=== PATIENT | female | born 1950 | race Caucasian/White ===

== ENCOUNTER → 2021-01-29 | Outpatient (CLI) | payer MEDICARE ==
--- NOTE | 2021-01-29 11:41 | Diagnostic Imaging Report ---
PROCEDURE: CT urinary tract, rule out kidney stone. TECHNIQUE: Multiple contiguous axial images were obtained through the abdomen and pelvis without the use of intravenous contrast. Auto Exposure Controls were utilized during the CT exam to meet ALARA standards for radiation dose reduction. INDICATION: Recurrent urinary tract infection. FINDINGS: Images through the lower thorax reveal coronary artery calcifications. Unenhanced images of the liver reveal no focal lesion. Gallbladder is surgically absent. Spleen is also absent. There is distention of the stomach with fluid. There is no evidence of pancreatic or adrenal gland abnormality. Kidneys demonstrate lobular cortical contour without discrete mass or hydronephrosis. There is no evidence of renal or ureteric stone. No hydronephrosis or hydroureter is seen. There is no evidence of free fluid within the abdomen or pelvis. Unopacified bladder is unremarkable. There is mild prominence of bladder wall thickness although this is difficult to assess without complete distention. Lower lumbar degenerative disc disease is noted. IMPRESSION: No evidence of urinary tract calculus or obstruction. Bladder wall is mildly thickened and cystitis is not excluded. Note is made of previous cholecystectomy, splenectomy and coronary artery disease. Dictated by: Dictated on workstation # [id number]
== END ==
LOC: RAD FS 11:00
PROVIDERS: ATTEND Internal Medicine Nephrology
DX: N39.0 Urinary tract infection, site not specified (principal); E11.21 Type 2 diabetes mellitus with diabetic nephropathy; E11.22 Type 2 diabetes mellitus with diabetic chronic kidney disease; N18.31 Chronic kidney disease, stage 3a; I25.10 Atherosclerotic heart disease of native coronary artery without angina pectoris; N32.89 Other specified disorders of bladder; Z90.49 Acquired absence of other specified parts of digestive tract
CPT/HCPCS: 74176

== ENCOUNTER → 2021-02-14 | Outpatient (CLI) | payer MEDICARE | LOC: CARD 12:52 | PROVIDERS: ATTEND Internal Medicine Cardiovascular Disease | DX: I34.0 Nonrheumatic mitral (valve) insufficiency (principal); I51.7 Cardiomegaly; I25.10 Atherosclerotic heart disease of native coronary artery without angina pectoris; I70.1 Atherosclerosis of renal artery; I65.29 Occlusion and stenosis of unspecified carotid artery | CPT/HCPCS: 93306 ==

== ENCOUNTER 2021-03-06 13:33 | Emergency (ER) | payer MEDICARE ==
[~2021-03-06] VITALS: Ht 172 cm; Wt 120.4 kg
--- NOTE | 2021-03-06 14:18 | ED GI ---
General Chief Complaint: Abdominal/GI Problems Stated Complaint: DIAHRRHEA X4 DAYS, PANCREATITIS FLARING UP Nursing Triage Note: TO ED PER W/C WITH [address] REPORTS UPPER ABD PAIN X4 DAYS WITH DIARRHEA AND NAUSEA. ATE GRENADIAN LAST NIGHT . HAS MUTIPLE HEALTH ISSUES Sepsis Screen: No Definite Risk (NIDHI TORRES MED STUDENT) History of Present Illness Date Seen by Provider: Mar 06, 2021 Time Seen by Provider: 14:05 Initial Comments Mrs. Wayne is a 70yo female that presents today with 4 days of Upper abdominal pain and diarrhea. She states that both symptoms started about 4 days ago and have been getting worse since. Describes pain as intermittent, Sharp, non radiating pain that is worse in the upper quadrants bilaterally and epigastric. Has been very nauseous but no episodes of vomiting. Appetite is decreased. Last meal was yesterday followed by episode of diarrhea. Denies bloody stools but states stools are oily which is unusual for her. She states that besides food, she has not noticed anything that makes it worse, she stopped taking her metoclopramide when the diarrhea started. 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 This was in 2017 and she states that since this occured she has not had another flare up. Timing/Duration: 3-4 Days Severity/Quality: Moderate, Cramping, Sharp Location: RUQ, LUQ, Epigastric Radiation: No Radiation Activities at Onset: None Modifying Factors: Improves With Eating Associated Symptoms: No Chest Pain; Headache; No Heartburn; Nausea/Vomiting (no vomiting), Shortness of Air (coughing green sputum) (NIDHI TORRES MED STUDENT) Allergies and Home Medications Allergies Coded Allergies: Cephalosporins (Verified Allergy, Unknown, 03/06/21) Sulfa (Sulfonamide Antibiotics) (Verified Allergy, Unknown, 03/06/21) fenofibrate (Verified Allergy, Unknown, 03/06/21) gabapentin (Verified Allergy, Unknown, 03/06/21) levofloxacin (Verified Allergy, Unknown, 03/06/21) naloxone (Verified Allergy, Unknown, 03/06/21) Uncoded Allergies: CONTRAST (Allergy, Unknown, 03/06/21) Home Medications Azithromycin 250 Mg Tablet, 250 MG PO UD TAKE 2 TABLETS ON DAY ONE THEN TAKE 1 TABLET DAILY FOR FOUR MORE DAYS Prescribed by: DEBBIE CHAMPION on 03/06/21 1649 Ondansetron 4 Mg Tab.rapdis, 4 MG PO Q4H PRN for NAUSEA/VOMITING Prescribed by: DEBBIE CHAMPION on 03/06/21 1650 Patient Home Medication List Home Medication List Reviewed: Yes (NIDHI TORRES) Review of Systems Review of Systems Constitutional: No chills, No dizziness, No fever Respiratory: Cough (Green sputum), Shortness of Air Cardiovascular: Denies Chest Pain, Denies Edema; Palpitations Gastrointestinal: Abdomen Distended, Abdominal Pain; Denies Blood Streaked Stools, Denies Constipated; Diarrhea; Denies Difficulty Swallowing; Nausea, Poor Appetite; Denies Rectal Bleeding, Denies Vomiting Genitourinary: Denies Burning, Denies Frequency, Denies Hematuria Musculoskeletal: No joint pain Skin: No rash (NIDHI TORRES) EENTM: No Symptoms Reported Psychiatric/Neurological: No Symptoms Reported Endocrine: No Symptoms Reported (DEBBIE DE LEON MD) Past Qnrbkug-Vwagek-Utmkyy Hx Past Med/Social Hx: Reviewed Nursing Past Med/Soc Hx (DEBBIE DE LEON MD) Patient Social History Alcohol Use: Denies Use Smoking Status: Never a Smoker Recent Infectious Disease Expo: No (NIDHI TORRES) Past Medical History Surgeries: Yes (SPLEEN) Appendectomy, Gallbladder, Orthopedic, Pancreatic, Tonsillectomy Cardiac: Yes (heart stent) Angina Gastrointestinal: Yes Pancreatitis Musculoskeletal: Yes Rheumatoid Arthritis Diabetes, Insulin dep (NIDHI TORRES) Respiratory: Yes (Uses oxygen supplementation continuously) Genitourinary: Yes Renal Failure (CKD) (DEBBIE DE LEON MD) Physical Exam Vital Signs Vital Signs - First Documented 03/06/21 03/06/21 13:38 17:08 Temp 35.3 Pulse 65 Resp 18 B/P (MAP) 116/50 (72) Pulse Ox 97 O2 Delivery Room Air O2 Flow Rate 3.00 (DEBBIE DE LEON MD) Vital Signs Capillary Refill : Less Than 3 Seconds (NIDHI TORRES) Height/Weight/BMI Height: '" Weight: lbs. oz. kg; 40.00 BMI Method: General Appearance: WD/WN, mild distress, obese HEENT: other (Oral mucosa moist) Respiratory: chest non-tender, crackles (RLL) Cardiovascular: regular rate, rhythm, no edema, no murmur Peripheral Pulses: 2+ Radial Pulses (R), 2+ Radial Pulses (L) Gastrointestinal: normal bowel sounds, soft, no organomegaly, no pulsatile mass; No guarding; tenderness (RUQ, LUQ, Epigastric); No hernia, No mass Rectal: deferred Extremities: non-tender, no pedal edema Neurologic/Psychiatric: alert, normal mood/affect, oriented x 3 Skin: normal color, warm/dry (MELISSA,NIDHI MED STUDENT) Progress/Results/Core Measures Results/Orders Lab Results Laboratory Tests Test 03/06/21 14:19 03/06/21 14:30 03/06/21 14:47 03/06/21 14:48 Range/Units Urine Color YELLOW Urine Clarity CLEAR Urine pH 5.5 5-9 Urine Specific Wilson 1.020 1.016-1.022 Urine Protein TRACE H NEGATIVE Urine Glucose (UA) NEGATIVE NEGATIVE Urine Ketones NEGATIVE NEGATIVE Urine Nitrite NEGATIVE NEGATIVE Urine Bilirubin NEGATIVE NEGATIVE Urine Urobilinogen 0.2 < = 1.0 MG/DL Urine Leukocyte Esterase TRACE H NEGATIVE Urine RBC (Auto) NEGATIVE NEGATIVE Urine RBC RARE /HPF Urine WBC 5-10 H /HPF Urine Squamous Epithelial Cells 5-10 /HPF Urine Crystals NONE /LPF Urine Bacteria TRACE /HPF Urine Casts PRESENT /LPF Urine Hyaline Casts 10-25 H /LPF Urine Mucus SMALL H /LPF Urine Culture Indicated YES White Blood Count 12.8 H 4.3-11.0 10^3/uL Red Blood Count 4.07 3.80-5.11 10^6/uL Hemoglobin 12.4 11.5-16.0 g/dL Hematocrit 39 35-52 % Mean Corpuscular Volume 95 80-99 fL Mean Corpuscular Hemoglobin 31 25-34 pg Mean Corpuscular Hemoglobin Concent 32 32-36 g/dL Red Cell Distribution Width 14.5 10.0-14.5 % Platelet Count 362 130-400 10^3/uL Mean Platelet Volume 10.0 9.0-12.2 fL Immature Granulocyte % (Auto) 1 % Neutrophils (%) (Auto) 67 42-75 % Lymphocytes (%) (Auto) 18 12-44 % Monocytes (%) (Auto) 10 0-12 % Eosinophils (%) (Auto) 5 0-10 % Basophils (%) (Auto) 1 0-10 % Neutrophils # (Auto) 8.5 H 1.8-7.8 10^3/uL Lymphocytes # (Auto) 2.3 1.0-4.0 10^3/uL Monocytes # (Auto) 1.2 H 0.0-1.0 10^3/uL Eosinophils # (Auto) 0.6 H 0.0-0.3 10^3/uL Basophils # (Auto) 0.1 0.0-0.1 10^3/uL Immature Granulocyte # (Auto) 0.1 0.0-0.1 10^3/uL Sodium Level 137 135-145 MMOL/L Potassium Level 4.3 3.6-5.0 MMOL/L Chloride Level 101 98-107 MMOL/L Carbon Dioxide Level 24 21-32 MMOL/L Anion Gap 12 5-14 MMOL/L Blood Urea Nitrogen 31 H 7-18 MG/DL Creatinine 1.61 H 0.60-1.30 MG/DL Estimat Glomerular Filtration Rate 32 BUN/Creatinine Ratio 19 Glucose Level 74 70-105 MG/DL Calcium Level 9.8 8.5-10.1 MG/DL Corrected Calcium 9.7 8.5-10.1 MG/DL Total Bilirubin 0.4 0.1-1.0 MG/DL Aspartate Amino Transf (AST/SGOT) 23 5-34 U/L Alanine Aminotransferase (ALT/SGPT) 14 0-55 U/L Alkaline Phosphatase 55 40-136 U/L C-Reactive Protein High Sensitivity 1.36 H 0.00-0.50 MG/DL Total Protein 7.7 6.4-8.2 GM/DL Albumin 4.1 3.2-4.5 GM/DL Lipase 29 8-78 U/L B-Type Natriuretic Peptide 18.2 <100.0 PG/ML SARS-CoV-2 RNA (RT-PCR) Not Detected Not Detecte (DEBBIE DE LEON MD) My Orders Orders - DEBBIE DE LEON MD Cbc With Automated Diff (03/06/21 13:37) Comprehensive Metabolic Panel (03/06/21 13:37) Hs C Reactive Protein (03/06/21 13:37) Lipase (03/06/21 13:37) Ua Culture If Indicated (03/06/21 13:37) Ed Iv/Invasive Line Start (03/06/21 13:37) Urine Culture (03/06/21 14:19) Ns Iv 1000 Ml (Sodium Chloride 0.9%) (03/06/21 15:15) Covid 19 Inhouse Test (03/06/21 15:04) Chest Pa/Lat (2 View) (03/06/21 15:06) BNP (03/06/21 15:06) Monitor-Rhythm Ecg Trace Only (03/06/21 15:06) Ondansetron Injection (Zofran Injectio (03/06/21 15:45) (DEBBIE DE LEON MD) Medications Given in ED (DEBBIE DE LEON MD) Vital Signs/I&O 03/06/21 03/06/21 13:38 17:08 Temp 35.3 Pulse 65 64 Resp 18 18 B/P (MAP) 116/50 (72) 146/64 Pulse Ox 97 95 O2 Delivery Room Air Nasal Cannula O2 Flow Rate 3.00 (DEBBIE DE LEON MD) Blood Pressure Mean: 72 Progress Progress Note : Progress Note Patient reports some diarrhea associated with respiratory symptoms. For this reason a COVID-19 swab was obtained. It was negative. Labs showed no evidence of pancreatitis. She did seem dry based on her work-up although baseline labs are not available. A liter of IV fluid was infused. Nausea was treated with Zofran. Urinary tract infection was suspected based on urinalysis. Chest x-ray showed some pleural thickening versus effusion. Given her symptoms and possible urinary tract infection, antibiotic therapy was felt appropriate. However, she has numerous antibiotic allergies that make antibiotic selection quite difficult. For now we will use a azithromycin. Nitrofurantoin cannot be used at this time due to her present GFR. She should follow-up with her primary care provider to review cultures. See discharge instructions. There was a lymphocytic predominance on her CBC differential and CRP was low which would suggest her GI symptoms may be viral in nature. (DEBBIE DE LEON MD) Diagnostic Imaging Diagonstic Imaging: Xray Plain Films/CT/US/NM/MRI: chest Comments NAME: BRAD WAYNE REC#: [id number] PT STATUS: REG ER : 1950 PHYSICIAN: DEBBIE DE LEON MD ADMIT DATE: 03/06/21/ER Signed Date of Exam:03/06/21 CHEST PA/LAT (2 VIEW) INDICATION: Cough, shortness of air. COMPARISON: None available. TECHNIQUE: Two radiographs of the chest dated 03/06/2021. FINDINGS: The cardiac silhouette is within normal limits in size. No significant pulmonary vascular congestion. Mild elevation of the right hemidiaphragm. Mild blunting of the right lateral costophrenic angle. The lungs are otherwise clear of focal pulmonary opacity. No left pleural effusion. No pneumothorax. Surgical clips overlying the right neck. Mild scattered osseous degenerative changes without acute osseous abnormality. IMPRESSION: Mild elevation of the right hemidiaphragm with trace right pleural thickening versus less likely trace pleural fluid laterally on the right. Dictated by: Dictated on workstation # [id number] Dict: 03/06/21 1600 Trans: 03/06/21 1610 [facility] [id number] Interpreted by: HORACIO VARGAS MD Electronically signed by: HORACIO VARGAS MD 03/06/21 1610 (DEBBIE DE LEON MD) Departure Impression Primary Impression: Cough Additional Impressions: Upper abdominal pain Diarrhea Qualified Codes: R19.7 - Diarrhea, unspecified Urinary tract infection Qualified Codes: N39.0 - Urinary tract infection, site not specified Acute kidney injury superimposed on chronic kidney disease Disposition: HOME, SELF-CARE Condition: Improved Departure-Patient Inst. Decision time for Depature: 16:47 (DEBBIE DE LEON MD) Referrals: SABA GORMAN APRN (PCP) Primary Care Physician RAMIRO JOHNS MD Patient Instructions: Diarrhea, Adult ED Add. Discharge Instructions: Drink plenty of water to stay well-hydrated. Follow-up with your primary care provider after 48 hours to review urine culture results to determine if other antibiotics are appropriate. Complete your antibiotics as prescribed. As an alternative to Reglan (metoclopramide) while you have diarrhea, you may use Zofran (ondansetron). This should help with nausea without worsening your diarrhea. Call with questions or concerns. Follow-up for a checkup and repeat examination with your primary care provider within the next week or so. Return to the emergency room if you have worsening symptoms. Dr. Johns's phone number is listed below for your convenience. You may call his office to see if the referral has gone through for your urology assessment. All discharge instructions reviewed with patient and/or family. Voiced understanding. Scripts Ondansetron (Ondansetron Odt) 4 Mg Tab.rapdis 4 MG PO Q4H PRN for NAUSEA/VOMITING, #10 TAB Prov: DEBBIE DE LEON MD 03/06/21 Azithromycin (Azithromycin) 250 Mg Tablet 250 MG PO UD, #6 TAB TAKE 2 TABLETS ON DAY ONE THEN TAKE 1 TABLET DAILY FOR FOUR MORE DAYS Prov: DEBBIE DE LEON MD 03/06/21 Medical Student Attestation and Attending Note: I have personally interviewed and examined this patient along with Nidhi Torres MS4. I have reviewed student documentation including history, physical, and assessments. I agree with the documentation except where otherwise noted. Exam: General: Alert, oriented, no acute distress, well developed HEENT: Normocephalic and atraumatic Heart: Regular rate and rhythm without murmur Lungs: Subtle crackles in right lower lung, no wheezing, normal effort Abdomen: Soft, nontender, mild tenderness across the upper abdomen, normal bowel sounds Neuropsych: Alert, oriented, no focal deficits Skin: Warm and dry without rashes (DEBBIE DE LEON MD) Copy Copies To 1: SOFYA ESPOSITO DEREK MED STUDENT Mar 06, 2021 14:18 DEBBIE DE LEON MD Mar 06, 2021 16:51
[2021-03-06 14:22] LABS: BILIRUBIN,URINE NEGATIVE (NEGATIVE); CLARITY,URINE CLEAR; COLOR,URINE YELLOW; GLUCOSE, URINE (UA) NEGATIVE (NEGATIVE); KETONES,URINE NEGATIVE (NEGATIVE); LEUKOCYTE ESTERASE ,URINE TRACE (NEGATIVE); NITRITE,URINE NEGATIVE (NEGATIVE); PH,URINE 5.5 (5-9); PROTEIN,URINE TRACE (NEGATIVE)
[2021-03-06 14:32] LABS: BACTERIA,URINE TRACE /HPF; RBC,URINE RARE /HPF
[2021-03-06 14:37] LABS: BASOPHILS # (AUTO) 0.1 10^3/uL (0.0-0.1); BASOPHILS % (AUTO) 1 % (0-10); EOSINOPHILS # (AUTO) 0.6 10^3/uL (0.0-0.3); EOSINOPHILS % (AUTO) 5 % (0-10); HEMATOCRIT 39 % (35-52); HEMOGLOBIN 12.4 g/dL (11.5-16.0); LYMPHOCYTES # (AUTO) 2.3 10^3/uL (1.0-4.0); LYMPHOCYTES % (AUTO) 18 % (12-44); MEAN CORPUSCULAR HEMOGLOBIN 31 pg (25-34); MEAN CORPUSCULAR HGB CONC 32 g/dL (32-36); MEAN CORPUSCULAR VOLUME 95 fL (80-99); MONOCYTES # (AUTO) 1.2 10^3/uL (0.0-1.0); MONOCYTES % (AUTO) 10 % (0-12); NEUTROPHILS # (AUTO) 8.5 10^3/uL (1.8-7.8); NEUTROPHILS % (AUTO) 67 % (42-75); PLATELET COUNT 362 10^3/uL (130-400); WHITE BLOOD COUNT 12.8 10^3/uL (4.3-11.0)
[2021-03-06 14:47] LABS: ALBUMIN 4.1 GM/DL (3.2-4.5)
[2021-03-06 14:48] LABS: POTASSIUM 4.3 MMOL/L (3.6-5.0)
[2021-03-06 14:49] LABS: CALCIUM 9.8 MG/DL (8.5-10.1)
[2021-03-06 14:50] LABS: TOTAL PROTEIN 7.7 GM/DL (6.4-8.2)
[2021-03-06 14:52] LABS: BILIRUBIN,TOTAL 0.4 MG/DL (0.1-1.0)
[2021-03-06 14:54] LABS: CREATININE SERUM 1.61 MG/DL (0.60-1.30)
[2021-03-06] MEDS ORDERED: NS IV 1000 ML 1,000 ML IV ONE (15:15)
[2021-03-06] MEDS ORDERED: ONDANSETRON 4 MG/2 ML (SDV) Z0FRAN IVP ONE (15:45)
--- NOTE | 2021-03-06 16:04 | Diagnostic Imaging Report ---
INDICATION: Cough, shortness of air. COMPARISON: None available. TECHNIQUE: Two radiographs of the chest dated 03/06/2021. FINDINGS: The cardiac silhouette is within normal limits in size. No significant pulmonary vascular congestion. Mild elevation of the right hemidiaphragm. Mild blunting of the right lateral costophrenic angle. The lungs are otherwise clear of focal pulmonary opacity. No left pleural effusion. No pneumothorax. Surgical clips overlying the right neck. Mild scattered osseous degenerative changes without acute osseous abnormality. IMPRESSION: Mild elevation of the right hemidiaphragm with trace right pleural thickening versus less likely trace pleural fluid laterally on the right. Dictated by: Dictated on workstation # [id number]
[2021-03-06] MEDS ORDERED: AZIT250T12 PO (16:49)
[2021-03-06] MEDS ORDERED: ONDA4TAB11 PO (16:50)
[2021-03-06 17:08] VITALS: BP 146/64
== END 2021-03-06 17:26 | disposition home or self-care (01) ==
LOC: EDUNIT# 13:33 → ER 13:35
DX: N39.0 Urinary tract infection, site not specified (principal); R19.7 Diarrhea, unspecified; R05 Cough; N17.9 Acute kidney failure, unspecified; I12.9 Hypertensive chronic kidney disease with stage 1 through stage 4 chronic kidney disease, or unspecified chronic kidney disease; N18.9 Chronic kidney disease, unspecified; R06.02 Shortness of breath; E66.9 Obesity, unspecified; Z68.41 Body mass index [BMI] 40.0-44.9, adult
CPT/HCPCS: 36415; 71046; 80053; 81000; 83690; 83880; 85025; 86141; 87077; 87088; 87636

== ENCOUNTER → 2021-04-04 | Outpatient (CLI) | payer MEDICARE ==
[~2021-04-04] MED LIST: AZIT250T12 PO; CATHETER FLUSH 10 ML SYR IV PRN; ONDA4TAB11 PO; REGADENOSON 0.4 MG/5 ML SYR (LEXISCAN) IV ONE
[2021-04-04 09:29] VITALS: BP 168/94
--- NOTE | 2021-04-06 12:51 | Cardiology Stress Test Report ---
Stress Test Report Date of Procedure/Referring: Date of Procedure: Apr 04, 2021 PCP Rony Mireles MD Admitting Physician Betty Denney Aprn Indications: CAD Baseline Heart Rate: 87 Baseline Blood Pressure: Blood Pressure Systolic: 168 Blood Pressure Diastolic: 94 Baseline Vitals Vital Signs Date Time Temp Pulse Resp B/P (MAP) Pulse Ox O2 Delivery O2 Flow Rate FiO2 04/04/21 09:29 89 14 168/94 (118) 96 Room Air Baseline EKG: Baseline EKG: NSR Summary After explaining the procedure to the patient, she signed a consent and then brought to the stress nuclear laboratory. Patient received 0.4 mg Lexiscan for stress test, ECG, heart rate and blood pressure were monitored continuously. Resting and stress dose of radio tracer were injected, imaging was acquired and reviewed in short axis, horizontal long axis and vertical long axis views. TID: 1.09 SSS: 13 SDS: 9 1. Patient tolerated Lexiscan well 2. Reversible ischemia involving the anterior wall, anterior lateral wall and anterior septum 3. Normal left ventricular size, EF 53% RONY MIRELES MD Apr 06, 2021 12:51
== END ==
LOC: CARD 08:30
PROVIDERS: ATTEND Internal Medicine Cardiovascular Disease
DX: I25.10 Atherosclerotic heart disease of native coronary artery without angina pectoris (principal); I65.29 Occlusion and stenosis of unspecified carotid artery; I70.1 Atherosclerosis of renal artery
CPT/HCPCS: 78452; 93017; A9502

== ENCOUNTER 2021-06-11 11:47 | Emergency (ER) | payer MEDICARE ==
[~2021-06-11] VITALS: Ht 172.7 cm; Wt 120.4 kg
[~2021-06-11 11:47] MED LIST changes: -CATHETER FLUSH 10 ML SYR IV PRN; -REGADENOSON 0.4 MG/5 ML SYR (LEXISCAN) IV ONE
--- OUTSIDE RECORDS SUMMARY | 2021-06-11 11:54 | XMS REPORT | Clinical Summary ---
Author Author [facility] Organization [facility] Address Unknown Phone Unavailable Care Team Providers Care Ore Bridge Operator Name Role Phone PCP Unavailable Allergies Not on File Medications Not on file Active Problems Not on file Social History Date Tobacco Use Types Packs/Day Years Used Never Assessed Sex Assigned at Date Recorded Not on file Last Filed Vital Signs Not on file Plan of Treatment Health Maintenance Due Date Last Done Comments Td/Tdap# 1950 Zoster Vaccine# (1 of 2) 1999 Fall Risk Assessment # 2014 Osteoporosis Screening 2014 Pneumococcal Vaccine: 65+ 2014 Years (1 of 1 - PPSV23) Influenza Vaccine (#1) 2021 Results Not on filefrom Last 3 Months Insurance Type Payer Benefit Subscriber ID Effective Phone Address Plan / Dates Group MEDICARE REPLACEMENT PLAN HU[employer] [id number] 2012-P MEDICARE resent [id number] Faiza Avila Personal/F Self [id number] amily (Home) [place], [place] [address] Advance Directives For more information, please contact: [phone] Patient Long Term Care Phlebotomist Explanation Type Date Recorded Advance Directives and Living Will Power of Learning And Development Assistant
--- OUTSIDE RECORDS SUMMARY | 2021-06-11 11:54 | XMS REPORT | Clinical Summary ---
Author Author [facility] Organization [facility] Address Unknown Phone Unavailable Care Team Providers Care Applications Specialist Name Role Phone PCP Unavailable Source Comments [facility] (Labor and Delivery) documents do not appear [facility] the [facility] Allergies Not on File Medications Please verify current medications with patient. Not on file Active Problems Not on file Social History Date Tobacco Use Types Packs/Day Years Used Never Assessed Sex Assigned at Date Recorded Not on file Last Filed Vital Signs Not on file Plan of Treatment Health Maintenance Due Date Last Done Comments CT Colonography 1950 Colon cancer: DNA-based 1950 stool test (Cologuard) Sigmoidoscopy 1950 gFOBT or FIT 1950 COVID-19 Vaccine (1) 1961 Colonoscopy 1999 Colorectal Cancer 1999 Screening Mammogram 1999 DXA Scan 2014 Pneumococcal Vaccine: 65+ 2014 Years (1 of 1 - PPSV23) Influenza Vaccine (#1) 2021 HPV Vaccine Aged Out No longer eligible based on patient's age to complete this topic Results Not on filefrom Last 3 Months
--- OUTSIDE RECORDS SUMMARY | 2021-06-11 11:55 | XMS REPORT | Encounter Summary ---
Author Author [facility] Organization [facility] Address Unknown Phone Unavailable Care Team Providers Care Dermatologist Managing Partner Name Role Phone Lucie Emery MD Unavailable Rosario Mcknight MD Unavailable Unavailable Jyoti Mejia [phone] Unavailable Marbin Montenegro [address] Marbin Montenegro PCP Reason for Visit * Reason Onset Date Comments Transition Of Care 04/17/2021 Encounter Details Care Team Description Date Type Department Marbin Montenegro [address] [place] [address] Transition Of Care 04/17/2021 Telephone Internal Medicine: [address] [place] [address] Social History Date Tobacco Use Types Packs/Day Years Used Quit: 11/03/1998 Former Smoker Cigarettes 0.5 25 Smokeless Tobacco: Never Used Comments Alcohol Use Standard Drinks/Week Not Currently 0 (1 standard drink = 0.6 o z pure alcohol) Sex Assigned at Date Recorded Female 12/21/2019 10:27 AM CDT Date Recorded COVID-19 Exposure Response 04/13/2021 3:58 PM CDT In the last month, have you been in contact with No / Unsure someone who was confirmed or suspected to have Coronavirus / COVID-19? documented as of this encounter Functional Status Date of Assessment Functional Status Response 04/13/2021 Does the patient have a hearing impairment: No 10/19/2020 Does the patient have a visual impairment: No 10/19/2020 Does the patient have impaired ambulation: No 10/19/2020 Does the patient have an activity of daily living No (ADL) impairment: 10/19/2020 Does the patient have an instrumental activity of No daily living (IADL) impairment: Date of Assessment Cognitive Status Response 10/19/2020 Does the patient have a cognitive impairment: No documented as of this encounter Miscellaneous Notes * Telephone Encounter - Saritha Wilson RN - 04/17/2021 9:53 AM CDT Hospital Discharge Follow Up Reached Patient:Yes Admission Information: Hospital Name: [facility] Admission Date: 04/12/21 Discharge Date: 04/14/21 Admission Diagnosis: Pain Discharge Diagnosis: angina pectoris, unstable Has there been a discharge within the last 30 days? No If yes, reason: N/A Hospital Services: Unplanned Today's call is 2(business) days post discharge Medication Reconciliation Changes to pre-hospital medications? Yes START taking: cholecalciferol (VITAMIN D3) metFORMIN-XR (GLUCOPHAGE XR) CHANGE how you take: insulin NPH (NOVOLIN N) STOP taking: ergocalciferol (vitamin D2) 1,250 mcg (50,000 unit) capsule (DRISDOL) acetaminophen (TYLENOL) 500 mg tablet Take 1,000 mg by mouth every 6 hours a s needed for Pain. Max of 4,000 mg of acetaminophen in 24 hours. ascorbic acid (VITAMIN C) 500 mg tablet Take 500 mg by mouth daily. aspirin EC 81 mg tablet Take 81 mg by mouth daily. Take with food. atorvastatin (LIPITOR) 40 mg tablet Take one tablet by mouth at bedtime dorothy y. baclofen (LIORESAL) 10 mg tablet TAKE 1 TABLET BY MOUTH THREE TIMES DAILY WI TH FOOD OR MILK FOR 10 DAYS carvediloL (COREG) 25 mg tablet Take 1.5 tablets by mouth twice daily. Take with food. (Patient taking differently: Take 25 mg by mouth daily. Take with ladi d.) cholecalciferol (VITAMIN D3) 50 mcg (2,000 unit) tablet Take one tablet by m outh daily. Cranberry 500 mg cap Take 2 capsules by mouth daily. cycloSPORINE (RESTASIS) 0.05 % ophthalmic emulsion Apply one drop to both ey es twice daily. Indications: keratoconjunctivitis sicca, or dry and inflamed cor lizeth and conjunctiva of the eye ferrous gluconate 324 mg (37.5 mg iron) tab Take one tablet by mouth daily w ith breakfast. insulin NPH (NOVOLIN N) 100 unit/mL injection Inject forty Units under the s kin twice daily. insulin regular (NOVOLIN R) 100 unit/mL injection Inject twelve Units under the skin three times daily before meals. (Patient taking differently: Inject 10- 25 Units under the skin three times daily before meals.) isosorbide mononitrate ER (IMDUR) 60 mg tablet Take one tablet by mouth dorothy y. losartan (COZAAR) 25 mg tablet Take one tablet by mouth daily. meclizine (ANTIVERT) 25 mg tablet Take one tablet by mouth three times daily as needed. metFORMIN-XR (GLUCOPHAGE XR) 500 mg extended release tablet Take two tablets by mouth daily with dinner. metoclopramide (REGLAN) 1 mg/mL oral solution Take 5 mL by mouth three times daily before meals. nitrofurantoin macrocrystaL (MACRODANTIN) 100 mg capsule Take 1 capsule by m outh daily with dinner. nitroglycerin (NITROSTAT) 0.[address] one tablet under tongue every 5 minutes as needed. Max 3 tablets, call 911. nortriptyline (PAMELOR) 50 mg capsule Take one capsule by mouth at bedtime d aily. nystatin (NYSTOP) 100,000 unit/g topical powder Apply topically to pannus ar ea every 12 hours as needed (redness). ondansetron (ZOFRAN) 4 mg tablet Take one tablet by mouth every 8 hours as n eeded for Nausea or Vomiting. pantoprazole DR (PROTONIX) 40 mg tablet Take one tablet by mouth daily. polyethylene glycol 3350 (MIRALAX) 17 g packet Take one packet by mouth twic e daily. (Patient taking differently: Take 17 g by mouth daily.) prednisolone acet-gatifloxacin 1-0.5 % drps Place 1 drop into or around eye( s) twice daily. RYBELSUS 3 mg tablet Take 3 tablets by mouth daily. torsemide (DEMADEX) 20 mg tablet Take three tablets by mouth daily. traZODone (DESYREL) 300 mg tablet Take one tablet by mouth at bedtime daily. Scheduling Follow-up Appointment Upcoming appointment date and time and with whom scheduled: Future Appointments Date Time Provider Department Center 05/02/2021 9:10 AM SUR[facility]ERY [facility] [address] Surgery 05/03/2021 8:45 AM Kevin Domingo MD [address] Surgery 05/03/2021 11:00 AM Katherin Bo PA-C [facility] CVM Exam PCP appointment scheduled?No, patient has established care in [facility] she currently lives PCP primary location: [facility] Gen Medicine Specialist appointment scheduled? Yes, with Gen Surgery 05/02/21 Both PCP and Specialist appointment scheduled: No Is assistance with transportation needed?No [employer] message sent? Active in [employer]. No message sent. Spoke with patient briefly but no AMBER was completed as patient informed me that she has established care with PCP in [place] where she is currently living. Anuj saeed she plans to follow up with them next week. She has no questions or concer ns at this time. Saritha Wilson RN documented in this encounter Plan of Treatment Not on filedocumented as of this encounter Goals Goal Patient Associated Recent Progress Patient-Stat Aut hor Goal Type Problems ed? GOAL General Worsening No Esteban, (04/13/2021 2:16 PM Roseanna RN CDT) Note: Be independent Assessment 04/13/2021 - patient is having issues being able to bathe herself. No help at home.Song is out of town until July(work related) [facility] On track (04/13/2021 Yes Dorota Paris, 2:18 PM CDT) RN Note: I would like to be able to bathe myself. I have a shower chair but I can't get my legs over the lip of the tub. documented as of this encounter Visit Diagnoses Not on filedocumented in this encounter Additional Health Concerns Assessment Noted Time PHQ-9 Depression Total Score: 15 11/10/2019 3:00 PM INFORMATION SYSTEMS ARCHITECT A fall risk assessment has been completed for the pat ient 04/14/2021 8:17 AM CDT PHQ-2 Depression Total Score: 0 10/19/2020 9:27 AM INFORMATION SYSTEMS ARCHITECT documented as of this encounter
--- OUTSIDE RECORDS SUMMARY | 2021-06-11 11:55 | XMS REPORT | Encounter Summary ---
Author Author [facility] Organization [facility] Address Unknown Phone Unavailable Care Team Providers Care Cargoman Name Role Phone Lucie Emery MD Unavailable Rosario Mcknight MD Unavailable Unavailable Jyoti Mejia [phone] Unavailable Marbin Montenegro MBBS 100 Kevin Domingo MD Unavailable Betty Denney APRN PCP Reason for Referral * Consult, Test & Treat (Routine) Referred By Contact Referred To Contact Status Reason Specialty Diagnoses / Procedures Katherin Bo PA-C [address] [place] [id number] New Request Procedures REQUEST FOR CARDIOLOGY APPOINTMENT Electronically signed by Katherin Bo PA-C at Reason for Visit * Reason Comments Post-hospital Follow Up 04/13-04/14/21 Angina Encounter Details Care Team Description Date Type Department Katherin Bo PA-C [address] [id number] Post-hospital Follow Up (04/13-04/14/21 Ang linda ) 05/03/2021 Office Visit Cardiology: [facility], [id number] [place] [address]. [address], [address] [place] [address] Social History Date Tobacco Use Types Packs/Day Years Used Quit: 11/03/1998 Former Smoker Cigarettes 0.5 25 Smokeless Tobacco: Never Used Comments Alcohol Use Standard Drinks/Week Not Currently 0 (1 standard drink = 0.6 o z pure alcohol) Sex Assigned at Date Recorded Female 12/21/2019 10:27 AM CDT Date Recorded COVID-19 Exposure Response 05/03/2021 8:18 AM CDT In the last month, have you been in contact with No / Unsure someone who was confirmed or suspected to have Coronavirus / COVID-19? documented as of this encounter Last Filed Vital Signs Reading Time Taken Comments Vital Sign 108/50 05/03/2021 11:06 AM CDT Blood Pressure 69 05/03/2021 11:06 AM CDT Pulse - - Temperature - - Respiratory Rate 94% 05/03/2021 11:06 AM CDT Oxygen Saturation - - Inhaled Oxygen Concentration 119.9 kg (264 lb 6.4 oz) 05/03/2021 11:06 AM CDT Weight 172.7 cm (5' 8") 05/03/2021 11:06 AM CDT Height 40.2 05/03/2021 11:06 AM CDT Body Mass Index documented in this encounter Functional Status Date of Assessment [...] impairment: No documented as of this encounter Patient Instructions * Patient Instructions* Jolie Tomlin, SUMANTH - 05/03/2021 11:00 AM CDT Call [phone] in ONE month, end of May, to make a follow up appointmen t to see Dr. Salazar in SIX months, November of 2021. Please see updated medication list below for changes. 1. DECREASE Coreg to 12.5 mg twice daily. (May cut your current 25 mg tablets i n half. New prescription will be for 12.5 mg tablets. 2.DECREASE Demadex to 40 mg daily 3. INCREASE Imdur to 90 mg daily Please contact the cardiology [facility], Dr. Salazar and Katherin Bo's team, if you have any questions or concerns. Call the nurses at [phone] or send an email through the [employer] system if you have non-urgent concerns. We will get ba ck to you as soon as possible. For urgent or after hours needs, please call [phone]. NOTE: [employer] messages and phone calls received on weekends, on holidays, and af ter 4 pm on week will NOT be seen until the following business day. If you h ave an urgent matter during these times, please call [phone] to reach the o n-call team. If you need prescription refills, please contact your pharmacy. documented in this encounter Ordered Prescriptions Start Date End Date Prescription Sig Dispensed Refills 05/03/2021 torsemide (DEMADEX) 20 mg Take two 180 tablet 1 tabletIndications: tablets by Essential hypertension, mouth daily. Pure hypercholesterolemia, Chronic heart failure with preserved ejection fraction (HFpEF) (HCC), Coronary artery disease due to lipid rich plaque, Stage 3 chronic kidney disease, unspecified whether stage 3a or 3b CKD (HCC) 05/03/2021 isosorbide mononitrate ER Take 1.5 135 tablet 1 (IMDUR) 60 mg tablet tablets by mouth daily. 05/03/2021 carvediloL (COREG) 12.5 Take one 180 tablet 1 mg tablet tablet by mouth twice daily. Take with food. documented in this encounter Progress Notes * Katherin Bo PA-C - 05/03/2021 11:00 AM CDT Images from the original note were not included. Date of Service: 05/03/2021 Faiza Avila is a 70 y.o. female. HPI I wanted to send you an update on your patient, Faiza Avila, who I saw for h ospital followup in the Cardiovascular Medicine clinic at [facility]. As you recall, Faiza is a 70 yr old with depression, CVA/TIA with b/l CEA's (20 19), HFpEF,CAD status post PCI x4,chronic angina,HTN, HLD, PVD, renal art dipesh stenosis status post stenting,chronic hypoxic respiratory failure with oxy gen dependency,KANDACE,esophageal stricture status post dilatation,GERD, CKD I II, [id number] by gastroparesis and peripheral neuropathy, cervical spinal stenosis, fibromyalgia, chronic back pain, benign pancreatic tumor status post resection, status post splenectomy, chronic anemia, and obesity. She is regula rly followed by Dr. Salazar. She was seen by Katelyn MORAN in September with mild hypervolemia but given her CKD stage III was continued on current diuretic therapy. She had reported chest discomfort, nonexertional but felt to be GERD related. Unfortunately she was hospitalized from April and April 13 to April 14, 2021 after p resenting to the ED with chest pain. Cardiac markers were negative, EKG was wit hout acute changes. She was initiated on heparin drip and taken to the Radiological Technologist on 04/13/2021 revealing patent stent in the proximal LAD, 30 to 40% mid stenosis, diagonal 2 had an ostial 30%, left left circumflex had a 50% stenosis at the bi furcation of the OM1, RCA was a medium size vessel with a patent stent followed by a 30% distal stenosis. The PDA and the PLV were small but without disease. She had normal LVEDP 8 mmHg and was treated with IV hydration and continued on a ggressive risk management. She was seen by Dr. Duncan the vascular clinic today to follow-up on her periphe ral vascular disease. She had ABIs yesterday with normal biphasic waveforms in both posterior tibials and dorsalis pedis arteries. ABIs on the right were nonc ompressible, JUANJOSE was 1.03. Due to her prior carotid endarterectomies he is orde red a repeat carotid duplex will be obtained at [place]. Since her cardiac catheterization she has had one episode of chest discomfort, n onexertional occurring last week relieved with 2 nitroglycerin. She endorses re ducing her carvedilol to 25 mg once a day 1 month ago due to soft blood pressure readings. Diary shows improvement with systolics ranging in the 100s to 120s. She was seen at her PCPs office 2 weeks ago with systolics in the 70s but reche cked with. Vitals: 05/03/21 1106 BP: 108/50 BP Source: Arm, Left Upper Patient Position: Sitting Pulse: 69 SpO2: 94% Weight: 119.9 kg (264 lb 6.4 oz) Height: 1.727 m (5' 8") PainSc: Zero Body mass index is 40.2 kg/m. Past Medical History Patient Active Problem List Diagnosis Date Noted Angina pectoris, unstable ([facility]) 04/13/2021 Chest pain 10/27/2020 Interstitial pulmonary disease, unspecified ([facility]) 10/11/2020 Major depressive disorder 10/11/2020 - was on sertraline 150 mg daily previously, but titrated herself off of this - at our last visit in September 2020, we resumed zoloft 2/2 phq-9 score that was consistent with severe depression, she has uptitrated to 150 mg daily - mood is much better, no thoughts of harm, feels hopeful Critical limb ischemia with history of revascularization of same extremity ( [facility]) 10/04/2020 Sepsis ([facility]) 08/28/2020 Sepsis due to urinary tract infection ([facility]) 07/10/2020 Elevated troponin 07/10/2020 Mood disorder ([facility]) 07/10/2020 H/O renal artery stenosis s/p stent 07/10/2020 PVD (peripheral vascular disease) ([facility]) 07/10/2020 Chronic heart failure with preserved ejection fraction (HFpEF) ([facility]) 020 Acute kidney injury superimposed on CKD ([facility]) 07/10/2020 Non-pressure chronic ulcer of left heel and midfoot with fat layer exposed ( [facility]) 06/21/2020 Diabetic peripheral vascular disorder ([facility]) 06/21/2020 Pseudophakia of both eyes 05/26/2020 Angina pectoris, unspecified ([facility]) 05/09/2020 - chest pain stable; unclear at this time if it is angina vs esophageal spasms . She was referred to GI, and will need EGD to evaluate component of non cardiac chest pain. Nitroglycerin improves pain. Cervical spondylosis Chronic daily headache 02/19/2020 Hypertensive emergency 02/18/2020 Spinal stenosis of lumbar region with neurogenic claudication Obstruction of right tear duct 12/09/2019 - surgery scheduled tomorrow Morbid obesity ([facility]) 11/20/2019 History of partial pancreatectomy distal H/O splenectomy Acute pancreatitis 11/14/2019 - recently hospitalized at the beginning of nov 2019, sxs resolved. Doing well in clinic today without any pain/N/V. Cough 10/26/2019 10/26/2019 Mucinex DM and or Tessalon Perles as needed Orthostasis 10/15/2019 10/15/2019 Orthostatic vitals positive today: Lying 191/88 HR 87, sitting 174/77 HR 83, standing 92/70 HR 85 pt reported dizziness with each position change Given heart failure and CKD along with many other comorbidities optimizing fl uid status will be difficult. Furosemide was already recently decreased from 80 mg to 40 mg. Deconditioning is probably a significant factor as she only gets up / ambulates to go to the bathroom and back. Encouraged to drink right around 2 L of water per dayno more and not much less given size Slow careful position changes Encouraged to look into the Free balance and exercise classes at [facility] with spine center next month, will likely discuss PT Continue close following with cardiology Retinal dot hemorrhage of both eyes 10/13/2019 Nldo, acquired (nasolacrimal duct obstruction), right 10/13/2019 Age-related cataract of both eyes 09/15/2019 - following with Dr. Metcalf in Opthalmology Keratoconjunctivitis sicca (HCC) 09/15/2019 - continue eye drops as needed Hyperglycemia 08/14/2019 Dysuria 08/03/2019 08/03/2019 - POC urine dipstick only shows 25 leuks. Will send to lab for micro/culture/sen sitivity. - encouraged to avoid bladder irritants - list provided - good oral hydration - offered urology referral given recurrence of UTIs - pt declines as she does no t want to undergo any procedures Polypharmacy 06/23/2019 -2018- referral to pharmacy to help with medication management given complexit y of pharmaceuticals, CKD, and CHF. -Reviewed medications today. At this time, she is on multiple medications, but her symptoms are well controlled. She is taking sertraline for depression, she has her coronary artery disease medications: Coreg, Imdur, losartan. She takes torsemide for edema. She takes nitroglycerin as needed. She also takes amitrip tyline for chronic pain and sleep, and she has been on 300 mg of trazodone long- term. She is well aware of the risks of being on multiple medications in simila r classes, but at this time she is not experiencing many negative side effects. Chronic respiratory failure with hypoxia ([facility]) 06/02/2019 Unstable angina ([facility]) 05/31/2019 - hospitalized with unstable angina and HTN urgency in 05/2019 - uses nitroglycerin tabs 1-2 every one -two weeks - given clear boundaries on when to RTC or call (if she has chest pain and requi res three or more nitro; if BP elevated >170/90) Personal history of diabetic foot ulcer 05/25/2019 Above two photos are from last two wound care clinic visits. Pt states that her wound looks exactly like the second photo. She has an appointment next week with Dr. Dickens in wound care clinic. I will defer continued care of left foot ulcer to him. I told her to call me if she has any changes in wound, if she has any feve rs or chills. Status post amputation of toe of left foot ([facility]) 05/25/2019 Diabetic peripheral neuropathy ([facility]) 05/25/2019 Chronic diastolic heart failure ([facility]) 05/25/2019 - States she was told her oxygen requirement is related to her heart failure - patient set up with Cardiology appointment here at with Dr. Salazar - Have requested that patient obtain records for us from [facility] [employer] - currently requiring 3L of O2. - echo from recent hospital stay 05/2019 shows HFpEF, EF ~55% - started on lasix 80 mg qday, coreg 6.125 mg BID, and lisinopril 20 mg qday (wa s initially on BID dosing but had some hypotensive events) Healthcare maintenance 05/25/2019 - physical exam 2019 - colorectal screening - patient reports has been done within last few years, st ates was not abnormal - will need this followed up on and records faxed - mammogram done 2017, pt does not want another - Foot exam done 10/11/2020 of R foot, left foot being examined q2 weeks in wound clinic - pna 23 vaccine done 06/23/2019 in clinic - discussed need for shingles vaccine- pt states she will get FABI (acute kidney injury) ([facility]) 03/12/2018 CKD (chronic kidney disease) stage 3, GFR 30-59 ml/min ([facility]) 03/12/2018 - likely etiology is HTN vs DM -UA with 3+ protein, continue lisinopril - had recent labs done, c/w CKD stage III-IV - sees Nephrology 10/14/2018 Leukocytosis 02/03/2018 Neck pain 02/03/2018 Hypoglycemia 02/01/2018 - decreased insulin to 30 lantus BID, Novolog 18 w/ AM and Lunch, and 25 w/ Di nner w/ instructions to decrease further if continued hypoglycemia occurs - pt states having episodes of BS in 30's QOD - continue metformin 1000 mg BID Risk for falls 03/01/2014 Patient was identified as a high fall risk with fall risk screen today in clin ic. Patient and family were given the CDC "What You Can Do To Prevent Falls" bro chure. Patient will be accompanied by a staff member while ambulating in clinic. Patient verbalizes an understanding. Diabetic polyneuropathy associated with type 2 diabetes mellitus (HCC) 09/08 Likely diabetic PN - numb on PP to knees, elbows; vibration 3 sec at knees, de cr proprioception 10/26/2019 Patient would like to switch from carbamazepine back to amitriptyline due to cost, believes amitriptyline was previously just as effective Wean off carbamazepinecurrently taking 200 mg nightly, decrease to 100 mg nightly x1 week then 100 mg every other day x1 week then stop Start amitriptyline 25 mg nightly could increase dose if needed Headache 08/05/2013 Improved on topamax 50mg BID Dizziness 08/05/2013 Head injury 08/05/2013 History of CVA (cerebrovascular accident) 09/10/2011 [id number] with speech difficulties Gastroparesis 01/19/2008 Carotid stenosis 11/20/2007 History of TIA: S/P Bilateral Carotid endarterectomies with uncontrolled hype rtension. 06/01/19: Carotid Doppler: Mild scattered atherosclerotic plaque bilaterally with out evidence of hemodynamically significant CCA or ICA stenosis Type 2 diabetes mellitus, with long-term current use of insulin (HCC) 2006 - Diabetic foot exam done 10/11/2020 - was on ozempic, but could not afford this medication - continue metformin 1000 mg BID. Patient was on metformin in the past but was t aken off for CKD. GFR currently >50. Will decrease dose if this causes drop in GFR. Will monitor kidney function. - diabetes education referral placed previously, endocrinology referral placed p reviously but pt has not been able to see - she is currently on nph 30 units BID and addresses her short acting based on h er sugars - 10/11/20: blood sugars have been well controlled recently, still having some low s, she is very good at titration of her insulin and keeping track of her numbers - continue following with pharmacy CAD (coronary artery disease) 09/05/2007 S/p PCI/stent to LAD ([facility]) 10/2009; S/P PCI/stent to RCA 04/2014 ([facility]) States she has had ~4 stents in the past hospitalized due to angina and CP rule out (05/08-05/08); ischemic CEBALLOS negative at that time Hospitalized for chest pain and hypertension in July 2020, and then again in August 2020 05/31/19: Echo: EF 65%.Normal LV size and wall thickness. Normal wall motion, EF , and diastolic function. No aortic stenosis. Unable to measure PAP.Normal RV si ze and ejection fraction. 02/2020 Echo: EF 65%. No regional wall motion abnormalities. Normal diastolic fun ction. Normal RV size and function. MAC with trace MR. Peak PAP could not be est imated. Normal aortic root. Overall unchanged from previous study. 06/01/19 Cardiac cath: Patent stents in the proximal LAD as well as right coronar y artery.Mild to moderate diffuse coronary artery disease.Mild increase in left ventricular end-diastolic pressure. 08/2020 CATH: Left main coronary artery: The left main coronary artery arises normally from t he left coronary sinus. It distally trifurcates into left descending artery, ra mus intermedius, and left circumflex artery. It is angiographically free of sig nificant disease. Left anterior descending artery: The left anterior descending artery appears to be a large caliber vessel which has a previously placed stent in the proximal p ortion, which is widely patent without significant in-stent restenosis. The mid LAD has a 20% mild disease. It gives rise to 1 diagonal branch which has an os tial 20% to 30% disease. The distal LAD appears to have mild luminal irregulari ties; otherwise, free of significant disease. Ramus intermedius: The ramus intermedius has a 50% disease in the proximal port ion, which is unchanged from the prior study. Left circumflex artery: The left circumflex artery appears to be a medium calib er vessel which gives rise to 1 large obtuse marginal branch followed by LPL bra nch. The circumflex prior to the takeoff of the obtuse marginal branch has a 30 % to 40% disease, followed by an area of 30% disease distally in the obtuse manpreet inal branch. LPL branch appear to be free of significant disease. Right coronary artery: The right coronary artery arises normally from the right coronary sinus. It distally continues as a PDA branch. The mid RCA has a 30% disease, unchanged from the prior study. 04/13/21 LHC: Patent pLAD and mRCA stents.(unchanged from previous cath). Low LVED P. Hypertension 09/05/2007 - continue current medications: losartan, imdur, coreg now at 25 mg BID - BP at goal for age and co-morbidities GERD (gastroesophageal reflux disease) 09/05/2007 Anxiety and depression 09/05/2007 08/03/2019 - PHQ9 Score: 21 - severe, GAD7 Score: 19 - severe - referral to Dr. Malone already in place - will schedule today - psychiatry referral placed today - [facility] brochure provided - encouraged to try one of their support group s - recommended phone apps for anxiety / stress - see pt instructions - increase sertraline to 150 mg - has f/u with pcp in 1 month 10/26/2019 Start amitriptyline as above for neuropathy. Discussed that once patient is weaned off carbamazepine and at a stable dose of amitriptyline that is controlli ng her neuropathy we could try weaning off sertraline then possibly trazodone Hyperlipemia 09/05/2007 - had period of time where she stopped atorvastatin, now is back on it. Contin ue 40 mg qday. Colonic polyps 09/05/2007 Back pain 09/05/2007 Back surgery 8 years ago - L4/5, another surgery at T11/T12 Fibromyalgia 09/05/2007 - currently on carbamazepine for chronic pain; would like to wean patient off of this in the future - on sertraline for depression and chronic pain - pharmacy referral for polypharmacy History of lumbar laminectomy 1997 L2-4 with post op MRSA revision Review of Systems Constitution: Negative. HENT: Negative. Eyes: Negative. Cardiovascular: Negative. Respiratory: Negative. Endocrine: Negative. Skin: Negative. Musculoskeletal: Negative. Gastrointestinal: Negative. Genitourinary: Negative. Neurological: Negative. Psychiatric/Behavioral: Negative. Allergic/Immunologic: Negative. Physical Exam General Appearance: no acute distress Skin: warm & intact HEENT: unremarkable Neck Veins: neck veins are flat & not distended Carotid Arteries: no bruits, bilateral carotid endarterectomy scars present Chest Inspection: chest is normal in appearance Auscultation/Percussion: lungs clear to auscultation, no rales, rhonchi, or whee zing Cardiac Rhythm: regular rhythm & normal rate Cardiac Auscultation: Normal S1 & S2, no S3 or S4, no rub Murmurs: no cardiac murmurs Extremities: no lower extremity edema; 2+ symmetric distal pulses Abdominal Exam: soft, non-tender, no masses, bowel sounds normal Liver & Spleen: no organomegaly Neurologic Exam: oriented to time, place and person; no focal neurologic deficit s Psychiatric: Normal mood and affect. Behavior is normal. Judgment and thought c ontent normal. Problems Addressed Today Encounter Diagnoses Name Primary? Type 2 diabetes mellitus with stage 3a chronic kidney disease, with long-ter m current use of insulin ([facility]) Yes PVD (peripheral vascular disease) ([facility]) Status post amputation of toe of left foot ([facility]) Essential hypertension Pure hypercholesterolemia H/O renal artery stenosis s/p stent Stage 3a chronic kidney disease ([facility]) Morbid obesity ([facility]) Coronary artery disease of [place] heart with stable angina pectoris, unspeci fied vessel or lesion type ([facility]) Chronic heart failure with preserved ejection fraction (HFpEF) ([facility]) Coronary artery disease due to lipid rich plaque Stage 3 chronic kidney disease, unspecified whether stage 3a or 3b CKD ([facility]) Assessment and Plan 1. CAD with stent to the RCA and LAD in 2009 ([facility]), with microvascular daryn na. She was recently hospitalized with chest pain undergoing repeat cardiac catheter ization on 04/13/2021 revealing patent stents in the proximal LAD 30 to 40% mid st enosis, diagonal 2 had an ostial 30%, RCA had a patent stent. She has known chr onic angina oral isosorbide 60 mg. She is continued on aggressive risk modifica tion with ASA, statin and beta irma therapy. 2. Essential hypertension -She remains on carvedilol 37.5 mg twice daily, losartan 25 mg (taking 1-1/2 tab lets twice a day), and Demadex 60 mg daily. 3. Heart failure with preserved ejection fraction, EF 59%. -She had an echocardiogram in October 2020 showing normal LV function, probable normal LV diastolic function, normal RV size and function, no significant valvul ar heart disease. Due to the low LVEDP of 8 mmHg on recent cath, her Demadex thmopson s been reduced to 40 mg daily. 4. Dyslipidemia -She remains on a atorvastatin 40 mg daily, her LDL in October was 40. 5. CKD stage III -Her baseline serum creatinine is 1.12 -1.4. -Recent BMP showed stable creatinine 1.22. 6. Diabetic mellitus type II -Her recent A1c was 6.1%. She is followed by her PCP for glycemic control. 7. Carotid artery disease status post endarterectomies bilaterally -She was seen by Dr. Domingo in the vascular surgery today. Repeat carotid duple x have been ordered to follow-up on progression. I suspect that Faiza has microvascular angina, she has had persistent chest tatum n despite Imdur 60 mg daily. I have increased her Imdur to 90 mg daily, re-init iated carvedilol at a lower dose of 12.5 mg twice a day and reduce her Demadex f rom 60 mg to 40 mg escalation trade for angina relief. She will follow-up with Dr. Salazar in 6 months. If she has persistent angina w ould recommend initiation of Ranexa. Thank you for allowing me to participate in Ms. Hunter's care. Please feel mitchell e to contact me if I can be of further assistance. Katherin Bo PA-c Current Medications (including today's revisions) acetaminophen (TYLENOL) 500 mg tablet Take 1,000 [...] OR MILK FOR 10 DAYS carvediloL (COREG) 12.5 mg tablet Take one tablet by mouth twice daily. Take with food. cholecalciferol (VITAMIN D3) 50 mcg (2,000 unit) [...] mononitrate ER (IMDUR) 60 mg tablet Take 1.5 tablets by mouth tomy ly. losartan (COZAAR) 25 mg tablet Take one [...] differently: Take 17 g by mouth daily.) RYBELSUS 3 mg tablet Take 3 tablets by mouth daily. sertraline (ZOLOFT) 100 mg tablet Take 1 tablet by mouth every 24 hours. torsemide (DEMADEX) 20 mg tablet Take two tablets by mouth daily. traZODone (DESYREL) 300 mg tablet Take one tablet by mouth at bedtime daily. documented in this encounter Plan of Treatment Not on filedocumented as of this encounter Goals Goal Patient Associated Recent Progress Patient-Stat Aut hor Goal Type Problems ed? GOAL General Worsening No Esteban, (04/13/2021 2:16 PM SUMANTH Condon CDT) Note: Be independent Assessment 04/13/2021 - patient is having issues being able to bathe herself. No help at home.Song is out of town until July(work related) [facility] On track (04/13/2021 Yes Dorota Paris, 2:18 PM CDT) RN Note: I would like to be able to bathe myself. I have a shower chair but I can't get my legs over the lip of the tub. 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 ([facility]) Essential hypertension Unspecified essential hypertension Pure hypercholesterolemia H/O renal artery stenosis s/p stent Personal history of other disorder of u rinary system Stage 3a chronic kidney disease ([facility]) Morbid obesity ([facility]) Morbid obesity Coronary artery disease of [place] heart with stable angina pectoris, unspecified vessel or lesion type ([facility]) Chronic heart failure with preserved ej ection fraction (HFpEF) ([facility]) Stage 3 chronic kidney disease, unspeci fied whether stage 3a or 3b CKD ([facility]) documented in this encounter Discontinued Medications Start Date End Date Medication Sig Discontinue Reason 05/03/[address] 1 drop Patient's acet-gatifloxacin 1-0.5 % into or Choice drps around eye(s) twice daily. 09/04/2020 05/03/2021 carvediloL (COREG) 25 mg Take 1.5 tablet tablets by mouth twice daily. Take with food. 09/18/2020 05/03/2021 torsemide (DEMADEX) 20 mg Take three tabletIndications: tablets by Chronic heart failure mouth daily. with preserved ejection fraction (HFpEF) ([facility]), Coronary artery disease due to lipid rich plaque, Pure hypercholesterolemia, Essential hypertension, Stage 3 chronic kidney disease, unspecified whether stage 3a or 3b CKD ([facility]) 10/11/2020 05/03/2021 isosorbide mononitrate ER Take one (IMDUR) 60 mg tablet tablet by mouth daily. documented as of this encounter Historical Medications * This list may reflect changes made after this encounter. Start Date End Date Medication Sig Dispensed Refills 11/07/2020 sertraline (ZOLOFT) 100 Take 1 tablet 0 mg tablet by mouth every 24 hours. added in this encounter Orders First Ordered Date Appointment Count Last Ordered Date REQUEST FOR CARDIOLOGY APPOINTMENT 1 documented in this encounter Additional Health Concerns Assessment Noted Time PHQ-9 Depression Total Score: 15 11/10/2019 3:00 PM [employer] PHQ-2 Depression Total Score: 0 05/03/2021 8:19 AM CDT documented as of this encounter
--- OUTSIDE RECORDS SUMMARY | 2021-06-11 11:55 | XMS REPORT | Encounter Summary ---
Author Author [facility] Organization [facility] Address Unknown Phone Unavailable Care Team Providers Care Lab Tester Name Role Phone Lucie Emery MD Unavailable Rosario Mcknight MD Unavailable Unavailable Jyoti Mejia [phone] Unavailable Marbin Montenegro MBBS 100 Marbin Montenegro MBBS PCP Reason for Visit * Reason Comments Chest Pain started at 1800 while getti ng up to do laundry, midsternal radiating to back, 05/15, nitro x 6 since onset * Auth/Cert Referred By Contact Referred To Contact Status Reason Specialty Diagnoses / Procedures Diagnoses Angina pectoris, unstable (HCC) Encounter Details Care Team Description Date Type Department Abdriashid Justin MD [id number] [place] [address] ANGIOGRAPHY CORONARY ARTERY WITH LEFT HE ART CATHETERIZATION 04/13/2021 Surgery Laboratory: [facility] [address] [facility] [address] [place] [address] Surgery Details Trauma Case? 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 Interventi Inpatient E lective - 5:35 PM onal Treating Cardiology conditions that are not life or limb threatenin g Panel 1 Procedure LRB Anes Op Region Wound Class Com ments ANGIOGRAPHY CORONARY N/A Sedation ARTERY WITH LEFT HEART CATHETERIZATION PERCUTANEOUS CORONARY N/A Sedation STENT PLACEMENT WITH ANGIOPLASTY Panel Surgeon Surgeon Role Service 1 Abdirashid Justin MD Primary Interventional Ca rdiology Social History Date Tobacco Use Types Packs/Day [...] Signs Reading Time Taken Comments Vital Sign 167/55 04/13/2021 3:53 PM CDT Blood Pressure 70 04/13/2021 3:53 PM CDT Pulse 36.6 C (97.9 F) 04/13/2021 3:52 PM CDT Temperature - - Respiratory Rate 100% 04/13/2021 3:53 PM CDT Oxygen Saturation - - Inhaled Oxygen Concentration 120.2 kg (265 lb) 04/13/2021 2:19 PM CDT Weight 172.7 cm (5' 8") 04/13/2021 2:19 PM CDT Height 40.3 04/13/2021 9:26 PM CDT Body Mass Index documented in this [...] impairment: No documented as of this encounter Discharge Summaries * Mauricio Kaur MD - 04/14/2021 2:45 PM CDT Discharge Summary Name: Brad Avila Date Of : 1950 Age: 70 years Admit date: 04/13/2021 Discharge date: 04/14/2021 Discharge Attending: Mauricio Kaur MD Discharge Summary Completed By: Mauricio Kaur MD Service: [facility] Q- [id number] Reason for hospitalization: Angina pectoris, unstable (HCC) [I20.0] Primary Discharge Diagnosis: Angina pectoris, unstable (HCC) Hypoglycemia Hospital Diagnoses: Hospital Problems Active Problems * (Principal) Angina pectoris, unstable (HCC) Type 2 diabetes mellitus, with long-term current use of insulin (HCC) CAD (coronary artery disease) Anxiety and depression Carotid stenosis CKD (chronic kidney disease) stage 3, GFR 30-59 ml/min (HCC) Unstable angina (HCC) H/O splenectomy Angina pectoris, unspecified (HCC) H/O renal artery stenosis s/p stent Interstitial pulmonary disease, unspecified (HCC) Chest pain Significant Past Medical History Acid reflux Comment: rare; doens't take protonix often Allergy Anxiety and depression Arthritis CAD (coronary artery disease) Comment: x2 stents Cervical spondylosis Chest pain Comment: releived by nitro Chronic back pain Chronic diastolic heart failure (HCC) Comment: - Do not have documented echocardiogram; but patient states she has been diagnosed with CHF - States she was told her oxygen requirement is related to her heart failure - c/o LOBATO, PND, orthopnea - continue lasix, lisinopril; may consider addition of beta irma in the future - patient set up with Cardiology appointment here at with Dr. Salazar - Have requested that patient obtain records for Chronic respiratory failure (HCC) CKD (chronic kidney disease) stage 3, GFR 30-59 ml/min (HCC) Colon polyps Congestive heart disease (HCC) Depression Diabetes mellitus (HCC) Comment: 11-17-19 A1C 6.7; FBS 120-170 Diabetic foot ulcers (HCC) Comment: both feet; healed Fibromyalgia Gastroparesis Generalized headaches H/O splenectomy Heart palpitations Comment: weekly History of CVA (cerebrovascular accident) Comment: presented with speech difficulties; R sided residual History of lumbar laminectomy Comment: L2-4 with post op MRSA revision History of MRSA infection Comment: was cleared of MRSA at [facility] History of partial pancreatectomy Comment: distal HLD (hyperlipidemia) Hypertension Myocardial infarction (HCC) Neuropathy Comment: Diabetic Peripheral Neuropathy; fingers, feet, ankles On home oxygen therapy Comment: 4L with activity and at night Pancreatitis Sleep apnea Comment: noncompliant with Cpap Spinal stenosis of lumbar region with neurogenic claudication Vision decreased Allergies Cephalosporins; Contrast dye iv, iodine containing [iodinated contrast media]; L evofloxacin; Narcan [naloxone]; Gabapentin; Sulfa (sulfonamide antibiotics); and Tricor [fenofibrate micronized] Brief Hospital Course The patient was admitted and the following issues were addressed during this hos pitalization: (with pertinent details including admission exam/imaging/labs). 70-year-old femalewithdepression, prior CVA/TIA, chronic HFpEF,CAD status post PCI x4,chronic angina,HTN, HLD, PVD, renal artery stenosis status post stenting,chronic hypoxic respiratory failure with oxygen dependency,KANDACE,es ophageal stricture status post dilatation,GERD, CKD III, [id number] by g astroparesis and peripheral neuropathy, cervical spinal stenosis, fibromyalgia, chronic back pain, benign pancreatic tumor status post resection, status post sp lenectomy, chronic anemia, and obesitywith BMI 40.29admitted from the ED 04/13 with chest pain. acut emmanuel chronic kenny chest painin the setting of chronic HFpEF,CAD status post PCI x4 HTN, HLD, PVD, and renal artery stenosis status post stenting. -Echocardiogram February 2020 showed EF 65% MAC with trace MR, trace TR, and no other significant findings -[facility] 08/25/20 showedpatent LAD stent with moderate disease involving the ramus and left circumflex -Lowerextremity catheterization 10/09/2020 showed 70% disease involving the prox imal left anterior tibial with congenital absence of left posterior tibial and w ith the left peroneal artery supplying the left posterior tibial artery territor y at the level of the footwith good blush noted at the level of the left heel; 100% occluded right peroneal artery with severe diffuse disease involving the right posterior tibial artery; patent right renal artery stent without significa nt in-stent restenosis. -ECHO 10/27/20showed EF of 60%, borderline left atrial dilatation, peak systoli c PA pressure 30 mmHg, no pericardial effusion -Home regimen: Torsemide 60 mg daily, carvedilol 37.5 mg twice daily, losartan 2 5 mg daily, Imdur ER 60 mg daily, aspirin 81 mg daily, Lipitor 40 mg daily -Reported2-day history ofconstant substernal chest pain with radiation left jaw and left shoulder which is typical for her angina prior cardiac events, Impr philly very slightly with nitro -EKG at [facility] no acute ischemic findings -1 and trend remain negative -Patient supposed to get PCI at [facility] due to the recent worsening /abnormal stress test results per patient (records requested )but the procedure was pushed back 2/2 insurance issues -Patient was started on heparin drip and cardiology consulted and 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 Moderate non obstructive CAD, unchanged from previous cath. Low left ventricular end-diastolic pressure. 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 Also patient chest pain had resolved by then. [id number] by gastroparesis and peripheral neuropathy With episodic hypoglycemia -S1tSsahxzco 2019 was 6.8 -Home regimen: NPH 40 units BID,regular insulin 25 units TID with meals, Metfo rmin 1000 mgBID, nortriptyline 50 mg nightly, -Had multiple episodes of hypoglycemia in the past, today 39 -Endocrinology consulted. Patient discharged home with NPH 40 units nightly,Res ume CARCASS SPLITTER aspart 12 units 3 times daily with meals. , restart PTARybelsus which has been on hold. Restart CARCASS SPLITTER Metformin due to imp roved kidney function. Starting 1000 mg daily for now. Plan to repeat BMP ever y 2 to 3 months to monitor kidney function and GFR. Also SGLT2 inhibitor should be considered down the road as an outpatient. 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 Items Needing Follow Up Pending items or areas that need to be addressed at follow up: cardiology follow up and insulin regimen Pending Labs and Follow Up Radiology Pending labs and/or radiology review at this time of discharge are listed below: if this area is blank, there are no items for review. Medications Medication List START taking these medications cholecalciferol 50 mcg (2,000 unit) tablet; Commonly known as: VITAMIN D3; Dose: 2,000 Units; Take one tablet by mouth daily.; Quantity: 90 tablet; Refills: 1 metFORMIN-XR 500 mg extended release tablet; Commonly known as: GLUCOPHAGE XR; Dose: 1,000 mg; Take two tablets by mouth daily with dinner.; Quantity: 180 tablet; Refills: 0 CHANGE how you take these medications carvediloL 25 mg tablet; Commonly known as: COREG; Dose: 37.5 mg; Take 1.5 tablets by mouth twice daily. Take with food.; Quantity: 180 tablet; Refills: 0; What changed: how much to take, when to take this insulin NPH 100 unit/mL injection; Commonly known as: NOVOLIN N; Dose: 40 Units; Inject forty Units under the skin twice daily.; Refills: 0; What changed: how much to take insulin regular 100 unit/mL injection; Commonly known as: NOVOLIN R; Dose: 12 Units; Inject twelve Units under the skin three times daily before meals.; Quantity: 10 mL; Refills: 0; What changed: how much to take polyethylene glycol 3350 17 g packet; Commonly known as: MIRALAX; Dose: 17 g; Take one packet by mouth twice daily.; Quantity: 12 each; Refills: 0; What changed: when to take this CONTINUE taking these medications acetaminophen 500 mg tablet; Commonly known as: TYLENOL EXTRA STRENGTH; Dose: 1,000 mg; Refills: 0 ascorbic acid 500 mg tablet; Commonly known as: VITAMIN C; Dose: 500 mg; Refills: 0 aspirin EC 81 mg tablet; Dose: 81 mg; Refills: 0 atorvastatin 40 mg tablet; Commonly known as: LIPITOR; Dose: 40 mg; Take one tablet by mouth at bedtime daily.; Quantity: 90 tablet; Refills: 3 baclofen 10 mg tablet; Commonly known as: LIORESAL; Refills: 0 Cranberry 500 mg Cap; Dose: 2 capsule; Refills: 0 cycloSPORINE 0.05 % ophthalmic emulsion; Commonly known as: RESTASIS; Dose: 1 drop; Apply one drop to both eyes twice daily. Indications: keratoconjunctivitis sicca, or dry and inflamed cornea and conjunctiva of the eye; For: keratoconjunctivitis sicca, or dry and inflamed cornea and conjunctiva of the eye; Quantity: 60 each; Refills: 4 ferrous gluconate 324 mg (37.5 mg iron) Tab; Dose: 324 mg; Take one tablet by mouth daily with breakfast.; Quantity: 30 tablet; Refills: 3 isosorbide mononitrate ER 60 mg tablet; Commonly known as: IMDUR; Dose: 60 mg; Take one tablet by mouth daily.; Quantity: 90 tablet; Refills: 0 losartan 25 mg tablet; Commonly known as: COZAAR; Dose: 25 mg; Take one tablet by mouth daily.; Quantity: 90 tablet; Refills: 3 meclizine 25 mg tablet; Commonly known as: ANTIVERT; Dose: 25 mg; Doctor's comments: Patient prescribed this for vertigo, needs prior authorization but unclear of if we received PA, will send again to re-start process; Take one tablet by mouth three times daily as needed.; For: sensation of spinning or whirling; Quantity: 90 tablet; Refills: 1 metoclopramide 1 mg/mL oral solution; Commonly known as: REGLAN; Dose: 5 mL; Refills: 0 nitrofurantoin macrocrystaL 100 mg capsule; Commonly known as: MACRODANTIN; Dose: 1 capsule; Refills: 0 nitroglycerin 0.4 mg tablet; Commonly known as: NITROQUICK; Dose: 0.4 mg; Place one tablet under tongue every 5 minutes as needed. Max 3 tablets, call 911.; Quantity: 30 tablet; Refills: 1 nortriptyline 50 mg capsule; Commonly known as: PAMELOR; Dose: 50 mg; Take one capsule by mouth at bedtime daily.; Quantity: 90 capsule; Refills: 1 nystatin 100,000 unit/g topical powder; Commonly known as: NYSTOP; Apply topically to pannus area every 12 hours as needed (redness).; Quantity: 60 g; Refills: 6 ondansetron 4 mg tablet; Commonly known as: ZOFRAN; Dose: 4 mg; Take one tablet by mouth every 8 hours as needed for Nausea or Vomiting.; Quantity: 15 tablet; Refills: [address] 40 mg tablet; Commonly known as: PROTONIX; Dose: 40 mg; Take one tablet by mouth daily.; Quantity: 90 tablet; Refills: 0 prednisolone acet-gatifloxacin 1-0.5 % Drps; Dose: 1 drop; Refills: 0 RYBELSUS 3 mg tablet; Generic drug: semaglutide; Dose: 3 tablet; Refills: 0 torsemide 20 mg tablet; Commonly known as: DEMADEX; Dose: 60 mg; Take three tablets by mouth daily.; Quantity: 270 tablet; Refills: 1 traZODone 300 mg tablet; Commonly known as: DESYREL; Dose: 300 mg; Take one tablet by mouth at bedtime daily.; Quantity: 90 tablet; Refills: 3 STOP taking these medications ergocalciferol (vitamin D2) 1,250 mcg (50,000 unit) capsule; Commonly known as: DRISDOL Return Appointments and Scheduled Appointments Scheduled appointments: May 02, 2021 9:10 AM Ankle Brachial Indices with SURGERY VASCULAR LAB 1 Surgery: [facility] (Surgery) [address] [facility] [address] May 03, 2021 8:45 AM New Patient with Kevin Domingo MD Surgery: [facility] (Surgery) [address] [facility] [address] May 03, 2021 11:00 AM Return Patient with Katherin Bo PA-C Cardiology: [facility] 3 (CV Exam) [address] [place] [address]. [address], [address] [facility] [id number] Consults, Procedures, Diagnostics, Micro, Pathology Consults: Cardiology and endo Surgical Procedures & Dates: [facility] 04/14 Significant Diagnostic Studies, Micro and Procedures: noted in brief hospital co urse Significant Pathology: none Nutrition: Dietitian Documentation Discharge Disposition, Condition Patient Disposition: Home Condition at Discharge: Stable Code Status Code Status History Date Active Date Inactive Code Status Order ID 04/13/2021 [id number] 04/14/2021 1718 Full Code [id number] Pravin Mckinney MD ED 10/27/2020 0322 10/29/2020 1610 Full Code [id number] James Fernandez MD ED Only showing the last 2 code statuses. Patient Instructions Cardiac Diet Limiting unhealthy fats and cholesterol is the most important step you can take in reducing your risk for cardiovascular disease. Unhealthy fats include satur ated and trans fats. Monitor your sodium and cholesterol intake. Restrict your sodium to 2g (grams) or 2000mg (milligrams) daily, and your cholesterol to 200mg daily. If you have questions regarding your diet at home, you may contact a dietitian neto nicole . Diabetic Diet You should eat between 1600 and 2000 calories per day. This is equal to 60g (g phani) of carbohydrates per meal, and 30g of carbohydrates for a bedtime snack. If you have questions about your diet after you go home, you can call a dietitia n at [phone]. Testing Not Required for Covid-19 Other Activity Restrictions *NO lifting greater than 15 pounds for 1 week. *NO strenuous or sexual activity for 1 week. Limit going up stairs and stooping down. *NO driving for 2 days. *Call if there is an increase in pain, swelling, or redness around your groin ac cess site. *DO NOT soak groin incision in water. *NO tub baths, hot tubs, or swimming for 1 week. *You may shower after discharge. Please contact your doctor if you have any of the following symptoms: Chest pain , shortness of breath, lightheadedness, dizziness, near fainting, palpitations, back pain, abdominal pain, or bleeding. Activity as Tolerated It is important to keep increasing your activity level after you leave the hosp ital. Moving around can help prevent blood clots, lung infection (pneumonia) an d other problems. Gradually increasing the number of times you are up moving ar ound will help you return to your normal activity level more quickly. Continue to increase the number of times you are up to the chair and walking daily to ret urn to your normal activity level. Begin to work toward your normal activity lev el at discharge Report These Signs and Symptoms Please contact your doctor if you have any of the following symptoms: temperatu re higher than 100.4 degrees F, uncontrolled pain, persistent nausea and/or vomi ting, difficulty breathing, chest pain, severe abdominal pain, headache, unable to urinate, unable to have bowel movement or drainage with a foul odor Questions About Your Stay If you have an emergency after discharge, please dial 9--1. You may contact your discharging physician up to 7 days after discharge for ques tions about your hospitalization, discharge instructions, or medications by call ing [phone] during regular business hours (8AM-4PM) and asking to speak to the doctor listed on the discharge information. If you are not calling during business hours, ask for the on-call doctor. If you have new or worsening symptoms, you may be directed to your primary care provider (PCP) for ongoing questions, an Emergency Department, or an Urgent Care Clinic for a more immediate evaluation. For all calls or questions more than 7 days after discharge, please contact your primary care provider (PCP). For medications after discharge: pain (opioid) medicine cannot be refilled or pr escribed by calling your discharging physician. These medications need to be fi lled by your primary care provider (PCP). Regular refill requests should be dir ected to your primary care provider (PCP). Discharging attending physician: MAURICIO KAUR [[id number]] Additional Orders: Case Management, Supplies, Home Health Home Health/DME None Signed: Mauricio Kaur MD 04/15/2021 cc: Primary Care Physician: Marbin Montenegro Referring physicians: No ref. provider found Additional provider(s): Did we miss something? If additional records are needed, please fax a request on office letterhead to [phone]. Please include the patient's name, date of b irth, fax number and type of information needed. Additional request can be made by email at [email or web address]. For general questions of information about electronic records sharing, call [phone]. documented in this encounter Discharge Instructions * Patient Instructions* Belkis Bhakta RN - 04/13/2021 7:40 PM CDT Images from the original note were not included. Manual Sheath Removal From A Large Vein Or Artery-TUKH When you go home: You may shower 24 hours after your procedure. Do not sit in water for one week. (No bath tub, swimming pool/hot tub, etc.) Keep the area clean and dry for one week (except for daily showers). Be sure your hands are clean when touching near the site. If a band-aid or dressing is still in place remove it before showering. Wash and dry thoroughly but gently. If needed, for your comfort, you may place a clean band-aid over the puncture site after you are clean and dry. It is best to leave it open to air as soon as it is comfortable to do so. Do not use ointments, creams, or powders on puncture site. Inspect site daily. Post Procedure Radiation Exposure Youjust completed a procedure which exposed you to radiation levels that may r esult in skin injury such as reddening of the skin which should fade with time, itching or temporary hair loss around chest or back.When you go home you a re advised to do the following: ? Perform self-examination of your chest or back area or have a partner assist y ou for 2-10 weeks after your procedure. Activity: (Unless otherwise instructed or unable to perform) Avoid any exertion for one week. Exertion is lifting over 15 lbs or pushing, pulling or straining. Avoid excessive bending, stooping, or stair climbing for 2 days. It is ok to go up stairs or bend over but take it slowly and keep it to a minimum. You may be up and about while relaxing at home as you recover. You may resume sexual activity in one week. You may begin driving 2 days after your procedure if you are otherwise able t o drive. ---It is common to have mild soreness and/or a small, soft bruise around the sit e that can take up to two weeks to go away. A small (dime to quarter sized) lump is also normal. A small amount of blood (not more than a teaspoon) from the sit e is also common. When to call the Doctor: Complications are rare, but can happen. If you have significant bleeding (more than a teaspoon) or a lump underneath the skin (bigger than a golf ball) at the site lie down, apply firm pressure at the site and call 911. Bleeding from a large vessel needs professional help. If you have signs of infection at the site such as: redness, warm to touch, d rainage, increasing soreness, a fever (100 degrees or more) and/or chills. Soreness that continues more than a week or unusual pain at the puncture site . Numbness, tingling, weakness in the affected leg. If your leg becomes cold and pale. If you have changes of vision, slurred speech or one-sided weakness. If you have prolonged skin redness (similar to a sunburn) and/or itching arou nd chest or back. If you have blistering around chest or back. Who do I contact if I need to speak with someone? During Business Hours: [facility] Cardiology Office at the [facility]: (Friday-Friday) [place]: [phone] (Friday-Friday) [place]: [phone] (Friday-Friday) [place]: [phone] (Friday and ) [place]: [phone] (Friday-Friday) [facility] [address]: [phone] (Friday, Friday and Friday) [place]: [phone] (Friday, Friday and Friday) Nights and Weekends [facility] Cardiology Office at the [facility]: This education is meant to serve as a resource to you and your family. It is not meant to be all inclusive. The members of the [facility] at [facility]iology, , will be glad to answer any questions you may have about this booklet or your procedure. documented in this encounter Medications at Time of Discharge Start Date End Date Medication Sig Dispensed Refills acetaminophen (TYLENOL) Take 1,000 mg 0 500 mg tablet by mouth every 6 hours as needed for Pain. Max of 4,000 mg of acetaminophen in 24 hours. ascorbic acid (VITAMIN C) Take 500 mg 0 500 mg tablet by mouth daily. aspirin EC 81 mg tablet Take 81 mg by 0 mouth daily. Take with food. 10/11/2020 atorvastatin (LIPITOR) 40 Take one 90 tablet 3 mg tabletIndications: tablet by Coronary artery disease mouth at involving [place] coronary bedtime artery of [place] heart daily. without angina pectoris, Hyperlipidemia, unspecified hyperlipidemia type 03/13/2021 baclofen (LIORESAL) 10 mg TAKE 1 TABLET 0 tablet BY MOUTH THREE TIMES DAILY WITH FOOD OR MILK FOR 10 DAYS 04/14/2021 cholecalciferol (VITAMIN Take one 90 tablet 1 D3) 50 mcg (2,000 unit) tablet by tablet mouth daily. Cranberry 500 mg cap Take 2 0 capsules by mouth daily. 07/19/2020 cycloSPORINE (RESTASIS) Apply one 60 each 4 0.05 % ophthalmic drop to both emulsionIndications: eyes twice keratoconjunctivitis daily. sicca Indications: keratoconjunc tivitis sicca, or dry and inflamed cornea and conjunctiva of the eye 10/30/2020 ferrous gluconate 324 mg Take one 30 tablet 3 (37.5 mg iron) tab tablet by mouth daily with breakfast. 04/14/2021 insulin NPH (NOVOLIN N) Inject forty 0 100 unit/mL injection Units under the skin twice daily. 07/12/2020 insulin regular (NOVOLIN Inject twelve 10 mL 0 R) 100 unit/mL injection Units under the skin three times daily before meals. 09/11/2020 losartan (COZAAR) 25 mg Take one 90 tablet 3 tabletIndications: tablet by Chronic heart failure mouth daily. with preserved ejection fraction (HFpEF) ([facility]), Coronary artery disease due to lipid rich plaque, Pure hypercholesterolemia, Essential hypertension, Stage 3 chronic kidney disease, unspecified whether stage 3a or 3b CKD ([facility]) 09/14/2019 meclizine (ANTIVERT) 25 Take one 90 tablet 1 mg tabletIndications: tablet by vertigo mouth three times daily as needed. 04/14/2021 metFORMIN-XR (GLUCOPHAGE Take two 180 tablet 0 XR) 500 mg extended tablets by release tablet mouth daily with dinner. 03/25/2021 metoclopramide (REGLAN) 1 Take 5 mL by 0 mg/mL oral solution mouth three times daily before meals. 03/20/2021 nitrofurantoin Take 1 0 macrocrystaL capsule by (MACRODANTIN) 100 mg mouth daily capsule with dinner. 10/11/2020 nitroglycerin (NITROSTAT) Place one 30 tablet 1 0.4 mg tablet tablet under tongue every 5 minutes as needed. Max 3 tablets, call 911. 10/11/2020 nortriptyline (PAMELOR) Take one 90 capsule 1 50 mg capsule capsule by mouth at bedtime daily. 10/11/2020 nystatin (NYSTOP) 100,000 Apply 60 g 6 unit/g topical powder topically to pannus area every 12 hours as needed (redness). 09/11/2020 ondansetron (ZOFRAN) 4 mg Take one 15 tablet 0 tablet tablet by mouth every 8 hours as needed for Nausea or Vomiting. 09/04/[address] Take one 90 tablet 0 (PROTONIX) 40 mg tablet tablet by mouth daily. 10/29/2020 polyethylene glycol 3350 Take one 12 each 0 (MIRALAX) 17 g packet packet by mouth twice daily. 03/21/2021 RYBELSUS 3 mg tablet Take 3 0 tablets by mouth daily. 11/07/2020 sertraline (ZOLOFT) 100 Take 1 tablet 0 mg tablet by mouth every 24 hours. 07/24/2020 traZODone (DESYREL) 300 Take one 90 tablet 3 mg tablet tablet by mouth at bedtime daily. 09/04/2020 05/03/2021 carvediloL (COREG) 25 mg Take 1.5 180 tablet 0 tablet tablets by mouth twice daily. Take with food. 10/11/2020 05/03/2021 isosorbide mononitrate ER Take one 90 tablet 0 (IMDUR) 60 mg tablet tablet by mouth daily. 05/03/[address] 1 drop 0 acet-gatifloxacin 1-0.5 % into or drps around eye(s) twice daily. 09/18/2020 05/03/2021 torsemide (DEMADEX) 20 mg Take three 270 tablet 1 tabletIndications: tablets by Chronic heart failure mouth daily. with preserved ejection fraction (HFpEF) ([facility]), Coronary artery disease due to lipid rich plaque, Pure hypercholesterolemia, Essential hypertension, Stage 3 chronic kidney disease, unspecified whether stage 3a or 3b CKD (HCC) documented as of this encounter Ordered Prescriptions Start Date End Date Prescription Sig Dispensed Refills 04/14/2021 metFORMIN-XR (GLUCOPHAGE Take two 180 tablet 0 XR) 500 mg extended tablets by release tablet mouth daily with dinner. 04/14/2021 cholecalciferol (VITAMIN Take one 90 tablet 1 D3) 50 mcg (2,000 unit) tablet by tablet mouth daily. 04/14/2021 insulin NPH (NOVOLIN N) Inject forty 0 100 unit/mL injection Units under the skin twice daily. 04/14/2021 04/14/2021 metFORMIN-ER (FORTAMET) Take one 90 tablet 0 1,000 mg extended release tablet by tablet mouth daily with dinner. documented in this encounter Discharge Disposition Code Departure Means Destination Disposition Car Home or Self Care documented in this encounter Progress Notes * Mauricio Kaur MD - 04/14/2021 1:43 PM CDT Day of Discharge Note Day of discharge progress note for Brad Avila Chart data reviewed including medications, consultation notes, lab, vitals, imag ing. Patient was seen and examined with pertinent information listed below. Subjective: Patient is doing well today. No acute overnight event. Chest pain has resolved since heart catheterization. No further feelings of hypoglycemia. Patient says that she would feel usually she has hypoglycemia. Four-point ROS negative except mentioned above. Exam: Unchanged from yesterday. Discharge plans and pertinent follow up items after discharge: Plan to discharge home to resume [employer]CASS SPLITTER cardiac medication follow-up outpatient [facility] cardiology. Endocrinology was consulted regarding her hyperglycemia the plan is to send home with resumption of Metformin now CKD is improved. Also restart Rybelsus and cu t back NPH insulin to 40 units at night. Patient feels comfortable with plans for discharge. All questions were answered . Discharge discussion, including follow up/discharge instructions, occurred wi th patient [id number]. Mauricio Kaur MD 04/14/2021 Discharge Planning: greater than 30 minutes spent in pt dc care today spent coun seling pt, coordinating dc care, placing dc orders and helping complete dc summa ry. * Lauryn Fuller APRN-JANINE - 04/14/2021 9:16 AM CDT Cardiology Progress Note Admission Date: 04/13/2021 Today's Date: 04/14/2021 LOS: 1 day Assessment & Plan Brad Avila is a 70 y.o. patient with the following problems: Principal Problem: Angina pectoris, unstable ([facility]) Active Problems: Type 2 diabetes mellitus, with long-term current use of insulin ([facility]) CAD (coronary artery disease) Anxiety and depression Carotid stenosis CKD (chronic kidney disease) stage 3, GFR 30-59 ml/min ([facility]) Unstable angina (HCC) H/O splenectomy Angina pectoris, unspecified ([facility]) H/O renal artery stenosis s/p stent Interstitial pulmonary disease, unspecified ([facility]) Chest pain Assessment #Unstable Angina #CAD s/p Prior Stenting to LAD and RCA - H/o stable angina requiring intermittent sublingual nitro - CARCASS SPLITTER isosorbide mononitrate 60mg daily - Onset of chest pain unresponsive to nitro on 04/12/21 - No EKG changes, troponin changes on admission - Per review of CareEverywhere, patient with cardiac stress test on 04/04 with re versible changes along LAD distribution. Patient reports this was conducted when establishing with weight clerk at [facility]. Was not having chest pain at [facility] t time. Supposed to have outpatient C but this has not been performed due to i nsurance issues - Cardiac cath 04/13-Patent proximal left anterior descending artery and mid right coronary artery stents. Moderate non obstructive CAD, unchanged from previous cath. #HFpEF - CARCASS SPLITTER torsemide 60mg daily - BNP 90 in ED - Appears euvolemic on exam, LVEDP low on cath #HTN - CARCASS SPLITTER coreg 37.5mg BID (taking 25mg BID due to lightheadedness with 37.5mg dose) , losartan 25mg daily, and torsemide 60mg daily #HLD - continue CARCASS SPLITTER atorvastatin #IDDMT2 c/b neuropathy - A1c 6.8% in August 2020 #PVD #TIA/CVA s/p bilateral CEA #GERD PLAN: No further CV recommendations at this time. Post cath activity restrictions marlon moses in the dc order set. She will continue to follow with Dr. Salazar and has follow up with LUISA Hoover on 05/03. Please call with further questions or concerns. Continue current medical therapy and supportive care. Pt d/w MD Lauryn Small, SALT C[employer]TER ([id number]) Subjective Chief complaint: Chest pain HPI: Denies further chest pain. Denies right groin access site pain or complica tions. Denies current SOB or palpitations. Medications Scheduled Meds:aspirin EC tablet 81 mg, 81 mg, Oral, QDAY atorvastatin (LIPITOR) tablet 40 mg, 40 mg, Oral, QHS carvediloL (COREG) tablet 37.5 mg, 37.5 mg, Oral, BID cycloSPORINE (RESTASIS) 0.05 % ophthalmic emulsion 1 drop, 1 drop, Both Eyes, BI D enoxaparin (LOVENOX) syringe 40 mg, 40 mg, Subcutaneous, BID [START ON 04/15/2021] ergocalciferol (vitamin D2) (DRISDOL) capsule 50,000 Units, 50,000 Units, Oral, Sundays ferrous gluconate tablet 324 mg, 324 mg, Oral, QDAY w/breakfast insulin aspart (U-100) (NOVOLOG FLEXPEN U-100 INSULIN) injection PEN 0-6 Units, 0-6 Units, Subcutaneous, ACHS (22) isosorbide mononitrate ER (IMDUR) tablet 60 mg, 60 mg, Oral, QDAY losartan (COZAAR) tablet 25 mg, 25 mg, Oral, QDAY nortriptyline (PAMELOR) capsule 50 mg, 50 mg, Oral, QHS pantoprazole DR (PROTONIX) tablet 40 mg, 40 mg, Oral, QDAY polyethylene glycol 3350 (MIRALAX) packet 34 g, 2 packet, Oral, QDAY senna/docusate (SENOKOT-S) tablet 1 tablet, 1 tablet, Oral, BID torsemide (DEMADEX) tablet 60 mg, 60 mg, Oral, QDAY traZODone (DESYREL) tablet 300 mg, 300 mg, Oral, QHS Continuous Infusions: dextrose 5 % infusion 50 mL/hr at 04/14/21 0716 PRN and Respiratory Meds:acetaminophen Q4H PRN, aluminum/magnesium hydroxide Q4H PRN, cyclobenzaprine TID PRN, diphenhydrAMINE Q4H PRN OR diphenhydrAMINE Q4H PRN, nitroglycerin Q5 MIN PRN, ondansetron (ZOFRAN) IV Q6H PRN Objective Vital Signs: Last Filed Vital Signs: 24 Juarez r Range BP: 134/56 (04/14 700) Temp: 36.7 C (98 F) (04/14 700) Pulse: 76 (04/14 700) Respirations: 16 PER MINUTE (04/14 700) SpO2: 95 % (04/14 700) SpO2 Pulse: 81 (04/14 416) Height: 172.7 cm (5' 7.99") (04/13 2126) BP: (91-167)/(36-82) Temp: [36.2 C (97.2 F)-37.7 C (99.9 F)] Pulse: [63-88] Respirations: [9 PER MINUTE-18 PER MINUTE] SpO2: [89 %-100 %] Intensity Pain Scale (Self Report): 0 (04/13/212125) Vitals: 04/12/21 2329 04/13/21 1419 04/13/212125 Weight: 120.2 kg (265 lb) 120.2 kg (265 lb) 120.2 kg (264 lb 15.9 oz) Intake/Output Summary: (Last 24 hours) Intake/Output Summary (Last 24 hours) at 04/14/2021 0950 Last data filed at 04/14/2021 0817 Gross per 24 hour Intake 390 ml Output 450 ml Net -60 ml Body mass index is 40.3 kg/m. Physical Exam GEN: no acute distress HEENT: nontraumatic, EOM-intact CHEST: clear to auscultation bilaterally ABD: soft, nontender, BS + CV: Reg rhythm, nml rate; nml S1 & S2, no S3 or S4; no rub; no murmurs EXT: no edema, 2+ distal pulses, right groin soft without hematoma with distal n eurovascular intact Lab Review Results for orders placed or performed during the hospital encounter of 04/13/21 (from the past 24 hour(s)) PTT (APTT) Collection Time: 04/13/21 10:29 AM Result Value Ref Range APTT 37.9 (H) 24.0 - 36.5 SEC TROPONIN-I Collection Time: 04/13/21 10:47 AM Result Value Ref Range Troponin-I 0.01 0.0 - 0.05 NG/ML POC GLUCOSE Collection Time: 04/13/21 11:09 AM Result Value Ref Range Glucose, POC 55 (L) 70 - 100 MG/DL POC GLUCOSE Collection Time: 04/13/21 11:31 AM Result Value Ref Range Glucose, POC 55 (L) 70 - 100 MG/DL POC GLUCOSE Collection Time: 04/13/21 11:57 AM Result Value Ref Range Glucose, POC 95 70 - 100 MG/DL TROPONIN-I Collection Time: 04/13/21 1:35 PM Result Value Ref Range Troponin-I 0.01 0.0 - 0.05 NG/ML POC GLUCOSE Collection Time: 04/13/21 1:50 PM Result Value Ref Range Glucose, POC 75 70 - 100 MG/DL POC GLUCOSE Collection Time: 04/13/21 5:55 PM Result Value Ref Range Glucose, POC 67 (L) 70 - 100 MG/DL POC GLUCOSE Collection Time: 04/13/21 6:49 PM Result Value Ref Range Glucose, POC 92 70 - 100 MG/DL POC GLUCOSE Collection Time: 04/13/21 9:53 PM Result Value Ref Range Glucose, POC 203 (H) 70 - 100 MG/DL CBC AND DIFF Collection Time: 04/14/21 4:31 AM Result Value Ref Range White Blood Cells 13.2 (H) 4.5 - 11.0 K/UL RBC 4.01 4.0 - 5.0 M/UL Hemoglobin 12.2 12.0 - 15.0 GM/DL Hematocrit 37.8 36 - 45 % MCV 94.2 80 - 100 FL MCH 30.5 26 - 34 PG MCHC 32.3 32.0 - 36.0 G/DL RDW 14.8 11 - 15 % Platelet Count 387 150 - 400 K/UL MPV 8.6 7 - 11 FL Neutrophils 91 (H) 41 - 77 % Lymphocytes 7 (L) 24 - 44 % Monocytes 2 (L) 4 - 12 % Eosinophils 0 0 - 5 % Basophils 0 0 - 2 % Absolute Neutrophil Count 11.95 (H) 1.8 - 7.0 K/UL Absolute Lymph Count 0.91 (L) 1.0 - 4.8 K/UL Absolute Monocyte Count 0.31 0 - 0.80 K/UL Absolute Eosinophil Count 0.00 0 - 0.45 K/UL Absolute Basophil Count 0.01 0 - 0.20 K/UL COMPREHENSIVE METABOLIC PANEL Collection Time: 04/14/21 4:31 AM Result Value Ref Range Sodium 138 137 - 147 MMOL/L Potassium 4.0 3.5 - 5.1 MMOL/L Chloride 98 98 - 110 MMOL/L Glucose 142 (H) 70 - 100 MG/DL Blood Urea Nitrogen 24 7 - 25 MG/DL Creatinine 1.22 (H) 0.4 - 1.00 MG/DL Calcium 9.3 8.5 - 10.6 MG/DL Total Protein 7.3 6.0 - 8.0 G/DL Total Bilirubin 0.3 0.3 - 1.2 MG/DL Albumin 3.6 3.5 - 5.0 G/DL Alk Phosphatase 44 25 - 110 U/L AST (SGOT) 19 7 - 40 U/L CO2 26 21 - 30 MMOL/L ALT (SGPT) 10 7 - 56 U/L Anion Gap 14 (H) 3 - 12 eGFR Non 43 (L) >60 mL/min eGFR 53 (L) >60 mL/min POC GLUCOSE Collection Time: 04/14/21 8:16 AM Result Value Ref Range Glucose, POC 107 (H) 70 - 100 MG/DL Tele: Sinus rhythm Lauryn Fuller APRN ([id number]) T * Belkis Bhakta RN - 04/13/2021 9:58 PM CDT Patient transferred to patient care unit [id number] via bed with RN x 1 and cardiotec h x 1. Report given to SUMANTH Ng. * Mauricio Kaur MD - 04/13/2021 7:03 PM CDT Discontinued long acting insulin for now given persistent hypoglycemia. Will res ume from tomorrow depending on BGL. * Olivia Velazco RN - 04/13/2021 3:51 PM CDT RN took over patient from ED. Patient arrived to floor aprox 12:30. Patients room was still dirty upon arrival to unit from ED. Pt started complaining of 8/10 chest pain while in our unit waiting room. RN paged Physician. Heparin drip running D5 drip also running for previous hypoglycemia in ED VSS. 02 at 4L and Blood sugar of 75. Obtained stat EKG-revealed SR with no new changes Obtained stat Trops-negative at 0.01 Nitro x3 doses Q 5 minutes apart with no chest pain relief An hour later, patient was able to move in her clean room. Cardiology then came to assess the patient once in her room. Agreed to take patient to cardiac cath. Patient left for cath aprox 1530 * Juany Armas RN - 04/13/2021 8:43 AM CDT Spoke with the charge nurse, she will have an US provider in the ED stick the luisa godinez. documented in this encounter H&P Notes * Pravin Mckinney MD - 04/13/2021 6:11 AM CDT Admission History and Physical Name: Brad Decker RN: [id number] Admission Date: 04/13/2021 Admission Diagnosis: Angina pectoris, unstable (HCC) [I20.0] Principal Problem: Angina pectoris, unstable (HCC) Active Problems: Type 2 diabetes mellitus, with long-term current use of insulin ([facility]) CAD (coronary artery disease) Anxiety and depression Carotid stenosis CKD (chronic kidney disease) stage 3, GFR 30-59 ml/min ([facility]) Unstable angina (HCC) H/O splenectomy Angina pectoris, unspecified (HCC) H/O renal artery stenosis s/p stent Interstitial pulmonary disease, unspecified ([facility]) Chest pain Assessment/Plan: 70-year-old female with depression, prior CVA/TIA, chronic HFpEF, CAD status pos t PCI x4, chronic angina, HTN, HLD, PVD, renal artery stenosis status post stent ing, chronic hypoxic respiratory failure with oxygen dependency, KANDACE, esophageal stricture status post dilatation, GERD, CKD III, DM2 complicated by gastropares is and peripheral neuropathy, cervical spinal stenosis, fibromyalgia, chronic ba ck pain, benign pancreatic tumor status post resection, status post splenectomy, chronic anemia, and obesity with BMI 40.29 admitted from the ED 04/13 with chest pain. Atypical chest painin the setting of chronic HFpEF, CAD status post PCI x4, ch ronic angina HTN, HLD, PVD, and renal artery stenosis status post stenting. -Echocardiogram February 2020 showed EF 65% MAC with trace MR, trace TR, and no other significant findings -C 08/25/20 showed patent LAD stent with moderate disease involving the ramus and left circumflex -Lower extremity catheterization 10/09/2020 showed 70% disease involving the proxi mal left anterior tibial with congenital absence of left posterior tibial and wi th the left peroneal artery supplying the left posterior tibial artery territory at the level of the foot with good blush noted at the level of the left heel; 1 00% occluded right peroneal artery with severe diffuse disease involving the rig ht posterior tibial artery; patent right renal artery stent without significant in-stent restenosis. -Home regimen: Torsemide 60 mg daily, carvedilol 37.5 mg twice daily, losartan 2 5 mg daily, Imdur ER 60 mg daily, aspirin 81 mg daily, Lipitor 40 mg daily -Reported2-day history of constant substernal chest pain with radiation left j aw and left shoulder. -Given fentanyl and morphine in ED with improvement of symptoms -EKG at [facility] no acute ischemic findings -Troponin negative x2 -ECHO 10/27 showed EF of 60%, borderline left atrial dilatation, peak systolic PA pressure 30 mmHg, no pericardial effusion -Patient supposed to get PCI at [facility] but the procedure was pushe d back 2/ insurance issues Plan Admit with close monitoring on telemetry Continue CARCASS SPLITTER home regimen Consult cardiology for evaluation Continue heparin drip for now DM2 complicated by gastroparesis and peripheral neuropathy Hypoglycemia -A1c August 2020 was 6.8 -Home regimen: NPH 40 units BID, regular insulin 25 units TID with meals, Metfor min 1000 mg BID, nortriptyline 50 mg nightly, -Had multiple episodes of hypoglycemia in the past, today 39 Plan - Check H A1c -Continue to hold all scheduled insulin -LDCF Shortness of breath in the setting of chronic hypoxic respiratory failure with o xygen dependency and KANDACE. -Home regimen: 4 liters continuous, noncompliant with CPAP -Chest x-ray admission Bibasilar atelectasis and/or scarring. -Covid PCR pending Esophageal stricture status post dilatation and GERD. GI consulted. -She is concerned that she may need another dilatation -Continue PPI -EGD 10/28 showed no esophageal stricture, 2 cm of Fay's esophagus, and large amount of food in the stomach. Random esophageal biopsy obtained. -She will need outpatient follow-up for possible manometry Depression. Continue Zoloft 150 mg daily and trazodone 300 mg nightly CKD III. -Baseline: 1.3-1.5 -Creatinine at presentation: 1.26 Vitamin D deficiency. - replacement Fibromyalgia, chronic chest and back pain -Home regimen: Nortriptyline 50 mg nightly and Flexeril 5 mg 3 times daily prn -Continue home regimen -Continue acetaminophen 650 mg q6hr PRN Chronic normocytic anemia -Iron studies August 2020 consistent with iron deficiency anemia -Continue CARCASS SPLITTER iron FEN n.p.o. VTE PPX Heparin drip Dispo - Admit to internal medicine observation status Code Status: Full code Pravin Mckinney MD Internal Medicine/Cost Specialist 8 PM - 8 AM Pager # [phone] Note: For any questions/concerns after 8 AM; please contact the assigned team. V oalte is the preferred way of communication. This note was created using [employer] Dictation software, hence some grammatical errors may still be present despite editing at the time of the dictation Subjective: Primary Care Physician: Marbin Montenegro Chief Complaint: Chief Complaint Patient presents with Chest Pain started at 1800 while getting up to do laundry, midsternal radiating to back, 05/15, nitro x 6 since onset HPI: Brad Avila is a 70 y.o. female with PMH of unstable angina, type 2 diabetes, CAD, anxiety and depression, carotid stenosis, CKD, IBD and JUAN s/p s tent who presented to the hospital with c/o CP. Pt reports chest pain began at 1 800 yesterday after eating dinner. Pt reports mid sternal pain with radiation th rough back. Pt states that she took a nitro at pain onset with some relief, but the pain returned. Pt has since taken 5 nitro doses without pain relief (6 doses total). Pt endorses nausea and chronic lightheadedness + SOA. Pt on 4LNC at [facility] d/t her 'heart not getting enough oxygenated blood.' Pt reports that she w as scheduled for a heart cath with stent placement on 04/13 (today) with [facility], however the procedure was pushed back d/t insurance issues. Medical History: Diagnosis Date Acid reflux rare; doens't take protonix often Allergy Anxiety and depression Arthritis CAD (coronary artery disease) x2 stents Cervical spondylosis Chest pain releived by nitro Chronic back pain Chronic diastolic heart failure (HCC) 05/25/2019 - Do not have documented echocardiogram; but patient states she has been diagno sed with CHF - States she was told her oxygen requirement is related to her hea rt failure - c/o LOBATO, PND, orthopnea - continue lasix, lisinopril; may consider addition of beta irma in the future - patient set up with Cardiology appointm ent here at with Dr. Salazar - Have requested that patient obtain records for Chronic respiratory failure (HCC) 06/02/2019 CKD (chronic kidney disease) stage 3, GFR 30-59 ml/min (HCC) Colon polyps Congestive heart disease (HCC) Depression Diabetes mellitus (HCC) 2-12-20 A1C 6.7; FBS 120-170 Diabetic foot ulcers (HCC) both feet; healed Fibromyalgia Gastroparesis Generalized headaches H/O splenectomy Heart palpitations weekly History of CVA (cerebrovascular accident) 2009, 2012, 2014 06-2009presented with speech difficulties; R sided residual History of lumbar laminectomy 1996 L2-4 with post op MRSA revision History of MRSA infection 2002 was cleared of MRSA at [facility] History of partial pancreatectomy distal HLD (hyperlipidemia) 09/05/2007 Hypertension Myocardial infarction (HCC) 2011 Neuropathy Diabetic Peripheral Neuropathy; fingers, feet, ankles On home oxygen therapy 4L with activity and at night Pancreatitis Sleep apnea noncompliant with Cpap Spinal stenosis of lumbar region with neurogenic claudication Vision decreased Surgical History: Procedure Laterality Date HX APPENDECTOMY 1966 HX TUBAL LIGATION 1976 HX KNEE ARTHROSCOPY Left 2003 COLONOSCOPY REPORT 07 due in 2017 BONE DENSITY SPINE/HIP 4-07 mild osteopenia- declined 4-13 AMPUTATION Left 2010 4th and 5th toes VASCULAR SURGERY Left 2009 LLE stent (ankle area) ARTERY SURGERY Right 2013 PCI renal artery x2 stent MASS EXCISION 2017 pancreatic mass resection and spleenectomy PANCREATECTOMY 2017 distal portion SPLENECTOMY, TOTAL 2017 HX HEART CATHETERIZATION 05/2019 ESOPHAGOSCOPY WITH ENDOSCOPIC ULTRASOUND EXAMINATION - FLEXIBLE N/A 0 Performed by Robin Rai MD at [facility] ENDO ESOPHAGOGASTRODUODENOSCOPY WITH BIOPSY - FLEXIBLE N/A 11/19/2019 Performed by Robin Rai MD at [facility] ENDO DACRYOCYSTORHINOSTOMY WITH TUBES Right 02/10/2020 Performed by Joaquín Rios MD at [facility] OR PROBING NASOLACRIMAL DUCT WITHIRRIGATION WITH INSERTION TUBE Right 02/10/2020 Performed by Joaquín Rios MD at [facility] OR MANUAL/ MECHANICAL EXTRACAPSULAR CATARACT REMOVAL WITH INSERTION INTRAOCULAR LENS PROSTHESIS - COMPLEX Bilateral 05/25/2020 Performed by Lurdes Metcalf MD at [facility] OR ANGIOGRAPHY CORONARY ARTERY WITH LEFT HEART CATHETERIZATION N/A 08/30/2020 Performed by Jose Enrique Victoria MD at [facility] PERCUTANEOUS CORONARY STENT PLACEMENT WITH ANGIOPLASTY N/A 08/30/2020 Performed by Jose Enrique Victoria MD at [facility]PER[facility] CATHETER PLACEMENT ARTERIAL - ABDOMINAL/ PELVIC/ LOWER EXTREMITIY ARTERY - T HIRD OR MORE BRANCH N/A 10/09/2020 Performed by Isa Bender MD at [facility]PER[facility] ESOPHAGOGASTRODUODENOSCOPY WITH BIOPSY - FLEXIBLE N/A 10/28/2020 Performed by Naina Sears MD at [facility] OR CAROTID ENDARDECTOMY Bilateral approx -2009, lt- Dr. Garcia- CORONARY STENT PLACEMENT 2009, 2013 x2 CYTOLOGY PAP SMEAR DIAGNOSTIC 07? declined 4-13 HX BACK SURGERY ~2003 "cleaned up staph infection" (MRSA) HX CARPAL TUNNEL RELEASE Bilateral ~2007, 2008 2 surg per left, 1 surg per right HX CHOLECYSTECTOMY ~2000 LAMINECTOMY 1996, 2002 MRSA after 2002 surgery MAMMO HISTORICAL REPORT 07? 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 Contrast Dye Iv, Iodine Containing [Iodinated Contrast Media] HIVES Levofloxacin HIVES Narcan [Naloxone] HIVES Gabapentin NAUSEA AND VOMITING Sulfa (Sulfonamide Antibiotics) SEE COMMENTS Pt does not recall what her reaction is. Tricor [Fenofibrate Micronized] STOMACH UPSET Review of Systems System Positives Negatives Constitutional: Fever, chills, unintentional weight loss Eyes: Diplopia, blurry vision ENT: Congestion, sinus pain, ear pain, ear discharge Respiratory: Cough, Shortness of breath Cardiovascular: Chest pain Palpitations, claudication, Gastrointestinal: Vomiting, abdominal pain, hematemesis, melena Genitourinary: Dysuria, blood in urine, incontinence Hematologic: Bleeding dyscrasias, easy bruising Musculoskeletal: Arthralgias, myalgias, joints swelling, joints erythema Neurological: Headache, numbness, tingling, loss of consciousness, seizures, t remors Behavioral/Psych: Suicidal ideation, hallucinations Skin: Rash, itching, skin abrasions, infected skin lesions Objective: Vital Signs: Last Filed In 24 Hours Vital Signs: 24 Hour Range BP: 132/49 (04/13 600) Temp: 36.9 C (98.5 F) (04/12 2329) Pulse: 62 (04/13 600) Respirations: 11 PER MINUTE (04/13 600) SpO2: 97 % (04/13 600) SpO2 Pulse: 62 (04/13 600) BP: (109-161)/(49-59) Temp: [36.9 C (98.5 F)] Pulse: [62-74] Respirations: [11 PER MINUTE-20 PER MINUTE] SpO2: [95 %-99 %] PHYSICAL EXAMINATION: General Appearance: Cooperative, NAD Head: NC/AT Neck: no JVD; no LAD Eyes: Conjunctivae/corneas clear. PERRL, EOMs intact. Lungs: CTAB Heart: RRR, no m/r/g Abdomen: Soft, NT, +BS Extremities: Atraumatic, no C/C/E Pulses: +2 in all extremities Neurologic: A, OX3, CNII - XII grossly intact; no gross focal deficits LABS: Recent Labs 04/13/21 0329 NA 140 K 3.5 CL 99 CO2 30 GAP 11 BUN 25 CR 1.26* GLU 39* CA 9.6 ALBUMIN 3.9 MG 1.9 Recent Labs 04/13/21 0329 04/13/21 0520 WBC 12.9* -- HGB 13.3 -- HCT 40.1 -- PLTCT 375 -- PTT -- 98.3* AST 20 -- ALT 12 -- ALKPHOS 46 -- CrCl cannot be calculated (Unknown ideal weight.). Vitals: 04/12/21 2329 Weight: 120.2 kg (265 lb) No results for input(s): PHART, PO2ART in the last 72 hours. Invalid input(s): PC02A MEDSheparin (porcine), 20-40 Units/kg, Intravenous, As Prescribed IV MEDS heparin (porcine) 20,000 units/D5W 500 mL infusion (std conc)(premade) 1,000 Units/hr (04/13/21 0409) Prn HOME MEDS No current facility-administered medications on file prior to encounter. Current Outpatient Medications on File Prior to Encounter Medication Sig Dispense Refill acetaminophen (TYLENOL) 500 mg tablet Take 500-1,000 mg by mouth every 6 juarez rs as needed for Pain. Max of 4,000 mg of acetaminophen in 24 hours. aspirin EC 81 mg tablet Take 81 mg by mouth daily. Take with food. atorvastatin (LIPITOR) 40 mg tablet Take one tablet by mouth at bedtime dorothy y. 90 tablet 3 carvediloL (COREG) 25 mg tablet Take 1.5 tablets by mouth twice daily. Take with food. 180 tablet 0 cyclobenzaprine (FLEXERIL) 5 mg tablet Take one tablet by mouth three times daily as needed for Muscle Cramps. Indications: muscle spasm 90 tablet 3 cycloSPORINE (RESTASIS) 0.05 % ophthalmic emulsion Apply one drop to both ey es twice daily. Indications: keratoconjunctivitis sicca, or dry and inflamed cor lizeth and conjunctiva of the eye 60 each 4 ergocalciferol (VITAMIN D-2) 1,250 mcg (50,000 unit) capsule Take one capsul e by mouth every 7 days. 12 capsule 0 ferrous gluconate 324 mg (37.5 mg iron) tab Take one tablet by mouth daily w ith breakfast. 30 tablet 3 insulin NPH (NOVOLIN N) 100 unit/mL injection Inject thirty Units under the skin twice daily. (Patient taking differently: Inject 40 Units under the skin tw ice daily.) insulin regular (NOVOLIN R) 100 unit/mL injection Inject twelve Units under the skin three times daily before meals. (Patient taking differently: Inject 25 Units under the skin three times daily before meals.) 10 mL 0 isosorbide mononitrate ER (IMDUR) 60 mg tablet Take one tablet by mouth dorothy y. 90 tablet 0 losartan (COZAAR) 25 mg tablet Take one tablet by mouth daily. 90 tablet 3 meclizine (ANTIVERT) 25 mg tablet Take one tablet by mouth three times daily as needed. 90 tablet 1 metFORMIN (GLUCOPHAGE) 1,000 mg tablet Take one tablet by mouth twice daily with meals. Ok to resume on October 12, 2020 with AM dose 180 tablet 3 nitroglycerin (NITROSTAT) 0.[address] one tablet under tongue every 5 minutes as needed. Max 3 tablets, call 911. 30 tablet 1 nortriptyline (PAMELOR) 50 mg capsule Take one capsule by mouth at bedtime d aily. 90 capsule 1 nystatin (NYSTOP) 100,000 unit/g topical powder Apply topically to pannus ar ea every 12 hours as needed (redness). 60 g 6 ondansetron (ZOFRAN) 4 mg tablet Take one tablet by mouth every 8 hours as n eeded for Nausea or Vomiting. [address] (PROTONIX) 40 mg tablet Take one tablet by mouth daily. 90 t ablet 0 polyethylene glycol 3350 (MIRALAX) 17 g packet Take one packet by mouth twic e daily. 12 each prednisolone acet-gatifloxacin 1-0.5 % drps Place 1 drop into or around eye( s) twice daily. sertraline (ZOLOFT) 100 mg tablet Take 1.5 tablets by mouth daily. Indicatio ns: major depressive disorder 90 tablet 3 torsemide (DEMADEX) 20 mg tablet Take three tablets by mouth daily. 270 tabl et 1 traZODone (DESYREL) 300 mg tablet Take one tablet by mouth at bedtime daily. 90 tablet 3 CHEST SINGLE VIEW Result Date: 04/13/2021 Bibasilar atelectasis and/or scarring. Finalized by Allison Smith M.D. on 04/13/2021 3:44 AM. Dictated by Allison Smith M.D. on 04/13/2021 3:43 AM. Associated attestation - Mauricio Kaur MD - 04/13/2021 11:19 AM CDT ATTESTATION I personally performed the hernández portions of the E/M visit, reviewed my colleague' s documentation of history, physical exam, assessment, and treatment plan and co ncur unless otherwise noted. Updates to the assessment/plan include: Possible unstable angina - Continue heparin drip . Patient reports recent stress test shows new abnormality for possible new CAD stenosis. Requesting records fr om [facility]. The plan per patient was to do elective PCI today at OSH but due to insurance issue, it was canceled and last night had worsening ch est pain and she is here. Cards consulted. Keep NPO. gave high dose stain once t his AM. Will hold on ASA or P2Y12 inhibitors until cards evaluation. Hypoglycemia - she currently takes 50 unit humulin QHS and 10-20 aspart TID with meals. Will start 30u humulin QHs and LDCF. Staff name: Mauricio Kaur MD Date: 04/13/2021 Med Private O- 1st Round 2930 MDM complexity high. documented in this encounter Procedure Notes * Radha Medina MBBS - 04/13/2021 7:22 PM CDT Associated Order(s): CARDIAC CATH REPORT [facility] CARDIAC CATHETERIZATION REPORT Page 2 BRAD Clement : 1950 #: [id number] MR #/Billing ID #: [id number] / [id number] DATE: 04/13/2021 ACCOUNT MAINTENANCE REPRESENTATIVE: Abdirashid Justin MD DICTATING PROVIDER: Radha Medina MD REFERRING PHYSICIAN: BANK CREDIT CARD COLLECTION CLERK: Abdirashid Justin MD INDICATIONS FOR PROCEDURE: Ms. Avila is a 70-year-old female with a history of PAD, CAD status post previous PCI, hypertension and diabetes, who was referre d for cardiac catheterization with possible coronary intervention due to an abno rmal stress test. PROCEDURES: 1. Left heart catheterization: 2. Selective coronary angiography. 3. Closure of right femoral groin access with Angio-Seal closure device. CONSENT: Informed consent was obtained from the patient after a thorough discus mathew of risks, benefits, and potential complications. The patient verbalized un derstanding and agreed to undergo the procedure. PROCEDURE DETAILS: The patient was brought to the cardiac catheterization area in a fasting and nonsedated state. A total of 2 mg of Versed and 100 mcg of fen tanyl were administered intravenously throughout the procedure. Moderate consci ous sedation was maintained for 90 minutes, which was monitored throughout the p rocedure by myself, my attending, and orthodontic lab technician staff. Blood pressure, oxygen le spencer, heart rate and level of consciousness were assessed throughout the procedur e and at its conclusion. LHC via femoral access: The right groin area was prepped and draped in the usua l sterile fashion. After infiltrating the area with 10 cc lidocaine, a micropun cture needle was used to access the common femoral artery under ultrasound shorty nce. Modified Seldinger technique was used. The micropuncture wire was exchang ed for a 4-Emirati sheath. The 4-Emirati sheath was exchanged over a J wire for a 5-Emirati sheath. Selective coronary cineangiograms were performed utilizing JL4 and JR4 diagnostic catheters. A pigtail catheter was used to assess LVEDP. M ultiple views of the right and left [place] coronary system were obtained in vari ous PUGA and MONGOLIAN projections. HEMODYNAMICS: 1. Aortic pressure 164/16 mmHg with a MAP of 108 mmHg. 2. LV end-diastolic pressure: 8 mmHg. 3. There was no gradient detected across the aortic valve on pullback. SELECTIVE CORONARY ANGIOGRAPHY: 1. Left main coronary artery: The left main coronary artery arises normally fro m the left coronary sinus. The left main artery tricfurcates into the left ante rior descending artery, ramus and left circumflex artery. There is no angiograp hically significant disease. 2. Ramus: The Ramus has 50% ostial stenosis. 3. Left anterior descending artery: The LAD is a type 2 LAD. It has a patent s tent in its proximal segment. There is 30-40% stenosis in its mid segment. It gives rise to 2 large diagonals which have diffuse luminal irregularities. The D2 additionally has ostial 30% stenosis. 4. Left circumflex artery: The left circumflex artery is a large vessel which g akiko rise to a large OM1. The left circumflex artery has 50% stenosis at its bi furcation with OM1. The OM1 has diffuse luminal irregularities. 5. Right coronary artery: The right coronary artery is a medium-sized dominant vessel which arises normally from the right coronary sinus. Mid RCA has a patent stent and a 30% stenosis distal to the stent. It bifurcates into RPDA and a ve ry small RPLV. The RCA has 30% disease in its mid segment. CONTRAST: 50 cc. FLUOROSCOPY TIME: 1. 5 minutes. AIR KERMA: 435 mGy. My attending, Dr. Justin, was present for the entirety of the case performing when necessary hernández portions of the procedure. FINAL IMPRESSION: 6. Patent proximal left anterior descending artery and mid right coronary artery stents. 7. Moderate non obstructive CAD, unchanged from previous cath. 8. Low left ventricular end-diastolic pressure. RECOMMENDATION: 1. Continue medical management. 2. Adequate hydration for low LVEDP. Abdirashid Justin MD MARLA/MedQ /[id number] cc: documented in this encounter Consult Notes * Juarez Ramirez MD - 04/14/2021 9:54 AM CDT Associated Order(s): CONSULT ENDOCRINOLOGY PHYSICIAN Endocrinology Consultation Today's Date: 04/14/2021 Admission Date: 04/13/2021 Reason for this consultation: Diabetes Assessment: 1. Type 2 diabetes, controlled, with unacceptable hypoglycemia 2. CAD 3. HFpEF 4. Hypertension 5. KANDACE 6. Class III obesity 7. CKD 3b 8. Vitamin D deficiency, mild Recommendations: She is overinsulinized, and the first priority should be to eliminate nocturnal hypoglycemia, and subsequently to minimize daytime hypoglycemia. Insulin is cur rently being appropriately held. When it is resumed, I would recommend a reduct ion in bedtime NPH to 40 units, for starters. Our target should be an NPH dose that allows her to gradually eliminate the evening snack without fear of nocturn al hypoglycemia. She should confine insulin injections to the abdomen, and I di scussed with her strategy for systematic injection site rotation. Rybelsus is a good choice, provided that it remains affordable. Ozempic and Lawson licity could be substituted if cost considerations dictated a change. I have re commended that she resume metformin, as renal function has been in a range that permits its continuation, with the condition that she 1) have quarterly measurem ent of eGFR and 2) hold metformin if she has an acute illness and is unable to e at, or has reduced intake. Ideally, metformin should be taken on a full stomach , right at the end of meals. As metformin is resumed and the Rybelsus dose is u p titrated, it is inevitable that she will need to make further reductions in in sulin doses. The ultimate objective is to deemphasize insulin as much as possib le, considering its potential adverse effects on heart failure outcomes as well as its hypertensive effects. Addition of an SGLT2 inhibitor would be an additio nal future consideration, provided that it was affordable. For Medicare patient s, the following websites can be helpful in obtaining assistance with prescripti on medications: [employer], [employer] and [employer]. Regarding vitamin D deficiency, she can discontinue ergocalciferol now and start taking vitamin D3 2000 units daily on an indefinite basis. This dose is always sufficient, and never excessive. History of Present Illness Brad Avila is a 70 y.o. woman from [place] admitted because of chest pain. She is known to have coronary disease and has a history of HFpEF. She is on 2 antihypertensives and believes that her blood pressure is well controlled. Her lipids are also well controlled on atorvastatin. She has had type 2 diabetes for 35 years, treated with insulin and, until 1 yossi h ago, metformin. Metformin was discontinued because of renal function. The re cord shows that she has CKD3b with fairly stable function for the past year. Camden grimm has not had gastrointestinal side effects of metformin. She started taking Ry belsus a couple of months ago and is now taking 4 mg daily. She finds it very e xpensive. She took Ozempic for a short time 2 or 3 years ago, but had to discon tinue it because of cost. Her insulin regimen consists of NPH and regular insulin, also because of cost. She takes a variable dose of regular with each of 3 meals, averaging around 12 u nits, and NPH 50 units at bedtime. Insulin is on hold here because of hypoglyce kuldip. She injects the abdomen, arms and legs. She has at least 2 or 3 episodes of symptomatic hypoglycemia per week; over half of these occur around 3 AM in sp ite of a defensive evening snack. Her meals are at 8 AM, 1 PM and 6 PM, and she typically goes to bed after midnight. The current hemoglobin A1c is 6.1%. She has fairly severe peripheral neuropathy with complete loss of temperature di scrimination and a history of ulceration and, on the left foot, toe amputation. She has had injections OS, presumably for proliferative diabetic retinopathy. She has failed CPAP for moderate to severe sleep apnea, and is currently on oxyg en 4 L at night. She has been on ergocalciferol 50,000 units weekly for at as t 2 months. A 25 hydroxy vitamin D level in February was modestly reduced. Estimated Creatinine Clearance: 57.7 mL/min (A) (based on SCr of 1.22 mg/dL (H)) . Past Medical History Medical History: Diagnosis Date Acid reflux rare; doens't take protonix often Allergy Anxiety and depression Arthritis CAD (coronary artery disease) x2 stents Cervical spondylosis Chest pain releived by nitro Chronic back pain Chronic diastolic heart failure (HCC) 05/25/2019 - Do not have documented echocardiogram; but patient states she has been diagno sed with CHF - States she was told her oxygen requirement is related to her hea rt failure - c/o LOBATO, PND, orthopnea - continue lasix, lisinopril; may consider addition of beta irma in the future - patient set up with Cardiology appointm ent here at with Dr. Salazar - Have requested that patient obtain records for Chronic respiratory failure (HCC) 06/02/2019 CKD (chronic kidney disease) stage 3, GFR 30-59 ml/min (HCC) Colon polyps Congestive heart disease (HCC) Depression Diabetes mellitus (HCC) 2-12-20 A1C 6.7; FBS 120-170 Diabetic foot ulcers (HCC) both feet; healed Fibromyalgia Gastroparesis Generalized headaches H/O splenectomy Heart palpitations weekly History of CVA (cerebrovascular accident) 2009, 2012, 2014 06-2009presented with speech difficulties; R sided residual History of lumbar laminectomy 1996 L2-4 with post op MRSA revision History of MRSA infection 2002 was cleared of MRSA at [facility] History of partial pancreatectomy distal HLD (hyperlipidemia) 09/05/2007 Hypertension Myocardial infarction (HCC) 2011 Neuropathy Diabetic Peripheral Neuropathy; fingers, feet, ankles On home oxygen therapy 4L with activity and at night Pancreatitis Sleep apnea noncompliant with Cpap Spinal stenosis of lumbar region with neurogenic claudication Vision decreased Past Surgical History Surgical History: Procedure Laterality Date HX APPENDECTOMY 1967 HX TUBAL LIGATION 1976 HX KNEE ARTHROSCOPY Left 2003 COLONOSCOPY REPORT 07 due in 2017 BONE DENSITY SPINE/HIP 4-07 mild osteopenia- declined 4-13 AMPUTATION Left 2009 4th and 5th toes VASCULAR SURGERY Left 2009 LLE stent (ankle area) ARTERY SURGERY Right 2013 PCI renal artery x2 stent MASS EXCISION 2016 pancreatic mass resection and spleenectomy PANCREATECTOMY 2017 distal portion SPLENECTOMY, TOTAL 2016 HX HEART CATHETERIZATION 05/2019 ESOPHAGOSCOPY WITH ENDOSCOPIC ULTRASOUND EXAMINATION - FLEXIBLE N/A 0 Performed by Robin Rai MD at [facility] END[facility] ESOPHAGOGASTRODUODENOSCOPY WITH BIOPSY - FLEXIBLE N/A 11/19/2019 Performed by Robin Rai MD at [facility] ENDO DACRYOCYSTORHINOSTOMY WITH TUBES Right 02/10/2020 Performed by Joaquín Rios MD at [facility] OR PROBING NASOLACRIMAL DUCT WITHIRRIGATION WITH INSERTION TUBE Right 02/10/2020 Performed by Joaquín Rios MD at [facility] OR MANUAL/ MECHANICAL EXTRACAPSULAR CATARACT REMOVAL WITH INSERTION INTRAOCULAR LENS PROSTHESIS - COMPLEX Bilateral 05/25/2020 Performed by Lurdes Metcalf MD at [facility] OR ANGIOGRAPHY CORONARY ARTERY WITH LEFT HEART CATHETERIZATION N/A 08/30/2020 Performed by Jose Enrique Victoria MD at [facility]PER[facility] PERCUTANEOUS CORONARY STENT PLACEMENT WITH ANGIOPLASTY N/A 08/30/2020 Performed by Jose Enrique Victoria MD at [facility] [employer]ACHINE OPERATOR CATHETER PLACEMENT ARTERIAL - ABDOMINAL/ PELVIC/ LOWER EXTREMITIY ARTERY - T HIRD OR MORE BRANCH N/A 10/09/2020 Performed by Isa Bender MD at [facility] [employer]ACH[employer] OPERATOR ESOPHAGOGASTRODUODENOSCOPY WITH BIOPSY - FLEXIBLE N/A 10/28/2020 Performed by Naina Sears MD at [facility] OR CAROTID ENDARDECTOMY Bilateral approx -2009, 12-2010 lt- Dr. Garcia- CORONARY STENT PLACEMENT 2013 x2 CYTOLOGY PAP SMEAR DIAGNOSTIC 07? declined 4-13 HX BACK SURGERY ~2003 "cleaned up staph infection" (MRSA) HX CARPAL TUNNEL RELEASE Bilateral ~2007, 2008 2 surg per left, 1 surg per right HX CHOLECYSTECTOMY ~2000 LAMINECTOMY 1996, 2002 MRSA after 2003 surgery MAMMO HISTORICAL REPORT 07? declined 4-13 Social History Social History Tobacco Use Smoking status: Former Smoker Packs/day: 0.50 Years: 25.00 Pack years: 12.50 Types: Cigarettes Quit date: 11/03/1998 Years since quittin.4 Smokeless tobacco: Never Used Substance Use Topics Alcohol use: Not Currently Family History Family History Problem Relation Age of Onset Heart Disease Father Glaucoma Father Diabetes Mother Heart Disease Mother Blindness Mother Cancer Brother Prostate Cancer Brother Lung and Colon Heart Disease Sister Macular Degen Neg Hx Allergies Allergies Allergen Reactions Cephalosporins HIVES Patient reports tolerating amoxicillin in the past. Contrast Dye Iv, Iodine Containing [Iodinated Contrast Media] HIVES Levofloxacin HIVES Narcan [Naloxone] HIVES Gabapentin NAUSEA AND VOMITING Sulfa (Sulfonamide Antibiotics) SEE COMMENTS Pt does not recall what her reaction is. Tricor [Fenofibrate Micronized] STOMACH UPSET Review of Systems A comprehensive 14-point review of systems was negative with exception of: sleep problems, numbness in feet. Medications Scheduled Meds:aspirin EC tablet 81 mg, 81 mg, Oral, QDAY atorvastatin (LIPITOR) tablet 40 mg, 40 mg, Oral, QHS carvediloL (COREG) tablet 37.5 mg, 37.5 mg, Oral, BID cycloSPORINE (RESTASIS) 0.05 % ophthalmic emulsion 1 drop, 1 drop, Both Eyes, BI D enoxaparin (LOVENOX) syringe 40 mg, 40 mg, Subcutaneous, BID [START ON 04/15/2021] ergocalciferol (vitamin D2) (DRISDOL) capsule 50,000 Units, 50,000 Units, Oral, Sundays ferrous gluconate tablet 324 mg, 324 mg, Oral, QDAY w/breakfast insulin aspart (U-100) (NOVOLOG FLEXPEN U-100 INSULIN) injection PEN 0-6 Units, 0-6 Units, Subcutaneous, ACHS (22) isosorbide mononitrate ER (IMDUR) tablet 60 mg, 60 mg, Oral, QDAY losartan (COZAAR) tablet 25 mg, 25 mg, Oral, QDAY nortriptyline (PAMELOR) capsule 50 mg, 50 mg, Oral, QHS pantoprazole DR (PROTONIX) tablet 40 mg, 40 mg, Oral, QDAY polyethylene glycol 3350 (MIRALAX) packet 34 g, 2 packet, Oral, QDAY senna/docusate (SENOKOT-S) tablet 1 tablet, 1 tablet, Oral, BID torsemide (DEMADEX) tablet 60 mg, 60 mg, Oral, QDAY traZODone (DESYREL) tablet 300 mg, 300 mg, Oral, QHS Continuous Infusions: dextrose 5 % infusion 50 mL/hr at 04/14/21715 PRN and Respiratory Meds:acetaminophen Q4H PRN, aluminum/magnesium hydroxide Q4H PRN, cyclobenzaprine TID PRN, diphenhydrAMINE Q4H PRN OR diphenhydrAMINE Q4H PRN, nitroglycerin Q5 MIN PRN, ondansetron (ZOFRAN) IV Q6H PRN Physical Examination Vital Signs: Last Vital Signs: 24 Hour Ran ge BP: 134/56 (04/14 700) Temp: 36.7 C (98 F) (04/14 700) Pulse: 76 (04/14 700) Respirations: 16 PER MINUTE (04/14 700) SpO2: 95 % (04/14 700) SpO2 Pulse: 81 (04/14 416) Height: 172.7 cm (67.99") (04/13 2126) BP: (91-167)/(36-82) Temp: [36.2 C (97.2 F)-37.7 C (99.9 F)] Pulse: [63-88] Respirations: [9 PER MINUTE-18 PER MINUTE] SpO2: [89 %-100 %] General appearance: alert, oriented HENT: mucus membranes moist Eyes: Conj nl Neck: supple Lungs: clear Heart: Regular rhythm, no murmur Abdomen: soft, normal bowel sounds Ext: No edema. Previous amputation of L lateral toes. Neuro: Decreased light touch, absent vibratory sensation in feet. Skin: no rashes/lesions Lab Review Point of Care Testing (Last 24 hours) Glucose: (!) 142 (04/14/21 0431) POC Glucose (Download): (!) 107 (04/14/21 0816) Recent Labs 04/13/21 0329 04/14/21 0431 NA 140 138 K 3.5 4.0 CL 99 98 CO2 30 26 GAP 11 14* BUN 25 24 CR 1.26* 1.22* GLU 39* 142* CA 9.6 9.3 ALBUMIN 3.9 3.6 MG 1.9 -- HGBA1C 6.1* -- Recent Labs 04/13/21 0329 04/13/21 0520 04/13/21 0851 04/13/21 1029 04/13/21 1047 04/13/21 1335 04/14/21 0431 WBC 12.9* -- -- -- -- -- 13.2* HGB 13.3 -- -- -- -- -- 12.2 HCT 40.1 -- -- -- -- -- 37.8 PLTCT 375 -- -- -- -- -- 387 PTT -- 98.3* -- 37.9* -- -- -- AST 20 -- -- -- -- -- 19 ALT 12 -- -- -- -- -- 10 ALKPHOS 46 -- -- -- -- -- 44 TNI -- -- 0.01 -- 0.01 0.01 -- Estimated Creatinine Clearance: 57.7 mL/min (A) (based on SCr of 1.22 mg/dL (H)) . Vitals: 04/12/21 2329 04/13/21 1419 04/13/21 2126 Weight: 120.2 kg (265 lb) 120.2 kg (265 lb) 120.2 kg (264 lb 15.9 oz) Thyroid Studies Lab Results Component Value Date/Time TSH 2.05 10/27/2020 07:38 AM No results found for: FREET3, [id number], THYBINDGLB * Wale Quiles DO - 04/14/2021 8:48 AM CDT Associated Order(s): CONSULT CARDIOLOGY PHYSICIAN Please see initial consult note from Dr. Banda and Dr. Garrett from 04/13/2021. This note to satisfy and close the consult encounter. * Fam Banda MD - 04/13/2021 11:57 AM CDT Associated Order(s): CONSULT CARDIOLOGY PHYSICIAN Cardiology Consult Note Admission Date: 04/13/2021 LOS: 0 days Reason for Consult: "Unstable angina" Consult type: Opinion with orders Assessment #Unstable Angina #CAD s/p Prior Stenting to LAD and RCA - H/o stable angina requiring intermittent sublingual nitro - CARCASS SPLITTER isosorbide mononitrate 60mg daily - Onset of chest pain unresponsive to nitro on 04/12/21 - No EKG changes, troponin changes on admission - Per review of CareEverywhere, patient with cardiac stress test on 04/04 with re versible changes along LAD distribution. Patient reports this was conducted when establishing with weight clerk at [facility]. Was not having chest pain at that time. Supposed to have outpatient LHC but this has not been performed due to i nsurance issues #HFpEF - CARCASS SPLITTER torsemide 60mg daily - BNP 90 in ED - Appears euvolemic on exam #HTN - CARCASS SPLITTER coreg 37.5mg BID (taking 25mg BID due to lightheadedness with 37.5mg dose) , losartan 25mg daily, and torsemide 60mg daily #HLD - continue CARCASS SPLITTER atorvastatin #IDDMT2 c/b neuropathy - A1c 6.8% in August 2020 #PVD #TIA/CVA s/p bilateral CEA #GERD Recommendations 1. Given unstable angina and recent abnormal stress test, will proceed with diag nostic left heart catheterization with possible PCI 2. Premeds with IV solumedrol and benadryl for history of iodine contrast allerg y 3. Received ASA 81mg given earlier in the day 4. Continue heparin gtt until PCI 5. Continue CARCASS SPLITTER atorvastatin, coreg, losartan, and torsemide Patient seen and discussed with Dr. Gerry Banda MD Internal Medicine, PGY-3 Available on Voalte History of Present Illness: Bradra Jeovanny Avila is a 70 y.o. female with PMH of CAD with previous LAD stenting in 2010 and RCA stenting in 2014, heart failure w ith preserved ejection fraction, hypertension, dyslipidemia, insulin-dependent d iabetes type 2 (c/b gastroparesis, peripheral neuropathy, Left 4th and 5th Toes amputation), peripheral vascular disease, chronic hypoxic respiratory failure, r enal artery stenosis s/p stenting, stage III chronic kidney disease, GERD, arthr itisand chronic lower extremity wounds, cervical spine stenosis,chronic back pain, and recurrent TIA/CVA s/p bilateral CEA admitted for unstable angina. Car diology is consulted for further recommendations. Patient reports her chest pain began around 1800 on 04/12 shortly after eating. On set of chest pain occurred while patient was doing laundry. She describes this c hest pain as a aching, pressure in the substernal region with radiation to the l eft shoulder. Chest pain was associated with nausea and shortness of breath. She also had lightheadedness but this is a chronic problem. Pain is consistent with prior anginal chest pains. Patient took a nitro tablet with about 1 hour of rel ief, however, her chest pain then returned and was minimally responsive to furth er nitro doses (took 6 tabs total over about 3-4 hours). On arrival to ED, EKG w ithout evidence of acute ischemic changes. Troponin negative x2. BNP 90. Patient was noted to be hypertensive and hypoglycemic on arrival to the ED. At time of my assessment, patient reports chest pain improved from 8/10 to 5/10 but is stil l present. Patient reports she had been feeling well prior to this event. She typically nee ds to use nitro about once per month, has not used in past month. Recently estab lished care with a new weight clerk at [facility] who performed a cardiac stres s test on 04/04/21 which demonstrated reversible ischemia involving the anterior wall, anterolateral wall and anterior septum with stress score 13. Based on thes e findings, patient was recommended to undergo LHC with possible stenting but th is has not been pushed back due to insurance issues. Medical History: Diagnosis Date Acid reflux rare; doens't take protonix often Allergy Anxiety and depression Arthritis CAD (coronary artery disease) x2 stents Cervical spondylosis Chest pain releived by nitro Chronic back pain Chronic diastolic heart failure (HCC) 05/25/2019 - Do not have documented echocardiogram; but patient states she has been diagno sed with CHF - States she was told her oxygen requirement is related to her hea rt failure - c/o LOBATO, PND, orthopnea - continue lasix, lisinopril; may consider addition of beta irma in the future - patient set up with Cardiology appointm ent here at with Dr. Salazar - Have requested that patient obtain records for Chronic respiratory failure (HCC) 06/02/2019 CKD (chronic kidney disease) stage 3, GFR 30-59 ml/min (HCC) Colon polyps Congestive heart disease (HCC) Depression Diabetes mellitus (HCC) 2-12-20 A1C 6.7; FBS 120-170 Diabetic foot ulcers (HCC) both feet; healed Fibromyalgia Gastroparesis Generalized headaches H/O splenectomy Heart palpitations weekly History of CVA (cerebrovascular accident) 2009, 2012, 2014 06-2009presented with speech difficulties; R sided residual History of lumbar laminectomy 1996 L2-4 with post op MRSA revision History of MRSA infection 2002 was cleared of MRSA at [facility] History of partial pancreatectomy distal HLD (hyperlipidemia) 09/05/2007 Hypertension Myocardial infarction (HCC) 2011 Neuropathy Diabetic Peripheral Neuropathy; fingers, feet, ankles On home oxygen therapy 4L with activity and at night Pancreatitis Sleep apnea noncompliant with Cpap Spinal stenosis of lumbar region with neurogenic claudication Vision decreased Surgical History: Procedure Laterality Date HX APPENDECTOMY 1966 HX TUBAL LIGATION 1976 HX KNEE ARTHROSCOPY Left 2003 COLONOSCOPY REPORT 07 due in 2017 BONE DENSITY SPINE/HIP 4-07 mild osteopenia- declined 4-13 AMPUTATION Left 2010 4th and 5th toes VASCULAR SURGERY Left 2009 LLE stent (ankle area) ARTERY SURGERY Right 2013 PCI renal artery x2 stent MASS EXCISION 2017 pancreatic mass resection and spleenectomy PANCREATECTOMY 2017 distal portion SPLENECTOMY, TOTAL 2017 HX HEART CATHETERIZATION 05/2019 ESOPHAGOSCOPY WITH ENDOSCOPIC ULTRASOUND EXAMINATION - FLEXIBLE N/A 0 Performed by Robin Rai MD at [facility] ENDO ESOPHAGOGASTRODUODENOSCOPY WITH BIOPSY - FLEXIBLE N/A 11/19/2019 Performed by Robin Rai MD at [facility] ENDO DACRYOCYSTORHINOSTOMY WITH TUBES Right 02/10/2020 Performed by Joaquín Rios MD at [facility] OR PROBING NASOLACRIMAL DUCT WITHIRRIGATION WITH INSERTION TUBE Right 02/10/2020 Performed by Joaquín Rios MD at [facility] OR MANUAL/ MECHANICAL EXTRACAPSULAR CATARACT REMOVAL WITH INSERTION INTRAOCULAR LENS PROSTHESIS - COMPLEX Bilateral 05/25/2020 Performed by Lurdes Metcalf MD at [facility] OR ANGIOGRAPHY CORONARY ARTERY WITH LEFT HEART CATHETERIZATION N/A 08/30/2020 Performed by Jose Enrique Victoria MD at [facility]PERATOR PERCUTANEOUS CORONARY STENT PLACEMENT WITH ANGIOPLASTY N/A 08/30/2020 Performed by Jose Enrique Victoria MD at [facility] MACHINE OPERATOR CATHETER PLACEMENT ARTERIAL - ABDOMINAL/ PELVIC/ LOWER EXTREMITIY ARTERY - T HIRD OR MORE BRANCH N/A 10/09/2020 Performed by Isa Bender MD at [facility] MACHINE OPERATOR ESOPHAGOGASTRODUODENOSCOPY WITH BIOPSY - FLEXIBLE N/A 10/28/2020 Performed by Naina Sears MD at [facility] OR CAROTID ENDARDECTOMY Bilateral approx , lt- Dr. Garcia- CORONARY STENT PLACEMENT 2013 x2 CYTOLOGY PAP SMEAR DIAGNOSTIC 07? declined - HX BACK SURGERY ~2003 "cleaned up staph infection" (MRSA) HX CARPAL TUNNEL RELEASE Bilateral ~2007, 2008 2 surg per left, 1 surg per right HX CHOLECYSTECTOMY ~2000 LAMINECTOMY 1996, 2002 MRSA after 2002 surgery MAMMO HISTORICAL REPORT 07? declined -13 Social History Socioeconomic History Marital status: Spouse name: Not on file Number of children: 2 Years of education: Not on file Highest education level: Not on file Occupational History Occupation: disabled Employer: [employer] Occupation: 2 daughters-Norma and [employer] Tobacco Use Smoking status: Former Smoker Packs/day: 0.50 Years: 25.00 Pack years: 12.50 Types: Cigarettes Quit date: 11/03/1998 Years since quittin.4 Smokeless tobacco: Never Used Substance and Sexual Activity Alcohol use: Not Currently Drug use: Never Sexual activity: Not Currently Partners: Female control/protection: None Other Topics Concern Not on file Social History Narrative Not on file Social Determinants of Health Financial Resource Strain: Difficulty of Paying Living Expenses: Food Insecurity: Worried About Running Out of Food in the Last Year: Ran Out of Food in the Last Year: Transportation Needs: Lack of Transportation (Medical): Lack of Transportation (Non-Medical): Physical Activity: Days of Exercise per Week: Minutes of Exercise per Session: Stress: Feeling of Stress : Social Connections: Frequency of Communication with Friends and Family: Frequency of Social Gatherings with Friends and Family: Attends [employer] Services: Active Member of Clubs or Organizations: Attends Club or Organization Meetings: Marital Status: Intimate Partner Violence: Fear of Current or Ex-Partner: Emotionally Abused: Physically Abused: Sexually Abused: Vaping/E-liquid Use Vaping Use Never User Family History Problem Relation Age of Onset Heart Disease Father Glaucoma Father Diabetes Mother Heart Disease Mother Blindness Mother Cancer Brother Prostate Cancer Brother Lung and Colon Heart Disease Sister Macular Degen Neg Hx Allergies: Cephalosporins; Contrast dye iv, iodine containing [iodinated contra st media]; Levofloxacin; Narcan [naloxone]; Gabapentin; Sulfa (sulfonamide antib iotics); and Tricor [fenofibrate micronized] Scheduled Meds:aspirin EC tablet 81 mg, 81 mg, Oral, QDAY [START ON 04/14/2021] atorvastatin (LIPITOR) tablet 40 mg, 40 mg, Oral, QHS carvediloL (COREG) tablet 37.5 mg, 37.5 mg, Oral, BID cycloSPORINE (RESTASIS) 0.05 % ophthalmic emulsion 1 drop, 1 drop, Both Eyes, BI D ergocalciferol (vitamin D2) (DRISDOL) capsule 50,000 Units, 50,000 Units, Oral, Q7 Days ferrous gluconate tablet 324 mg, 324 mg, Oral, QDAY w/breakfast heparin (porcine) BOLUS for continuous inf (vial) 2,400-4,810 Units, 20-40 Units /kg, Intravenous, As Prescribed insulin aspart (U-100) (NOVOLOG FLEXPEN U-100 INSULIN) injection PEN 0-6 Units, 0-6 Units, Subcutaneous, ACHS (22) insulin NPH (HUMULIN N KwikPen) injection PEN 30 Units, 30 Units, Subcutaneous, QHS isosorbide mononitrate ER (IMDUR) tablet 60 mg, 60 mg, Oral, QDAY losartan (COZAAR) tablet 25 mg, 25 mg, Oral, QDAY nortriptyline (PAMELOR) capsule 50 mg, 50 mg, Oral, QHS pantoprazole DR (PROTONIX) tablet 40 mg, 40 mg, Oral, QDAY sertraline (ZOLOFT) tablet 150 mg, 150 mg, Oral, QDAY torsemide (DEMADEX) tablet 60 mg, 60 mg, Oral, QDAY traZODone (DESYREL) tablet 300 mg, 300 mg, Oral, QHS Continuous Infusions: dextrose 5 % infusion 50 mL/hr at 04/13/21 1118 heparin (porcine) 20,000 units/D5W 500 mL infusion (std conc)(premade) 1,000 Units/hr (04/13/21 0729) PRN and Respiratory Meds:acetaminophen Q6H PRN, cyclobenzaprine TID PRN, nitrogl ycerin Q5 MIN PRN Review of Systems: Constitutional: negative for fatigue and malaise Eyes: negative for visual disturbance Respiratory: positive for dyspnea on exertion, negative for cough or sputum Cardiovascular: positive for chest pressure/discomfort, dyspnea, negative for pa lpitations, near-syncope, lower extremity edema Gastrointestinal: positive for nausea Genitourinary:negative Integument/breast: negative Hematologic/lymphatic: negative Musculoskeletal:negative for myalgias Neurological: positive for lightheadedness (chronic) and peripheral neuropathy Vital Signs: Last Filed in 24 hours Vital Signs: 24 hour Range BP: 167/67 (04/13 0900) Temp: 36.9 C (98.5 F) (04/12 2329) Pulse: 63 (04/13 1030) Respirations: 9 PER MINUTE (04/13 1030) SpO2: 98 % (04/13 1030) SpO2 Pulse: 63 (04/13 1030) BP: (109-177)/(49-68) Temp: [36.9 C (98.5 F)] Pulse: [61-74] Respirations: [9 PER MINUTE-20 PER MINUTE] SpO2: [91 %-99 %] Physical Exam: General appearance: alert, cooperative, no distress and morbidly obese Head: Normocephalic, without obvious abnormality, atraumatic Lungs: clear to auscultation bilaterally, normal effort on 4L O2 Heart: regular rate and rhythm, S1, S2 normal, no murmur, click, rub or gallop Abdomen: soft, non-tender. Bowel sounds normal. No masses, no organomegaly Extremities: extremities normal, atraumatic, no cyanosis or edema Neurologic: Grossly normal Skin: Skin color, texture, turgor normal. No rashes or lesions Lab/Radiology/Other Diagnostic Tests: 24-hour labs: Results for orders placed or performed during the hospital encounter of 04/13/21 (from the past 24 hour(s)) POC GLUCOSE Collection Time: 04/13/21 12:29 AM Result Value Ref Range Glucose, POC 70 70 - 100 MG/DL POC TROPONIN Collection Time: 04/13/21 2:16 AM Result Value Ref Range Iyiuhvcd-P-RZH 0.00 0.00 - 0.05 NG/ML POC GLUCOSE Collection Time: 04/13/21 2:45 AM Result Value Ref Range Glucose, POC 47 (LL) 70 - 100 MG/DL CBC AND DIFF Collection Time: 04/13/21 3:29 AM Result Value Ref Range White Blood Cells 12.9 (H) 4.5 - 11.0 K/UL RBC 4.30 4.0 - 5.0 M/UL Hemoglobin 13.3 12.0 - 15.0 GM/DL Hematocrit 40.1 36 - 45 % MCV 93.4 80 - 100 FL MCH 30.9 26 - 34 PG MCHC 33.1 32.0 - 36.0 G/DL RDW 14.9 11 - 15 % Platelet Count 375 150 - 400 K/UL MPV 8.6 7 - 11 FL Neutrophils 66 41 - 77 % Lymphocytes 20 (L) 24 - 44 % Monocytes 7 4 - 12 % Eosinophils 6 (H) 0 - 5 % Basophils 1 0 - 2 % Absolute Neutrophil Count 8.55 (H) 1.8 - 7.0 K/UL Absolute Lymph Count 2.53 1.0 - 4.8 K/UL Absolute Monocyte Count 0.91 (H) 0 - 0.80 K/UL Absolute Eosinophil Count 0.77 (H) 0 - 0.45 K/UL Absolute Basophil Count 0.11 0 - 0.20 K/UL MDW (Monocyte Distribution Width) 23.9 (H) <20.7 COMPREHENSIVE METABOLIC PANEL Collection Time: 04/13/21 3:29 AM Result Value Ref Range Sodium 140 137 - 147 MMOL/L Potassium 3.5 3.5 - 5.1 MMOL/L Chloride 99 98 - 110 MMOL/L Glucose 39 (LL) 70 - 100 MG/DL Blood Urea Nitrogen 25 7 - 25 MG/DL Creatinine 1.26 (H) 0.4 - 1.00 MG/DL Calcium 9.6 8.5 - 10.6 MG/DL Total Protein 7.8 6.0 - 8.0 G/DL Total Bilirubin 0.4 0.3 - 1.2 MG/DL Albumin 3.9 3.5 - 5.0 G/DL Alk Phosphatase 46 25 - 110 U/L AST (SGOT) 20 7 - 40 U/L CO2 30 21 - 30 MMOL/L ALT (SGPT) 12 7 - 56 U/L Anion Gap 11 3 - 12 eGFR Non 42 (L) >60 mL/min eGFR 51 (L) >60 mL/min MAGNESIUM Collection Time: 04/13/21 3:29 AM Result Value Ref Range Magnesium 1.9 1.6 - 2.6 mg/dL LIPASE Collection Time: 04/13/21 3:29 AM Result Value Ref Range Lipase 15 11 - 82 U/L BNP POC ER Collection Time: 04/13/21 3:29 AM Result Value Ref Range BNP POC 90.0 0 - 100 PG/ML POC LACTATE Collection Time: 04/13/21 3:30 AM Result Value Ref Range LACTIC ACID POC 2.2 (H) 0.5 - 2.0 MMOL/L POC GLUCOSE Collection Time: 04/13/21 3:47 AM Result Value Ref Range Glucose, POC 103 (H) 70 - 100 MG/DL POC GLUCOSE Collection Time: 04/13/21 4:35 AM Result Value Ref Range Glucose, POC 49 (LL) 70 - 100 MG/DL COVID-19 (SARS-COV-2) PCR Collection Time: 04/13/21 4:37 AM Specimen: Nasopharyngeal; Flocked Swab Result Value Ref Range COVID-19 (SARS-CoV-2) PCR Source FLOCKED SWAB NASOPHARYNGEAL COVID-19 (SARS-CoV-2) PCR NOT DETECTED DN-NOT DETECTED PTT (APTT) Collection Time: 04/13/21 5:20 AM Result Value Ref Range APTT 98.3 (H) 24.0 - 36.5 SEC POC GLUCOSE Collection Time: 04/13/21 5:48 AM Result Value Ref Range Glucose, POC 117 (H) 70 - 100 MG/DL POC GLUCOSE Collection Time: 04/13/21 7:04 AM Result Value Ref Range Glucose, POC 69 (L) 70 - 100 MG/DL POC GLUCOSE Collection Time: 04/13/21 7:43 AM Result Value Ref Range Glucose, POC 65 (L) 70 - 100 MG/DL POC GLUCOSE Collection Time: 04/13/21 8:40 AM Result Value Ref Range Glucose, POC 122 (H) 70 - 100 MG/DL TROPONIN-I Collection Time: 04/13/21 8:51 AM Result Value Ref Range Troponin-I 0.01 0.0 - 0.05 NG/ML PTT (APTT) Collection Time: 04/13/21 10:29 AM Result Value Ref Range APTT 37.9 (H) 24.0 - 36.5 SEC TROPONIN-I Collection Time: 04/13/21 10:47 AM Result Value Ref Range Troponin-I 0.01 0.0 - 0.05 NG/ML POC GLUCOSE Collection Time: 04/13/21 11:09 AM Result Value Ref Range Glucose, POC 55 (L) 70 - 100 MG/DL POC GLUCOSE Collection Time: 04/13/21 11:31 AM Result Value Ref Range Glucose, POC 55 (L) 70 - 100 MG/DL POC GLUCOSE Collection Time: 04/13/21 11:57 AM Result Value Ref Range Glucose, POC 95 70 - 100 MG/DL Pertinent radiology reviewed., EKG Reviewed Fam Banda MD Associated attestation - Jessee Garrett MD - 04/13/2021 2:31 PM CDT Staff Physician Attestation: I personally took the history, examined the patient, reviewed the labs, telemetr y, ECGs, & radiologic studies, and formulated the treatment plan as outlined by the resident. Mike Garrett M.D Briefly, very pleasant 70-year-old individual with multiple medical issues outli tori nicely in Dr. Banda note. Extensive history of CAD and PAD. Previous fo urth and fifth digit amputations left foot. Bilateral CEA. Previous lower extr emity stent interventions. She has had an LAD and an RCA stent in the past. [place] gr[place] recently tried to establish with a weight clerk closer to home, [place], Dr. Mireles. The stress test was done, reportedly abnormal with ischemia in t he LAD territory. Plans in place for heart catheterization today in [place]. Unfortunately last evening after eating dinner and while doing laundry she dev eloped severe substernal 10/10 chest pain, responded to the sublingual nitroglyc carlos x2 but 1 hour later came back, 2 more sublingual nitroglycerin and 1 hour l ater 2 more sublingual nitroglycerin. At this point she opted to come into [facility] mergency room, her daughter drove her. She still complaining of chest pain. This is in spite of normal ECGs and normal cardiac markers. Rating her chest pain 4/10. On my exam Pleasant, no acute distress, full A/O Obese Bilateral CEA scars, no bruits No JVD Regular rate and rhythm without murmur, distant heart sounds Trace peripheral edema, extremities warm/well-perfused ECG today, [id number] rhythm, 75, normal tracing ECG 23: 23 last night sinus rhythm, no ischemic changes Chest x-rayno pulmonary edema Assessment 1. Unstable angina 2. CAD with previous stent interventions RCA and LAD, recent stress test showin g LAD ischemia, done in [facility], [facility] 3. Insulin controlled diabetes, well controlled based on A1c, actually having l ows at home 4. PAD, stable, scheduled for outpatient rest exercise ABIs 7/29 5. Contrast allergy 6. Stable heart failure with preserved ejection fraction Recommendations 1. I am concerned about current symptoms, this coupled with recent abnormal str ess test above, recommending [facility], will go today. Premedicated with Solu-Medrol (too late for prednisone) and Benadryl. History of hives with contrast 2. Continue to monitor blood pressure, well controlled currently on CARCASS SPLITTER regimen but notably elevated overnight Consult team will follow up tomorrow, Dr. Bernal covering. documented in this encounter ED Notes * Uche Marcum RN - 04/13/2021 11:25 AM CDT PT blood sugar 55. Hypoglycemia protocol followed, Md notified. * Uche Marcum RN - 04/13/2021 11:11 AM CDT Pt BS 55. Per Dr. Kaur, pt to be started on Dextrose 5% @ 50 ml/hr. * Uche Marcum RN - 04/13/2021 9:45 AM CDT Record request sent to [place] via [facility] * Uche Marcum RN - 04/13/2021 7:50 AM CDT Pt repeat blood sugar 65. Pt alert and oriented x 4 and asymptomatic. Admit team repaged. Hypoglycemia protocol to be followed * Kristi Pretty DO - 04/13/2021 3:26 AM CDT Images from the original note were not included. Brad Avila is a 70 y.o. female. Chief Complaint: Chief Complaint Patient presents with Chest Pain started at 1800 while getting up to do laundry, midsternal radiating to back, 8/10, nitro x 6 since onset History of Present Illness: Patient is a 70-year-old female with past medical history of diastolic heart mary lure, coronary artery disease, CKD, chronic respiratory failure on 4 L nasal can nula, CHF, diabetes who presents today with chief complaint chest pain. She rep orts that she was scheduled to have a stent placed in [facility] today, however they did cancel the procedure as insurance did not approve it. She was at home today doing laundry when she developed midsternal chest pain that radiated thro ugh to her back. The pain is severe and 8 out of 10 in nature. Does not radiat e into her jaw or down into her stomach. It was associated with slight nausea a nd diaphoresis but no vomiting. She has had no feelings of syncope or presyncop e. She took nitro with improvement of symptoms, however symptoms quickly return ed to their previous severity. She then took 5 individual but subsequent doses of nitro without consistent improvement in symptoms. At that point she presente d to the emergency department. She has not had a headache, change in vision, sh ortness of breath, abdominal pain, vomiting, painful urination, leg swelling or leg weakness. She has been compliant with her outpatient medications. She chos e to present to instead of [facility] "this is a better hospital ". Review of Systems: Review of Systems Constitutional: Positive for diaphoresis. Negative for fever. HENT: Negative for sore throat. Eyes: Negative for visual disturbance. Respiratory: Negative for cough and shortness of breath. Cardiovascular: Positive for chest pain. Negative for palpitations and leg swell ing. Gastrointestinal: Positive for nausea. Negative for abdominal pain and vomiting. Genitourinary: Negative for dysuria. Musculoskeletal: Negative for back pain. Skin: Negative for rash. Neurological: Negative for weakness and headaches. Allergies: Cephalosporins; Contrast dye iv, iodine containing [iodinated contrast media]; L evofloxacin; Narcan [naloxone]; Gabapentin; Sulfa (sulfonamide antibiotics); and Tricor [fenofibrate micronized] Past Medical History: Medical History: Diagnosis Date Acid reflux rare; doens't take protonix often Allergy Anxiety and depression Arthritis CAD (coronary artery disease) x2 stents Cervical spondylosis Chest pain releived by nitro Chronic back pain Chronic diastolic heart failure (HCC) 05/25/2019 - Do not have documented echocardiogram; but patient states she has been diagno sed with CHF - States she was told her oxygen requirement is related to her hea rt failure - c/o LOBATO, PND, orthopnea - continue lasix, lisinopril; may consider addition of beta irma in the future - patient set up with Cardiology appointm ent here at with Dr. Salazar - Have requested that patient obtain records for Chronic respiratory failure (HCC) 06/02/2019 CKD (chronic kidney disease) stage 3, GFR 30-59 ml/min (HCC) Colon polyps Congestive heart disease (HCC) Depression Diabetes mellitus (HCC) 2-12-20 A1C 6.7; FBS 120-170 Diabetic foot ulcers (HCC) both feet; healed Fibromyalgia Gastroparesis Generalized headaches H/O splenectomy Heart palpitations weekly History of CVA (cerebrovascular accident) 2009, 2012, 2014 06-2009presented with speech difficulties; R sided residual History of lumbar laminectomy 1996 L2-4 with post op MRSA revision History of MRSA infection 2002 was cleared of MRSA at [facility] History of partial pancreatectomy distal HLD (hyperlipidemia) 09/05/2007 Hypertension Myocardial infarction (HCC) 2011 Neuropathy Diabetic Peripheral Neuropathy; fingers, feet, ankles On home oxygen therapy 4L with activity and at night Pancreatitis Sleep apnea noncompliant with Cpap Spinal stenosis of lumbar region with neurogenic claudication Vision decreased Past Surgical History: Surgical History: Procedure Laterality Date HX APPENDECTOMY 1967 HX TUBAL LIGATION 1976 HX KNEE ARTHROSCOPY Left 2003 COLONOSCOPY REPORT 07 due in 2017 BONE DENSITY SPINE/HIP 4-07 mild osteopenia- declined 4-13 AMPUTATION Left 2009 4th and 5th toes VASCULAR SURGERY Left 2009 LLE stent (ankle area) ARTERY SURGERY Right 2013 PCI renal artery x2 stent MASS EXCISION 2017 pancreatic mass resection and spleenectomy PANCREATECTOMY 2017 distal portion SPLENECTOMY, TOTAL 2017 HX HEART CATHETERIZATION 05/2019 ESOPHAGOSCOPY WITH ENDOSCOPIC ULTRASOUND EXAMINATION - FLEXIBLE N/A 0 Performed by Robin Rai MD at [facility] ENDO ESOPHAGOGASTRODUODENOSCOPY WITH BIOPSY - FLEXIBLE N/A 11/19/2019 Performed by Robin Rai MD at [facility] ENDO DACRYOCYSTORHINOSTOMY WITH TUBES Right 02/10/2020 Performed by Joaquín Rios MD at [facility] OR PROBING NASOLACRIMAL DUCT WITHIRRIGATION WITH INSERTION TUBE Right 02/10/2020 Performed by Joaquín Rios MD at [facility] OR MANUAL/ MECHANICAL EXTRACAPSULAR CATARACT REMOVAL WITH INSERTION INTRAOCULAR LENS PROSTHESIS - COMPLEX Bilateral 05/25/2020 Performed by Lurdes Metcalf MD at [facility] OR ANGIOGRAPHY CORONARY ARTERY WITH LEFT HEART CATHETERIZATION N/A 08/30/2020 Performed by Jose Enrique Victoria MD at [facility]PERATOR PERCUTANEOUS CORONARY STENT PLACEMENT WITH ANGIOPLASTY N/A 08/30/2020 Performed by Jose Enrique Victoria MD at [facility] OPERATOR CATHETER PLACEMENT ARTERIAL - ABDOMINAL/ PELVIC/ LOWER EXTREMITIY ARTERY - T HIRD OR MORE BRANCH N/A 10/09/2020 Performed by Isa Bender MD at [facility] OPERATOR ESOPHAGOGASTRODUODENOSCOPY WITH BIOPSY - FLEXIBLE N/A 10/28/2020 Performed by Naina Sears MD at [facility] OR CAROTID ENDARDECTOMY Bilateral approx 9-2009, 12-2010 lt- Dr. Garcia- CORONARY STENT PLACEMENT 2009, 2013 x2 CYTOLOGY PAP SMEAR DIAGNOSTIC 07? declined 4-13 HX BACK SURGERY ~2003 "cleaned up staph infection" (MRSA) HX CARPAL TUNNEL RELEASE Bilateral ~2007, 2008 2 surg per left, 1 surg per right HX CHOLECYSTECTOMY ~2000 LAMINECTOMY 1996, 2002 MRSA after 2003 surgery MAMMO HISTORICAL REPORT 07? declined 4-13 Pertinent medical/surgical history reviewed Social History: Social History Tobacco Use Smoking status: Former Smoker Packs/day: 0.50 Years: 25.00 Pack years: 12.50 Types: Cigarettes Quit date: 11/03/1998 Years since quittin.4 Smokeless tobacco: Never Used Substance Use Topics Alcohol use: Not Currently Drug use: Never Social History Substance and Sexual Activity Drug Use Never Family History: Family History Problem Relation Age of Onset Heart Disease Father Glaucoma Father Diabetes Mother Heart Disease Mother Blindness Mother Cancer Brother Prostate Cancer Brother Lung and Colon Heart Disease Sister Macular Degen Neg Hx Vitals: ED Vitals Date and Time T BP P RR SPO2P SPO2 User 04/13/21 1030 -- -- 63 9 PER MINUTE 63 98 % 04/13/21 0900 -- 167/67 61 12 PER MINUTE 61 99 % 04/13/21 0800 -- 177/68 62 10 PER MINUTE 62 94 % 04/13/21 0700 -- 164/56 66 16 PER MINUTE 66 91 % 04/13/21 0630 -- 152/58 63 15 PER MINUTE 62 97 % CC 04/13/21 0600 -- 132/49 62 11 PER MINUTE 62 97 % 04/13/21 0530 -- 131/52 63 11 PER MINUTE 63 98 % CC 04/13/21 0500 -- 133/51 64 15 PER MINUTE 64 97 % 04/13/21 0400 -- 132/55 64 -- 64 95 % 04/13/21 0349 -- 109/49 65 13 PER MINUTE 65 97 % 04/13/21 0300 -- -- 74 15 PER MINUTE 74 97 % CC 04/13/21 0230 -- 135/52 68 12 PER MINUTE 68 98 % 04/13/21 0150 -- -- 73 14 PER MINUTE 72 99 % CC 04/13/21 0148 -- 161/59 -- -- -- -- CC 04/12/21 2329 36.9 C (98.5 F) 153/53 -- 20 PER MINUTE 70 96 % [place] Physical Exam: Physical Exam Vitals and nursing note reviewed. Constitutional: General: She is not in acute distress. Appearance: She is well-developed. She is ill-appearing and diaphoretic. HENT: Head: Normocephalic and atraumatic. Nose: Nose normal. Eyes: Pupils: Pupils are equal, round, and reactive to light. Neck: Trachea: No tracheal deviation. Cardiovascular: Rate and Rhythm: Normal rate and regular rhythm. Heart sounds: Normal heart sounds. Comments: Patient with warm right upper and lower extremities. 2+ palpable r adial pulse bilaterally. Pulmonary: Effort: Pulmonary effort is normal. Breath sounds: Normal breath sounds. Chest: Chest wall: No tenderness. Abdominal: Palpations: Abdomen is soft. Tenderness: There is no abdominal tenderness. Musculoskeletal: General: No deformity. Normal range of motion. Cervical back: Normal range of motion and neck supple. Skin: General: Skin is warm. Capillary Refill: Capillary refill takes less than 2 seconds. Comments: Patient is warm but diaphoretic. She reports he feels this way whe n blood sugar is low. Neurological: Mental Status: She is alert and oriented to person, place, and time. Cranial Nerves: No cranial nerve deficit. Coordination: Coordination normal. Deep Tendon Reflexes: Reflexes normal. Psychiatric: Behavior: Behavior normal. Thought Content: Thought content normal. Judgment: Judgment normal. Laboratory Results: Labs Reviewed POC GLUCOSE - Abnormal Result Value Ref Range Status Glucose, POC 47 (*) 70 - 100 MG/DL Final CBC AND DIFF - Abnormal White Blood Cells 12.9 (*) 4.5 - 11.0 K/UL Final RBC 4.30 4.0 - 5.0 M/UL Final Hemoglobin 13.3 12.0 - 15.0 GM/DL Final Hematocrit 40.1 36 - 45 % Final MCV 93.4 80 - 100 FL Final MCH 30.9 26 - 34 PG Final MCHC 33.1 32.0 - 36.0 G/DL Final RDW 14.9 11 - 15 % Final Platelet Count 375 150 - 400 K/UL Final MPV 8.6 7 - 11 FL Final Neutrophils 66 41 - 77 % Final Lymphocytes 20 (*) 24 - 44 % Final Monocytes 7 4 - 12 % Final Eosinophils 6 (*) 0 - 5 % Final Basophils 1 0 - 2 % Final Absolute Neutrophil Count 8.55 (*) 1.8 - 7.0 K/UL Final Absolute Lymph Count 2.53 1.0 - 4.8 K/UL Final Absolute Monocyte Count 0.91 (*) 0 - 0.80 K/UL Final Absolute Eosinophil Count 0.77 (*) 0 - 0.45 K/UL Final Absolute Basophil Count 0.11 0 - 0.20 K/UL Final MDW (Monocyte Distribution Width) 23.9 (*) <20.7 Final COMPREHENSIVE METABOLIC PANEL - Abnormal Sodium 140 137 - 147 MMOL/L Final Potassium 3.5 3.5 - 5.1 MMOL/L Final Chloride 99 98 - 110 MMOL/L Final Glucose 39 (*) 70 - 100 MG/DL Final Blood Urea Nitrogen 25 7 - 25 MG/DL Final Creatinine 1.26 (*) 0.4 - 1.00 MG/DL Final Calcium 9.6 8.5 - 10.6 MG/DL Final Total Protein 7.8 6.0 - 8.0 G/DL Final Total Bilirubin 0.4 0.3 - 1.2 MG/DL Final Albumin 3.9 3.5 - 5.0 G/DL Final Alk Phosphatase 46 25 - 110 U/L Final AST (SGOT) 20 7 - 40 U/L Final CO2 30 21 - 30 MMOL/L Final ALT (SGPT) 12 7 - 56 U/L Final Anion Gap 11 3 - 12 Final eGFR Non 42 (*) >60 mL/min Final eGFR 51 (*) >60 mL/min Final POC LACTATE - Abnormal LACTIC ACID POC 2.2 (*) 0.5 - 2.0 MMOL/L Final POC GLUCOSE - Abnormal Glucose, POC 103 (*) 70 - 100 MG/DL Final POC GLUCOSE - Abnormal Glucose, POC 49 (*) 70 - 100 MG/DL Final PTT (APTT) - Abnormal APTT 98.3 (*) 24.0 - 36.5 SEC Final POC GLUCOSE - Abnormal Glucose, POC 117 (*) 70 - 100 MG/DL Final POC GLUCOSE - Abnormal Glucose, POC 69 (*) 70 - 100 MG/DL Final POC GLUCOSE - Abnormal Glucose, POC 65 (*) 70 - 100 MG/DL Final POC GLUCOSE - Abnormal Glucose, POC 122 (*) 70 - 100 MG/DL Final PTT (APTT) - Abnormal APTT 37.9 (*) 24.0 - 36.5 SEC Final POC GLUCOSE - Abnormal Glucose, POC 55 (*) 70 - 100 MG/DL Final POC GLUCOSE - Abnormal Glucose, POC 55 (*) 70 - 100 MG/DL Final HEMOGLOBIN A1C - Abnormal Hemoglobin A1C 6.1 (*) 4.0 - 6.0 % Final COVID-19 (SARS-COV-2) PCR COVID-19 (SARS-CoV-2) PCR Source Corrected Value: FLOCKED SWAB NASOPHARYNGEAL COVID-19 (SARS-CoV-2) PCR NOT DETECTED DN-NOT DETECTED Final POC GLUCOSE Glucose, POC 70 70 - 100 MG/DL Final POC TROPONIN Eslxjxtl-S-YMH 0.00 0.00 - 0.05 NG/ML Final MAGNESIUM Magnesium 1.9 1.6 - 2.6 mg/dL Final LIPASE Lipase 15 11 - 82 U/L Final BNP POC ER BNP POC 90.0 0 - 100 PG/ML Final TROPONIN-I Troponin-I 0.01 0.0 - 0.05 NG/ML Final TROPONIN-I Troponin-I 0.01 0.0 - 0.05 NG/ML Final POC GLUCOSE Glucose, POC 95 70 - 100 MG/DL Final POC TROPONIN POC GLUCOSE POC BNP POC LACTATE POC GLUCOSE POC GLUCOSE POC GLUCOSE POC GLUCOSE POC Glucose (Download): 92 Radiology Interpretation: CHEST SINGLE VIEW Final Result Bibasilar atelectasis and/or scarring. Finalized by Allison Smith M.D. on 04/13/2021 3:44 AM. Dictated by Allison Smith M.D. on 04/13/2021 3:43 AM. EKG: Heart rate 70 beats minute. Sinus rhythm. NC interval 154. QTc 428. Left ax is deviation. Significant baseline artifact. No T wave inversion or ST elevati on appreciated. No STEMI. ED Course: Brad Avila is a 70 y.o. female who presents with cc chest pain. Patien t roomed and vitals reviewed. Patient is hemodynamically stable. Peripheral IV placed. Patient valuated by resident and attending. Available medical records reviewed. During initial evaluation patient became diaphoretic. Blood sugar was checked a nd she was hypoglycemic. Patient was able to drink juice while IV access obtain ed and she then received a D50 push. Repeat blood glucose was appropriate. Differential diagnoses include but are not limited to: ACS, arrhythmia, pneumoni a, CHF exacerbation. EKG obtained without signs of ischemia or acute arrhythmia. Labs also obtained. Patient's initial and repeat troponins were within normal l imits. Unfortunately during the ER process the patient had a second episode of hypoglycemia received a second D50 push. She was then encouraged to continue dr inking juice during her ER course. Chest x-ray obtained and no signs of pneumonia or acute abnormalities appreciate d. BNP within normal limits. We do feel as though patient's chest pain is conc erning due to the history of responding to nitro several times but always return ing. Unfortunately patient does have blood pressure pressures in the 110s to 12 0 systolic and we do not feel comfortable starting a nitroglycerin drip. We did start patient on heparin due to the high concern that she is having unsta ble angina. Patient was admitted in stable condition to internal medicine. ED Scoring: MDM Reviewed: previous chart, nursing note and vitals Reviewed previous: labs and ECG Interpretation: labs, ECG and x-ray Consults: Admitting Provider Facility Administered Meds: Medications atorvastatin (LIPITOR) tablet 40 mg (has no administration in time range) carvediloL (COREG) tablet 37.5 mg (37.5 mg Oral Med Not Given 04/13/21 0924) cyclobenzaprine (FLEXERIL) tablet 5 mg (5 mg Oral Given 04/13/21 1105) cycloSPORINE (RESTASIS) 0.05 % ophthalmic emulsion 1 drop (1 drop Both Eyes Give n 04/13/21 1119) ergocalciferol (vitamin D2) (DRISDOL) capsule 50,000 Units (has no administratio n in time range) ferrous gluconate tablet 324 mg (0 mg Oral Planned Hold 04/13/21 1008) isosorbide mononitrate ER (IMDUR) tablet 60 mg (60 mg Oral Given 04/13/21 1106) losartan (COZAAR) tablet 25 mg (25 mg Oral Given 04/13/21 0934) nitroglycerin (NITROSTAT) tablet 0.4 mg (0.4 mg Sublingual Given 04/13/21 0700) nortriptyline (PAMELOR) capsule 50 mg (has no administration in time range) pantoprazole DR (PROTONIX) tablet 40 mg (40 mg Oral Given 04/13/21 1107) torsemide (DEMADEX) tablet 60 mg (has no administration in time range) traZODone (DESYREL) tablet 300 mg (has no administration in time range) aspirin EC tablet 81 mg (81 mg Oral Given 04/13/21 1107) insulin aspart (U-100) (NOVOLOG FLEXPEN U-100 INSULIN) injection PEN 0-6 Units ( 0 Units Subcutaneous Med Not Given 04/13/21 1201) dextrose 5 % infusion ( Intravenous Given - New Bag 04/13/21 1118) dextrose 50% (D50) syringe 50 mL (0 mL Intravenous Cabinet Pull 04/13/21 0334) heparin (porcine) injection 4,000 Units (4,000 Units Intravenous Given 04/13/21 04 09) fentaNYL citrate PF (SUBLIMAZE) injection 75 mcg (75 mcg Intravenous Given 1 0354) dextrose 50% (D50) syringe 50 mL (50 mL Intravenous Given 04/13/21 0445) DEXTROSE 50 % IN WATER (D50W) IV SOLP (Cabinet Override) (25 mL Intravenous Give n 04/13/21 0819) atorvastatin (LIPITOR) tablet 80 mg (80 mg Oral Given 04/13/21 0953) dextrose 50% (D50) syringe 50 mL (25 mL Intravenous Given 04/13/21 1134) Clinical Impression: Clinical Impression Chronic systolic heart failure (HCC) Coronary artery disease with unstable angina pectoris, unspecified vessel or les ion type, unspecified whether [place] or transplanted heart (HCC) Other specified diabetes mellitus with other specified complication, unspecified whether halfway insulin use (HCC) Hypoglycemia Disposition/Follow up ED Disposition ED Disposition Admit No follow-up provider specified. Medications: Current Discharge Medication List Procedure Notes: Procedures Attestation / Supervision: Kristi Pretty DO Associated attestation - Jessee Mccord MD - 04/16/2021 9:09 PM CDT Attestation / Supervision: I personally performed the hernández portions of the E/M visit, discussed case with re sident and concur with resident documentation of history, physical exam, assessm ent, and treatment plan unless otherwise noted. Faculty Name: Jessee Mccord MD Date/Time: 04/16/2021 at 9:09 PM DISCLAIMER: Every effort has been made to create an accurate and error-free [facility] record. However, this note was completed utilizing Dragon Dictation and may contain grammatical, or other, errors inherent to its use. If there are concer ns or if clarification is needed, please contact the Emergency Medicine administ rative offices at [phone] during normal business hours or the ER at after hours. * Óscar Barney RN - 04/13/2021 2:00 AM CDT 70 yo F presents to ED36 with c/o CP. Pt reports chest pain began at 1800 yester day after eating dinner. Pt reports mid sternal pain with radiation through back . Pt states that she took a nitro at pain onset with some relief, but the pain r eturned. Pt has since taken 5 nitro doses without pain relief (6 doses total). P t endorses nausea and chronic lightheadedness + SOA. Pt on 4LNC at baseline d/t her 'heart not getting enough oxygenated blood.' Pt reports that she was schedul ed for a heart cath with stent placement on 04/13 (today) with tootie Mendoza the procedure was pushed back d/t insurance issues. Pt AOx4, breathing even and unlabored, attached to BP/O2/tele monitors. Side rails up x2, call light amarilis mccrary. Daughter at bedside. Awaiting MD darling. Belongings: person wheelchair, shirt, shorts, shoes x2, bag. At bedside with ale tophershakira. documented in this encounter Miscellaneous Notes * Care Coordination-Inpatient - jC Pena DO - 04/13/2021 6:21 AM CDT Patient assigned to MPO1, please page Night 4 at [phone] for questions until 0800. documented in this encounter Plan of Treatment Not on filedocumented as of this encounter Goals Goal Patient Associated Recent Progress Patient-Stat Aut hor Goal Type Problems ed? GOAL General Worsening No Esteban, (04/13/2021 2:16 PM SUMANTH Condon CDT) Note: Be independent Assessment 04/13/2021 - patient is having issues being able to bathe herself. No help at home.[place]carina is out of town until July(work related) [facility] On track (04/13/2021 Yes Dorota Paris, 2:18 PM CDT) RN Note: I would like to be able to bathe myself. I have a shower chair but I can't get my legs over the lip of the tub. documented as of this encounter Procedures Comments Procedure Name Priority Date/Time Associated Diag nosis POC GLUCOSE 04/14/2021 1:05 PM CDT POC GLUCOSE 04/14/2021 8:16 AM CDT HC CBC W/ AUTOMATED DIFF Routine 04/14/2021 4:31 AM CDT HC COMPREHENSIVE Routine 04/14/2021 METABOLIC PANEL 4:31 AM CDT POC GLUCOSE 04/13/2021 9:53 PM CDT CARDIAC CATH REPORT 04/13/2021 7:22 PM CDT POC GLUCOSE 04/13/2021 6:49 PM CDT POC GLUCOSE 04/13/2021 5:55 PM CDT CARDIAC CATH REPORT Routine 04/13/2021 Angina pec toris, unstable 3:40 PM CDT (HCC) CARDIAC CATH REPORT Routine 04/13/2021 Angina pec toris, unstable 2:16 PM CDT (HCC) POC GLUCOSE 04/13/2021 1:50 PM CDT HC TROPONIN-I STAT 04/13/2021 1:35 PM CDT ECG 12-LEAD STAT 04/13/2021 1:20 PM CDT POC GLUCOSE 04/13/2021 11:57 AM CDT POC GLUCOSE 04/13/2021 11:31 AM CDT POC GLUCOSE 04/13/2021 11:09 AM CDT TROPONIN-I STAT 04/13/2021 10:47 AM CDT HC PTT(APTT) STAT 04/13/2021 10:29 AM CDT HC TROPONIN-I STAT 04/13/2021 8:51 AM CDT POC GLUCOSE 04/13/2021 8:40 AM CDT POC GLUCOSE 04/13/2021 7:43 AM CDT POC GLUCOSE 04/13/2021 7:04 AM CDT POC GLUCOSE 04/13/2021 5:48 AM CDT HC PTT(APTT) STAT 04/13/2021 5:20 AM CDT COVID-19 (SARS-COV-2) PCR Routine 04/13/2021 4:37 AM CDT POC GLUCOSE 04/13/2021 4:35 AM CDT POC GLUCOSE 04/13/2021 3:47 AM CDT HC POC LACTIC ACID 04/13/2021 3:30 AM CDT HC BNP POC 04/13/2021 3:29 AM CDT HC CBC W/ AUTOMATED DIFF STAT 04/13/2021 3:29 AM CDT HC MAGNESIUM STAT 04/13/2021 3:29 AM CDT HC LIPASE STAT 04/13/2021 3:29 AM CDT HC HEMOGLOBIN A1C Add on 04/13/2021 3:29 AM CDT HC COMPREHENSIVE STAT 04/13/2021 METABOLIC PANEL 3:29 AM CDT CHEST SINGLE VIEW STAT 04/13/2021 3:19 AM CDT ECG 12-LEAD STAT 04/13/2021 3:10 AM CDT POC GLUCOSE 04/13/2021 2:45 AM CDT POC TROPONIN 04/13/2021 2:16 AM CDT POC GLUCOSE 04/13/2021 12:29 AM CDT TELEMETRY STRIPS-SCAN 04/13/2021 12:00 AM CDT TELEMETRY STRIPS-SCAN 04/13/2021 12:00 AM CDT TELEMETRY STRIPS-SCAN 04/13/2021 12:00 AM CDT TELEMETRY STRIPS-SCAN 04/13/2021 12:00 AM CDT ECG-SCAN 04/13/2021 12:00 AM CDT ECG-SCAN 04/13/2021 12:00 AM CDT ECG-SCAN 04/13/2021 12:00 AM CDT PROCEDURE RECORD-SCAN 04/13/2021 12:00 AM CDT ECG 12-LEAD STAT 04/12/2021 11:18 PM CDT documented in this encounter Results * POC GLUCOSE (04/14/2021 1:05 PM CDT) Glucose, POC 212 (H) 70 - 100 MG/DL MAIN LAB Specimen Performing Organization Address City/[facility]/ZIP Code [place] Number MAIN LAB [address] [place] [address] * POC GLUCOSE (04/14/2021 8:16 AM CDT) Glucose, POC 107 (H) 70 - 100 MG/DL MAIN LAB Specimen Performing Organization Address City/State/ZIP Code [place] Number MAIN LAB [address] [place] [address] * COMPREHENSIVE METABOLIC PANEL (04/14/2021 4:31 AM CDT) Sodium 138 137 - 147 MMOL/L [facility] Potassium 4.0 3.5 - 5.1 MMOL/L [facility] Chloride 98 98 - 110 MMOL/L [facility] Glucose 142 (H) 70 - 100 MG/DL [facility] Blood Urea 24 7 - 25 MG/DL [facility] Nitrogen Creatinine 1.22 (H) 0.4 - 1.00 MG/DL [facility] Calcium 9.3 8.5 - 10.6 MG/DL [facility] Total Protein 7.3 6.0 - 8.0 G/DL [facility] Total Bilirubin 0.3 0.3 - 1.2 MG/DL [facility] Albumin 3.6 3.5 - 5.0 G/DL [facility] Alk Phosphatase 44 25 - 110 U/L [facility] AST (SGOT) 19 7 - 40 U/L [facility] CO2 26 21 - 30 MMOL/L [facility] ALT (SGPT) 10 7 - 56 U/L [facility] Anion Gap 14 (H) 3 - 12 [facility] eGFR Non 43 (L) >60 mL/min [facility] Comment: [place] The eGFR is not validated f or use in drug dosing adjustments. Continue to use estimated creatinine clearance per dosing reference text. Please contact the Clinical Pharmacist for questions. eGFR 53 (L) >60 mL/min [facility] [place] Comment: The eGFR is not validated for use in drug dosing adjustments. Continue to use estimated creatinine clearance per dosing reference text. Please contact the Clinical Pharmacist for questions. Specimen Performing Organization Address City/State/ZIP Code [place] Number [facility] [address] [place] [address] * CBC AND DIFF (04/14/2021 4:31 AM CDT) White Blood 13.2 (H) 4.5 - 11.0 K/UL [facility] Cells RBC 4.01 4.0 - 5.0 M/UL [facility] Hemoglobin 12.2 12.0 - 15.0 GM/DL [facility] Hematocrit 37.8 36 - 45 % [facility] MCV 94.2 80 - 100 FL [facility] MCH 30.5 26 - 34 PG [facility] MCHC 32.3 32.0 - 36.0 G/DL [facility] RDW 14.8 11 - 15 % [facility] Platelet Count 387 150 - 400 K/UL [facility] MPV 8.6 7 - 11 FL [facility] Neutrophils 91 (H) 41 - 77 % [facility] Lymphocytes 7 (L) 24 - 44 % [facility] Monocytes 2 (L) 4 - 12 % [facility] Eosinophils 0 0 - 5 % [facility] Basophils 0 0 - 2 % [facility] Absolute 11.95 (H) 1.8 - 7.0 K/UL [facility] Neutrophil Count Absolute Lymph 0.91 (L) 1.0 - 4.8 K/UL [facility] Count Absolute 0.31 0 - 0.80 K/UL [facility] Monocyte Count Absolute 0.00 0 - 0.45 K/UL [facility] Eosinophil Count Absolute 0.01 0 - 0.20 K/UL [facility] Basophil Count Specimen Performing Organization Address City/State/ZIP Code [place] Number [facility] [address] [place] [address] * POC GLUCOSE (04/13/2021 9:53 PM CDT) [facility] Glucose, POC 203 (H) 70 - 100 MG/DL [facility] MAIN [facility] Specimen Performing Organization Address City/[facility]/ZIP Code [place] Number [facility]IN [facility] [address] [place] [address] * CARDIAC CATH REPORT (04/13/2021 7:22 PM CDT) Procedure Note Radha Medina MBBS - 04/13/2021 7:22 PM CDT [facility] CARDIAC CATHETERIZATION REPORT Page 2 BRAD Clement : 1950 K[facility]#: [id number] MR #/Billing ID #: [id number] / [id number] DATE: 04/13/2021 ACCOUNT MAINTENANCE REPRESENTATIVE: Abdirashid Justin MD DICTATING PROVIDER: Radha Medina MD REFERRING PHYSICIAN: BANK CREDIT CARD COLLECTION CLERK: Abdirashid Justin MD INDICATIONS FOR PROCEDURE: Ms. Avila is a 70-year-old female with a history of PAD, CAD status post previous PCI, hypertension and diabetes, who was referred for cardiac catheterization with possible coronary intervention due to an abnormal stress test. PROCEDURES: 1. Left heart catheterization: 2. Selective coronary angiography. 3. Closure of right femoral groin access with Angio-Seal closure device. CONSENT: Informed consent was obtained from the patient after a thorough discussion of risks, benefits, and potential complications. The patient verbalized understanding and agreed to undergo the procedure. PROCEDURE DETAILS: The patient was brought to the cardiac catheterization area in a fasting and nonsedated state. A total of 2 mg of Versed and 100 mcg of fentanyl were administered intravenously throughout the procedure. Moderate conscious sedation was maintained for 90 minutes, which was monitored throughout the procedure by myself, my attending, and orthodontic lab technician staff. Blood pressure, oxygen level, heart rate and level of consciousness were assessed throughout the procedure and at its conclusion. LHC via femoral access: The right groin area was prepped and draped in the usual sterile fashion. After infiltrating the area with 10 cc lidocaine, a micropuncture needle was used to access the common femoral artery under ultrasound guidance. Modified Seldinger technique was used. The micropuncture wire was exchanged for a 4-Emirati sheath. The 4-Emirati sheath was exchanged over a J wire for a 5-Emirati sheath. Selective coronary cineangiograms were performed utilizing JL4 and JR4 diagnostic catheters. A pigtail catheter was used to assess LVEDP. Multiple views of the right and left [place] coronary system were obtained in various PUGA and MONGOLIAN projections. HEMODYNAMICS: 1. Aortic pressure 164/16 mmHg with a MA P of 108 mmHg. 2. LV end-diastolic pressure: 8 mmHg. 3. There was no gradient detected across the aortic valve on pullback. SELECTIVE CORONARY ANGIOGRAPHY: 1. Left main coronary artery: The left main coronary artery arises normally from the left coronary sinus. The left main artery tricfurcates into the left anterior descending artery, ramus and left circumflex artery. There is no angiographically significant disease. 2. Ramus: The Ramus has 50% ostial steno sis. 3. Left anterior descending artery: The LAD is a type 2 LAD. It has a patent stent in its proximal segment. There is 30-40% stenosis in its mid segment. It gives rise to 2 large diagonals which have diffuse luminal irregularities. The D2 additionally has ostial 30% stenosis. 4. Left circumflex artery: The left cir cumflex artery is a large vessel which gives rise to a large OM1. The left circumflex artery has 50% stenosis at its bifurcation with OM1. The OM1 has diffuse luminal irregularities. 5. Right coronary artery: The right cor onary artery is a medium-sized dominant vessel which arises normally from the right coronary sinus. Mid RCA has a patent stent and a 30% stenosis distal to the stent. It bifurcates into RPDA and a very small RPLV. The RCA has 30% disease in its mid segment. CONTRAST: 50 cc. FLUOROSCOPY TIME: 1. 5 minutes. AIR KERMA: 435 mGy. My attending, Dr. Justin, was present for the entirety of the case performing when necessary hernández portions of the procedure. FINAL IMPRESSION: 6. Patent proximal left anterior descend ing artery and mid right coronary artery stents. 7. Moderate non obstructive CAD, unchang ed from previous cath. 8. Low left ventricular end-diastolic pr essure. RECOMMENDATION: 1. Continue medical management. 2. Adequate hydration for low LVEDP. Abdirashid Justin MD MARLA/MedQ /[id number] cc: Performing Organization Address City/[facility]/ZIP Code [place] Number OTHER OUTSIDE LAB * POC GLUCOSE (04/13/2021 6:49 PM CDT) Glucose, POC 92 70 - 100 MG/DL MAIN LAB Specimen Performing Organization Address [facility] [place] Number MAIN LAB [address] [place] [address] * POC GLUCOSE (04/13/2021 5:55 PM CDT) Glucose, POC 67 (L) 70 - 100 MG/DL MAIN LAB Specimen Performing Organization Address [facility] P [place] Number MAIN LAB [address] [place] [address] * POC GLUCOSE (04/13/2021 1:50 PM CDT) Glucose, POC 75 70 - 100 MG/DL MAIN LAB Specimen Performing Organization Address [facility] P [place] Number MAIN LAB [address] [place] [address] * TROPONIN-I (04/13/2021 1:35 PM CDT) Troponin-I 0.01 0.0 - 0.05 NG/ML MAIN LAB Specimen Blood Performing Organization Address City/[facility] Code [place] Number MAIN LAB [address] [place] [address] * POC GLUCOSE (04/13/2021 11:57 AM CDT) Glucose, POC 95 70 - 100 MG/DL [facility] MAIN LAB Specimen Performing Organization Address [facility] [place] Number MAIN LAB [address] [place] [address] * POC GLUCOSE (04/13/2021 11:31 AM CDT) Glucose, POC 55 (L) 70 - 100 MG/DL MAIN LAB Specimen Performing Organization Address [facility] P [place] Number MAIN LAB [address] [place] [address] * POC GLUCOSE (04/13/2021 11:09 AM CDT) Glucose, POC 55 (L) 70 - 100 MG/DL MAIN LAB Specimen Performing Organization Address [facility] [place] Number MAIN LAB [address] [place] [address] * TROPONIN-I (04/13/2021 10:47 AM CDT) Troponin-I 0.01 0.0 - 0.05 NG/ML MAIN LAB Specimen Blood Performing Organization Address [facility] [place] Number MAIN LAB [address] [place] [address] * PTT (APTT) (04/13/2021 10:29 AM CDT) APTT 37.9 (H) 24.0 - 36.5 SEC MAIN LAB Specimen Blood Performing Organization Address [facility] [place] Number MAIN LAB [address] [place] [address] * TROPONIN-I (04/13/2021 8:51 AM CDT) Troponin-I 0.01 0.0 - 0.05 NG/ML MAIN LAB Specimen Blood Performing Organization Address [facility] Code [place] Number MAIN LAB [address] [place] [phone] * POC GLUCOSE (04/13/2021 8:40 AM CDT) Glucose, POC 122 (H) 70 - 100 MG/DL [facility] MAIN LAB Specimen Performing Organization Address [facility] Code [place] Number [facility] MAIN LAB [address] [place] [address] * POC GLUCOSE (04/13/2021 7:43 AM CDT) Glucose, POC 65 (L) 70 - 100 MG/DL [facility] MAIN LAB Specimen Performing Organization Address [facility] [place] Number MAIN LAB [address] [place] [address] * POC GLUCOSE (04/13/2021 7:04 AM CDT) Glucose, POC 69 (L) 70 - 100 MG/DL MAIN LAB Specimen Performing Organization Address [facility] [place] Number MAIN LAB [address] [place] [address] * POC GLUCOSE (04/13/2021 5:48 AM CDT) Glucose, POC 117 (H) 70 - 100 MG/DL MAIN LAB Specimen Performing Organization Address [facility] [place] Number MAIN LAB [address] [place] [address] * PTT (APTT) (04/13/2021 5:20 AM CDT) APTT 98.3 (H) 24.0 - 36.5 SEC [facility] LAB Specimen Blood Performing Organization Address [facility] [place] Number [facility] LAB [address] [place] [address] * COVID-19 (SARS-COV-2) PCR (04/13/2021 4:37 AM CDT) COVID-19 FLOCKED SWAB [facility] LAB (SARS-CoV-2) NASOPHARYNGEAL PCR Source COVID-19 NOT DETECTED DN-NOT DETECTED [facility] LAB (SARS-CoV-2) Comment: PCR This assay is designed to detect the S and/or ORF1ab genes of SARS-CoV-2 using nucleic acid amplification. A "Not Detected" result does not preclude the possibility of SARS-CoV-2 infection since the adequacy of sample collection and/or low viral burden may result in the presence of viral nucleic acids below the analytical sensitivity of this test method. Test results should be used along with other clinical and laboratory data in making the diagnosis. Test parameters have not been validated for screening in asymptomatic patients.This test has not been FDA cleared or approved. This test is authorized for use under the FDA Emergency Use Authorization and performance characteristics have been verified by the [facility]. Fact sheet for providers: https://www.fda.gov/media/7332 85/download Fact sheet for patients: https://www.fda.gov/media/7990 87/download Specimen Flocked Swab - Nasopharyngeal Performing Organization Address City/[facility] Code [place] Number MAIN LAB [address] [place] [address] * POC GLUCOSE (04/13/2021 4:35 AM CDT) Glucose, POC 49 (LL) 70 - 100 MG/DL MAIN LAB Specimen Performing Organization Address [facility] [place] Number MAIN LAB [address] [place], [place] [id number] * POC GLUCOSE (04/13/2021 3:47 AM CDT) Glucose, POC 103 (H) 70 - 100 MG/DL MAIN LAB Specimen Performing Organization [facility] P [place] Number MAIN LAB [address] [place] [address] * POC LACTATE (04/13/2021 3:30 AM CDT) LACTIC ACID POC 2.2 (H) 0.5 - 2.0 MMOL/L MAIN LAB Specimen Performing Organization Address [facility] P [place] Number MAIN LAB [address] [place], [place] [id number] * HEMOGLOBIN A1C (04/13/2021 3:29 AM CDT) Hemoglobin A1C 6.1 (H) 4.0 - 6.0 % [facility] LAB Comment: The ADA recommends that most patients with type 1 and type 2 diabetes maintain an A1c level <7%. Specimen Performing Organization Address [facility] [place] Number [facility] LAB [address] [place], [place] [phone] * BNP POC ER (04/13/2021 3:29 AM CDT) BNP POC 90.0 0 - 100 PG/ML [facility] MAIN LAB Specimen Performing Organization Address City/State/ZIP Code [place] Number [facility] MAIN LAB [address] [place] [address] * LIPASE (04/13/2021 3:29 AM CDT) Lipase 15 11 - 82 U/L [facility] MAIN LAB Specimen Blood Performing Organization Address City/[facility]/ZIP Code [place] Number [facility] MAIN LAB [address] [place] [address] * MAGNESIUM (04/13/2021 3:29 AM CDT) Pathologist [facility] Magnesium 1.9 1.6 - 2.6 mg/dL [facility] MAIN LAB Specimen Blood Performing Organization Address City/[facility] Code [place] Number [facility] MAIN LAB [address] [place] [address] * COMPREHENSIVE METABOLIC PANEL (04/13/2021 3:29 AM CDT) Pathologist [facility] Sodium 140 137 - 147 MMOL/L [facility] MAIN LAB Potassium 3.5 3.5 - 5.1 MMOL/L [facility] MAIN LAB Chloride 99 98 - 110 MMOL/L [facility] MAIN LAB Glucose 39 (LL) 70 - 100 MG/DL [facility] MAIN LAB Comment: CRITICAL VALUE CALLED TO AND READ BACK BY/TIME/TECH SUMANTH BARNEY at 04/13/2021 04:14:22 by 667 Blood Urea 25 7 - 25 MG/DL [facility] MAIN LAB Nitrogen Creatinine 1.26 (H) 0.4 - 1.00 MG/DL [facility] MAIN LAB Calcium 9.6 8.5 - 10.6 MG/DL [facility] MAIN LAB Total Protein 7.8 6.0 - 8.0 G/DL [facility] MAIN LAB Total Bilirubin 0.4 0.3 - 1.2 MG/DL [facility] MAIN LAB Albumin 3.9 3.5 - 5.0 G/DL [facility] MAIN LAB Alk Phosphatase 46 25 - 110 U/L [facility] MAIN LAB AST (SGOT) 20 7 - 40 U/L [facility] MAIN LAB CO2 30 21 - 30 MMOL/L [facility] MAIN LAB ALT (SGPT) 12 7 - 56 U/L [facility] MAIN LAB Anion Gap 11 3 - 12 [facility] MAIN LAB eGFR Non 42 (L) >60 mL/min [facility] MAIN LAB Comment: Armenian The eGFR is not validated f or use in drug dosing adjustments. Continue to use estimated creatinine clearance per dosing reference text. Please contact the Clinical Pharmacist for questions. eGFR 51 (L) >60 mL/min [facility] MAIN LAB Armenian Comment: The eGFR is not validated for use in drug dosing adjustments. Continue to use estimated creatinine clearance per dosing reference text. Please contact the Clinical Pharmacist for questions. Specimen Blood Performing Organization Address City/State/ZIP Code [place] Number [facility] MAIN LAB [address] [place] [address] * CBC AND DIFF (04/13/2021 3:29 AM CDT) White Blood 12.9 (H) 4.5 - 11.0 K/UL [facility] MAIN LAB Cells RBC 4.30 4.0 - 5.0 M/UL [facility] MAIN LAB Hemoglobin 13.3 12.0 - 15.0 GM/DL [facility] MAIN LAB Hematocrit 40.1 36 - 45 % [facility] MAIN LAB MCV 93.4 80 - 100 FL [facility] MAIN LAB MCH 30.9 26 - 34 PG [facility] MAIN LAB MCHC 33.1 32.0 - 36.0 G/DL [facility] MAIN LAB RDW 14.9 11 - 15 % [facility] MAIN LAB Platelet Count 375 150 - 400 K/UL [facility] MAIN LAB MPV 8.6 7 - 11 FL [facility] MAIN LAB Neutrophils 66 41 - 77 % [facility] MAIN LAB Lymphocytes 20 (L) 24 - 44 % [facility] MAIN LAB Monocytes 7 4 - 12 % [facility] MAIN LAB Eosinophils 6 (H) 0 - 5 % [facility] MAIN LAB Basophils 1 0 - 2 % [facility] MAIN LAB Absolute 8.55 (H) 1.8 - 7.0 K/UL [facility] MAIN LAB Neutrophil Count Absolute Lymph 2.53 1.0 - 4.8 K/UL [facility] MAIN LAB Count Absolute 0.91 (H) 0 - 0.80 K/UL [facility] MAIN LAB Monocyte Count Absolute 0.77 (H) 0 - 0.45 K/UL [facility] MAIN LAB Eosinophil Count Absolute 0.11 0 - 0.20 K/UL [facility] MAIN LAB Basophil Count MDW (Monocyte 23.9 (H) <20.7 [facility] MAIN LAB Distribution Comment: Width) MDW greater than 20.0, together with other laboratory and clinical information, aids in the diagnosis of sepsis or increased risk of sepsis within the first 12 hours of presenting to the emergency department. MDW should not be used as a sole test to determine the absence of sepsis. Clinical performance of the MDW has not been determined in patients receiving immune stimulants, patients with alcoholism, or patients with hematologic abnormalities such as blast cells. Specimen Blood Performing Organization Address City/State/ZIP Code [place] Number [facility] MAIN LAB [address] [place] [phone] * CHEST SINGLE VIEW (04/13/2021 3:19 AM CDT) Specimen Impressions Performed At Bibasilar atelectasis and/or scarring. [facility] RAD RESULT S Finalized by Allison Smith M.D. on 04/13/2021 3:44 AM. Dictated by Allison Smith M.D. on 04/13/2021 3:43 AM. Narrative Performed At CHEST SINGLE VIEW [facility] RAD RESULTS Clinical Indication: Female, 70 years o ld. Chest pain Comparison: Chest radiograph dated 10/26 Findings: Heart size and pulmonary vasculature is within normal limits. Persistent linear opacities in the lung bases. No pleural effusion or pneumothorax. No new airspace consolidation. The osseous str uctures are grossly intact. Procedure Note Interface, Radiant Results - 04/13/2021 3:47 AM CDT CHEST SINGLE VIEW Clinical Indication: Female, 70 years old. Chest pain Comparison: Chest radiograph dated 10/26/2020 Findings: Heart size and pulmonary vasculature is within normal limits. Persistent linear opacities in the lung bases. No pleural effusion or pneumothorax. No new airspace consolidation. The osseous structures are grossly intact. IMPRESSION Bibasilar atelectasis and/or scarring. Finalized by Allison Smith M.D. on 04/13/2021 3:44 AM. Dictated by Allison Smith M.D. on 04/13/2021 3:43 AM. Performing Organization Address City/State/ZIP Code [place] Number [facility] RAD RESULTS * POC GLUCOSE (04/13/2021 2:45 AM CDT) Glucose, POC 47 (LL) 70 - 100 MG/DL [facility] MAIN LAB Specimen Performing Organization Address City/[facility]/ZIP Code [place] Number [facility] MAIN LAB [address] [place] [address] * POC TROPONIN (04/13/2021 2:16 AM CDT) Pfpoguui-T-KPB 0.00 0.00 - 0.05 NG/ML [facility] MAIN LAB Specimen Performing Organization Address City/State/ZIP Code [place] Number [facility] MAIN LAB [address] [place] [address] * POC GLUCOSE (04/13/2021 12:29 AM CDT) Glucose, POC 70 70 - 100 MG/DL [facility] MAIN LAB Specimen Performing Organization Address City/[facility]/ZIP Code [place] Number MAIN LAB [address] [place] [address] * ECG-SCAN (04/13/2021 12:00 AM CDT) Narrative Performed At This result has an attachment that is n ot available. Ordered by an unspecified provider. * PROCEDURE RECORD-SCAN (04/13/2021 12:00 AM CDT) Narrative Performed At This result has an attachment that is n ot available. Ordered by an unspecified provider. * ECG-SCAN (04/13/2021 12:00 AM CDT) Narrative Performed At This result has an attachment that is n ot available. Ordered by an unspecified provider. * TELEMETRY STRIPS-SCAN (04/13/2021 12:00 AM CDT) Narrative Performed At This result has an attachment that is n ot available. Ordered by an unspecified provider. * TELEMETRY STRIPS-SCAN (04/13/2021 12:00 AM CDT) Narrative Performed At This result has an attachment that is n ot available. Ordered by an unspecified provider. * TELEMETRY STRIPS-SCAN (04/13/2021 12:00 AM CDT) Narrative Performed At This result has an attachment that is n ot available. Ordered by an unspecified provider. * TELEMETRY STRIPS-SCAN (04/13/2021 12:00 AM CDT) Narrative Performed At This result has an attachment that is n ot available. Ordered by an unspecified provider. * ECG-SCAN (04/13/2021 12:00 AM CDT) Narrative Performed At This result has an attachment that is n ot available. Ordered by an unspecified provider. documented in this encounter Visit Diagnoses Diagnosis Angina pectoris, unstable (HCC) Intermediate coronary syndrome documented in this encounter Admitting Diagnoses Diagnosis Angina pectoris, unstable (HCC) Intermediate coronary syndrome documented in this encounter Administered Medications Action Date Dose Rate Site Medication Order MAR Action acetaminophen (TYLENOL) tablet 650 mg 650 mg, Oral, EVERY 4 HOURS PRN, Starting on Fri04/13/21 at 1849, Until 04/14/21 at 1713, Pain non-opioid: may be used alone or in combination wit h opioid analgesia, TOTAL ACETAMINOPHEN DOSE NOT TO EXCEED 4GM DAILY aluminum/magnesium hydroxide (MAALOX) oral suspension 30 mL 30 mL, Oral, EVERY 4 HOURS PRN, Starting on Fri04/13/21 at 1846, Until 04/14/21 at 1713, Indigestion/Heartburn 04/14/2021 8:17 AM CDT 81 mg aspirin EC tablet 81 mg Given 81 mg, Oral, DAILY, First dose on Fri04/13/21 at 1015, Until Discontinued 81 mg Given 04/13/2021 11:07 AM CDT 04/14/2021 8:17 AM CDT 37.5 mg carvediloL (COREG) tablet 37.5 mg Given 37.5 mg, Oral, TWICE DAILY, First dose on Fri04/13/21 at 0900, Until Discontinued, Hold for heart rate < 70 bpm or systolic BP < 110 37.5 mg Given 04/13/2021 9:04 PM CDT 04/13/2021 11:05 AM CDT 5 mg cyclobenzaprine (FLEXERIL) tablet 5 mg Given 5 mg, Oral, THREE TIMES DAILY PRN, Starting on Fri04/13/21 at 1008, Until 04/14/21 at 1713, Muscle Cramps 04/13/2021 11:19 AM CDT 1 drop cycloSPORINE (RESTASIS) 0.05 % Given ophthalmic emulsion 1 drop 1 drop, Both Eyes, TWICE DAILY, First dose on Fri04/13/21 at 1015, Until Discontinued 04/14/2021 7:16 AM CDT 50 mL/hr dextrose 5 % infusion Given - New 1,000 mL, Intravenous, at 50 mL/hr, Bag CONTINUOUS, Starting on Fri04/13/21 at 1115, Until 04/14/21 at 1713 50 mL/hr Given - New Bag 04/13/2021 11:18 AM CDT diphenhydrAMINE (BENADRYL) capsule 25 m g 25 mg, Oral, EVERY 4 HOURS PRN, Starting on Fri04/13/21 at 1846, Until 04/14/21 at 1713, Rash diphenhydrAMINE (BENADRYL) injection 25 mg 25 mg, Intravenous, EVERY 4 HOURS PRN, Starting on Fri04/13/21 at 1846, Until Fri04/14/21 at 1713, Rash 04/14/2021 8:18 AM CDT 40 mg Abdomina l Tissue enoxaparin (LOVENOX) syringe 40 mg Given 40 mg, Subcutaneous, TWICE DAILY, First dose on Fri04/14/21 at 0900, Until Discontinued, For patients undergoing surgery: Consult physician in advance - - enoxaparin is an anticoagulant and may need to be held for 12hr prior to surgery or invasive procedures. NOTE: This is a HIGH ALERT Medication. 04/14/2021 8:17 AM CDT 324 mg ferrous gluconate tablet 324 mg Given 324 mg, Oral, DAILY WITH BREAKFAST, First dose on Fri04/13/21 at 1015, Until Discontinued, Each 324mg ferrous gluconate delivers 37.5mg elemental iron. 04/14/2021 1:05 PM CDT 1 Units Arm, Lef t insulin aspart (U-100) (NOVOLOG FLEXPEN Given U-100 INSULIN) injection PEN 0-6 Units 0-6 Units, Subcutaneous, BEFORE MEALS AND 2200, First dose on Fri04/13/21 at 1100, Until Discontinued, -POC glucose 181-220mg/dL at , , administer 1 unit insulin, at 22, 03* administer 0 units. -POC glucose 221-260mg/dL at , administer 2 units insulin, at 22, 03* administer 1 unit. -POC glucose 261-300mg/dL at , , administer 3 units insulin, at 22, 03* administer 2 units. -POC glucose 301-350mg/dL at , , administer 4 units insulin, at 22, 03* administer 3 units. -POC glucos e 351-400mg/dL at , , administer 5 units insulin, at 22, 03* administer 4 units. -POC glucose >400mg/dL at , , administer 6 units insulin, at 22, 03* administer 5 units. *only if ordered 5x's daily For POCT glucose >350mg/dL give correction bolus and recheck POCT glucose in 2 hours. If POC T glucose at 2 hours >300mg/dL call physician for further orders. For patients who are not eating meals, continue to administer the appropriate correction factor. NOTE: This is a HIGH ALERT Medication., Dispense pens manually with initial order and then upon request. DO NOT uncheck "Do not dispense" 04/14/2021 8:17 AM CDT 60 mg isosorbide mononitrate ER (IMDUR) tablet Given 60 mg 60 mg, Oral, DAILY, First dose on Fri04/13/21 at 1015, Until Discontinued, DO NOT Crush tablets 60 mg Given 04/13/2021 11:06 AM CDT 04/14/2021 8:17 AM CDT 25 mg losartan (COZAAR) tablet 25 mg Given 25 mg, Oral, DAILY, First dose on Fri04/13/21 at 0900, Until Discontinued 25 mg Given 04/13/2021 9:34 AM CDT 04/13/2021 1:30 PM CDT 0.4 mg nitroglycerin (NITROSTAT) tablet 0.4 mg Given 0.4 mg, Sublingual, EVERY 5 MIN PRN, Starting on Fri04/13/21 at 0640, Until 04/14/21 at 1713, Chest Pain, Not to exceed 3 doses per incidence of chest pain. Notify physician if chest pain persists after 3 doses. 0.4 mg Given 04/13/2021 1:25 PM CDT 0.4 mg Given 04/13/2021 1:20 PM CDT 0.4 mg Given 04/13/2021 7:00 AM CDT 04/13/2021 10:19 PM CDT 50 mg nortriptyline (PAMELOR) capsule 50 mg Given 50 mg, Oral, AT BEDTIME DAILY, First dose on Fri04/13/21 at 2100, Until Discontinued ondansetron (ZOFRAN) injection 4 mg 4 mg, Intravenous, EVERY 6 HOURS PRN, Starting on Fri04/13/21 at 1846, Until 04/14/21 at 1713, Nausea/Vomiting Injectable 04/14/2021 8:17 AM CDT [address] (PROTONIX) tablet 40 mg Given 40 mg, Oral, DAILY, First dose on Fri04/13/21 at 1015, Until Discontinued, Do not crush or chew tablet. 40 mg Given 04/13/2021 11:07 AM CDT 04/14/2021 9:08 AM CDT 34 g polyethylene glycol 3350 (MIRALAX) Given packet 34 g 34 g (2 packet), Oral, DAILY, First dos e (after last modification) on Sat 1 at 0945, Until Discontinued, 8.5 GRAMS = 0.5 PACKET 17 GRAMS = 1 PACKET 34 GRAMS = 2 PACKETS 04/14/2021 9:08 AM CDT 1 tablet senna/docusate (SENOKOT-S) tablet 1 Given tablet 1 tablet, Oral, TWICE DAILY, First dose on Fri04/14/21 at 0945, Until Discontinued, Hold for loose stools 04/14/2021 8:17 AM CDT 60 mg torsemide (DEMADEX) tablet 60 mg Given 60 mg, Oral, DAILY, First dose on Fri04/13/21 at 1015, Until Discontinued 04/13/2021 10:19 PM CDT 300 mg traZODone (DESYREL) tablet 300 mg Given 300 mg, Oral, AT BEDTIME DAILY, First dose on Fri04/13/21 at 2100, Until Discontinued documented in this encounter Discontinued Medications Start Date End Date Medication Sig Discontinue Reason 10/09/2020 04/13/2021 metFORMIN (GLUCOPHAGE) Take one Removed from 1,000 mg tablet by [employer] Med List tabletIndications: Type 2 mouth twice diabetes mellitus with daily with hypoglycemia without meals. Ok to coma, with long-term resume on current use of insulin October 12, ([facility]), Diabetic 2020 with AM peripheral neuropathy dose ([facility]) 10/11/2020 04/13/2021 sertraline (ZOLOFT) 100 Take 1.5 Removed from mg tabletIndications: tablets by [employer] Med List major depressive disorder mouth daily. Indications: major depressive disorder 09/11/2020 04/13/2021 cyclobenzaprine Take one Removed from (FLEXERIL) 5 mg tablet by [employer] Med List tabletIndications: muscle mouth three spasm times daily as needed for Muscle Cramps. Indications: muscle spasm 11/05/2020 04/14/2021 ergocalciferol (VITAMIN Take one D-2) 1,250 mcg (50,000 capsule by unit) capsule mouth every 7 days. 07/12/2020 04/14/2021 insulin NPH (NOVOLIN N) Inject Reorder 100 unit/mL injection thirty Units under the skin twice daily. 04/14/2021 04/14/2021 metFORMIN-ER (FORTAMET) Take one 1,000 mg extended release tablet by tablet mouth daily with dinner. documented as of this encounter Historical Medications * This list may reflect changes made after this encounter. Start Date End Date Medication Sig Dispensed Refills 03/21/2021 RYBELSUS 3 mg tablet Take 3 0 tablets by mouth daily. 03/20/2021 nitrofurantoin Take 1 0 macrocrystaL capsule by (MACRODANTIN) 100 mg mouth daily capsule with dinner. 03/25/2021 metoclopramide (REGLAN) 1 Take 5 mL by 0 mg/mL oral solution mouth three times daily before meals. 03/13/2021 baclofen (LIORESAL) 10 mg TAKE 1 TABLET 0 tablet BY MOUTH THREE TIMES DAILY WITH FOOD OR MILK FOR 10 DAYS ascorbic acid (VITAMIN C) Take 500 mg 0 500 mg tablet by mouth daily. Cranberry 500 mg cap Take 2 0 capsules by mouth daily. added in this encounter Active and Recently Administered Medications Times are shown in CDT. 04/13/2021 04/14/2021 Medication Order 04/12/2021 1540 (DEC Hold - Provider: Isaac, Orders Di scontinue - Reason: Patient not available/off unit)1610 (Given - Provider: Susana Juarez, SUMANTH)1612 (MAR Unhold - Provider: Susana Juarez, SUMANTH)2316 (Canceled Entry - Provider: Berenice Strong RN) aspirin chewable tablet 243 mg (COMPLETED) 243 mg, Oral, ONCE, 1 dose, Fri04/13/21 at 1615 1107 (Given - Provider: John Paul Yousif)1540 (DEC Hold - Provider: Isaac, Orders Discontinue - Reason: Patient not available/off unit)2113 (MAR Unhold - Provider: Isaac, Orders Discontinue) 0817 (Given - Provider: Barry Lagos RN) aspirin EC tablet 81 mg 81 mg, Oral, DAILY, First dose on Fri04/13/21 at 1015, Until Discontinued 1540 (MAR Hold - Provider: Isaac, Orders Di scontinue - Reason: Patient not available/off unit)2113 (DEC Unhold - Provider: Isaac, Orders Discontinue) atorvastatin (LIPITOR) tablet 40 mg 40 mg, Oral, AT BEDTIME DAILY, First dose on Fri04/14/21 at 2100, Until Discontinued 0953 (Given - Provider: John Paul Yousif) atorvastatin (LIPITOR) tablet 80 mg (COMPLETED) 80 mg, Oral, ONCE, 1 dose, Fri04/13/21 a t 1030 0924 (Med Not Given - Provider: Uche gonzalez RN - Reason: Order parameters not met)2103 (Given - Provider: Belkis Bhakta, SUMANHT) 0817 (Given - Provider: Barry Lagos, SUMANTH) carvediloL (COREG) tablet 37.5 mg 37.5 mg, Oral, TWICE DAILY, First dose on Fri04/13/21 at 0900, Until Discontinued, Hold for heart rate < 70 bpm or systolic BP < 110 1119 (Given - Provider: John Paul Yousif)1540 (MAR Hold - Provider: Isaac, Orders Discontinue - Reason: Patient not available/off unit)2100 (Med Not Given - Provider: Berenice Strong RN - Reason: Patient Refused)2113 (MAR Unhold - Provider: Isaac, Orders Discontinue) 0821 (Med Not Given - Provider: Barry mosher RN - Reason: Patient Refused) cycloSPORINE (RESTASIS) 0.05 % ophthalmic emulsion 1 drop 1 drop, Both Eyes, TWICE DAILY, First dose on Fri04/13/21 at 1015, Until Discontinued 0819 (Given - Provider: John Paul Yousif) DEXTROSE 50 % IN WATER (D50W) IV SOLP (Cabinet Override) (COMPLETED) NOW, 1 dose, Fri04/13/21 at 0830, Create d by cabinet override NOTE: This is a HIG H ALERT Medication., Created by cabinet override 0310 (Given - Provider: Óscar Barney, RN )0334 (Cabinet Pull - Provider: Óscar Barney, RN) dextrose 50% (D50) syringe 50 mL (COMPLETED) 50 mL, Intravenous, ONCE, 1 dose, Fri04/13/21 at 0400, NOTE: This is a HIGH ALERT Medication. 0445 (Given - Provider: Óscar Barney, RN ) dextrose 50% (D50) syringe 50 mL (COMPLETED) 50 mL, Intravenous, ONCE, 1 dose, Fri04/13/21 at 0530, NOTE: This is a HIGH ALERT Medication. 1134 (Given - Provider: John Paul Yousif) dextrose 50% (D50) syringe 50 mL (COMPLETED) 50 mL, Intravenous, ONCE, 1 dose, Fri04/13/21 at 1230, NOTE: This is a HIGH ALERT Medication. 1610 (Given - Provider: Susana Juarez RN) diphenhydrAMINE (BENADRYL) capsule 50 m g (COMPLETED) 50 mg, Oral, ONCE, 1 dose, Fri04/13/21 a t 1545, Give AM of CV procedure, Pre-Op 0818 (Given - Provider: Barry Lagos RN) enoxaparin (LOVENOX) syringe 40 mg 40 mg, Subcutaneous, TWICE DAILY, First dose on Fri04/14/21 at 0900, Until Discontinued, For patients undergoing surgery: Consult physician in advance - - enoxaparin is an anticoagulant and may need to be held for 12hr prior to surgery or invasive procedures. NOTE: This is a HIGH ALERT Medication. 1540 (DEC Hold - Provider: Isaac, Orders Di scontinue - Reason: Patient not available/off unit)2113 (DEC Unhold - Provider: Isaac, Orders Discontinue) ergocalciferol (vitamin D2) (DRISDOL) capsule 50,000 Units 50,000 Units, Oral, EVERY FRIDAY, First dose on Fri04/15/21 at 0900, Until Discontinued 0354 (Given - Provider: Óscar Barney RN ) fentaNYL citrate PF (SUBLIMAZE) injection 75 mcg (COMPLETED) 75 mcg, Intravenous, ONCE, 1 dose, Fri04/13/21 at 0345 1008 (Planned Hold - Provider: Uche guadalupe RN - Comment: pt NPO)154 (DEC Hold - Provider: Isaac, Orders Discontinue - Reason: Patient not available/off unit)2113 (DEC Unhold - Provider: Isaac, Orders Discontinue) 0817 (Given - Provider: Barry Lagos RN) ferrous gluconate tablet 324 mg 324 mg, Oral, DAILY WITH BREAKFAST, First dose on Fri04/13/21 at 1015, Until Discontinued, Each 324mg ferrous gluconate delivers 37.5mg elemental iron. 0409 (Given - Provider: Óscar Barney, SUMANTH ) heparin (porcine) injection 4,000 Units (COMPLETED) 4,000 Units, Intravenous, ONCE, 1 dose, Fri04/13/21 at 0345, INITIAL BOLUS (from vial) for heparin drip -- Weight-Based Heparin Algorithm - STEMI/NSTEMI/UA (fluid restricted patients) - If patien t received IV heparin within the previous 2 hours, DO NOT give bolus, proceed wit h infusion - Initial IV bolus: 60 units/kg - Not to exceed 4000 units - Administer initial bolus from vial. NOTE: This is a HIGH ALERT Medication. 1201 (Med Not Given - Provider: Uche gonzalez RN - Reason: Order parameters not met)1540 (MAR Hold - Provider: Isaac, Orders Discontinue - Reason: Patient not available/off unit)1700 (Automatically Held - Provider: Isaac, Orders Discontinue) 2114 (MAR Unhold - Provider: Isaac, Orders Discontinue)2216 (Med Not Given - Provider: Berenice Strong RN - Reason: Order parameters not met) 0817 (Med Not Given - Provider: Barry mosher RN - Reason: Order parameters not met)1305 (Given - Provider: Barry Lagos, SUMANTH) insulin aspart (U-100) (NOVOLOG FLEXPEN U-100 INSULIN) injection PEN 0-6 Units 0-6 Units, Subcutaneous, BEFORE MEALS AND 2200, First dose on Fri04/13/21 at 1100, Until Discontinued, -POC glucose 181-220mg/dL at , , administer 1 unit insulin, at 22, 03* administer 0 units. -POC glucose 221-260mg/dL at , , administer 2 units insulin, at 22, 03* administer 1 unit. -POC glucose 261-300mg/dL at , , administer 3 units insulin, at 22, 03* administer 2 units. -POC glucose 301-350mg/dL at , , administer 4 units insulin, at 22, 03* administer 3 units. -POC glucos e 351-400mg/dL at , , administer 5 units insulin, at 22, 03* administer 4 units. -POC glucose >400mg/dL at , , administer 6 units insulin, at 22, 03* administer 5 units. *only if ordered 5x's daily For POCT glucose >350mg/dL give correction bolus and recheck POCT glucose in 2 hours. If POC T glucose at 2 hours >300mg/dL call physician for further orders. For patients who are not eating meals, continue to administer the appropriate correction factor. NOTE: This is a HIGH ALERT Medication., Dispense pens manually with initial order and then upon request. DO NOT uncheck "Do not dispense" 1106 (Given - Provider: John Paul Yousif)1540 (DEC Hold - Provider: Isaac, Orders Discontinue - Reason: Patient not available/off unit)2113 (DEC Unhold - Provider: Isaac, Orders Discontinue) 0817 (Given - Provider: Barry Lagos, SUMANTH) isosorbide mononitrate ER (IMDUR) table t 60 mg 60 mg, Oral, DAILY, First dose on Fri04/13/21 at 1015, Until Discontinued, DO NOT Crush tablets 0934 (Given - Provider: John Paul Yousif)1540 (DEC Hold - Provider: Isaac, Orders Discontinue - Reason: Patient not available/off unit)2113 (DEC Unhold - Provider: Isaac, Orders Discontinue) 0817 (Given - Provider: Barry Lagos, SUMANTH) losartan (COZAAR) tablet 25 mg 25 mg, Oral, DAILY, First dose on Fri04/13/21 at 0900, Until Discontinued 1610 (Given - Provider: Susana Juarez, SUMANTH) methylPREDNISolone (SOLU-MEDROL PF) injection 125 mg (COMPLETED) 125 mg, Intravenous, 2 mL, Administer over 3-5 Minutes, ONCE, 1 dose, Fri04/13/21 at 1545, Give AM of CV procedure., Pre-Op 1540 (DEC Hold - Provider: Isaac, Orders Di scontinue - Reason: Patient not available/off unit)2113 (DEC Unhold - Provider: Isaac, Orders Discontinue)221 (Given - Provider: Berenice Strong RN) nortriptyline (PAMELOR) capsule 50 mg 50 mg, Oral, AT BEDTIME DAILY, First dose on Fri04/13/21 at 2100, Until Discontinued 1107 (Given - Provider: John Paul Yousif)1540 (DEC Hold - Provider: Isaac, Orders Discontinue - Reason: Patient not available/off unit)2113 (DEC Unhold - Provider: Isaac, Orders Discontinue) 0817 (Given - Provider: Barry Lagos, SUMANTH) pantoprazole DR (PROTONIX) tablet 40 mg 40 mg, Oral, DAILY, First dose on Fri04/13/21 at 1015, Until Discontinued, Do not crush or chew tablet. 0908 (Given - Provider: Barry Lagos, RN) polyethylene glycol 3350 (MIRALAX) packet 34 g 34 g (2 packet), Oral, DAILY, First dos e (after last modification) on Sat 1 at 0945, Until Discontinued, 8.5 GRAMS = 0.5 PACKET 17 GRAMS = 1 PACKET 34 GRAMS = 2 PACKETS 0908 (Given - Provider: Barry Lagos, SUMANTH) senna/docusate (SENOKOT-S) tablet 1 tablet 1 tablet, Oral, TWICE DAILY, First dose on 04/14/21 at 0945, Until Discontinued, Hold for loose stools 1107 (Given - Provider: John Paul Yousif) sertraline (ZOLOFT) tablet 150 mg (CANCELED) 150 mg, Oral, DAILY, First dose on Fri04/13/21 at 1015, Until Discontinued 1015 (Due)1540 (DEC Hold - Provider: Isaac, Orders Discontinue - Reason: Patient not available/off unit)2113 (DEC Unhold - Provider: Isaac, Orders Discontinue) 08 (Given - Provider: Barry Lagos, SUMANTH) torsemide (DEMADEX) tablet 60 mg 60 mg, Oral, DAILY, First dose on Fri04/13/21 at 1015, Until Discontinued 1540 (DEC Hold - Provider: Isaac, Orders Di scontinue - Reason: Patient not available/off unit)2113 (DEC Unhold - Provider: Isaac, Orders Discontinue)2218 (Given - Provider: Berenice Strong RN) traZODone (DESYREL) tablet 300 mg 300 mg, Oral, AT BEDTIME DAILY, First dose on Fri04/13/21 at 2100, Until Discontinued 04/13/2021 04/14/2021 Medication Order 04/12/2021 1118 (Given - New Bag - Provider: Uche Marcum RN) 0716 (Given - New Bag - Provider: Berenice Strong, SUMANTH) dextrose 5 % infusion 1,000 mL, Intravenous, at 50 mL/hr, CONTINUOUS, Starting Fri04/13/21 at 1115 , Until 04/14/21 at 1713 0409 (Given - New Bag - Provider: Óscar Barney, RN)0729 (Dose/Rate Verify - Provider: Uche Marcum, RN)1200 (Dose/Rate Verify - Provider: Uche Marcum RN - Comment: per order, dose to not exceed 1,000 unit/hr during first 12 hr)1547 (Dose/Rate Verify - Provider: Susana Juarez RN) heparin (porcine) 20,000 units/D5W 500 mL infusion (std conc)(premade) (CANCELED) 0-2,000 Units/hr (0-50 mL/hr) 500 mL, at 0-50 mL/hr, Intravenous, TITRATE DIRECTED , Starting Fri04/13/21 at 0345, Until Fri04/13/21 at 2100, Weight-Based Heparin Algorithm - STEMI/NSTEMI/UA (fluid restricted patients) - See separate order for Initial IV bolus (if ordered). - If patient received IV heparin within the previous 2 hours, DO NOT give bolus, proceed with infusion. - Initial IV infusion 12 units/kg/hr. Infusion not t o exceed 1,000 units/hr for the first 12 hours. - Follow heparin infusion scale - WITH ADJUSTMENT BOLUS for subsequent bolus and rate changes (see separate bolus order). NOTE: This is a HIGH ALER T Medication. 04/13/2021 04/14/2021 Medication Order 04/12/2021 acetaminophen (TYLENOL) tablet 650 mg 650 mg, Oral, EVERY 4 HOURS PRN, Starting Fri04/13/21 at 1849, Until 04/14/21 at 1713, Pain non-opioid: may b e used alone or in combination with opioi d analgesia, TOTAL ACETAMINOPHEN DOSE NOT TO EXCEED 4GM DAILY aluminum/magnesium hydroxide (MAALOX) oral suspension 30 mL 30 mL, Oral, EVERY 4 HOURS PRN, Starting Fri04/13/21 at 1846, Until 04/14/21 at 1713, Indigestion/Heartburn 1105 (Given - Provider: John Paul Yousif N)1540 (MAR Hold - Provider: Isaac, Orders Discontinue - Reason: Patient not available/off unit)2113 (DEC Unhold - Provider: Isaac, Orders Discontinue) cyclobenzaprine (FLEXERIL) tablet 5 mg 5 mg, Oral, THREE TIMES DAILY PRN, Starting Fri04/13/21 at 1008, Until 04/14/21 at 1713, Muscle Cramps diphenhydrAMINE (BENADRYL) capsule 25 mg(Linked Group 1) 25 mg, Oral, EVERY 4 HOURS PRN, Starting Fri04/13/21 at 1846, Until 04/14/21 at 1713, Rash diphenhydrAMINE (BENADRYL) injection 25 mg(Linked Group 1) 25 mg, Intravenous, EVERY 4 HOURS PRN, Starting Fri04/13/21 at 1846, Until 04/14/21 at 1713, Rash 0700 (Given - Provider: Óscar Barney RN )1320 (Given - Provider: Anabella Mckeon, SUMANTH)1325 (Given - Provider: Anabella Mckeon RN)1330 (Given - Provider: Anabella Mckeon RN)1540 (DEC Hold - Provider: Isaac, Orders Discontinue - Reason: Patient not available/off unit)2113 (DEC Unhold - Provider: Isaac, Orders Discontinue) nitroglycerin (NITROSTAT) tablet 0.4 mg 0.4 mg, Sublingual, EVERY 5 MIN PRN, Starting Fri04/13/21 at 0640, Until 04/14/21 at 1713, Chest Pain, Not to exceed 3 doses per incidence of chest pain. Notify physician if chest pain persists after 3 doses. ondansetron (ZOFRAN) injection 4 mg 4 mg, Intravenous, EVERY 6 HOURS PRN, Starting Fri04/13/21 at 1846, Until 04/14/21 at 1713, Nausea/Vomiting Injectable Order Group 1: diphenhydrAMINE (BENADRYL) capsule 25 m gJump to med 25 mg, Oral, EVERY 4 HOURS PRN, Starti ng Fri04/13/21 at 1846, Until 04/14/21 at 1713, Rash Or diphenhydrAMINE (BENADRYL) injection 25 mgJump to med 25 mg, Intravenous, EVERY 4 HOURS PRN, Starting Fri04/13/21 at 1846, Until 04/14/21 at 1713, Rash documented in this encounter Orders First Ordered Date Medications Ordered That Might Not Have Count Last Ordered Date Been Administered polyethylene glycol 3350 (MIRALAX) 1 07/2021 packet 17 g polyethylene glycol 3350 (MIRALAX) 1 07/2021 packet 34 g senna/docusate (SENOKOT-S) tablet 1 1 tablet acetaminophen (TYLENOL) tablet 650 mg 3 04/13/2021 aluminum/magnesium hydroxide (MAALOX) 2 04/13/2021 oral suspension 30 mL aspirin chewable tablet 243 mg 1 aspirin EC tablet 81 mg 1 04/13/2021 atorvastatin (LIPITOR) tablet 40 mg 1 atorvastatin (LIPITOR) tablet 80 mg 1 carvediloL (COREG) tablet 37.5 mg 1 06/2021 cyclobenzaprine (FLEXERIL) tablet 5 mg 1 04/13/2021 cycloSPORINE (RESTASIS) 0.05 % 1 021 ophthalmic emulsion 1 drop dextrose 5 % infusion 1 04/13/2021 DEXTROSE 50 % IN WATER (D50W) IV SOLP 1 04/13/2021 (Cabinet Override) dextrose 50% (D50) syringe 50 mL 3 04/13 diphenhydrAMINE (BENADRYL) capsule 25 mg 2 04/13/2021 diphenhydrAMINE (BENADRYL) capsule 50 mg 1 04/13/2021 diphenhydrAMINE (BENADRYL) injection 25 2 04/13/2021 mg enoxaparin (LOVENOX) syringe 40 mg 1 06/2021 ergocalciferol (vitamin D2) (DRISDOL) 1 04/13/2021 capsule 50,000 Units fentaNYL citrate PF (SUBLIMAZE) 1 2020 injection 75 mcg ferrous gluconate tablet 324 mg 1 2020 heparin (porcine) 20,000 units/D5W 500 1 04/13/2021 mL infusion (std conc)(premade) heparin (porcine) BOLUS for continuous 1 04/13/2021 inf (vial) 2,400-4,810 Units heparin (porcine) injection 4,000 Units 1 04/13/2021 heparin (porcine) PF syringe 5,000 Units 1 04/13/2021 hydrALAZINE (APRESOLINE) injection 5 mg 1 04/13/2021 insulin aspart (U-100) (NOVOLOG FLEXPEN 1 04/13/2021 U-100 INSULIN) injection PEN 0-6 Units insulin NPH (HUMULIN N KwikPen) 1 2020 injection PEN 30 Units isosorbide mononitrate ER (IMDUR) tablet 1 04/13/2021 60 mg losartan (COZAAR) tablet 25 mg 1 021 methylPREDNISolone (SOLU-MEDROL PF) 1 injection 125 mg nitroglycerin (NITROSTAT) tablet 0.4 mg 1 04/13/2021 nortriptyline (PAMELOR) capsule 50 mg 1 04/13/2021 ondansetron (ZOFRAN) injection [address] (PROTONIX) tablet 40 mg 1 04/13/2021 sertraline (ZOLOFT) tablet 150 mg 1 06/2021 sodium chloride 0.9 % infusion 1 04/13 torsemide (DEMADEX) tablet 60 mg 1 04/13 traZODone (DESYREL) tablet 300 mg 1 06/2021 First Ordered Date EKG Orders Without Results Count Last Ordere d Date 04/12/2021 ECG 12-LEAD 3 04/13/2021 First Ordered Date Diet Count Last Ordered Date DISCHARGE DIET CARDIAC 1 04/14/2021 DISCHARGE DIET DIABETIC 1 04/14/2021 First Ordered Date Nursing Count Last Ordered Date DISCHARGE ACTIVITY NORMAL 1 04/14/2021 DISCHARGE ACTIVITY OTHER 1 04/14/2021 DISCHARGE CONTACT 1 04/14/2021 DISCHARGE SIGNS/SYMPTOMS 1 04/14/2021 COVID-19 TESTING NOT REQUIRED 1 04/13/20 21 First Ordered Date Consult Count Last Ordered Date CONSULT ENDOCRINOLOGY PHYSICIAN 1 2020 CONSULT CARDIOLOGY PHYSICIAN 2 First Ordered Date PT Count Last Ordered Date PT CONSULT PHYSICAL THERAPY 1 04/13/2021 First Ordered Date Admission Count Last Ordered Date PLACE PATIENT OBSERVATION CLASS 1 06/2021 First Ordered Date Discharge Count Last Ordered Date DISCHARGE PATIENT NOW 1 04/14/2021 First Ordered Date Vital Signs Count Last Ordered Date VITAL SIGNS 1 04/13/2021 First Ordered Date Activity Count Last Ordered Date MOBILITY 1 04/13/2021 First Ordered Date Cardiac Cath Count Last Ordered Date CARDIAC CATH REPORT 2 04/13/2021 First Ordered Date SPECIALITY EQUIPMENT Count Last Ordered Date FAN 1 04/14/2021 First Ordered Date Order Set Communication Count Last Ordered D ate PLATELET MONITORING PER UFH PROTOCOL 1 0 04/13/2021 First Ordered Date Intake & Output Count Last Ordered Date INTAKE AND OUTPUT 1 04/13/[address] & Maintain Count Last Ordered Date PLACE AND MAINTAIN SCD 1 04/13/2021 First Ordered Date Case Request Count Last Ordered Date CASE REQUEST KNITTING MACHINE OPERATOR 1 04/13/2021 First Ordered Date ADT Patient Update Count Last Ordered Date CHANGE PATIENT CLASS 1 04/13/2021 CHANGE SERVICE / LEVEL OF CARE (NO BED 2 04/13/2021 REQUEST) documented in this encounter Additional Health Concerns Assessment Noted Time PHQ-9 Depression Total Score: 15 11/10/2019 3:00 PM REPAIR COIL WINDER A fall risk assessment has been completed for the pat ient 04/14/2021 8:17 AM CDT PHQ-2 Depression Total Score: 0 10/19/2020 9:27 AM REPAIR COIL WINDER documented as of this encounter
--- OUTSIDE RECORDS SUMMARY | 2021-06-11 11:55 | XMS REPORT | Encounter Summary ---
Author Author [facility] Organization [facility] Address Unknown Phone Unavailable Care Team Providers Care Unit Director Name Role Phone Lucie Emery MD Unavailable Rosario Mcknight MD Unavailable Unavailable Jyoti Mejia [phone] Unavailable Kevin Domingo MD Unavailable Betty Denney APRN PCP Reason for Visit * Reason Onset Date Comments Results 05/14/2021 Encounter Details Care Team Description Date Type Department Berkley Smith RN Results 05/14/2021 Telephone Vascular Surgery: [facility] [address] [place] [phone] Social History Date Tobacco Use Types Packs/Day [...] encounter Miscellaneous Notes * Telephone Encounter - Berkley Smith RN - 05/14/2021 3:22 PM CDT Pt left message inquiring about test results from Carotid Ultrasound. Returned h er call and let her know as soon as test is reviewed by the doctor we will call with the results and recommendations. Pt verbalized an understanding. documented in this encounter Plan of Treatment [...] is out of town until July(work related) [facility] On track (04/13/2021 Yes Dorota Paris, [...] Depression Total Score: 15 11/10/2019 3:00 PM GARMENT FITTER PHQ-2 Depression Total Score: 0 05/03/2021 8:19 AM CDT documented as of this encounter
--- OUTSIDE RECORDS SUMMARY | 2021-06-11 11:55 | XMS REPORT | Encounter Summary ---
Author Author [facility] Organization [facility] Address Unknown Phone Unavailable Care Team Providers Care Animal Trainer Supervisor Name Role Phone Lucie Emery MD Unavailable Rosario Mcknight MD Unavailable Unavailable Jyoti Mejia [phone] Unavailable Marbin Montenegro MBBS 100 Kevin Domingo MD Unavailable Betty Denney APRN PCP Encounter Details Care Team Description Date Type Department 05/03/2021 Travel Social History Date Tobacco Use Types Packs/Day [...] impairment: No documented as of this encounter Plan of Treatment Not on filedocumented as of this encounter Goals Goal Patient Associated Recent Progress Patient-Stat Aut hor Goal Type Problems ed? GOAL General Worsening No Esteban, (04/13/2021 2:16 PM Roseanna, RN CDT) Note: Be independent Assessment 04/13/2021 - patient is having issues being able to bathe herself. No help at home.Song is out of town until July(work related) [facility] On track (04/13/2021 Yes Dorota Paris, [...] Depression Total Score: 15 11/10/2019 3:00 PM STAINED GLASS JOINER PHQ-2 Depression Total Score: 0 05/03/2021 8:19 AM CDT documented as of this encounter
--- OUTSIDE RECORDS SUMMARY | 2021-06-11 11:55 | XMS REPORT | Encounter Summary ---
Author Author [facility] Organization [facility] Address Unknown Phone Unavailable Care Team Providers Care Historical Guide Name Role Phone Lucie Emery MD Unavailable Rosario Mcknight MD Unavailable Unavailable Jyoti Mejia [phone] Unavailable Marbin Montenegro 100 Marbin Montenegro PCP Encounter Details Care Team Description Date Type Department 04/12/2021 Travel Social History Date Tobacco Use Types Packs/Day Years Used Quit: 11/03/1998 Former Smoker Cigarettes 0.5 25 Smokeless Tobacco: Never Used Comments Alcohol Use Standard Drinks/Week Not Currently 0 (1 standard drink = 0.6 o z pure alcohol) Sex Assigned at Date Recorded Female 12/21/2019 10:27 AM CDT Date Recorded COVID-19 Exposure Response 04/12/2021 11:28 PM CDT In the last month, have you been in contact with No / Unsure someone who was confirmed or suspected to have Coronavirus / COVID-19? documented as of this encounter Functional Status Date of Assessment Functional Status Response 10/27/2020 Does the patient have a hearing impairment: [...] is out of town until July(work related) [facility] On track (04/13/2021 Yes Dorota Paris, 2:18 [...] Depression Total Score: 15 11/10/2019 3:00 PM TANK HOUSE OPERATOR A fall risk assessment has been completed for the pat ient 10/28/2020 8:07 PM TANK HOUSE OPERATOR PHQ-2 Depression Total Score: 0 10/19/2020 9:27 AM TANK HOUSE OPERATOR documented as of this encounter
--- OUTSIDE RECORDS SUMMARY | 2021-06-11 11:55 | XMS REPORT | Encounter Summary ---
Author Author [facility] Organization [facility] Address Unknown Phone Unavailable Care Team Providers Care Network Systems Administrator Name Role Phone Lucie Emery MD Unavailable Rosario Mcknight MD Unavailable Unavailable Jyoti Mejia [phone] Unavailable Kevin Domingo MD Unavailable Btety Denney APRN PCP Reason for Visit * Reason Onset Date Comments General Question 05/14/2021 Encounter Details Care Team Description Date Type Department Kevin Domingo MD [address] [place] [address] General Question 05/14/2021 Telephone Vascular Surgery: [facility] [address] [place] [phone] Social History Date Tobacco Use Types [...] encounter Miscellaneous Notes * Telephone Encounter - Lisa Kelly MA - 05/14/2021 3:09 PM CDT Pt called vm line asking about results of Carotid US done last Friday 8.3.21 Please call documented in this encounter Plan of Treatment [...] is out of town until July(work related) [facility] On track (04/13/2021 Yes Dorota [...] Depression Total Score: 15 11/10/2019 3:00 PM CROSS CUT SAW OPERATOR PHQ-2 Depression Total Score: 0 05/03/2021 8:19 AM CDT documented as of this encounter
--- OUTSIDE RECORDS SUMMARY | 2021-06-11 11:55 | XMS REPORT | Encounter Summary ---
Author Author [facility] Organization [facility] Address Unknown Phone Unavailable Care Team Providers Care Machine Buffer Name Role Phone Lucie Emery MD Unavailable Rosario Mcknight MD Unavailable Unavailable Jyoti Mejia [phone] Unavailable Marbin Montenegro MBBS 100 Marbin Montenegro MBBS PCP Reason for Referral * Radiology Services (Routine) Referred By Contact Referred To Contact Status Reason Specialty Diagnoses / Procedures Kevin Domingo MD [address] [place] [address] New Request Radiology Diagnoses PVD (peripheral vascular disease) (HCC) P rocedures US NONINVASIVE LOWER EXT PVR Electronically signed by Kevin Domingo MD at Encounter Details Care Team Description Date Type Department Kevin Domingo MD [address] [place] [address] [phone] PAD (peripheral artery disease) (HCC) (P rimary Dx); PVD (peripheral vascular disease) (HCC) 04/23/2021 Orders Only Vascular Surgery: [facility] [address] [place] [phone] Social History Date Tobacco Use Types [...] is out of town until July(work related) [facility] On track (04/13/2021 Yes Dorota Paris, 2:18 PM CDT) RN Note: I would like to be able to bathe myself. I have a shower chair but I can't get my legs over the lip of the tub. documented as of this encounter Results * US NONINVASIVE LOWER EXT PVR (05/02/2021) Specimen Narrative Performed At [facility] RESULTS NOT GIVEN, ROUTED TO [facility] Address City/State/ZIP Code [place] Number [facility] documented in this encounter Visit Diagnoses Diagnosis PAD (peripheral artery disease) (HCC) - Primary Peripheral vascular disease, unspecifie d PVD (peripheral vascular disease) (HCC) Peripheral vascular disease, unspecifie d documented in this encounter Additional Health Concerns Assessment Noted Time PHQ-9 Depression Total Score: 15 11/10/2019 3:00 PM ENGRAVER BLOCK A fall risk assessment has been completed for the pat ient 04/14/2021 8:17 AM CDT PHQ-2 Depression Total Score: 0 10/19/2020 9:27 AM ENGRAVER BLOCK documented as of this encounter
--- OUTSIDE RECORDS SUMMARY | 2021-06-11 11:55 | XMS REPORT | Encounter Summary ---
Author Author [facility] Organization [facility] Address Unknown Phone Unavailable Care Team Providers Care Working Second Hand Name Role Phone Lucie Emery MD Unavailable Rosario Mcknight MD Unavailable Unavailable Jyoti Mejia [phone] Unavailable Kevin Domingo MD Unavailable Betty Denney APRN PCP Reason for Referral * Radiology Services (Routine) Referred By Contact Referred To Contact Status Reason Specialty Diagnoses / Procedures Kevin Domingo MD [address] [place] [address] New Request Radiology Diagnoses Bilateral carotid artery stenosis P rocedures VAS US DUPLEX SCAN CAROTID BILATERAL Electronically signed by Kevin Domingo MD at Reason for Visit * Reason Onset Date Comments Results 05/28/2021 Encounter Details Care Team Description Date Type Department Esha Moreno RN Results 05/28/2021 Telephone Vascular Surgery: [facility] [address] [place] [id number] Social History Date Tobacco Use Types [...] encounter Miscellaneous Notes * Telephone Encounter - Esha Moreno RN - 05/28/2021 1:22 PM CDT Results provided via [employer]. * Telephone Encounter - Esha Moreno RN - 05/28/2021 1:22 PM CDT ----- Message from Kevin Domingo MD sent at 05/22/2021 3:21 PM CDT ----- I reviewed the recent carotid ultrasound done in [place], [place]. This demonst rated some diffuse atherosclerotic plaquing but no hemodynamically significant a reas of narrowing. She has had previous carotid interventions. Would continue efforts at good blood pressure and cholesterol control. Would re peat a carotid artery ultrasound in 2 years unless new TIA or stroke symptoms ar ise in the interim. Kevin Domingo MD (Please share results with her and recommended follow-up.) documented in this encounter Plan of Treatment Order Schedule Name Type Priority Associated Diag noses Expected: 05/28/2023 (Approximate), Expi res: 05/28/2025 VAS US DUPLEX SCAN Imaging Routine Bilateral c arotid artery CAROTID BILATERAL stenosis documented as of this encounter Goals Goal Patient Associated Recent Progress Patient-Stat Aut hor Goal Type Problems ed? GOAL General Worsening No Esteban, (04/13/2021 2:16 PM Roseanna, RN CDT) Note: Be independent Assessment 04/13/2021 - patient is having issues being able to bathe herself. No help at home.Grandcarina is out of town until July(work related) [facility] On track (04/13/2021 Yes WellingtonDorota, 2:18 PM CDT) RN Note: I would like to be able to bathe myself. I have a shower chair but I can't get my legs over the lip of the tub. documented as of this encounter Visit Diagnoses Diagnosis Bilateral carotid artery stenosis - Kathy shey Occlusion and stenosis of multiple and bilateral precerebral arteries without mention of cerebral infarction documented in this encounter Additional Health Concerns Assessment Noted Time PHQ-9 Depression Total Score: 15 11/10/2019 3:00 PM RECRUITMENT OFFICER PHQ-2 Depression Total Score: 0 05/03/2021 8:19 AM CDT documented as of this encounter
--- OUTSIDE RECORDS SUMMARY | 2021-06-11 11:55 | XMS REPORT | Encounter Summary ---
Author Author [facility] Organization [facility] Address Unknown Phone Unavailable Care Team Providers Care Elevated Guard Name Role Phone Lucie Emery MD Unavailable Rosario Mcknight MD Unavailable Unavailable Jyoti Mejia [phone] Unavailable Kevin Domingo MD Unavailable Betty Denney APRN PCP Encounter Details Care Team Description Date Type Department Jeff Garza MA Carotid artery stenosis, symptomatic, bi lateral 05/21/2021 Orders Only Surgery: Efra[facility] p[facility], [facility] [address] [place] [phone] Social History Date Tobacco Use [...] impairment: No documented as of this encounter Progress Notes * Kevin Domingo MD - 05/21/2021 3:27 PM CDT I reviewed the recent carotid ultrasound done in [place], [place]. This demonst rated some diffuse atherosclerotic [...] able to bathe herself. No help at home.Grandson is out of town until July(work related) [facility] On track (04/13/2021 Yes Dorota Paris, 2:18 PM CDT) RN Note: I would like to be able to bathe myself. I have a shower chair but I can't get my legs over the lip of the tub. documented as of this encounter Procedures Comments Procedure Name Priority Date/Time Associated Diag nosis US DUPLEX SCAN CAROTID Routine 05/09/2021 Carotid artery stenosis, BILATERAL symptomatic, bilateral documented in this encounter Results * US DUPLEX SCAN CAROTID BILATERAL (05/09/2021) Specimen Narrative Performed At This result has an attachment that is n ot available. Performing Organization Address City/State/ZIP Code [place] [address] [place], [place] [phone] [facility] documented in this encounter Visit Diagnoses Diagnosis Carotid artery stenosis, symptomatic, b ilateral documented in this encounter Additional Health Concerns Assessment Noted Time PHQ-9 Depression Total Score: 15 11/10/2019 3:00 PM FUNERAL DIRECTOR/EMBALMER PHQ-2 Depression Total Score: 0 05/03/2021 8:19 AM CDT documented as of this encounter
--- OUTSIDE RECORDS SUMMARY | 2021-06-11 11:55 | XMS REPORT | Encounter Summary ---
Author Author [facility] Organization [facility] Address Unknown Phone Unavailable Care Team Providers Care Machine Adjuster Helper Name Role Phone Lucie Emery MD Unavailable Rosario Mcknight MD Unavailable Unavailable Jyoti Mejia [phone] Unavailable Marbin Montenegro MBBS 100 Marbin Montenegro [...] Details Care Team Description Date Type Department Jessee Mccord MD [address] [facility] Emergency Dept [place], [place] [id number] Pravin Mckinney MD [address] [place] [address] [phone] Mauricio Kaur MD [address] [place] [address] [phone] Angina pectoris, unstable (HCC) 04/13/2021 Hospital Patient Care Unit H C5: - [facility]counter [facility] 04/14/2021 Care 4000 [facility] 5 [place] [address] Social History Date Tobacco Use Types Packs/Day [...] Signs Reading Time Taken Comments Vital Sign 150/70 04/14/2021 11:00 AM CDT Blood Pressure 77 04/14/2021 11:00 AM CDT Pulse 36.6 C (97.8 F) 04/14/2021 11:00 AM CDT Temperature - - Respiratory Rate 94% 04/14/2021 11:00 AM CDT Oxygen Saturation - - Inhaled Oxygen Concentration 120.2 kg (264 lb 15.9 oz) 04/13/2021 9:26 PM CDT Weight 172.7 cm (5' 7.99") 04/13/2021 9:26 PM CDT Height 40.3 04/13/2021 9:26 PM [...] Summary Completed By: Mauricio Kaur MD Service: COPsync Q- [id number] Reason for hospitalization: Angina pectoris, unstable (HCC) [...] A1C 6.7; FBS 120-170 Diabetic foot ulcers ([facility]) Comment: both feet; healed Fibromyalgia Gastroparesis Generalized headaches H/O splenectomy Heart palpitations Comment: weekly History of CVA (cerebrovascular accident) Comment: presented with speech difficulties; R sided residual History of lumbar laminectomy Comment: L2-4 with post op MRSA revision History of MRSA infection Comment: was cleared of MRSA at [facility] History of partial pancreatectomy Comment: distal HLD [...] ophageal stricture status post dilatation,GERD, CKD III, [id number] by g astroparesis and peripheral neuropathy, cervical [...] trace TR, and no other significant findings -[facility] 08/25/20 showedpatent LAD stent with moderate disease [...] philly very slightly with nitro -EKG at [facility] no acute ischemic findings -1 and trend remain negative -Patient supposed to get PCI at [facility] due to the recent worsening /abnormal stress test results per patient (records requested )but the procedure was pushed back 2/2 insurance issues -Patient was started on heparin drip and cardiology consulted and took patient t o [facility] [employer] [facility] later in the day Patent proximal left anterior descending artery and mid right coronary artery stents. Moderate non obstructive CAD, unchanged from previous cath. Low left ventricular end-diastolic pressure. -Resume ELECTROSTATIC PAINTER medications on discharge the next day. Also patient chest pain had resolved by then. [id number] by gastroparesis and peripheral neuropathy With episodic hypoglycemia -[id number] 2019 was 6.8 -Home regimen: NPH 40 units BID,regular insulin 25 units TID with meals, Metfo rmin 1000 mgBID, nortriptyline 50 mg nightly, -Had multiple episodes of hypoglycemia in the past, today 39 -Endocrinology consulted. Patient discharged home with NPH 40 units nightly,Res ume ELECTROSTATIC PAINTER aspart 12 units 3 times daily with meals. , restart PTARybelsus which has been on hold. Restart ELECTROSTATIC PAINTER Metformin due to imp roved kidney function. Starting 1000 mg daily for now. Plan to repeat BMP ever y 2 to 3 months to monitor kidney function and GFR. Also SGLT2 inhibitor should be considered down the road as an outpatient. The rest of chronic medical conditions were stable and station captain meds were resumed. Items Needing Follow [...] Indices with SURGERY VASCULAR LAB 1 Surgery: [facility] (Surgery) [address] [facility] [address] May 03, 2021 8:45 AM New Patient with Kevin Domingo MD Surgery: [facility] (Surgery) [address] [facility] [address] May 03, 2021 11:00 AM Return Patient with Katherin Bo PA-C Cardiology: [facility], Building 3 (CVM Exam) [address] [facility] [id number] Consults, Procedures, Diagnostics, Micro, Pathology Consults: Cardiology and endo Surgical Procedures & Dates: [facility] 04/14 Significant Diagnostic Studies, Micro and Procedures: noted in brief hospital co urse Significant Pathology: none Nutrition: Dietitian Documentation Discharge Disposition, Condition Patient Disposition: Home Condition at Discharge: Stable Code Status Code Status History Date Active Date Inactive Code Status Order ID 04/13/2021 [id number] 04/14/2021 1718 Full Code [id number] Pravin Mckinney MD ED 10/27/2020 0322 10/29/2020 1610 Full Code [id number] James Fernandez MD ED Only showing the [...] you can call a dietitia n at [phone]. Testing Not Required for Covid-19 Other Activity [...] discharge instructions, or medications by call ing [phone] during regular business hours (8AM-4PM) and asking [...] provider (PCP). Discharging attending physician: MAURICIO KAUR [[id number]] Additional Orders: Case Management, Supplies, Home Health Home Health/DME None Signed: Mauricio Kaur MD 04/15/2021 cc: Primary Care Physician: Marbin Montenegro Verified Referring physicians: No ref. provider found Additional provider(s): Did we miss something? If additional records are needed, please fax a request on office letterhead to [phone]. Please include the patient's name, date of b irth, fax number and type of information needed. Additional request can be made by email at [email or web address]. For general questions of information about electronic records sharing, call [phone]. documented in this encounter Discharge Instructions * [...] [facility]: [phone] (Friday-Friday) [place] Armendar[place]: [phone] (Friday-Friday) [place]: [phone] (Friday-Friday) [place]: [phone] (Friday and ) [place]: [phone] (Friday-Friday) [facility] [address]: [phone] (Friday, Friday and Friday) [place]: [phone] (Friday, Friday and Friday) Nights and Weekends [facility]: [phone] This education is meant to serve as a resource to you and your family. It is not meant to be all inclusive. The members of the [facility] Center at [facility] Cardiology, [...] by Coronary artery disease mouth at involving southern ute coronary bedtime artery of southern ute heart daily. without angina pectoris, Hyperlipidemia, unspecified [...] mouth daily. with preserved ejection fraction (HFpEF) ([facility]), Coronary artery disease due to lipid rich plaque, Pure hypercholesterolemia, Essential hypertension, Stage 3 chronic kidney disease, unspecified whether stage 3a or 3b CKD ([facility]) 09/14/2019 meclizine (ANTIVERT) 25 Take one 90 [...] mouth daily. with preserved ejection fraction (HFpEF) ([facility]), Coronary artery disease due to lipid rich [...] discharge: Plan to discharge home to resume ELECTROSTATIC PAINTER cardiac medication follow-up outpatient [facility] cardiology. Endocrinology was consulted regarding her hyperglycemia the plan is to send home with resumption of Metformin now CKD is improved. Also restart Rybelsus and cu t back NPH insulin to 40 units at night. Patient feels comfortable with plans for discharge. All questions were answered . Discharge discussion, including follow up/discharge instructions, occurred wi th patient [id number]. Mauricio Kaur MD 04/14/2021 Discharge Planning: greater than 30 minutes spent in pt dc care today spent coun seling pt, coordinating dc care, placing dc orders and helping complete dc summa ry. * Lauryn Fuller, RAJWINDER-GRASSROOTS ORGANIZER - 04/14/2021 9:16 AM CDT Cardiology Progress Note Admission Date: 04/13/2021 Today's Date: 04/14/2021 LOS: 1 day Assessment & Plan Brad Avila is a 70 y.o. patient with the following problems: Principal Problem: Angina pectoris, unstable ([facility]) Active Problems: Type 2 diabetes mellitus, with long-term current use of insulin ([facility]) CAD (coronary artery disease) Anxiety and depression Carotid stenosis CKD (chronic kidney disease) stage 3, GFR 30-59 ml/min ([facility]) Unstable angina (HCC) H/O splenectomy Angina pectoris, unspecified ([facility]) H/O renal artery stenosis s/p stent Interstitial pulmonary disease, unspecified ([facility]) Chest pain Assessment #Unstable Angina #CAD s/p Prior Stenting to LAD and RCA - H/o stable angina requiring intermittent sublingual nitro - ELECTROSTATIC PAINTER isosorbide mononitrate 60mg daily - Onset of chest pain unresponsive to nitro on 04/12/21 - No EKG changes, troponin changes on admission - Per review of CareEverywhere, patient with cardiac stress test on 04/04 with re versible changes along LAD distribution. Patient reports this was conducted when establishing with tandem mill roller at [facility]. [facility]. Supposed to have outpatient C but this has not been performed due to i nsurance issues - Cardiac cath 04/13-Patent proximal left anterior descending artery and mid right coronary artery stents. Moderate non obstructive CAD, unchanged from previous cath. #HFpEF - ELECTROSTATIC PAINTER torsemide 60mg daily - BNP 90 in ED - Appears euvolemic on exam, LVEDP low on cath #HTN - ELECTROSTATIC PAINTER coreg 37.5mg BID (taking 25mg BID due to lightheadedness with 37.5mg dose) , losartan 25mg daily, and torsemide 60mg daily #HLD - continue ELECTROSTATIC PAINTER atorvastatin #IDDMT2 c/b neuropathy - A1c 6.8% [...] supportive care. Pt d/w MD Lauryn Small, AUDIO VIDEO REPAIRER ([id number]) Subjective Chief complaint: Chest pain HPI: Denies [...] CDT Admission History and Physical Name: Brad Jeovanny Decker RN: [id number] Admission Date: 04/13/2021 Admission Diagnosis: Angina pectoris, unstable (HCC) [I20.0] Principal Problem: Angina pectoris, unstable (HCC) Active Problems: Type 2 diabetes mellitus, with long-term current use of insulin (HCC) CAD (coronary artery disease) Anxiety and depression Carotid stenosis CKD (chronic kidney disease) stage 3, GFR 30-59 ml/min ([facility]) Unstable angina (HCC) H/O splenectomy Angina pectoris, unspecified ([facility]) H/O renal artery stenosis s/p stent Interstitial pulmonary disease, unspecified ([facility]) Chest pain Assessment/Plan: 70-year-old female with depression, [...] trace TR, and no other significant findings -[facility] 08/25/20 showed patent LAD stent with moderate [...] ED with improvement of symptoms -EKG at [facility] no acute ischemic findings -Troponin negative x2 -ECHO 10/27 showed EF of 60%, borderline left atrial dilatation, peak systolic PA pressure 30 mmHg, no pericardial effusion -Patient supposed to get PCI at [facility] but the procedure was pushe d back 11/07 insurance issues Plan Admit with close monitoring on telemetry Continue ELECTROSTATIC PAINTER home regimen Consult cardiology for evaluation Continue [...] respiratory failure with o xygen dependency and KNADACE. -Home regimen: 4 liters continuous, noncompliant with [...] 2020 consistent with iron deficiency anemia -Continue ELECTROSTATIC PAINTER iron FEN n.p.o. VTE PPX Heparin drip Dispo - Admit to internal medicine observation status Code Status: Full code Pravin Mckinney MD Internal Medicine/Environment Artist 8 PM - 8 AM Pager # [phone] Note: For any questions/concerns after 8 AM; please contact the assigned team. V oalte is the preferred way of communication. This note was created using Gist Dictation software, hence some grammatical errors may [...] lightheadedness + SOA. [facility]t her 'heart not getting enough oxygenated [...] infection 2002 was cleared of MRSA at [facility] History of partial pancreatectomy distal HLD (hyperlipidemia) [...] Performed by Robin Rai MD at [facility] ENDO ESOPHAGOGASTRODUODENOSCOPY WITH BIOPSY - FLEXIBLE N/A 11/19/2019 Performed by Robin Rai MD at [facility] ENDO DACRYOCYSTORHINOSTOMY WITH TUBES Right 02/10/2020 Performed by Joaquín Rios MD at [facility] OR PROBING NASOLACRIMAL DUCT WITHIRRIGATION WITH INSERTION TUBE Right 02/10/2020 Performed by Joaquín Rios MD at [facility] OR MANUAL/ MECHANICAL EXTRACAPSULAR CATARACT REMOVAL WITH INSERTION INTRAOCULAR LENS PROSTHESIS - COMPLEX Bilateral 05/25/2020 Performed by Lurdes Metcalf MD at [facility] OR ANGIOGRAPHY CORONARY ARTERY WITH LEFT HEART CATHETERIZATION N/A 08/30/2020 Performed by Jose Enrique Victoria MD at [facility] PUBLIC ADDRESS SYSTEM OPERATOR PERCUTANEOUS CORONARY STENT PLACEMENT WITH ANGIOPLASTY N/A 08/30/2020 Performed by Jose Enrique Victoria MD at [facility] PUBLIC ADDRESS SYSTEM OPERATOR CATHETER PLACEMENT ARTERIAL - ABDOMINAL/ PELVIC/ LOWER EXTREMITIY ARTERY - T HIRD OR MORE BRANCH N/A 10/09/2020 Performed by Isa Bender MD at [facility] PUBLIC ADDRESS SYSTEM OPERATOR ESOPHAGOGASTRODUODENOSCOPY WITH BIOPSY - FLEXIBLE N/A 10/28/2020 Performed by Naina Sears MD at [facility] OR CAROTID ENDARDECTOMY Bilateral approx , lt- Dr. Garcia- CORONARY STENT PLACEMENT 2009, 2013 x2 CYTOLOGY PAP SMEAR DIAGNOSTIC 07? declined 01-16 HX BACK SURGERY ~2003 "cleaned up staph infection" (MRSA) HX CARPAL TUNNEL RELEASE Bilateral ~2007, 2008 2 surg per left, 1 surg per right HX CHOLECYSTECTOMY ~2000 LAMINECTOMY 1996, 2002 MRSA after 2002 surgery MAMMO HISTORICAL REPORT 07? declined 01-16 Family History Problem Relation Age of Onset [...] CAD stenosis. Requesting records fr om [facility]. The plan per patient was to [...] CARDIAC CATH REPORT [facility] CARDIAC CATHETERIZATION REPORT Page 2 BRAD Clement : 1950 #: [id number] ISAAC MR #/Billing ID #: [id number] / [id number] DATE: 04/13/2021 BODY COMPONENT ENGINEER: Abdirashid Justin MD DICTATING PROVIDER: Radha Medina MD REFERRING PHYSICIAN: COLD MEAT CHEF: Abdirashid Justin MD INDICATIONS FOR PROCEDURE: Ms. [...] p rocedure by myself, my attending, and medical lab assistant staff. Blood pressure, oxygen le spencer, heart [...] micropuncture wire was exchang ed for a 4-Bahamian sheath. The 4-Bahamian sheath was exchanged over a J wire for a 5-Bahamian sheath. Selective coronary cineangiograms were performed utilizing JL4 and JR4 diagnostic catheters. A pigtail catheter was used to assess LVEDP. M ultiple views of the right and left southern ute coronary system were obtained in vari ous PUGA and MOLDOVAN projections. HEMODYNAMICS: 1. Aortic pressure 164/16 mmHg [...] for low LVEDP. Abdirashid Justin MD MARLA/MedQ /[id number] cc: documented in this encounter Consult Notes [...] in obtaining assistance with prescripti on medications: [employer], [employer] and prescriptionHand Talk. Regarding vitamin D deficiency, she can discontinue ergocalciferol now and start taking vitamin D3 2000 units daily on an indefinite basis. This dose is always sufficient, and never excessive. History of Present Illness Brad Avila is a 70 y.o. woman from [place] admitted because of chest pain. She is [...] heart disease (HCC) Depression Diabetes mellitus (HCC) 2-09-24 A1C 6.7; FBS 120-170 Diabetic foot ulcers (HCC) both feet; healed Fibromyalgia Gastroparesis Generalized headaches H/O splenectomy Heart palpitations weekly History of CVA (cerebrovascular accident) 2009, 2012, 2014 06-2009presented with speech difficulties; R sided residual History of lumbar laminectomy 1996 L2-4 with post op MRSA revision History of MRSA infection 2002 was cleared of MRSA at [facility] History of partial pancreatectomy distal HLD (hyperlipidemia) [...] Performed by Robin Rai MD at [facility] ENDO ESOPHAGOGASTRODUODENOSCOPY WITH BIOPSY - FLEXIBLE N/A 11/19/2019 Performed by Robin Rai MD at [facility] ENDO DACRYOCYSTORHINOSTOMY WITH TUBES Right 02/10/2020 Performed by Joaquín Rios MD at [facility] OR PROBING NASOLACRIMAL DUCT WITHIRRIGATION WITH INSERTION TUBE Right 02/10/2020 Performed by Joaquín Rios MD at [facility] OR MANUAL/ MECHANICAL EXTRACAPSULAR CATARACT REMOVAL WITH INSERTION INTRAOCULAR LENS PROSTHESIS - COMPLEX Bilateral 05/25/2020 Performed by Lurdes Metcalf MD at [facility] OR ANGIOGRAPHY CORONARY ARTERY WITH LEFT HEART CATHETERIZATION N/A 08/30/2020 Performed by Jose Enrique Victoria MD at [facility] PUBLIC ADDRESS SYSTEM OPERATOR PERCUTANEOUS CORONARY STENT PLACEMENT WITH ANGIOPLASTY N/A 08/30/2020 Performed by Jose Enrique Victoria MD at [facility] PUBLIC ADDRESS SYSTEM OPERATOR CATHETER PLACEMENT ARTERIAL - ABDOMINAL/ PELVIC/ LOWER EXTREMITIY ARTERY - T HIRD OR MORE BRANCH N/A 10/09/2020 Performed by Isa Bender MD at [facility] PUBLIC ADDRESS SYSTEM OPERATOR ESOPHAGOGASTRODUODENOSCOPY WITH BIOPSY - FLEXIBLE N/A 10/28/2020 Performed by Naina Sears MD at [facility] OR CAROTID ENDARDECTOMY Bilateral approx [...] 5 % infusion 50 mL/hr at 04/14/21 07 PRN and Respiratory Meds:acetaminophen Q4H PRN, aluminum/magnesium [...] 07:38 AM No results found for: FREET3, [id number], [id number] * Wale Quiles DO - 04/14/2021 [...] stable angina requiring intermittent sublingual nitro - ELECTROSTATIC PAINTER isosorbide mononitrate 60mg daily - Onset of chest pain unresponsive to nitro on 04/12/21 - No EKG changes, troponin changes on admission - Per review of CareEverywhere, patient with cardiac stress test on 04/04 with re versible changes along LAD distribution. Patient reports this was conducted when establishing with tandem mill roller at [facility]. Was not having chest pain at that time. Supposed to have outpatient [facility] but this has not been performed due to i nsurance issues #HFpEF - ELECTROSTATIC PAINTER torsemide 60mg daily - BNP 90 in ED - Appears euvolemic on exam #HTN - ELECTROSTATIC PAINTER coreg 37.5mg BID (taking 25mg BID due to lightheadedness with 37.5mg dose) , losartan 25mg daily, and torsemide 60mg daily #HLD - continue ELECTROSTATIC PAINTER atorvastatin #IDDMT2 c/b neuropathy - A1c 6.8% [...] Continue heparin gtt until PCI 5. Continue ELECTROSTATIC PAINTER atorvastatin, coreg, losartan, and torsemide Patient seen and discussed with Dr. Gerry Banda MD Internal Medicine, PGY-3 Available on Voalte History of Present Illness: Brad Avila is a 70 y.o. female with PMH of CAD with previous LAD stenting in 2009 and RCA stenting in 2013, heart failure w ith preserved ejection fraction, [...] Recently estab lished care with a new tandem mill roller at [facility] who performed a cardiac stres s test [...] infection 2002 was cleared of MRSA at [facility] History of partial pancreatectomy distal HLD (hyperlipidemia) [...] Performed by Robin Rai MD at [facility] ENDO ESOPHAGOGASTRODUODENOSCOPY WITH BIOPSY - FLEXIBLE N/A 11/19/2019 Performed by Robin Rai MD at [facility] ENDO DACRYOCYSTORHINOSTOMY WITH TUBES Right 02/10/2020 Performed by Joaquín Rios MD at [facility] OR PROBING NASOLACRIMAL DUCT WITHIRRIGATION WITH INSERTION TUBE Right 02/10/2020 Performed by Joaquín Rios MD at [facility] OR MANUAL/ MECHANICAL EXTRACAPSULAR CATARACT REMOVAL WITH INSERTION INTRAOCULAR LENS PROSTHESIS - COMPLEX Bilateral 05/25/2020 Performed by Lurdes Metcalf MD at [facility] OR ANGIOGRAPHY CORONARY ARTERY WITH LEFT HEART CATHETERIZATION N/A 08/30/2020 Performed by Jose Enrique Victoria MD at [facility] PUBLIC ADDRESS SYSTEM OPERATOR PERCUTANEOUS CORONARY STENT PLACEMENT WITH ANGIOPLASTY N/A 08/30/2020 Performed by Jose Enrique Victoria MD at [facility] PUBLIC ADDRESS SYSTEM OPERATOR CATHETER PLACEMENT ARTERIAL - ABDOMINAL/ PELVIC/ LOWER EXTREMITIY ARTERY - T HIRD OR MORE BRANCH N/A 10/09/2020 Performed by Isa Bender MD at [facility] PUBLIC ADDRESS SYSTEM OPERATOR ESOPHAGOGASTRODUODENOSCOPY WITH BIOPSY - FLEXIBLE N/A 10/28/2020 Performed by Naina Sears MD at [facility] OR CAROTID ENDARDECTOMY Bilateral approx [...] Social Gatherings with Friends and Family: Attends Mosque Services: Active Member of Clubs or Organizations: [...] 04/13/21 2:16 AM Result Value Ref Range Cdjtxern-G-JML 0.00 0.00 - 0.05 NG/ML POC GLUCOSE [...] and an RCA stent in the past. Sh e recently tried to establish with a tandem mill roller closer to home, [place] as, Dr. Mireles. The stress test was done, reportedly abnormal with ischemia in t he LAD territory. Plans in place for heart catheterization today in [place]. Unfortunately last evening after eating dinner and while doing laundry she dev eloped severe substernal 10/10 chest pain, responded to the sublingual nitroglyc carlos x2 but 1 hour later came back, 2 more sublingual nitroglycerin and 1 hour l ater 2 more sublingual nitroglycerin. At this point she opted to come into e mergency room, her daughter drove her. She [...] test showin g LAD ischemia, done in [facility], [facility] 3. Insulin controlled diabetes, well controlled based on A1c, actually having l ows at home 4. PAD, stable, scheduled for outpatient rest exercise ABIs 7/29 5. Contrast allergy 6. Stable heart failure with preserved ejection fraction Recommendations 1. I am concerned about current symptoms, this coupled with recent abnormal str ess test above, recommending [facility], will go today. Premedicated with Solu-Medrol (too late for prednisone) and Benadryl. History of hives with contrast 2. Continue to monitor blood pressure, well controlled currently on ELECTROSTATIC PAINTER regimen but notably elevated overnight Consult team will follow up tomorrow, Dr. Gbae shelton. documented in this encounter ED Notes * Uche Marcum RN - 04/13/2021 11:25 AM CDT PT blood sugar 55. Hypoglycemia protocol followed, notified. * Uche Marcum RN - 04/13/2021 11:11 AM CDT Pt BS 55. Per Dr. Kaur, pt to be started on Dextrose 5% @ 50 ml/hr. * Uche Marcum RN - 04/13/2021 9:45 AM CDT Record request sent to [place] via [facility] * Uche Marcum RN - 04/13/2021 7:50 [...] to have a stent placed in [facility] today, however they did cancel the procedure [...] infection 2002 was cleared of MRSA at [facility] History of partial pancreatectomy distal HLD (hyperlipidemia) [...] 07 due in 2017 BONE DENSITY SPINE/HIP 4- mild osteopenia- declined - AMPUTATION Left 2009 4th and 5th toes VASCULAR SURGERY Left 2009 LLE stent (ankle area) ARTERY SURGERY Right 2013 PCI renal artery x2 stent MASS EXCISION 2017 pancreatic mass resection and spleenectomy PANCREATECTOMY 2017 distal portion SPLENECTOMY, TOTAL 2016 HX HEART CATHETERIZATION 05/2019 ESOPHAGOSCOPY WITH ENDOSCOPIC ULTRASOUND EXAMINATION - FLEXIBLE N/A 0 Performed by Robin Rai MD at [facility] ENDO ESOPHAGOGASTRODUODENOSCOPY WITH BIOPSY - FLEXIBLE N/A 11/19/2019 Performed by Robin Rai MD at [facility] ENDO DACRYOCYSTORHINOSTOMY WITH TUBES Right 02/10/2020 Performed by Joaquín Rios MD at [facility] OR PROBING NASOLACRIMAL DUCT WITHIRRIGATION WITH INSERTION TUBE Right 02/10/2020 Performed by Joaquín Rios MD at [facility] OR MANUAL/ MECHANICAL EXTRACAPSULAR CATARACT REMOVAL WITH INSERTION INTRAOCULAR LENS PROSTHESIS - COMPLEX Bilateral 05/25/2020 Performed by Lurdes Metcalf MD at [facility] OR ANGIOGRAPHY CORONARY ARTERY WITH LEFT HEART CATHETERIZATION N/A 08/30/2020 Performed by Jose Enrique Victoria MD at [facility] [employer] OPERATOR PERCUTANEOUS CORONARY STENT PLACEMENT WITH ANGIOPLASTY N/A 08/30/2020 Performed by Jose Enrique Victoria MD at [facility] [employer]ESS SYSTEM OPERATOR CATHETER PLACEMENT ARTERIAL - ABDOMINAL/ PELVIC/ LOWER EXTREMITIY ARTERY - T HIRD OR MORE BRANCH N/A 10/09/2020 Performed by Isa Bender MD at [facility] [employer]DRESS SYSTEM OPERATOR ESOPHAGOGASTRODUODENOSCOPY WITH BIOPSY - FLEXIBLE N/A 10/28/2020 Performed by Naina Sears MD at [facility] OR CAROTID ENDARDECTOMY Bilateral approx [...] 62 11 PER MINUTE 62 97 % CC 04/13/21 0530 -- 131/52 63 11 PER MINUTE 63 98 % CC 04/13/21 0500 -- 133/51 64 15 PER MINUTE 64 97 % CC 04/13/21 0400 -- 132/55 64 -- 64 95 % CC 04/13/21 0349 -- 109/49 65 13 PER MINUTE 65 97 % CC 04/13/21 0300 -- -- 74 15 PER MINUTE 74 97 % CC 04/13/21 0230 -- 135/52 68 12 PER MINUTE 68 98 % CC 04/13/21 0150 -- -- 73 14 PER [...] 70 - 100 MG/DL Final POC TROPONIN Ifhhiwuc-O-HVV 0.00 0.00 - 0.05 NG/ML Final MAGNESIUM [...] Heart rate 70 beats minute. Sinus rhythm. ME interval 154. QTc 428. Left ax is [...] 40 mg (40 mg Oral Given 04/13/21 110) torsemide (DEMADEX) tablet 60 mg (has no administration in time range) traZODone (DESYREL) tablet 300 mg (has no administration in time range) aspirin EC tablet 81 mg (81 mg Oral Given 04/13/21 110) insulin aspart (U-100) (NOVOLOG FLEXPEN U-100 INSULIN) [...] vessel or les ion type, unspecified whether southern ute or transplanted heart (HCC) Other specified diabetes mellitus with other specified complication, unspecified whether mcc insulin use (HCC) Hypoglycemia Disposition/Follow up ED [...] made to create an accurate and error-free [facility] record. However, this note was completed utilizing Dragon Dictation and may contain grammatical, or other, errors inherent to its use. If there are concer ns or if clarification is needed, please contact the Emergency Medicine administ [facility] offices at [phone] during normal business hours or the ER at [phone] after hours. * Óscar Barney RN - [...] monitors. Side rails up x2, call light wit hin reach. Daughter at bedside. Awaiting MD darling. Belongings: person wheelchair, shirt, shorts, shoes x2, bag. At bedside with ale rangel. documented in this encounter Miscellaneous Notes * Care Coordination-Inpatient - Cj Pena DO - 04/13/2021 6:21 AM CDT Patient assigned to MPO1, please page Night 4 at 0839 for questions until 0800. documented in this [...] out of town until July(work related) [facility] On track (04/13/2021 Yes Wellington Dorota, 2:18 PM CDT) RN Note: I would [...] Angina pec toris, unstable 3:40 PM CDT ([facility]) CARDIAC CATH REPORT Routine 04/13/2021 Angina pec toris, unstable 2:16 PM CDT ([facility]) POC GLUCOSE 04/13/2021 1:50 PM CDT HC [...] MG/DL MAIN LAB Specimen Performing Organization Address City/[facility]/ZIP Code [place] Number MAIN LAB [address] [place] [address] * POC GLUCOSE (04/14/2021 8:16 AM CDT) Glucose, POC 107 (H) 70 - 100 MG/DL MAIN LAB Specimen Performing Organization Address City/[facility] P [place] Number MAIN LAB [address] [place] [address] * COMPREHENSIVE METABOLIC PANEL (04/14/2021 4:31 AM [...] (L) >60 mL/min [facility] MA[facility] Comment: [place] The eGFR is not validated f or use in drug dosing adjustments. Continue to use estimated creatinine clearance per dosing reference text. Please contact the Clinical Pharmacist for questions. eGFR 53 (L) >60 mL/min [facility] [place] Comment: The eGFR is not validated for use in drug dosing adjustments. Continue to use estimated creatinine clearance per dosing reference text. Please contact the Clinical Pharmacist for questions. Specimen Performing Organization Address City/State/ZIP Code [place] Number [facility] MAIN LAB [address] [place] [address] * CBC AND DIFF (04/14/2021 4:31 AM [...] [place] Number [facility] MAIN [facility] [address] [place] [address] * POC GLUCOSE (04/13/2021 9:53 PM CDT) [facility] Signature Glucose, POC 203 (H) 70 - 100 MG/DL [facility] MAIN LAB Specimen Performing Organization Address City/State/[facility] Code [place] Number [facility] MAIN LAB [address] [place] [address] * CARDIAC CATH REPORT (04/13/2021 7:22 PM CDT) Procedure Note Radha Median MBBS - 04/13/2021 7:22 PM CDT [facility] CARDIAC CATHETERIZATION REPORT Page 2 BRAD Clement : 1950 #: [id number] MR #/Billing ID #: [id number] / [id number] DATE: 04/13/2021 BODY COMPONENT ENGINEER: Abdirashid Justin MD DICTATING PROVIDER: Radha Medina MD REFERRING PHYSICIAN: COLD MEAT CHEF: Abdirashid Justin MD INDICATIONS FOR PROCEDURE: Ms. [...] the procedure by myself, my attending, and medical lab assistant staff. Blood pressure, oxygen level, heart rate [...] The micropuncture wire was exchanged for a 4-Bahamian sheath. The 4-Bahamian sheath was exchanged over a J wire for a 5-Bahamian sheath. Selective coronary cineangiograms were performed utilizing JL4 and JR4 diagnostic catheters. A pigtail catheter was used to assess LVEDP. Multiple views of the right and left southern ute coronary system were obtained in various PUGA and MOLDOVAN projections. HEMODYNAMICS: 1. Aortic pressure 164/16 mmHg [...] for low LVEDP. Abdirashid Justin MD MARLA/MedQ /[id number] cc: Performing Organization Address City/[facility] Code [place] Number OTHER OUTSIDE LAB * POC GLUCOSE (04/13/2021 6:49 PM CDT) Glucose, POC 92 70 - 100 MG/DL [facility] MAIN LAB Specimen Performing Organization Address [facility] P [place] Number [facility] MAIN LAB [address] [place] [address] * POC GLUCOSE (04/13/2021 5:55 PM CDT) Glucose, POC 67 (L) 70 - 100 MG/DL [facility] MAIN LAB Specimen Performing Organization Address [facility] P [place] Number [facility] MAIN LAB [address] [place] [address] * POC GLUCOSE (04/13/2021 1:50 PM CDT) Glucose, POC 75 70 - 100 MG/DL [facility] MAIN LAB Specimen Performing Organization Address [facility] P [place] Number MAIN LAB [address] [place] [address] * TROPONIN-I (04/13/2021 1:35 PM CDT) Troponin-I 0.01 0.0 - 0.05 NG/ML [facility] MAIN LAB Specimen Blood Performing Organization Address [facility] Code [place] Number MAIN LAB [address] [place] [address] * POC GLUCOSE (04/13/2021 11:57 AM CDT) Glucose, POC 95 70 - 100 MG/DL MAIN LAB Specimen Performing Organization Address [facility] P [place] Number MAIN LAB [address] [place] [address] * POC GLUCOSE (04/13/2021 11:31 AM CDT) Glucose, POC 55 (L) 70 - 100 MG/DL MAIN LAB Specimen Performing Organization Address [facility] P [place] Number MAIN LAB [address] [place] [address] * POC GLUCOSE (04/13/2021 11:09 AM CDT) Glucose, POC 55 (L) 70 - 100 MG/DL MAIN LAB Specimen Performing Organization Address [facility] P [place] Number MAIN LAB [address] [place] [address] * TROPONIN-I (04/13/2021 10:47 AM CDT) Troponin-I 0.01 0.0 - 0.05 NG/ML MAIN LAB Specimen Blood Performing Organization Address [facility] Code [place] Number MAIN LAB [address] [place] [address] * PTT (APTT) (04/13/2021 10:29 AM CDT) APTT 37.9 (H) 24.0 - 36.5 SEC MAIN LAB Specimen Blood Performing Organization Address [facility] Code [place] Number MAIN LAB [address] [place] [address] * TROPONIN-I (04/13/2021 8:51 AM CDT) Troponin-I 0.01 0.0 - 0.05 NG/ML MAIN LAB Specimen Blood Performing Organization Address [facility] Code [place] Number MAIN LAB [address] [place] [address] * POC GLUCOSE (04/13/2021 8:40 AM CDT) Glucose, POC 122 (H) 70 - 100 MG/DL MAIN LAB Specimen Performing Organization Address [facility] P [place] Number MAIN LAB [address] [place] [address] * POC GLUCOSE (04/13/2021 7:43 AM CDT) Glucose, POC 65 (L) 70 - 100 MG/DL MAIN LAB Specimen Performing Organization Address [facility] P [place] Number MAIN LAB [address] [place] [address] * POC GLUCOSE (04/13/2021 7:04 AM CDT) Glucose, POC 69 (L) 70 - 100 MG/DL MAIN LAB Specimen Performing Organization [facility] P [place] Number MAIN LAB [address] [place] [address] * POC GLUCOSE (04/13/2021 5:48 AM CDT) Glucose, POC 117 (H) 70 - 100 MG/DL MAIN LAB Specimen Performing Organization Address [facility] P [place] Number MAIN LAB [address] [place] [address] * PTT (APTT) (04/13/2021 5:20 AM CDT) APTT 98.3 (H) 24.0 - 36.5 SEC [facility] Specimen Blood Performing Organization [facility] P [place] Number [facility] [address] [place] [address] * COVID-19 (SARS-COV-2) PCR (04/13/2021 4:37 AM CDT) COVID-19 FLOCKED SWAB [facility] (SARS-CoV-2) NASOPHARYNGEAL PCR Source COVID-19 NOT DETECTED DN-NOT DETECTED [facility] (SARS-CoV-2) Comment: PCR This [...] performance characteristics have been verified by the [facility]. Fact sheet for providers: https://www.fda.gov/media/3184 85/download Fact sheet for patients: https://www.fda.gov/media/9557 87/download Specimen Flocked Swab - Nasopharyngeal Performing Organization Address [facility] Code [place] Number MAIN LAB [address] [place] [address] * POC GLUCOSE (04/13/2021 4:35 AM CDT) Glucose, POC 49 (LL) 70 - 100 MG/DL MAIN LAB Specimen Performing Organization Address [facility] P [place] Number MAIN LAB [address] [place], [place] [id number] * POC GLUCOSE (04/13/2021 3:47 AM CDT) Glucose, POC 103 (H) 70 - 100 MG/DL MAIN LAB Specimen Performing Organization [facility] P [place] Number MAIN LAB [address] [place] [id number] * POC LACTATE (04/13/2021 3:30 AM CDT) LACTIC ACID POC 2.2 (H) 0.5 - 2.0 MMOL/L MAIN LAB Specimen Performing Organization Address [facility] P [place] Number MAIN LAB [address] [place] [id number] * HEMOGLOBIN A1C (04/13/2021 3:29 AM CDT) Hemoglobin A1C 6.1 (H) 4.0 - 6.0 % [facility] Comment: The ADA recommends that most patients with type 1 and type 2 diabetes maintain an A1c level <7%. Specimen Performing Organization Address [facility] P [place] Number MAIN LAB [address] [place], [place] [id number] * BNP POC ER (04/13/2021 3:29 AM CDT) BNP POC 90.0 0 - 100 PG/ML [facility] MAIN [facility] Specimen Performing Organization Address City/[facility]/ZIP Code [place] Number [facility] MA[facility] [address] [place] [address] * LIPASE (04/13/2021 3:29 AM CDT) Lipase 15 11 - 82 U/L [facility] MAIN LAB Specimen Blood Performing Organization Address City/[facility]/ZIP Code [place] Number [facility] MA[facility] [address] [place] [address] * MAGNESIUM (04/13/2021 3:29 AM CDT) Magnesium 1.9 1.6 - 2.6 mg/dL [facility] MAIN LAB Specimen Blood Performing Organization Address City/[facility] Code [place] Number [facility] MAIN [facility] [address] [place] [address] * COMPREHENSIVE METABOLIC PANEL (04/13/2021 3:29 AM CDT) Sodium 140 137 - 147 MMOL/L [facility] [...] (L) >60 mL/min [facility] Comment: [place] The eGFR is not validated f or use in drug dosing adjustments. Continue to use estimated creatinine clearance per dosing reference text. Please contact the Clinical Pharmacist for questions. eGFR 51 (L) >60 mL/min [facility] [place] Comment: The eGFR is not validated for use in drug dosing adjustments. Continue to use estimated creatinine clearance per dosing reference text. Please contact the Clinical Pharmacist for questions. Specimen Blood Performing Organization Address City/State/ZIP Code [place] Number [facility]IN [facility] [address] [place] [address] * CBC AND DIFF (04/13/2021 3:29 AM [...] Code [place] Number MAIN LAB [address] [place] [address] * CHEST SINGLE VIEW (04/13/2021 3:19 AM [...] Code [place] Number MAIN LAB [address] [place] [address] * POC TROPONIN (04/13/2021 2:16 AM CDT) Zwmydjen-G-GDK 0.00 0.00 - 0.05 NG/ML MAIN LAB Specimen Performing Organization Address City/State/ZIP Code [place] Number MAIN LAB [address] [place] [address] * POC GLUCOSE (04/13/2021 12:29 AM CDT) Glucose, POC 70 70 - 100 MG/DL MAIN LAB Specimen Performing Organization Address City/[facility]/ZIP Code [place] Number MAIN LAB [address] [place] [address] * ECG-SCAN (04/13/2021 12:00 AM CDT) Narrative [...] Visit Diagnoses Diagnosis Angina pectoris, unstable (HCC) - Prima ry Intermediate coronary syndrome Chronic systolic heart failure (HCC) Chronic systolic heart failure Coronary artery disease with unstable a ngina pectoris, unspecified vessel or lesion type, unspecified whether southern ute or transplan manuel heart (HCC) Other specified diabetes mellitus with other specified complication, unspecified whether terminal operator insulin use ([facility]) Hypoglycemia Hypoglycemia, unspecified Chest pain, unspecified type Morbid obesity ([facility]) Morbid obesity PVD (peripheral vascular disease) ([facility]) Peripheral vascular disease, unspecifie d Chronic heart failure with preserved ej ection fraction (HFpEF) ([facility]) Type 2 diabetes mellitus with stage 3b chronic kidney disease, with long-term current use of insulin ([facility]) Angina pectoris, unspecified ([facility]) Anxiety and depression Dysthymic disorder CAD (coronary artery disease) Coronary atherosclerosis of unspecified type of vessel, southern ute or graft Carotid stenosis Occlusion and stenosis of carotid arter y without mention of cerebral infarction CKD (chronic kidney disease) stage 3, G FR 30-59 ml/min ([facility]) Chronic kidney disease, Stage III (mode rate) H/O renal artery stenosis s/p stent Personal history of other disorder of u rinary system H/O splenectomy Other acquired absence of organ Interstitial pulmonary disease, unspeci fied ([facility]) Unstable angina ([facility]) Intermediate coronary syndrome documented in this encounter Admitting Diagnoses Diagnosis Angina pectoris, unstable ([facility]) Intermediate coronary syndrome documented in this encounter [...] at 1846, Until 04/14/21 at 1713, Indigestion/Heartburn 04/13/2021 4:10 PM CDT 243 mg aspirin chewable tablet 243 mg Given 243 mg, Oral, ONCE, 1 dose, On Fri04/13/21 at 1615 04/14/2021 8:17 AM CDT 81 mg aspirin EC tablet 81 mg Given 81 mg, Oral, DAILY, First dose on Fri04/13/21 at 1015, Until Discontinued 81 mg Given 04/13/2021 11:07 AM CDT 04/13/2021 9:53 AM CDT 80 mg atorvastatin (LIPITOR) tablet 80 mg Given 80 mg, Oral, ONCE, 1 dose, On Fri 1 at 1030 04/14/2021 8:17 AM CDT 37.5 mg carvediloL [...] - New Bag 04/13/2021 11:18 AM CDT DEXTROSE 50 % IN WATER (D50W) IV SOLP (Cabinet Override) NOW, 1 dose, On Fri04/13/21 at 0315, Created by cabinet override NOTE: This is a HIGH ALERT Medication., Created by cabinet override 04/13/2021 8:19 AM CDT 25 mL DEXTROSE 50 % IN WATER (D50W) IV SOLP Given (Cabinet Override) NOW, 1 dose, On Fri04/13/21 at 0830, Created by cabinet override NOTE: This is a HIGH ALERT Medication., Created by cabinet override 04/13/2021 3:10 AM CDT 50 mL dextrose 50% (D50) syringe 50 mL Given 50 mL, Intravenous, ONCE, 1 dose, On Fr i 04/13/21 at 0400, NOTE: This is a HIGH ALERT Medication. 04/13/2021 4:45 AM CDT 50 mL dextrose 50% (D50) syringe 50 mL Given 50 mL, Intravenous, ONCE, 1 dose, On Fr i 04/13/21 at 0530, NOTE: This is a HIGH ALERT Medication. 04/13/2021 11:34 AM CDT 25 mL dextrose 50% (D50) syringe 50 mL Given 50 mL, Intravenous, ONCE, 1 dose, On Fr i 04/13/21 at 1230, NOTE: This is a HIGH ALERT Medication. diphenhydrAMINE (BENADRYL) capsule 25 m g 25 mg, Oral, EVERY 4 HOURS PRN, Starting on Fri04/13/21 at 1846, Until 04/14/21 at 1713, Rash 04/13/2021 4:10 PM CDT 50 mg diphenhydrAMINE (BENADRYL) capsule 50 mg Given 50 mg, Oral, ONCE, 1 dose, On Fri 1 at 1545, Give AM of CV procedure, Pre-O p diphenhydrAMINE (BENADRYL) injection 25 mg 25 mg, Intravenous, EVERY 4 HOURS PRN, Starting on Fri04/13/21 at 1846, Until 04/14/21 at 1713, Rash 04/14/2021 8:18 AM CDT 40 mg Abdomina l Tissue enoxaparin (LOVENOX) syringe 40 mg Given 40 mg, Subcutaneous, TWICE DAILY, First dose on 04/14/21 at 0900, Until Discontinued, For patients undergoing surgery: Consult physician in advance - - enoxaparin is an anticoagulant and may need to be held for 12hr prior to surgery or invasive procedures. NOTE: This is a HIGH ALERT Medication. 04/13/2021 3:54 AM CDT 75 mcg fentaNYL citrate PF (SUBLIMAZE) Given injection 75 mcg 75 mcg, Intravenous, ONCE, 1 dose, On Fri04/13/21 at 0345 04/14/2021 8:17 AM CDT 324 mg ferrous gluconate tablet 324 mg Given 324 mg, Oral, DAILY WITH BREAKFAST, First dose on Fri04/13/21 at 1015, Until Discontinued, Each 324mg ferrous gluconate delivers 37.5mg elemental iron. 04/13/2021 3:47 PM CDT 1,000 Units/hr 25 mL/hr heparin (porcine) 20,000 units/D5W 500 Dose/Rate mL infusion (std conc)(premade) Verify 0-2,000 Units/hr (0-50 mL/hr) 500 mL, at 0-50 mL/hr, Intravenous, TITRATE DIRECTED , Starting on Fri04/13/21 at 0345, Until Fri04/13/21 at 2100, [...] This is a HIGH ALER T Medication. 1,000 Units/hr 25 mL/hr Dose/Rate Verify 04/13/2021 12:00 PM CDT 1,000 Units/hr 25 mL/hr Dose/Rate Verify 04/13/2021 7:29 AM CDT 1,000 Units/hr 25 mL/hr Given - New Bag 04/13/2021 4:09 AM CDT 04/13/2021 4:09 AM CDT 4,000 Units heparin (porcine) injection 4,000 Units Given 4,000 Units, Intravenous, ONCE, 1 dose, On Fri04/13/21 at 0345, INITIAL BOLUS (from vial) for heparin drip -- Weight-Based Heparin Algorithm - STEMI/NSTEMI/UA (fluid restricted patients) - If patient received IV heparin within the previous 2 hours, DO NOT give bolus, proceed with infusion - Initial IV bolus: 60 units/kg - Not to exceed 4000 units - Administer initial bolus from vial. NOTE: This is a HIGH ALERT Medication. 04/14/2021 1:05 PM CDT 1 Units Arm, Lef t insulin aspart (U-100) (NOVOLOG FLEXPEN Given U-100 INSULIN) injection PEN 0-6 Units 0-6 Units, Subcutaneous, BEFORE MEALS AND 2200, First dose on Fri04/13/21 at 1100, Until Discontinued, -POC glucose 181-220mg/dL at 07, , 17 administer 1 unit insulin, at 22, 03* administer 0 units. -POC glucose 221-260mg/dL at 07, 11, 17 administer 2 units insulin, at , 03* administer 1 unit. -POC glucose 261-300mg/dL at administer 3 units insulin, at , * administer 2 units. -POC glucose 301-350mg/dL at , administer 4 units insulin, at , * administer 3 units. -POC glucos e 351-400mg/dL at administer 5 units insulin, at , * administer 4 units. -POC glucose >400mg/dL at administer 6 units insulin, at , * administer 5 units. *only if ordered 5x's [...] mg Given 04/13/2021 9:34 AM CDT 04/13/2021 4:10 PM CDT 125 mg methylPREDNISolone (SOLU-MEDROL PF) Given injection 125 mg 125 mg, Intravenous, 2 mL, Administer over 3-5 Minutes, ONCE, 1 dose, On Fri04/13/21 at 1545, Give AM of CV procedure., Pre-Op 04/13/2021 1:30 PM CDT 0.4 mg nitroglycerin [...] Fri04/13/21 at 1846, Until Fri04/14/21 at 1713, Nausea/Vomiting Injectable 04/14/2021 8:17 AM [...] First dos e (after last modification) on Fri 1 at 0945, Until Discontinued, 8.5 GRAMS = 0.5 PACKET 17 GRAMS = 1 PACKET 34 GRAMS = 2 PACKETS 04/14/2021 9:08 AM CDT 1 tablet senna/docusate (SENOKOT-S) tablet 1 Given tablet 1 tablet, Oral, TWICE DAILY, First dose on 04/14/21 at 0945, Until Discontinued, Hold for loose stools 04/13/2021 11:07 AM CDT 150 mg sertraline (ZOLOFT) tablet 150 mg Given 150 mg, Oral, DAILY, First dose on Fri04/13/21 at 1015, Until Discontinued 04/14/2021 8:17 AM CDT 60 mg torsemide [...] one Removed from 1,000 mg tablet by ELECTROSTATIC PAINTER Med List tabletIndications: Type 2 mouth twice diabetes mellitus with daily with hypoglycemia without meals. Ok to coma, with long-term resume on current use of insulin October 12, ([facility]), Diabetic 2020 with AM peripheral neuropathy dose ([facility]) 10/11/2020 04/13/2021 sertraline (ZOLOFT) 100 Take 1.5 Removed from mg tabletIndications: tablets by ELECTROSTATIC PAINTER Med List major depressive disorder mouth daily. Indications: major depressive disorder 09/11/2020 04/13/2021 cyclobenzaprine Take one Removed from (FLEXERIL) 5 mg tablet by ELECTROSTATIC PAINTER Med List tabletIndications: muscle mouth three spasm [...] CDT. 04/13/2021 04/14/2021 Medication Order 04/12/2021 1540 (MAR Hold - Provider: Isaac, Orders Di scontinue - Reason: Patient not available/off unit)1610 (Given - Provider: Susana Juarez RN)1612 (MAR Unhold - Provider: Susana Juarez RN)2316 (Canceled Entry - Provider: Berenice Strong RN) aspirin chewable tablet 243 mg (COMPLETED) 243 mg, Oral, ONCE, 1 dose, Fri04/13/21 at 1615 1107 (Given - Provider: John Paul Yousif)1540 (DEC Hold - Provider: Isaac, Orders Discontinue - Reason: Patient not available/off unit)2113 (MAR Unhold - Provider: Isaac, Orders Discontinue) 0817 (Given - Provider: Barry Lagos, SUMANTH) aspirin EC tablet 81 mg 81 mg, Oral, DAILY, First dose on Fri04/13/21 at 1015, Until Discontinued 1540 (DEC Hold - Provider: Isaac, Orders Di scontinue - Reason: Patient not available/off unit)2113 (MAR Unhold - Provider: Isaac, Orders Discontinue) atorvastatin (LIPITOR) tablet 40 mg 40 mg, Oral, AT BEDTIME DAILY, First dose on Fri04/14/21 at 2100, Until Discontinued 0953 (Given - Provider: John Paul Yousif) atorvastatin (LIPITOR) tablet 80 mg (COMPLETED) 80 mg, Oral, ONCE, 1 dose, Fri04/13/21 a t 1030 0924 (Med Not Given - Provider: Uche gonzalez RN - Reason: Order parameters not met)210 (Given - Provider: Belkis Bhakta RN) 0817 (Given - Provider: Barry Lagos, SUMANTH) carvediloL (COREG) tablet 37.5 mg 37.5 mg, Oral, TWICE DAILY, First dose on Fri04/13/21 at 0900, Until Discontinued, Hold for heart rate < 70 bpm or systolic BP < 110 1119 (Given - Provider: John Paul Yousif)1540 (MAR Hold - Provider: Isaac, Orders Discontinue - Reason: Patient not available/off unit)2100 (Med Not Given - Provider: Berenice Strong, SUMANTH - Reason: Patient Refused)4 (MAR Unhold - Provider: Isaac, Orders Discontinue) 0821 (Med Not Given - Provider: Barry mosher, SUMANTH - Reason: Patient Refused) cycloSPORINE (RESTASIS) 0.05 [...] cabinet override 0310 (Given - Provider: Óscar Barney RN )0334 (Cabinet Pull - Provider: Óscar Barney, RN) dextrose 50% (D50) syringe 50 mL (COMPLETED) 50 mL, Intravenous, ONCE, 1 dose, Fri04/13/21 at 0400, NOTE: This is a HIGH ALERT Medication. 0445 (Given - Provider: Óscar Barney RN ) dextrose 50% (D50) syringe 50 mL (COMPLETED) 50 mL, Intravenous, ONCE, 1 dose, Fri04/13/21 at 0530, NOTE: This is a HIGH ALERT Medication. 1134 (Given - Provider: John Paul Yousif) dextrose 50% (D50) syringe 50 mL (COMPLETED) 50 mL, Intravenous, ONCE, 1 dose, Fri04/13/21 at 1230, NOTE: This is a HIGH ALERT Medication. 1610 (Given - Provider: Susana Juarez, SUMANTH) diphenhydrAMINE (BENADRYL) capsule 50 m g (COMPLETED) 50 mg, Oral, ONCE, 1 dose, Fri04/13/21 a t 1545, Give AM of CV procedure, Pre-Op 0818 (Given - Provider: Barry Lagos, SUMANTH) enoxaparin (LOVENOX) syringe 40 mg 40 mg, [...] Provider: Uche guadalupe RN - Comment: pt NPO)1539 (DEC Hold - Provider: Isaac, Orders Discontinue - Reason: Patient not available/off unit)2113 (DEC Unhold - Provider: Isaac, Orders Discontinue) 0817 (Given - Provider: Barry Lagos RN) ferrous gluconate tablet 324 mg 324 mg, Oral, DAILY WITH BREAKFAST, First dose on Fri04/13/21 at 1015, Until Discontinued, Each 324mg ferrous gluconate delivers 37.5mg elemental iron. 0409 (Given - Provider: Óscar Barney RN ) heparin (porcine) injection 4,000 Units (COMPLETED) [...] RN - Reason: Order parameters not met)1540 (DEC Hold - Provider: Isaac, Orders Discontinue - Reason: Patient not available/off unit)1700 (Automatically Held - Provider: Isaac, Orders Discontinue) 2113 (DEC Unhold - Provider: Isaac, Orders Discontinue)2215 (Med Not Given - Provider: Berenice Strong [...] , , administer 2 units insulin, at , 03* administer 1 unit. -POC glucose 261-300mg/dL at , , administer 3 units insulin, at , 03* administer 2 units. -POC glucose 301-350mg/dL at , , administer 4 units insulin, at , 03* administer 3 units. -POC glucos e 351-400mg/dL at , , administer 5 units insulin, at , 03* administer 4 units. -POC glucose >400mg/dL at , , administer 6 units insulin, at , 03* administer 5 units. *only if ordered [...] 1106 (Given - Provider: John Paul Yousif)1540 (MAR Hold - Provider: Isaac, Orders Discontinue - Reason: Patient not available/off unit)2114 (MAR Unhold - Provider: Isaac, Orders Discontinue) [...] 08 (Given - Provider: Barry Lagos, SUMANTH) losartan [...] Discontinue)2218 (Given - Provider: Berenice Strong RN) nortriptyline (PAMELOR) capsule 50 mg 50 mg, Oral, AT BEDTIME DAILY, First dose on Fri04/13/21 at 2100, Until Discontinued 1107 (Given - Provider: John Paul Yousif)1540 (DEC Hold - Provider: Isaac, Orders Discontinue - Reason: Patient not available/off unit)2113 (DEC Unhold - Provider: Isaac, Orders Discontinue) 08 (Given - Provider: Barry Lagos, SUMANTH) pantoprazole DR (PROTONIX) tablet 40 mg 40 mg, Oral, DAILY, First dose on Fri04/13/21 at 1015, Until Discontinued, Do not crush or chew tablet. 0908 (Given - Provider: Barry Lagos, SUMANTH) polyethylene glycol 3350 (MIRALAX) packet 34 g [...] stools 1107 (Given - Provider: John Paul Yousif N) sertraline (ZOLOFT) tablet 150 mg (CANCELED) 150 mg, Oral, DAILY, First dose on Fri04/13/21 at 1015, Until Discontinued 1015 (Due)1540 (DEC Hold - Provider: Isaac, Orders Discontinue - Reason: Patient not available/off unit)2113 (DEC Unhold - Provider: Isaac, Orders Discontinue) 0817 (Given - Provider: aBrry Lagos, SUMANTH) torsemide (DEMADEX) tablet 60 mg 60 mg, Oral, DAILY, First dose on Fri04/13/21 at 1015, Until Discontinued 1540 (DEC Hold - Provider: Isaac, Orders Di scontinue - Reason: Patient not available/off unit)2113 (DEC Unhold - Provider: Isaac, Orders Discontinue)221 (Given - Provider: Berenice Strong, SUMANTH) traZODone (DESYREL) tablet 300 mg 300 mg, [...] - New Bag - Provider: Óscar Barney, SUMANTH)0729 (Dose/Rate Verify - Provider: Uche Marcum RN)1200 (Dose/Rate Verify - Provider: Uche Marcum RN - Comment: per order, dose to not exceed 1,000 unit/hr during first 12 hr)1547 (Dose/Rate Verify - Provider: Susana Juarez, SUMANTH) heparin (porcine) 20,000 units/D5W 500 mL infusion [...] Indigestion/Heartburn 1105 (Given - Provider: John Paul Yousif)1540 (DEC Hold - Provider: Isaac, Orders Discontinue - Reason: Patient not available/off unit)2113 (MAR Unhold - Provider: Isaac, Orders Discontinue) cyclobenzaprine [...] Barney RN )1320 (Given - Provider: Anabella Mckeon RN)1325 (Given - Provider: Anabella Mckeon RN)1330 (Given - Provider: Anabella Mckeon RN)1540 (MAR Hold - Provider: Isaac, Orders Discontinue - Reason: Patient not available/off unit)2114 (DEC Unhold - Provider: Isaac, Orders Discontinue) [...] 3350 (MIRALAX) 1 07/2021 packet 17 g acetaminophen (TYLENOL) tablet 650 mg 3 04/13/2021 aluminum/magnesium hydroxide (MAALOX) 2 04/13/2021 oral suspension 30 mL atorvastatin (LIPITOR) tablet 40 mg 1 diphenhydrAMINE (BENADRYL) capsule 25 mg 2 04/13/2021 diphenhydrAMINE (BENADRYL) injection 25 2 04/13/2021 mg ergocalciferol (vitamin D2) (DRISDOL) 1 04/13/2021 capsule 50,000 Units heparin (porcine) BOLUS for continuous 1 04/13/2021 inf (vial) 2,400-4,810 Units heparin (porcine) PF syringe 5,000 Units 1 04/13/2021 hydrALAZINE (APRESOLINE) injection 5 mg 1 04/13/2021 insulin NPH (HUMULIN N KwikPen) 1 2020 injection PEN 30 Units ondansetron (ZOFRAN) injection 4 mg 2 sodium chloride 0.9 % infusion 1 04/13 First Ordered Date EKG Orders Without Results [...] Request Count Last Ordered Date CASE 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
--- OUTSIDE RECORDS SUMMARY | 2021-06-11 11:55 | XMS REPORT | Encounter Summary ---
Author Author [facility] Organization [facility] Address Unknown Phone Unavailable Care Team Providers Care Intrusion Analyst Name Role Phone Lucie Emery MD Unavailable Rosario Mcknight MD Unavailable Unavailable Jyoti Mejia [phone] Unavailable Marbin Montenegro BS 100 No Pcp, Na PCP Unavailable Reason for Visit * Reason Comments Peripheral Artery Disease * Radiology Services (Routine) Referred By Contact Referred To Contact Status Reason Specialty Diagnoses / Procedures Kevin Domingo MD [address] [place] [address] New Request Radiology Diagnoses PVD (peripheral vascular disease) (HCC) P rocedures US NONINVASIVE LOWER EXT PVR Encounter Details Care Team Description Date Type Department Kevin Domingo MD [address] [place] [address] PVD (peripheral vascular disease) (HCC) 05/02/2021 Clinical Surgery: [facility] [address] [facility] [place] [address] Social History Date Tobacco Use Types Packs/Day Years Used Quit: 11/03/1998 Former Smoker Cigarettes 0.5 25 Smokeless Tobacco: Never Used Comments Alcohol Use Standard Drinks/Week Not Currently 0 (1 standard drink = 0.6 o z pure alcohol) Sex Assigned at Date Recorded Female 12/21/2019 10:27 AM CDT Date Recorded COVID-19 Exposure Response 05/02/2021 8:20 AM CDT In the last month, have [...] is out of town until July(work related) [facility] On track (04/13/2021 Yes Dorota Paris, 2:18 PM CDT) RN Note: I would like to be able to bathe myself. I have a shower chair but I can't get my legs over the lip of the tub. documented as of this encounter Procedures Comments Procedure Name Priority Date/Time Associated Diag nosis US NONINVASIVE LOWER EXT Routine 05/02/2021 PVD ( peripheral vascular PVR disease) (HCC) documented in this encounter Results * US NONINVASIVE LOWER EXT PVR (05/02/2021) Specimen Narrative Performed At [facility] RESULTS NOT GIVEN, ROUTED TO [facility] Address City/State/ZIP Code [place] [facility] documented in this encounter Visit Diagnoses Diagnosis PVD (peripheral vascular disease) (HCC) Peripheral vascular disease, unspecifie d documented in this encounter Additional Health Concerns Assessment Noted Time PHQ-9 Depression Total Score: 15 11/10/2019 3:00 PM FAUCET POLISHER A fall risk assessment has been completed for the pat ient 04/14/2021 8:17 AM CDT PHQ-2 Depression Total Score: 0 10/19/2020 9:27 AM FAUCET POLISHER documented as of this encounter
--- OUTSIDE RECORDS SUMMARY | 2021-06-11 11:55 | XMS REPORT | Encounter Summary ---
Author Author [facility] Organization [facility] Address Unknown Phone Unavailable Care Team Providers Care Chief Guard Name Role Phone Lucie Emery MD Unavailable Rosario Mcknight MD Unavailable Unavailable Jyoti Mejia [phone] Unavailable Marbin Montenegro MBBS 100 No Pcp, Na PCP Unavailable Encounter Details Care Team Description Date Type Department 05/02/2021 Travel Social History Date Tobacco Use Types [...] is out of town until July(work related) [facility] On track (04/13/2021 Yes Dorota [...] Depression Total Score: 15 11/10/2019 3:00 PM OPTIMIZATION SPECIALIST A fall risk assessment has been completed for the pat ient 04/14/2021 8:17 AM CDT PHQ-2 Depression Total Score: 0 10/19/2020 9:27 AM OPTIMIZATION SPECIALIST documented as of this encounter
--- OUTSIDE RECORDS SUMMARY | 2021-06-11 11:55 | XMS REPORT | Clinical Summary ---
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 If you d o not see the information that you expected, contact Release of Information in [facility] Information Management department at [phone] for further assistan ce in locating additional records.[facility] Allergies Comments Active Allergy Reactions Severity Noted Date Patient reports tolerating amoxicillin in the past. Cephalosporins HIVES Medium 09/05/2007 Iodinated Contrast Media HIVES Medium 09/05 Gabapentin NAUSEA AND Low 02/02/2018 VOMITING Levofloxacin HIVES Medium 02/02/2018 Naloxone HIVES 09/05/2007 Pt does not recall what her reaction is. Sulfa (Sulfonamide SEE COMMENTS Low 02/08/2014 Antibiotics) Fenofibrate Micronized STOMACH UPSET Low 020 Medications End Date Status Medication Sig Dispensed Refills Start Date Active aspirin EC 81 mg tablet Take 81 mg by 0 mouth daily. Take with food. Active acetaminophen (TYLENOL) Take 1,000 mg 0 500 mg tablet by mouth every 6 hours as needed for Pain. Max of 4,000 mg of acetaminophen in 24 hours. Active meclizine (ANTIVERT) 25 Take one 90 tablet 1 201 mg tabletIndications: tablet by 9 vertigo mouth three times daily as needed. Active insulin regular (NOVOLIN Inject twelve 10 mL 0 R) 100 unit/mL injection Units under 0 the skin three times daily before meals. Additional Information Patient taking differently: 10-25 Units Subcutaneous THREE TIMES DAILY BEFORE MEALS, Informant: Med List, Reported on 04/13/2021 Active cycloSPORINE (RESTASIS) Apply one 60 each 4 0.05 % ophthalmic drop to both 0 emulsionIndications: eyes twice keratoconjunctivitis daily. sicca Indications: keratoconjunc tivitis sicca, or dry and inflamed cornea and conjunctiva of the eye Active traZODone (DESYREL) 300 Take one 90 tablet 3 mg tablet tablet by 0 mouth at bedtime daily. Active pantoprazole DR Take one 90 tablet 0 (PROTONIX) 40 mg tablet tablet by 0 mouth daily. Active ondansetron (ZOFRAN) 4 mg Take one 15 tablet 0 tablet tablet by 0 mouth every 8 hours as needed for Nausea or Vomiting. Active losartan (COZAAR) 25 mg Take one 90 tablet 3 tabletIndications: tablet by 0 Chronic heart failure mouth daily. with preserved ejection fraction (HFpEF) ([facility]), Coronary artery disease due to lipid rich plaque, Pure hypercholesterolemia, Essential hypertension, Stage 3 chronic kidney disease, unspecified whether stage 3a or 3b CKD ([facility]) Active nystatin (NYSTOP) 100,000 Apply 60 g 6 unit/g topical powder topically to 1 pannus area every 12 hours as needed (redness). Active atorvastatin (LIPITOR) 40 Take one 90 tablet 3 mg tabletIndications: tablet by 1 Coronary artery disease mouth at involving [place] coronary bedtime artery of [place] heart daily. without angina pectoris, Hyperlipidemia, unspecified hyperlipidemia type Active nortriptyline (PAMELOR) Take one 90 capsule 1 50 mg capsule capsule by 1 mouth at bedtime daily. Active nitroglycerin (NITROSTAT) Place one 30 tablet 1 0.4 mg tablet tablet under 1 tongue every 5 minutes as needed. Max 3 tablets, call 911. Active polyethylene glycol 3350 Take one 12 each 0 0 (MIRALAX) 17 g packet packet by 1 mouth twice daily. Additional Information Patient taking differently: 17 g Oral DAILY, Informant: Med List, Reported on 04/13/2021 Active ferrous gluconate 324 mg Take one 30 tablet 3 0 (37.5 mg iron) tab tablet by 1 mouth daily with breakfast. Active Cranberry 500 mg cap Take 2 0 capsules by mouth daily. Active ascorbic acid (VITAMIN C) Take 500 mg 0 500 mg tablet by mouth daily. Active baclofen (LIORESAL) 10 mg TAKE 1 TABLET 0 06/0 tablet BY MOUTH 1 THREE TIMES DAILY WITH FOOD OR MILK FOR 10 DAYS Active metoclopramide (REGLAN) 1 Take 5 mL by 0 /2 mg/mL oral solution mouth three 1 times daily before meals. Active nitrofurantoin Take 1 0 macrocrystaL capsule by 1 (MACRODANTIN) 100 mg mouth daily capsule with dinner. Active RYBELSUS 3 mg tablet Take 3 0 tablets by 1 mouth daily. Active insulin NPH (NOVOLIN N) Inject forty 0 100 unit/mL injection Units under 1 the skin twice daily. Active cholecalciferol (VITAMIN Take one 90 tablet 1 0 D3) 50 mcg (2,000 unit) tablet by 1 tablet mouth daily. Active metFORMIN-XR (GLUCOPHAGE Take two 180 tablet 0 0 XR) 500 mg extended tablets by 1 release tablet mouth daily with dinner. Active sertraline (ZOLOFT) 100 Take 1 tablet 0 mg tablet by mouth 1 every 24 hours. Active carvediloL (COREG) 12.5 Take one 180 tablet 1 mg tablet tablet by 1 mouth twice daily. Take with food. Active isosorbide mononitrate ER Take 1.5 135 tablet 1 (IMDUR) 60 mg tablet tablets by 1 mouth daily. Active torsemide (DEMADEX) 20 mg Take two 180 tablet 1 tabletIndications: tablets by 1 Essential hypertension, mouth daily. Pure hypercholesterolemia, Chronic heart failure with preserved ejection fraction (HFpEF) (HCC), Coronary artery disease due to lipid rich plaque, Stage 3 chronic kidney disease, unspecified whether stage 3a or 3b CKD (HCC) Active Problems Patient Care Coordination Note Please complete a medical screening exam to rule out emergent issues. If no emergent needs are identified, please contact the MVP Team. MVP Team Contact: RAINER Waller (Available M-F [phone] via cell phone [phone] or Voalte) Utilization: ED Visits: 1 Admissions: 4 within the past 12 months Sample Distributor of Utilization: Behavioral; Mental Health. Common Complaint: CP, nausea, SOA, sepsis. Pattern of Concern: Declined mental health resources despite identified depression, anxiety and mood disorder; Identified concerns for independent follow-through on treatment recommendations; Inconsistent with contacting clinics prior to ED presentation; Discontinued [facility] services d/t recent move to increase social support. Recommendation: Continue assessing pt's interest in establishing with a mental health provider; Monitor need for IP Cnc Field Service Engineer consult each admission to povide ongoing education; Monitor follow-through of treatment recommendations, provide education as appropriate; Encourage pt to leverage OP clinics for triage availability upon onset of symptoms; Connect with supplemental care options for additional in-home support, as appropriate. Community Support: N/A. Providers: Gen Med Cl - Bibiana Choi (p. [phone]); [facility] Burn Wound Cl - Darrel Dickens (p. [phone]); Spine Rehab Med Cl - Queta Dykes (p. [phone]); [facility] Neurology Cl - Luis Simpson (p. [phone]); [facility] CMP[facility] Cl - Jyoti Salazar (p. [phone]); [facility] Eye Cl - Joaquín Rios & Lurdes Metcalf (p. [phone]); IM Diabetes Cl - Maritza Landis (p. [phone]); IM Nephrology - Yosef Zavala (p. [phone]). Disposition on last DC: Discharged home 04/14/21 with no additional services. Date of last MVP Communication: 07/12/2020. Problem Noted Date Angina pectoris, unstable 04/13/2021 Chest pain 10/27/2020 Interstitial pulmonary disease, unspecified 01/06/20 21 Major depressive disorder 10/11/2020 Overview: Formatting of this note might be differ ent from the original. - was on sertraline 150 mg daily previo usly, but titrated herself off of this - at our last visit in September 2020, corine grimm resumed zoloft 2/2 phq-9 score that was consistent with severe depress ion, she has uptitrated to 150 mg daily - mood is much better, no thoughts of h arm, feels hopeful Critical limb ischemia with history of revascularizat ion of same extremity 10/04/2020 Sepsis 08/28/2020 Sepsis due to urinary tract infection 07/10/2020 Elevated troponin 07/10/2020 Mood disorder 07/10/2020 H/O renal artery stenosis s/p stent 07/10/2020 PVD (peripheral vascular disease) 07/10/2020 Chronic heart failure with preserved ejection fractio n (HFpEF) 07/10/2020 Acute kidney injury superimposed on CKD 07/10/2020 Non-pressure chronic ulcer of left heel and midfoot w ith fat layer exposed 06/21/2020 Diabetic peripheral vascular disorder 06/21/2020 Pseudophakia of both eyes 05/26/2020 Last Assessment & Plan: Formatting of this note might be differ ent from the original. trc PCO but vision is good new reading glasses today Angina pectoris, unspecified 05/09/2020 Overview: Formatting of this note might be differ ent from the original. - chest pain stable; unclear at this ti me if it is angina vs esophageal spasms. She was referred to GI, and joel menchaca need EGD to evaluate component of non cardiac chest pain. Nitroglycerin i mproves pain. Chronic daily headache 02/19/2020 Hypertensive emergency 02/18/2020 Obstruction of right tear duct 12/09/2019 Overview: Formatting of this note might be differ ent from the original. - surgery scheduled tomorrow Morbid obesity 11/20/2019 Acute pancreatitis 11/14/2019 Overview: Formatting of this note might be differ ent from the original. - recently hospitalized at the [facility] nov 2019, sxs resolved. Doing well in clinic today without any pain/N /V. Cough 10/26/2019 Overview: Formatting of this note might be differ ent from the original. 10/26/2019 Mucinex DM and or Tessalon Perles as ne eded Orthostasis 10/15/2019 Overview: Formatting of this note might be differ ent from the original. 10/15/2019 Orthostatic vitals positive today: Pollo goldman 191/88 HR 87, sitting 174/77 HR 83, standing 92/70 HR 85 pt reported dizziness with each positio n change Given heart failure and CKD along with many other comorbidities optimizing fluid status will be difficult. Furose mide was already recently decreased from 80 mg to 40 mg. Deconditioning is probably a significant factor as she only gets up / ambulates to go to the b athroom and back. Encouraged to drink right around 2 L of water per day no more and not much less given size Slow careful position changes Encouraged to look into the Free baldoxo e and exercise classes at [facility] with spine center next month, will likely discuss PT Continue close following with cardiolog y Retinal dot hemorrhage of both eyes 10/13/2019 Last Assessment & Plan: Formatting of this note might be differ ent from the original. Still present but not visually signific ant Monitor for now Nldo, acquired (nasolacrimal duct obstruction), right 10/13/2019 Last Assessment & Plan: Formatting of this note might be differ ent from the original. she will see Dr. Rios soon to pull out tube Age-related cataract of both eyes 09/15/2019 Overview: Formatting of this note might be differ ent from the original. - following with Dr. Metcalf in [facility] [place] [facility] Assessment & Plan: Formatting of this note might be differ ent from the original. Patient has visually significant catara cts OU. I am recommending that we proceed with cataract extraction with i ntraocular lens implantation. I reviewed the risks benefits and alterna tives of this procedure which include but are not limited to bleeding , pain, infection, loss of vision, and the potential need for further surg dipesh. The use of eyeglasses after cataract surgery and resident involveme nt was also reviewed. The patient understands these risks and agrees to s urgery. Trauma: N LASIK: N Flomax: N Anticoagulation: N Can lay flat:N-heart failure and back s urgeries Diabetes mellitus:YES Dilates: 8mm Other Considerations: trypan, on O2, ne ed to do at hospital [employer]: plano Plan to operate on the OS then OD. Anes thesia: topical/MAC Keratoconjunctivitis sicca 09/15/2019 Overview: Formatting of this note might be differ ent from the original. - continue eye drops as needed L ast Assessment & Plan: Formatting of this note might be differ ent from the original. Dry eye has gotten much worse since see ing me last Since ATs are not working I think she s hould start restasis BID to see if that helps Start FML BID at same time Continue ATs during day and ointment QH S If Restasis too expensive will try to s ee if Xiddra or Cequa is covered. Hyperglycemia 08/14/2019 Dysuria 08/03/2019 Overview: Formatting of this note might be differ ent from the original. 08/03/2019 - POC urine dipstick only shows 25 leuk s. Will send to lab for micro/culture/sensitivity. - encouraged to avoid bladder irritants - list provided - good oral hydration - offered urology referral given recurr ence of UTIs - pt declines as she does not want to undergo any procedures Polypharmacy 06/23/2019 Overview: Formatting of this note might be differ ent from the original. -2019- referral to pharmacy to help wit h medication management given complexity of pharmaceuticals, CKD, and CHF. -Reviewed medications today. At this t janie, she is on multiple medications, but her symptoms are well controlled. She is taking sertraline for depression, she has her coronary artery disease medications: Coreg, Imdur, losartan. She takes torsemide for jed a. She takes nitroglycerin as needed. She also takes amitriptyline f or chronic pain and sleep, and she has been on 300 mg of trazodone long-te . She is well aware of the risks of being on multiple medications in sim ilar classes, but at this time she is not experiencing many negative side effects. Chronic respiratory failure with hypoxia 06/02/2019 Unstable angina 05/31/2019 Overview: Formatting of this note might be differ ent from the original. - hospitalized with unstable angina and HTN urgency in 05/2019 - uses nitroglycerin tabs 1-2 every one -two weeks - given clear boundaries on when to RTC or call (if she has chest pain and requires three or more nitro; if BP leonora vated >170/90) Personal history of diabetic foot ulcer 05/25/2019 Overview: Formatting of this note might be differ ent from the original. Images from the original note were not included. Above two photos are from last two woun d care clinic visits. Pt states that her wound looks exactly like the second photo. She has an appointment next week with Dr. Dickens in wound care clinic. I will defer continued care of left foot ulcer to him. I told her to call m e if she has any changes in wound, if she has any fevers or chills. Status post amputation of toe of left foot 9 Diabetic peripheral neuropathy 05/25/2019 Chronic diastolic heart failure 05/25/2019 Overview: Formatting of this note might be differ ent from the original. - States she was told her oxygen requir ement is related to her heart failure - patient set up with Cardiology appoin tment here at with Dr. Salazar - Have requested that patient obtain re cords for us from [facility] Music Video Director - currently requiring 3L of O2. - echo from recent hospital stay 05/2019 shows HFpEF, EF ~55% - started on lasix 80 mg qday, coreg 6. 125 mg BID, and lisinopril 20 mg qday (was initially on BID dosing but h ad some hypotensive events) Healthcare maintenance 05/25/2019 Overview: Formatting of this note might be differ ent from the original. - physical exam 2019 - colorectal screening - patient report s has been done within last few years, states was not abnormal - will n eed this followed up on and records faxed - mammogram done 2017, pt does not want another - Foot exam done 10/11/2020 of R foot, le ft foot being examined q2 weeks in wound clinic - pna 23 vaccine done 06/23/2019 in clin ic - discussed need for shingles vaccine- pt states she will get FABI (acute kidney injury) 03/12/2018 CKD (chronic kidney disease) stage 3, GFR 30-59 ml/mi n 03/12/2018 Overview: Formatting of this note might be differ ent from the original. - likely etiology is HTN vs DM -UA with 3+ protein, continue lisinopri l - had recent labs done, c/w CKD stage I II-IV - sees Nephrology 10/14/2018 Leukocytosis 02/03/2018 Neck pain 02/03/2018 Hypoglycemia 02/01/2018 Overview: Formatting of this note might be differ ent from the original. - decreased insulin to 30 lantus BID, N ovolog 18 w/ AM and Lunch, and 25 w/ Dinner w/ instructions to decrease furt her if continued hypoglycemia occurs - pt states having episodes of BS in 30 's QOD - continue metformin 1000 mg BID Risk for falls 03/01/2014 Overview: Formatting of this note might be differ ent from the original. Patient was identified as a high fall r isk with fall risk screen today in clinic. Patient and family were given t he CDC "What You Can Do To Prevent Falls" brochure. Patient will be accomp anied by a staff member while ambulating in clinic. Patient verbalize s an understanding. Diabetic polyneuropathy associated with type 2 diabet es mellitus 09/08/2013 Overview: Formatting of this note might be differ ent from the original. Likely diabetic PN - numb on PP to knee s, elbows; vibration 3 sec at knees, decr proprioception 10/26/2019 Patient would like to switch from carba mazepine back to amitriptyline due to cost, believes amitriptyline was pre viously just as effective Wean off carbamazepine currently taking 200 mg nightly, decrea se to 100 mg nightly x1 week then 100 mg every other day x1 week then sto p Start amitriptyline 25 mg nightly could increase dose if needed Headache 08/05/2013 Overview: Formatting of this note might be differ ent from the original. Improved on topamax 50mg BID Dizziness 08/05/2013 Head injury 08/05/2013 History of CVA (cerebrovascular accident) 09/10/2011 Overview: Formatting of this note might be differ ent from the original. 3-06-[id number] with speech difficulties Gastroparesis 01/19/2008 Carotid stenosis 11/20/2007 Overview: Formatting of this note might be differ ent from the original. History of TIA: S/P Bilateral Carotid endarterectomies with uncontrolled hypertension. 06/01/19: Carotid Doppler: Mild scattere d atherosclerotic plaque bilaterally without evidence of hemodynamically sig nificant CCA or ICA stenosis Type 2 diabetes mellitus, with long-term current use of insulin 09/05/2007 Overview: Formatting of this note might be differ ent from the original. - Diabetic foot exam done 10/11/2020 - was on ozempic, but could not afford this medication - continue metformin 1000 mg BID. Pee nt was on metformin in the past but was taken off for CKD. GFR currently >5 0. Will decrease dose if this causes drop in GFR. Will monitor kidney functi on. - diabetes education referral placed pr eviously, endocrinology referral placed previously but pt has not been a ble to see - she is currently on nph 30 units BID and addresses her short acting based on her sugars - 10/11/20: blood sugars have been well c ontrolled recently, still having some lows, she is very good at titratio n of her insulin and keeping track of her numbers - continue following with pharmacy L ast Assessment & Plan: Formatting of this note might be differ ent from the original. Does the patient have Diabetes? Yes, a nd the patient HAS evidence of retinopathy and/or macular edema today. Mild retinopathy Discussed importance of good blood gluc ose control and follow-up with PCP Continue annual dilated fundus exams CAD (coronary artery disease) 09/05/2007 Overview: Formatting of this note might be differ ent from the original. [facility]; S/P PCI/stent to RCA 04/2014 ([facility]) States she has had ~4 stents in the past hospitalized due to angina and CP ru le out (05/08-05/08); ischemic CEBALLOS negative at that time Hospitalized for chest pain and hype rtension in July 2020, and then again in August 2020 05/31/19: Echo: EF 65%.Normal LV size an d wall thickness. Normal wall motion, EF, and diastolic function. No aortic stenosis. Unable to measure PAP.Normal RV size and ejection fractio n. 02/2020 Echo: EF 65%. No regional wall m otion abnormalities. Normal diastolic function. Normal RV size and function. MAC with trace MR. Peak PAP could not be estimated. Normal aort ic root. Overall unchanged from previous study. 06/01/19 Cardiac cath: Patent stents in the proximal LAD as well as right coronary artery.Mild to moderate diffus e coronary artery disease.Mild increase in left ventricular end-diasto lic pressure. 08/2020 CATH: Left main coronary artery: The left ma in coronary artery arises normally from the left coronary sinus. It dista lly trifurcates into left descending artery, ramus intermedius, and left cir cumflex artery. It is angiographically free of significant di sease. Left anterior descending artery: The l eft anterior descending artery appears to be a large caliber vessel wh ich has a previously placed stent in the proximal portion, which is widely p atent without significant in-stent restenosis. The mid LAD has a 20% mild disease. It gives rise to 1 diagonal branch which has an ostial 20% to 30% disease. The distal LAD appears to have mild luminal irregulari ties; otherwise, free of significant disease. Ramus intermedius: The ramus intermedi us has a 50% disease in the proximal portion, which is unchanged from the pr ior study. Left circumflex artery: The left circu mflex artery appears to be a medium caliber vessel which gives rise to 1 la rge obtuse marginal branch followed by LPL branch. The circumflex prior to the takeoff of the obtuse marginal branch has a 30% to 40% disease, follow ed by an area of 30% disease distally in the obtuse marginal branch. LPL branch appear to be free of significant disease. Right coronary artery: The right coron melissa artery arises normally from the right coronary sinus. It distally cont inues as a PDA branch. The mid RCA has a 30% disease, unchanged from the p rior study. 04/13/21 LHC: Patent pLAD and mRCA stents .(unchanged from previous cath). Low LVEDP. Hypertension 09/05/2007 Overview: Formatting of this note might be differ ent from the original. - continue current medications: losarta n, imdur, coreg now at 25 mg BID - BP at goal for age and co-morbidities GERD (gastroesophageal reflux disease) 09/05/2007 Anxiety and depression 09/05/2007 Overview: Formatting of this note might be differ ent from the original. 08/03/2019 - PHQ9 Score: 21 - severe, GAD7 Score: 19 - severe - referral to Dr. Malone already in p inocente - will schedule today - psychiatry referral placed today - [facility] brochure provided - enc ouraged to try one of their support groups - recommended phone apps for anxiety / stress - see pt instructions - increase sertraline to 150 mg - has f/u with pcp in 1 month 10/26/2019 Start amitriptyline as above for neurop athy. Discussed that once patient is weaned off carbamazepine and at a st able dose of amitriptyline that is controlling her neuropathy we could try weaning off sertraline then possibly trazodone Hyperlipemia 09/05/2007 Overview: Formatting of this note might be differ ent from the original. - had period of time where she stopped atorvastatin, now is back on it. Continue 40 mg qday. Colonic polyps 09/05/2007 Back pain 09/05/2007 Overview: Formatting of this note might be differ ent from the original. Back surgery 8 years ago - L4/5, anothe r surgery at T11/T12 Fibromyalgia 09/05/2007 Overview: Formatting of this note might be differ ent from the original. 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 L2-4 with post op MRSA revision History of partial pancreatectomy Overview: Formatting of this note might be differ ent from the original. distal H/O splenectomy Spinal stenosis of lumbar region with n eurogenic claudication Cervical spondylosis Resolved Problems Problem Noted Date Resolved Date Complex care coordination 10/27/2019 03/30/2021 Hyperglycemic hyperosmolar nonketotic coma 08/14/2019 08/14/2019 HHS (hypothenar hammer syndrome) 08/13/201908/14 Acute on chronic diastolic heart failure 06/02/2019 10/14/2019 Acute on chronic respiratory failure with hypoxia 06/02/20 19 10/14/2019 Hypertensive emergency 05/31/2019 06/02/2019 Angina at rest 05/08/2019 05/09/2019 Encounters Care Team Description Date Type Specialty Esha Moreno RN Results 05/28/2021 Telephone Vascular Surgery Jeff Garza MA Carotid artery stenosis, symptomatic, bi lateral 05/21/2021 Orders Only General Surgery Berkley Smith RN Results 05/14/2021 Telephone Vascular Surgery Kevin Domingo MD General Question 05/14/2021 Telephone Vascular Surgery Katherin Bo PA-C Post-hospital Follow Up (04/13-04/14/21 Ang linda ) 05/03/2021 Office Visit Cardiology Kevin Domingo MD Carotid artery stenosis, symptomatic, bi lateral (Primary Dx); Diabetic peripheral vascular disorder ([facility]); Bilateral carotid artery stenosis; Diabetic polyneuropathy associated with type 2 diabetes mellitus (HCC); Stage 3a chronic kidney disease (HCC); Coronary artery disease of [place] heart with stable angina pectoris, unspecified vessel or lesion type ([facility]) 05/03/2021 Office Visit General Surgery 05/03/2021 Travel Kevin Domingo MD PVD (peripheral vascular disease) ([facility]) 05/02/2021 Clinical General Surgery Support 05/02/2021 Travel Kevin Domingo MD PAD (peripheral artery disease) ([facility]) (P rimary Dx); PVD (peripheral vascular disease) ([facility]) 04/23/2021 Orders Only Vascular Surgery Marbin Montenegro MBBS Transition Of Care 04/17/2021 Telephone General Internal Dc Abdirashid Garber MD ANGIOGRAPHY CORONARY ARTERY WITH LEFT HE ART CATHETERIZATION 04/13/2021 Surgery Cardiology Jessee Mccord MD Dosokey, Eslam M, MD Sattarin, Arash, MD Angina pectoris, unstable ([facility]) 04/13/2021 Hospital - Encounter 04/14/2021 04/13/2021 Travel 04/12/2021 Travel Saritha Cornejo, SUMANTH General Question 03/30/2021 Telephone Vascular Surgery Celia Villar RN 03/30/2021 Patient General Internal Dc cassie Outreach from Last 3 Months Immunizations Name Administration Dates Next Due FLU VACCINE >3YO 08/20/2012 Flu Vaccine =>65 YO 11/21/2019 High-Dose (PF) Flu Vaccine =>65 YO 07/11/2020 () High-Dose Quadrivalent (PF) Flu Vaccine Trivalent =>3 08/16/2013 Yo (Preservative Free) Meningococcal Vaccine, 09/05/2017 unknown serogroup (Historical) Pneumococcal Vaccine 06/23/2019, 08/06/2006 (23-Tita Adult) Pneumococcal 11/21/2019 () Vaccine(13-Tita Peds/immunocompromised adult) Surgical History Surgery Date Site/Laterality Comments HX APPENDECTOMY 10/06/1966 - 10/05/1967 HX TUBAL LIGATION 10/06/1976 - 10/05/1977 HX BACK SURGERY ~2003 "cleaned up staph i nfection" ([facility]SA) HX CARPAL TUNNEL RELEASE ~2007, Bilateral 2 james g per left, 1 surg per right 2008 HX KNEE ARTHROSCOPY 10/06/2003 - Left 10/05/2004 HX CHOLECYSTECTOMY ~2000 CYTOLOGY PAP SMEAR 07? declined 4-13 DIAGNOSTIC COLONOSCOPY REPORT 10/06/2006 - due in 2017 10/05/2007 MAMMO HISTORICAL REPORT 07? declined 4-13 BONE DENSITY SPINE/HIP 01/04/2007 - mild osteopenia - declined 4-13 02/02/2007 CAROTID ENDARDECTOMY approx Bilateral lt- Dr. Anuj jerome- -2009, AMPUTATION 10/06/2009 - Left 4th and 5th toe s 10/05/2010 HX HEART CATHETERIZATION 05/06/2019 - 06/05/2019 ESOPHAGOSCOPY 11/19/2019 N/A ESOPHAGOSCOPY W ITH ENDOSCOPIC ULTRASOUND EXAMINATION - FLEXIBLE performed by Robin Ji MD at ENDO/GI UPPER GASTROINTESTINAL 11/19/2019 N/A ESOPHAG OGASTRODUODENOSCOPY WITH BIOPSY - FLEXIBLE ENDOSCOPY performed by Robin Rai MD at ENDO/GI CORONARY STENT PLACEMENT 2013 x2 ARTERY SURGERY 10/06/2013 - Right PCI renal arter y x2 stent 10/05/2014 VASCULAR SURGERY 10/06/2009 - Left LLE stent (an kle area) 10/05/2010 MASS EXCISION 10/06/2016 - pancreatic mass res ection and spleenectomy 10/05/2017 LAMINECTOMY 1996, 2002 MRSA after 2002 james erick EYE SURGERY 02/10/2020 Right DACRYOCYSTORHIN OSTOMY WITH TUBES performed by Joaquín Rios MD at [facility] [place] Medical devices from this surgery are i n the Implants section. PROBE NASOLACRIMAL DUCT 02/10/2020 Right PROBIN G NASOLACRIMAL DUCT WITHIRRIGATION WITH INSERTION TUBE performed by Andrés Rios MD at [facility] [place] Medical devices from this surgery are i n the Implants section. PANCREATECTOMY 10/06/2016 - distal portion 10/05/2017 SPLENECTOMY, TOTAL 10/06/2016 - 10/05/2017 CATARACT REMOVAL WITH 05/25/2020 Eye/Bilateral MANUAL/ MECHANICAL EXTRACAPSULAR CATARACT REMOVAL IMPLANT WITH INSERTION INTRAOCULAR LENS PROSTHESIS - COMPLEX performed by Lurdes Metcalf MD at [facility] [place] Medical devices from this surgery are i n the Implants section. UPPER GASTROINTESTINAL 10/28/2020 N/A ESOPHAG OGASTRODUODENOSCOPY WITH BIOPSY - FLEXIBLE ENDOSCOPY performed by Michel Sears ba, MD at [facility] [place] Medical History Medical History Date Comments Hypertension Neuropathy Diabetic Peripheral Neuropa thy; fingers, feet, ankles Depression Chronic back pain Congestive heart disease (HCC) HLD (hyperlipidemia) 09/05/2007 Chronic diastolic heart failure (HCC) 05/25/2019 - Do not have documented echocardiogram; but patient states she has been diagnosed w ith CHF - States she was told her oxygen requirem ent is related to her heart failure - c/o LOBATO, PND, orthopnea - continue lasix, lisinopril; may consider addition of beta irma in th e future - patient set up with Cardiology appointm ent here at with Dr. Salazar - Have requested at patient obtain records for Chronic respiratory failure (HCC) 06/02/2019 History of partial pancreatectomy distal H/O splenectomy Spinal stenosis of lumbar region with neurogenic claudication History of lumbar laminectomy 1996 L2-4 wit h post op MRSA revision Myocardial infarction (HCC) 2011 Chest pain releived by nitro CAD (coronary artery disease) x2 stents History of CVA (cerebrovascular 2009, 2012, presented with speech difficulties; R sided accident) 2013 residual Arthritis Diabetes mellitus (HCC) 2-12-20 A1C 6.7; FBS 120-17 0 Gastroparesis Acid reflux rare; doens't take protonix often On home oxygen therapy 4L with activity and at [facility] Sleep apnea noncompliant with Cpap History of MRSA infection 2002 was cleared of MRSA at [facility] Cervical spondylosis Pancreatitis Heart palpitations weekly Generalized headaches Vision decreased Anxiety and depression Colon polyps CKD (chronic kidney disease) stage 3, GFR 30-59 ml/min ([facility]) Diabetic foot ulcers (HCC) both feet; healed Fibromyalgia Allergy Type 2 diabetes mellitus (HCC) PVD (peripheral vascular disease) ([facility]) Chronic kidney disease High cholesterol Family History Medical History Relation Name Comments Cancer Brother Prostate Cancer Brother Lung and Colon Glaucoma Father Heart Disease Father Blindness Mother Diabetes Mother Heart Disease Mother Heart Disease Sister Macular Degen Neg Hx Relation Name Status Comments Brother Alive prostate cancer- kn ee replacement Brother Alive well Father CAD- asthma- he is 94 Mother DM- heart disease (Age 70) Sister 1/2 sis- heart dise ase Social History Date Tobacco Use Types Packs/Day Years Used Quit: 11/03/1998 Former Smoker Cigarettes 0.5 25 Smokeless Tobacco: Never Used Tobacco Cessation: Counseling Given: Yes Comments Alcohol Use Standard Drinks/Week Not Currently 0 (1 standard drink = 0.6 o z pure alcohol) Sex Assigned at Date Recorded Female 12/21/2019 10:27 AM CDT Last Filed Vital Signs Reading Time Taken Comments Vital Sign 108/50 05/03/2021 11:06 AM CDT Blood Pressure 69 05/03/2021 11:06 AM CDT Pulse 36.6 C (97.9 F) 05/03/2021 8:20 AM CDT Temperature 18 11/02/2020 11:03 AM MAIL ROOM Respiratory Rate 94% 05/03/2021 11:06 AM CDT Oxygen Saturation - - Inhaled Oxygen Concentration 119.9 kg (264 lb 6.4 oz) 05/03/2021 11:06 AM CDT Weight 172.7 cm (5' 8") 05/03/2021 11:06 AM CDT Height 40.2 05/03/2021 11:06 AM CDT Body Mass Index Plan of Treatment Health Maintenance Due Date Last Done Comments DTAP/TDAP VACCINES (1 - 1967 Tdap) SHINGLES RECOMBINANT 1999 VACCINE (1 of 2) BREAST CANCER SCREENING 11/09/2019 11/09/2017 (Previously completed), 02/11/2013 (Declined) PHYSICAL (COMPREHENSIVE) 05/25/2020 05/25/2019, EXAM 09/10/2011, 09/10/2011 MEDICARE ANNUAL WELLNESS 04/13/2021 04/13/2020, VISIT 04/13/2020 DILATED EYE EXAM 07/06/2021 07/06/2020, 10/13/2019, 09/14/2019 (Previously completed) INFLUENZA VACCINE 07/06/2021 11/21/2019, 08/16/2013, 08/20/2012 FOOT EXAM 10/11/2021 10/11/2020, 09/14/2019, 06/23/2019, Additional history exists HBA1C 10/14/2021 04/13/2021, 08/29/2020, 03/15/2020, Additional history exists COLORECTAL CANCER 06/10/2028 06/10/2018 SCREENING (Previously completed), 07/06/2007 OSTEOPOROSIS Addressed 05/19/2018 Overridden with the intention of not completing SCREENING/MONITORING (Previously the topic completed) PNEUMONIA (PPSV23) Completed 06/23/2019, VACCINE 08/06/2006 HEPATITIS C SCREENING Completed 04/14/2020 Goals Goal Patient Associated Recent Progress Patient-Stat Aut hor Goal Type Problems ed? GOAL General Worsening No Esteban, (04/13/2021 2:16 PM Roseanna RN CDT) Note: Be independent Assessment 04/13/2021 - patient is having issues being able to bathe herself. No help at home.Song is out of town until July(work related) [facility] On track (04/13/2021 Yes WellingtonDorota, 2:18 PM CDT) RN Note: I would like to be able to bathe myself. I have a shower chair but I can't get my legs over the lip of the tub. Implants Device Identifier Shelf Expiration Date Model / Serial / L ot Implanted Type Area Manufactur er 03/05/2024 28.0185 / [id number] / [id number] Set Intubation Alicea Lachrymal Right: Eye [employer] Probe Randolph Tip Tube - [id number] INSTRUMENT Implanted: Qty: 1 on 02/10/2020 by Joaquín Weston MD at [facility] SA60WF.200 / [id number] / [id number] Lens Iol 0 D +20 Diopter Mod L Left: Eye APOORVA Biconvex 13mm 6mm Uv Absorb - [employer] [id number] [employer] Implanted: Qty: 1 on 05/25/2020 by Lurdes Metcalf MD at [facility] 04/04/2024 SA60WF.200 / [id number] / [id number] Lens Iol 0 D +20 Diopter Mod L Right: Eye APOORVA Biconvex 13mm 6mm Uv Absorb - [employer] [id number] [employer] Implanted: Qty: 1 on 05/25/2020 by Lurdes Metcalf MD at [facility] Procedures Comments Procedure Name Priority Date/Time Associated Diag nosis US DUPLEX SCAN CAROTID Routine 05/09/2021 Carotid artery stenosis, BILATERAL symptomatic, bilateral US NONINVASIVE LOWER EXT Routine 05/02/2021 PVD ( peripheral vascular PVR disease) ([facility]) POC GLUCOSE 04/14/2021 1:05 PM CDT POC GLUCOSE 04/14/2021 8:16 AM CDT HC COMPREHENSIVE Routine 04/14/2021 METABOLIC PANEL 4:31 AM CDT HC CBC W/ AUTOMATED DIFF Routine 04/14/2021 4:31 AM CDT POC GLUCOSE 04/13/2021 9:53 PM CDT CARDIAC CATH REPORT 04/13/2021 7:22 PM CDT POC GLUCOSE 04/13/2021 6:49 PM CDT POC GLUCOSE 04/13/2021 5:55 PM CDT CARDIAC CATH REPORT Routine 04/13/2021 Angina pec toris, unstable 3:40 PM CDT (HCC) CARDIAC CATH REPORT Routine 04/13/2021 Angina pec toris, unstable 2:16 PM CDT ([facility]) POC GLUCOSE 04/13/2021 1:50 PM CDT HC [...] LACTIC ACID 04/13/2021 3:30 AM CDT HC HEMOGLOBIN A1C Add on 04/13/2021 3:29 AM CDT HC BNP POC 04/13/2021 3:29 AM CDT HC LIPASE STAT 04/13/2021 3:29 AM CDT HC MAGNESIUM STAT 04/13/2021 3:29 AM CDT HC COMPREHENSIVE STAT 04/13/2021 METABOLIC PANEL 3:29 AM CDT HC CBC W/ AUTOMATED DIFF STAT 04/13/2021 3:29 AM CDT CHEST SINGLE VIEW STAT 04/13/2021 3:19 AM CDT ECG 12-LEAD STAT 04/13/2021 3:10 AM CDT POC GLUCOSE 04/13/2021 2:45 AM CDT POC TROPONIN 04/13/2021 2:16 AM CDT POC GLUCOSE 04/13/2021 12:29 AM CDT ECG-SCAN 04/13/2021 12:00 AM CDT PROCEDURE RECORD-SCAN 04/13/2021 12:00 AM CDT ECG-SCAN 04/13/2021 12:00 AM CDT TELEMETRY STRIPS-SCAN 04/13/2021 12:00 AM CDT TELEMETRY STRIPS-SCAN 04/13/2021 12:00 AM CDT TELEMETRY STRIPS-SCAN 04/13/2021 12:00 AM CDT TELEMETRY STRIPS-SCAN 04/13/2021 12:00 AM CDT ECG-SCAN 04/13/2021 12:00 AM CDT ECG 12-LEAD STAT 04/12/2021 11:18 PM CDT from Last 3 Months Results * US DUPLEX SCAN CAROTID BILATERAL (05/09/2021) Specimen Narrative Performed At This result has an attachment that is n ot available. Performing Organization Address City/State/ZIP Code [place] [address] [phone] CENTER * US NONINVASIVE LOWER EXT PVR (05/02/2021) Specimen Narrative Performed At [facility] RESULTS NOT GIVEN, ROUTED TO [facility] Performing Organization Address City/State/ZIP Code [place] [facility] * POC GLUCOSE (04/14/2021 1:05 PM CDT) Only the most recent of 17 results within the time period is included. Glucose, POC 212 (H) 70 - 100 MG/DL [facility] Specimen Performing Organization Address City/State/ZIP Code [place] [facility] [address] [place] [address] * CBC AND DIFF (04/14/2021 4:31 AM CDT) Only the most recent of 2 results within the time period is included. White Blood 13.2 (H) 4.5 - 11.0 [...] [place] [facility] [address] [place] [address] * COMPREHENSIVE METABOLIC PANEL (04/14/2021 4:31 AM CDT) Only the most recent of 2 results within the time period is included. Sodium 138 137 - 147 MMOL/L [facility] [...] (L) >60 mL/min [facility] Comment: [place] The eGFR is not validated f or use in drug dosing adjustments. Continue to use estimated creatinine clearance per dosing reference text. Please contact the Clinical Pharmacist for questions. eGFR 53 (L) >60 mL/min [facility] [place] Comment: The eGFR is not validated for use in drug dosing adjustments. Continue to use estimated creatinine clearance per dosing reference text. Please contact the Clinical Pharmacist for questions. Specimen Performing Organization Address City/State/ZIP Code [place] [facility] [address] [place] [address] * CARDIAC CATH REPORT (04/13/2021 7:22 PM CDT) Procedure Note Radha Medina MBBS - 04/13/2021 7:22 PM CDT [facility] CARDIAC CATHETERIZATION REPORT Page 2 BRAD Clement : 1950 #: [id number] MR #/Billing ID #: [id number] / [id number] DATE: 04/13/2021 NURSING ASSOCIATE: Abdirashid Justin MD DICTATING PROVIDER: Radha Medina MD REFERRING PHYSICIAN: PLASTER AND STUCCO WORKER: Abdirashid Justin MD INDICATIONS FOR PROCEDURE: Ms. [...] the procedure by myself, my attending, and farm labor contractor staff. Blood pressure, oxygen level, heart rate [...] The micropuncture wire was exchanged for a 4-Argentine sheath. The 4-Argentine sheath was exchanged over a J wire for a 5-Argentine sheath. Selective coronary cineangiograms were performed utilizing JL4 and JR4 diagnostic catheters. A pigtail catheter was used to assess LVEDP. Multiple views of the right and left [place] coronary system were obtained in various [place] and [place] projections. HEMODYNAMICS: 1. Aortic pressure 164/16 mmHg [...] for low LVEDP. Abdirashid Justin MD MARLA/MedQ /[id number] cc: Performing Organization Address City/State/ZIP Code [place] OTHER OUTSIDE LAB * TROPONIN-I (04/13/2021 1:35 PM CDT) Only the most recent of 3 results within the time period is included. Troponin-I 0.01 0.0 - 0.05 NG/ML MAIN LAB Specimen Blood Performing Organization Address City/[facility] [place] Number MAIN LAB [address] [place] [address] * PTT (APTT) (04/13/2021 10:29 AM CDT) Only the most recent of 2 results within the time period is included. APTT 37.9 (H) 24.0 - 36.5 SEC MAIN LAB Specimen Blood Performing Organization Address [facility] [place] Number MAIN LAB [address] [place] [address] * COVID-19 (SARS-COV-2) PCR (04/13/2021 4:37 AM CDT) COVID-19 FLOCKED SWAB MAIN LAB (SARS-CoV-2) NASOPHARYNGEAL PCR Source COVID-19 NOT DETECTED DN-NOT DETECTED MAIN LAB (SARS-CoV-2) Comment: PCR This assay is [...] performance characteristics have been verified by the [facility]. Fact sheet for providers: https://www.fda.gov/media/0025 85/download Fact sheet for patients: https://www.fda.gov/media/1794 87/download Specimen Flocked Swab - Nasopharyngeal Performing Organization Address [facility] Code [place] Number MAIN LAB [address] [place], [place] [id number] * POC LACTATE (04/13/2021 3:30 AM CDT) LACTIC ACID POC 2.2 (H) 0.5 - 2.0 MMOL/L [facility] Specimen Performing Organization Address [facility] [place] Number [facility] [address] [place], [place] [phone] * BNP POC ER (04/13/2021 3:29 AM CDT) BNP POC 90.0 0 - 100 PG/ML [facility] Specimen Performing Organization Address [facility] [place] Number MAIN LAB [address] [place] [address] * MAGNESIUM (04/13/2021 3:29 AM CDT) Magnesium 1.9 1.6 - 2.6 mg/dL [facility] Specimen Blood Performing Organization Address [facility] [place] Number [facility] [address] [place] [address] * LIPASE (04/13/2021 3:29 AM CDT) Lipase 15 11 - 82 U/L [facility] Specimen Blood Performing Organization Address [facility] [place] Number MAIN LAB [address] [place] [id number] * HEMOGLOBIN A1C (04/13/2021 3:29 AM CDT) Hemoglobin A1C 6.1 (H) 4.0 - 6.0 % [facility] Comment: The ADA recommends that most patients with type 1 and type 2 diabetes maintain an A1c level <7%. Specimen Performing Organization Address City/State/ZIP Code [place] Number [facility] [address] [place] [address] * CHEST SINGLE VIEW (04/13/2021 3:19 AM [...] [place] Number [facility] RESULTS * POC TROPONIN (04/13/2021 2:16 AM CDT) [id number]-[id number] 0.00 0.00 - 0.05 NG/ML [facility] Specimen Performing Organization Address City/State/ZIP Code [place] Number [facility] [address] [place] [address] * TELEMETRY STRIPS-SCAN (04/13/2021 12:00 AM CDT) [...] ot available. Ordered by an unspecified provider. 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 Explanation Type Date Recorded Advance 11/15/2019 12:00 AM Directive/DPOA Advance 02/02/2018 12:00 AM Directive/DPOA Advance Directives 04/21/2013 3:15 PM and Living Will Advance Directives 04/12/2013 3:56 PM and Living Will Advance Directives 03/03/2013 2:19 PM and Living Will Advance Directives 02/11/2013 12:34 PM and Living Will Advance Directives 02/11/2013 3:18 PM and Living Will Advance Directives 02/08/2013 11:30 AM and Living Will Advance Directives 02/02/2013 11:56 AM and Living Will Advance Directives 01/27/2012 10:35 AM and Living Will Advance Directives 10/21/2011 12:00 AM and Living Will Advance Directives 10/09/2011 12:00 AM and Living Will Advance Directives 07/19/2011 12:00 AM and Living Will Date Inactivated Comments Code Status Date Activated 04/14/2021 5:18 PM Full Code 04/13/2021 7:40 AM Provider has discussed Code Status No, more discussi on w/Patient or Family? needed 10/29/2020 4:10 PM Full Code 10/27/2020 3:22 AM Provider has discussed Code Status Yes w/Patient or Family? 10/09/2020 8:04 PM Full Code 10/09/2020 9:05 AM Provider has discussed Code Status No, discussion no t w/Patient or Family? necessary based on Dx 09/04/2020 5:37 PM Full Code 08/28/2020 11:37 PM Provider has discussed Code Status No, more discussi on w/Patient or Family? needed 07/12/2020 5:29 PM Full Code 07/08/2020 10:28 AM Provider has discussed Code Status Yes w/Patient or Family?
--- OUTSIDE RECORDS SUMMARY | 2021-06-11 11:55 | XMS REPORT | Encounter Summary ---
Author Author [facility] Organization [facility] Address Unknown Phone Unavailable Care Team Providers Care Supervisor [employer] Name Role Phone Lucie Emery MD Unavailable Rosario Mcknight MD Unavailable Unavailable Jyoti Mejia [phone] Unavailable Marbin [place] [facility] [place] Kevin Domingo MD Unavailable Betty Denney IRIDOLOGIST PCP Reason for Referral * Radiology Services (Routine) Referred By Contact Referred To Contact Status Reason Specialty Diagnoses / Procedures Kevin Domingo MD [address] [place] [address] New Request Radiology Diagnoses Carotid artery stenosis, symptomatic, bilateral P rocedures US DUPLEX SCAN CAROTID BILATERAL Electronically signed by Kevin Domingo MD at Reason for Visit * Reason Comments PVD * Consult, Test & Treat (Routine) Referred By Contact Referred To Contact Status Reason Specialty Diagnoses / Procedures Betty Denney, IRIDOLOGIST [address] [place] [address] [facility] [address] [place] [phone] Pending Review Vascular Surgery Diagnoses Open wound of foot 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 Encounter Details Care Team Description Date Type Department Kevin Domingo MD [address] [place] [address] [phone] Carotid artery stenosis, symptomatic, bi lateral (Primary Dx); Diabetic peripheral vascular disorder (HCC); Bilateral carotid artery stenosis; Diabetic polyneuropathy associated with type 2 diabetes mellitus (HCC); Stage 3a chronic kidney disease (HCC); Coronary artery disease of [place] heart with stable angina pectoris, unspecified vessel or lesion type (HCC) 05/03/2021 Office Visit Surgery: [facility] [address] [place] [phone] Social History Date Tobacco Use Types Packs/Day [...] Signs Reading Time Taken Comments Vital Sign 130/80 05/03/2021 8:30 AM CDT Blood Pressure 66 05/03/2021 8:30 AM CDT Pulse 36.6 C (97.9 F) 05/03/2021 8:20 AM CDT Temperature - - Respiratory Rate - - Oxygen Saturation - - Inhaled Oxygen Concentration 117.9 kg (260 lb) 05/03/2021 8:20 AM CDT Weight 172.7 cm (5' 8") 05/03/2021 8:20 AM CDT Height 39.53 05/03/2021 8:20 AM CDT Body Mass Index documented in [...] this encounter Patient Instructions * Patient Instructions* Deborah Duran, RN - 05/03/2021 8:45 AM CDT Images from the original note were not included. Continue to take aspirin, and atorvastatin (Lipitor) Continue to control and monitor blood pressure Continue to monitor and control blood sugar Wash the feet carefully and between the toes, and avoid submerging in water Inspect the feet daily for new sores, and if you develop any new sores please ca ll our office [phone] Wear good socks and shoes to protect the feet Carotid Artery Disease What is carotid artery disease? The carotid arteries are the main blood vessels that send blood and oxygen to th e brain. When these vessels become narrowed, its called carotid artery diseas e. It may also be called carotid artery stenosis. The narrowing is caused by ath erosclerosis. This is the buildup of fatty deposits, calcium, and other things i nside the artery. Carotid artery disease is like coronary artery disease.In that disease, buildup occurs in the arteries of the heart.That can cause a heart att ack. Carotid artery disease reduces the flow of oxygen to the brain. The brain needs a constant supply of oxygen to work. Even a brief pause in blood supply can caus e problems. Brain cells startto after just a few minutes without blood or oxygen. If the narrowing of the carotid arteries is severe enough that blood tanner w is blocked, it can cause a stroke. If a piece of plaque breaks off it can bloc k blood flow to the brain. This too can cause a stroke. What causes carotid artery disease? Atherosclerosis causes most carotid artery disease. In this condition, fatty dep osits build up along the lining of the arteries.This is called plaque. The plaqu e narrows the insides of the arteries.This decreases blood flow or fully blocks the flow of blood to the brain. Who is at risk for carotid artery disease? Risk factors linked with atherosclerosis include: Older age Male Family history Race Genetic factors High cholesterol High blood pressure Smoking Diabetes Overweight Diet high in saturated fat Lack of exercise These factors increase a person's risk. But they don't always cause the disease. Knowing your risk factors can help you make lifestyle changes.You can work with your healthcare provider to reduce the chance you will get the disease. What are the symptoms of carotid artery disease? The disease may have no symptoms. In some cases, the first sign of the disease i s a transient ischemic attack (TIA) or stroke. A TIA is a sudden, short-term loss of blood flow to a part of the brain. It usua lly lasts a few minutes to an hour. Symptoms go away fully within 24 hours. Ther e are no lasting effects.When symptoms continue, it is a stroke. Symptoms of a TIA or stroke may include: Sudden weakness or clumsiness of an arm or leg on 1 side of the body Sudden paralysis of an arm or leg on 1 side of the body Loss of coordination or movement Confusion, loss of ability to concentrate Dizziness, fainting, or headache Numbness or loss of feeling in the face or in an arm or leg Temporary loss of vision or blurred vision Inability to speak clearly or slurred speech If you or a loved one has any of these symptoms, call for medical help right alysa y. A TIA may be a warning sign that a stroke is about to occur. But TIAs don't p recede all strokes. The symptoms of a TIA and stroke are the same. A stroke is loss of blood flow (i schemia) to the brain that lasts long enough to cause brain damage. Brain cells start to after just a few minutes without oxygen. The effects after a stroke depends on the size and place in the brain that had l oss of blood flow. This may include problems with: Moving Speaking Thinking Remembering Bowel and bladder function Eating Emotional control Other vital body functions Recovery also depends on the size and place of the stroke. A stroke may result i n long-term problems, such as weakness in an arm or leg. It may cause paralysis, loss of speech, or even . The symptoms of carotid artery disease may look like other health problems. See yourhealthcare provider for a diagnosis. How is carotid artery disease diagnosed? Your healthcare provider will ask about your health history.He or she will give you a physical exam. You will need tests. These may include: Listening to the carotid arteries.For this test, your healthcare provider marlon austen a stethoscope over the carotid artery. This is done to listen for a sound ca lled a bruit (Dodie). This sound is made when blood passes through a narrowed artery. A bruit can be a sign of atherosclerosis. But an artery may be diseased and not make this sound. Carotid artery duplex scan.This test is done to assess the blood flow of th e carotid arteries. A probe called a transducer sends out ultrasonic sound waves . The transducer is also like a microphone. It is placed on the carotid arteries at certain locations and angles. The sound waves move through the skin and other body tissues to the blood vessels. The sound waves echo off of the blood cells. The transducer sends the waves to an amplifier. Your healthcare provider can h ear the sound waves. Not enough or no sounds may mean blood flow is blocked. MRI.This test uses large magnets, radio waves, and a computer to make detai led images of tissues in the body. For this test, you lie inside a big tube whil e magnets pass around your body. Its very loud. MR angiography (MRA).This test uses MRI technology and IV contrast dye to m glenis the blood vessels visible. Contrast dye causes blood vessels to show up well on the MRI image. This is so the doctor can see them. CT angiography (CTA).This test uses X-rays and a computer along with contra st dye to make detailedimagesof the body. A CTAshows pictures of blood ves sels and tissues.It helps find narrowed blood vessels. Angiography. This test is used to see how blocked the carotid arteries are. I t is done by taking X-ray images while a contrast dye is injected. The contrast dye shows the shape and flow of blood through the arteries as X-ray images are m brad. How is carotid artery disease treated? Treatment will depend on your symptoms, age, and general health. It will also de pend on how severe the condition is. If a carotid artery is less than half narrowed, it is often treated with medicin e and lifestyle changes. If the artery is between 50% and 70% narrowed, medicine or surgery may be done. Medical treatment may include the below. Lifestyle changes Quitting smoking.This can reduce the risk for carotid artery disease and card iovascular disease. All nicotine products constrict the blood vessels. This incl udes electronic cigarettes. This decreases blood flow through the arteries. Lowering cholesterol. Eat a low-fat, low-cholesterol diet. Eat plenty of vege tables, lean meats (no red meats), fruits, and high-fiber grains. Don't eat proc essed foods, or foods high in saturated and trans-fats. When diet and exercise a re not enough to control cholesterol, you may need medicines. Lowering blood sugar. High blood sugar (glucose) can cause damage to the lini ng of the carotid arteries. Control glucose levels through a low-sugar diet, and regular exercise. If you have diabetes, you may need medicine or other treatmen t. Exercising. Lack of exercise can cause weight gain.It can raise blood pressur e and cholesterol. Exercise can help you keep a healthy weight and reduce risks for carotid artery disease. Lowering blood pressure.High blood pressure causes wear and tear and inflamma tion in blood vessels.This raises the risk for artery narrowing. Blood pressure should be below 140/90 mm/Hg for most people. People with diabetes may need even lower blood pressure. Medicines Medicines that may be used include: Antiplatelets.These medicines make platelets in the blood less able to stick together and cause clots. These medicines include aspirin, clopidogrel, and dipy ridamole. Cholesterol medicines.Statins are a type of medicines that lower cholesterol. They include simvastatin and atorvastatin. Studies have shown that some statins can decrease the thickness of the carotid artery wall.This can increase the size of the opening of the artery. Blood pressure medicines.Several types of medicines work to lower blood press ure. If a carotid artery is narrowed from 50% to 70%, you may need stronger treatment , especially if you have symptoms. Surgery is usually advised for carotid narrowing of more than 70%. Surgery lower s the risk for stroke after symptoms such as TIA or minor stroke. Types of surgery include: Carotid endarterectomy (CEA).This is surgery to remove plaque and blood clots from the carotid arteries. CEA may help prevent a stroke in people who have sym ptoms and a narrowing of 70% or more. Carotid artery angioplasty with stenting (ART).This is an option for people w ho are unable to have CEA. It uses a very small tube (catheter).This tube is put into a blood vessel in the groin. It is pushed up to the carotid arteries. Once the tube is in place, a small balloon is inflated at the tip of it.This opens t he artery.Then a stent is put in place. A stent is a thin, metal-mesh tube. It i s used to hold the artery open. What are possible complications of carotid artery disease? The main complication is a stroke. A stroke can cause serious disability.And may cause . Can carotid artery disease be prevented? You can prevent or delay the disease like you would prevent heart disease. This includes: Diet changes.Eat a healthy diet.It should include plenty of fresh fruits and vegetables. Eat lean meats such as poultry and fish. And eat low-fat or non-fat dairy foods. Limit your intake of salt, sugar, processed foods, saturated fats, and alcohol. Exercise.Aim for 40 minutes of moderate to vigorous physical activity at leas t 3 to 4 days per week. Manage your weight.If you are overweight, take steps to lose weight. Quit smoking.If you smoke, break the habit. Enroll in a stop-smoking program. This can improve your chances of success. Ask your doctor about prescription me dicine. Control stress.Learn ways to manage stress in your home and work life. When should I call my healthcare provider? Learn the symptoms of stroke.Have your family members also learn them. If you th ink you are having symptoms of a stroke, call 911 right away. Fuller points about carotid artery disease Carotid artery disease is narrowing of the carotid arteries. These arteries s end oxygen-rich blood from the heart to the brain. Narrowing of the carotid arteries can cause a stroke.Symptoms of a stroke emani uld be treated right away. Eating a healthy diet is 1 way to reduce the risk of carotid artery disease. Exercise, quitting smoking, blood pressure control, and medicinecan also help. Opening the carotid arteries can be done with a surgery or with angioplasty a nd a stent. Carotid artery disease may not have symptoms. But if you have risk factors, s ee your healthcare provider for screening and diagnosis. Next steps Tips to help you get the most from a visit to your healthcare provider: Know the reason for your visit and what you want to happen. Before your visit, write down questions you want answered. Bring someone with you to help you ask questions and remember what your provi ede tells you. At the visit, write down the name of a new diagnosis, and any new medicines, treatments, or tests. Also write down any new instructions your provider gives y ou. Know why a new medicine or treatment is prescribed, and how it will help you. Also know what the side effects are. Ask if your condition can be treated in other ways. Know why a test or procedure is recommended and what the results could mean. Know what to expect if you do not take the medicine or have the test or proce dure. If you have a follow-up appointment, write down the date, time, and purpose f or that visit. Know how you can contact your provider if you have questions. [employer] last reviewed this educational content on 09/05/201819990272-1035 [employer]. All rights reserved. This information is not intended as a substitute for professional medical care. Always follow your healthcare professional's instructions. Diabetic Neuropathy What is diabetic neuropathy? Diabetic neuropathy is nerve damage due to diabetes. Over time, highblood suga r (glucose) can damage the blood vessels and nerves.This can cause problems an d symptoms. It can happen most often in the legs and feet. But it can also affec t organs in your body. Nerves send signals to and from your brain about pain, temperature, and touch. T hey tell your muscles when and how to move. They also control the systems in the body that digest food and pass urine. If you have diabetes, youcan have nerve problems at any time. Nerve problems can start in the first 10 years after being diagnosed with diabetes. The risk go es up the longer you have diabetes. Abouthalf of people with diabetes have artemio e form of nerve damage. What causes diabetic neuropathy? Researchers are still learning what causes it. Several things may lead to it. Th ey include: High blood sugar.High blood sugar (glucose) causes chemical changes in nerves . This makes it harder for the nerves to send signals. It can also harm blood ve ssels that send oxygen and nutrients to the nerves. Your genes. Some genes can raise the risk for nerve disease. Autoantibodies t o nerve tissue may cause other damage. What are the symptoms of diabetic neuropathy? The common symptoms include: Numbness in the hands or feet, often on both sides Tingling ("pins and needles") in the feet Pain in the hands, feet, or legs Foot problems, such as calluses, dry skin, cracked skin, claw toes, and ankle weakness Neuropathy can also cause problems with other parts of your body. It may harm yo ur digestive tract, heart, sex organs, or eyes. This can lead to symptoms such a s: Indigestion Diarrhea, constipation, or uncontrolled loss of poop (feces) Dizziness, especially when standing up Bladder infections Erectile dysfunction Vaginal dryness Weakness Weight loss Depression and sleep problems Visual changes, including inability to see or drive in the dark Increased sweating The symptoms of diabetic neuropathy may be like other health conditions. See you r healthcare provider for a diagnosis. How is diabetic neuropathy diagnosed? To diagnose diabetic neuropathy, you will need a physical exam and tests. During the physical exam, your healthcare provider may check your muscle strength and reflexes. Your provider may also check how your nerves respond to: Position Vibration Temperature Light touch You may also have tests, such as: Ultrasound to check for problems with the bladder X-rays and other tests to check for stomach problems Electrocardiogram (ECG) to look for changes in your heart's rhythm Nerve conduction studies to check flow of electrical current through a nerve Electromyography (EMG) to see how muscles respond to electrical impulses Nerve biopsy to remove a sample of nerve for testing How is diabetic neuropathy treated? Treatment will depend on your symptoms, your age, and your general health. It wi ll also depend on how severe the condition is. The main goal of treatment is to ease pain and discomfort. It can also help prev ent more tissue damage. Treatment may include: Pain medicines Antidepressants that act on the nervous system to ease pain and discomfort Creams you put on your skin Transcutaneous electronic nerve stimulation (TENS) therapy Hypnosis Relaxation training Biofeedback Acupuncture Special shoes to protect your feet from injuries You may also have treatment for complications of diabetic neuropathy. This may i nclude digestive problems, dizziness, weakness, eye problems, or urinary or sexu al problems. What are possible complications of diabetic neuropathy? Possible complications include: Bladder problems. In some cases, the nerves of the bladder become damaged. Th ey no longer respond normally as the bladder fills with urine. This causes the b ladder to not be able to release urine completely. As a result, urine remains in the bladder or is released without warning. This can lead to urinary tract infe ctions. Erectile dysfunction (ED). Neuropathy may cause ED if it affects the nerves t hat control erections. This means you may have trouble having or keeping an erec tion. This problem does not usually affect the desire for sex. Diarrhea or constipation. You may have diarrhea if the nerves that control yo ur small intestine are damaged. The diarrhea is most common at night. You may al so have constipation as a result of damage to nerves in the intestines. Slow digestion in your stomach (gastroparesis). In some cases, the stomach i s affected. It may lose the ability to move food easily down into the small inte parveen. It can cause bloating and vomiting. It changes how fast the body absorbs food. It can make it harder to match insulin doses to food portions. Dizziness when standing. In some cases, the nerves to the heart are affected. They may not work normally to help your heart keep normal blood pressure when y ou stand up. You may feel dizzy or even faint when you stand. Changes in vision. Vision can also be affected. You may develop retinopathy. This begins with changes in blood vessels of the retina. The retina is the light -sensitive tissue at the back of the eye. In some cases, the blood vessels can s well or leak fluid. In other cases, new blood vessels may grow on the surface of the retina. Over time, this can lead to vision loss. Your eye care provider may treat retinopathy by using a laser to make tiny monroy. These monroy seal the blo od vessels. This stops them from growing and leaking. Other times, 1 or more of the nerves that move your eyes in a coordinated way may have a loss of blood sup ply, such as during a stroke. That can cause double vision. Also, injury to the nerves that control the diameter of your pupils can lead to trouble seeing in lo w light. Loss of low blood sugar symptoms. You may lose the warning signals of low blo od sugar, such as feeling shaky or dizzy. This means you may have low blood suga r and not know it. Foot and leg injuries. Nerve injuries, especially in the feet, can lead to am putation of limbs. Fuller points about diabetic neuropathy Diabetic neuropathy is nerve damage due to diabetes. It happens most often in the legs and feet. But it can also affect organs in your body. Nerve problemscan happen in the first 10 years after being diagnosed with d iabetes. The risk increases the longer you have diabetes. Abouthalf of people with diabetes have some form of nerve damage. Common symptoms include numbness in the hands or feet, and pain in the hands, feet, or legs. You may also have problems with your digestive tract, heart, sex organs, or your eyes. Diabetic neuropathy can impair your ability to feel the symptoms of low blood sugar. Next steps Tips to help you get the most from a visit to your healthcare provider: Know the reason for your visit and what you want to happen. Before your visit, write down questions you want answered. Bring someone with you to help you ask questions and remember what your provi ede tells you. At the visit, write down the name of a new diagnosis and any new medicines, t reatments, or tests. Also write down any new instructions your provider gives yo u. Know why a new medicine or treatment is prescribed and how it will help you. Also know what the side effects are. Ask if your condition can be treated in other ways. Know why a test or procedure is recommended and what the results could mean. Know what to expect if you do not take the medicine or have the test or proce dure. If you have a follow-up appointment, write down the date, time, and purpose f or that visit. Know how you can contact your provider if you have questions. [employer] last reviewed this educational content on 09/05/202019993862-8050 [employer]. All rights reserved. This information is not intended as a substitute for professional medical care. Always follow your healthcare professional's instructions. Diabetes: Inspecting Your Feet Diabetes increases your chances of foot problems. So inspect your feet every day . This helps you find small skin irritations before they become serious ulcers o r infections. If you have trouble seeing the bottoms of your feet, use a mirror or ask a family member or friend to help. How to check your feet These tips can help you look for foot problems. Try to check your feet at the sa me time each day, such as when you get out of bed in the morning: Check the top of each foot. The tops of toes, back of the heel, and outer edg e of the foot can get a lot of rubbing from poor-fitting shoes. Check the bottom of each foot. Daily wear and tear often leads to problems at pressure spots. Check the toes and nails. Fungal infections often occur between toes. Toenail problems can also be a sign of fungal infections or lead to breaks in the skin. Check your shoes, too. Loose objects inside a shoe can injure the foot. Use y our hand to feel inside your shoes for things like eva, loose stitching, or rough areas that could irritate your skin. Warning signs Look for any color changes in the foot. Redness with streaks can signal a severe infection, which needs fast medical care. Tell your healthcare provider right a way if you have any of these problems: Swelling, sometimes with color changes, may be a sign of poor blood flow or i nfection. Symptoms include tenderness and an increase in the size of your foot. Extra fluid (edema) makes it harder for a wound to heal. Warm or hot areas on your feet may be signs of infection. A foot that is cold may not be getting enough blood. Feelingssuch as burning, tingling, or pins and needles can be signs o f a nerve problem. Also check for numb areas. Hot spotsare caused by friction or pressure. Look for hot spots in areas th at get a lot of rubbing. Hot spots can turn into blisters, calluses, or sores. Cracks and soresare caused by dry or irritated skin. They are a sign that t he skin is breaking down. This can lead to infection. Toenail problemsto watch for include nails growing into the skin (ingrown t oenail). This can cause redness or pain. Thick, yellow, or discolored nails can be a sign of a fungal infection. Drainage and odorcan happen from untreated sores (ulcers). Call your health care provider right away if you see white or yellow drainage, bleeding, or unple asant odor. [employer] last reviewed this educational content on 08/06/201819993812-4171 [employer]. All rights reserved. This information is not intended as a substitute for professional medical care. Always follow your healthcare professional's instructions. documented in this encounter Progress Notes * Kevin Domingo MD - 05/03/2021 8:45 AM CDT Date of Service: 05/03/2021 Chief Complaint Patient presents with PVD History of Present Illness She is a 70-year-old female with diabetes, hypertension, hyperlipidemia, and ath erosclerotic vascular disease who presents for routine follow-up of peripheral a rterial disease. She has coronary artery disease with stable angina. She was a dmitted a couple weeks ago with chest pain at which time she had a cardiac erich terization. She has had only 1 other episode of chest pain since that time whic h quickly resolved with nitroglycerin. She has had intermittent foot ulcers. S he has had left fourth and fifth toe amputations several years ago. She was fol lowed for a left heel ulcer through the wound care center with Dr. Dickens last year . The left heel ulcer eventually closed. She denies any areas of skin breakdow n at this time. She has chronic bilateral foot neuropathy likely due to her rosa betes. She notes minimal discomfort at this time. She denies any recent fevers or chills. She is on supplemental oxygen via nasal cannula. No worsening shor tness of breath. Arterial studies done yesterday showed normal biphasic Doppler waveforms in both posterior tibial and dorsalis pedis arteries. The ankle vessels were noncompre ssible on the right. Her left ankle-brachial index is 1.03. Toe brachial index was 0.6 on the right and 0.77 on the left. Medical History: Diagnosis Date Acid reflux rare; [...] requested that patient obtain records for Chronic kidney disease Chronic respiratory failure (HCC) 06/02/2019 CKD (chronic kidney disease) stage 3, GFR 30-59 ml/min (HCC) Colon polyps Congestive heart disease (HCC) Depression Diabetes mellitus (HCC) 2-12-20 A1C 6.7; FBS 120-170 Diabetic foot ulcers (HCC) both feet; healed Fibromyalgia Gastroparesis Generalized headaches H/O splenectomy Heart palpitations weekly High cholesterol History of CVA (cerebrovascular accident) 2009, 2012, 2014 06-2009presented with speech difficulties; R sided residual History of lumbar laminectomy 1996 L2-4 with post op MRSA revision History of MRSA infection 2002 was cleared of MRSA at [facility] History of partial pancreatectomy distal HLD (hyperlipidemia) 09/05/2007 Hypertension Myocardial infarction (HCC) 2011 Neuropathy Diabetic Peripheral Neuropathy; fingers, feet, ankles On home oxygen therapy 4L with activity and at night Pancreatitis PVD (peripheral vascular disease) (HCC) Sleep apnea noncompliant with Cpap Spinal stenosis of lumbar region with neurogenic claudication Type 2 diabetes mellitus (HCC) Vision decreased Surgical History: Procedure Laterality Date [...] 0 Performed by Robin Rai MD at [facility] ESOPHAGOGASTRODUODENOSCOPY WITH BIOPSY - FLEXIBLE N/A 11/19/2019 Performed by Robin Rai MD at [facility] DACRYOCYSTORHINOSTOMY WITH TUBES Right 02/10/2020 Performed by Joaquín Rios MD at [facility] OR PROBING NASOLACRIMAL DUCT WITHIRRIGATION WITH INSERTION TUBE Right 02/10/2020 Performed by Joaquín Rios MD at [facility] OR MANUAL/ MECHANICAL EXTRACAPSULAR CATARACT REMOVAL WITH INSERTION INTRAOCULAR LENS PROSTHESIS - COMPLEX Bilateral 05/25/2020 Performed by Lurdes Metcalf MD at [facility] OR ANGIOGRAPHY CORONARY ARTERY WITH LEFT HEART CATHETERIZATION N/A 08/30/2020 Performed by Jose Enrique Victoria MD at [facility] ELEVATOR EXAMINER PERCUTANEOUS CORONARY STENT PLACEMENT WITH ANGIOPLASTY N/A 08/30/2020 Performed by Jose Enrique Victoria MD at [facility] ELEVATOR EXAMINER CATHETER PLACEMENT ARTERIAL - ABDOMINAL/ PELVIC/ LOWER EXTREMITIY ARTERY - T HIRD OR MORE BRANCH N/A 10/09/2020 Performed by Isa Bender MD at [facility] ELEVATOR EXAMINER ESOPHAGOGASTRODUODENOSCOPY WITH BIOPSY - FLEXIBLE N/A 10/28/2020 Performed by Naina Sears MD at [facility] OR ANGIOGRAPHY CORONARY ARTERY WITH LEFT HEART CATHETERIZATION N/A 04/13/2021 Performed by Abdirashid Justin MD at 2 ELEVATOR EXAMINER PERCUTANEOUS CORONARY STENT PLACEMENT WITH ANGIOPLASTY N/A 04/13/2021 Performed by Abdirashid Justin MD at 2 E[facility] EXAM[facility] CAROTID ENDARDECTOMY Bilateral approx , 12 lt- Dr. Garcia- CORONARY STENT PLACEMENT 2009, 2013 x2 CYTOLOGY PAP SMEAR DIAGNOSTIC 07? declined 4-13 HX BACK SURGERY ~2003 "cleaned up staph infection" (MRSA) HX CARPAL TUNNEL RELEASE Bilateral ~2007, 2008 2 surg per left, 1 surg per right HX CHOLECYSTECTOMY ~2000 LAMINECTOMY 1996, 2002 MRSA after 2002 surgery MAMMO HISTORICAL REPORT 07? declined 01-16 Allergies: Allergies Allergen Reactions Cephalosporins HIVES Patient reports tolerating amoxicillin in the past. Contrast Dye Iv, Iodine Containing [Iodinated Contrast Media] HIVES Levofloxacin HIVES Narcan [Naloxone] HIVES Gabapentin NAUSEA AND VOMITING Sulfa (Sulfonamide Antibiotics) SEE COMMENTS Pt does not recall what her reaction is. Tricor [Fenofibrate Micronized] STOMACH UPSET Medication List: acetaminophen (TYLENOL) 500 mg tablet Take 1,000 [...] Take one capsule by mouth at bedtime sulema miranda. nystatin (NYSTOP) 100,000 unit/g topical powder Apply [...] one tablet by mouth at bedtime daily. Social History: reports that she quit smoking about 22 years ago. Her smoking use included ciga rettes. She has a 12.50 pack-year smoking history. She has never used smokeless tobacco. She reports previous alcohol use. She reports that she does not use yanni gs. Family History Problem Relation Age of Onset Heart Disease Father Glaucoma Father Diabetes Mother Heart Disease Mother Blindness Mother Cancer Brother Prostate Cancer Brother Lung and Colon Heart Disease Sister Macular Degen Neg Hx Review of Systems Constitutional: Negative for activity change, appetite change, chills, diaphores is, fatigue, fever and unexpected weight change. HENT: Negative for hearing loss, nosebleeds and tinnitus. Eyes: Negative for photophobia, itching and visual disturbance. Respiratory: Negative for apnea, cough, chest tightness and shortness of breath. Cardiovascular: Negative for chest pain, palpitations and leg swelling. Gastrointestinal: Negative for abdominal pain, blood in stool, constipation, rosa rrhea, nausea and vomiting. Endocrine: Negative for cold intolerance and heat intolerance. Genitourinary: Negative for dysuria, frequency, hematuria and urgency. Musculoskeletal: Negative for arthralgias, back pain, gait problem, joint swelli ng, myalgias, neck pain and neck stiffness. Skin: Negative for color change, rash and wound. Allergic/Immunologic: Negative for environmental allergies, food allergies and i mmunocompromised state. Neurological: Negative for dizziness, tremors, seizures, syncope, facial asymmet ry, speech difficulty, weakness, light-headedness, numbness and headaches. Hematological: Negative for adenopathy. Does not bruise/bleed easily. Psychiatric/Behavioral: Negative for behavioral problems, confusion and dysphori c mood. The patient is not nervous/anxious. Vitals: 05/03/21 0820 05/03/21 0830 BP: 128/54 130/80 BP Source: Arm, Left Lower Arm, Right Lower Patient Position: Sitting Sitting Pulse: 63 66 Temp: 36.6 C (97.9 F) TempSrc: Oral Weight: 117.9 kg (260 lb) Height: 172.7 cm (68") PainSc: Zero Body mass index is 39.53 kg/m. Physical Exam Vitals and nursing note reviewed. Constitutional: General: She is not in acute distress. Neck: Vascular: No carotid bruit. Comments: Healed surgical scars on both sides of the neck consistent with pre vious endarterectomies Cardiovascular: Rate and Rhythm: Normal rate and regular rhythm. Heart sounds: No murmur. Pulmonary: Effort: Pulmonary effort is normal. No respiratory distress. Breath sounds: Normal breath sounds. Abdominal: General: There is no distension. Palpations: Abdomen is soft. Tenderness: There is no abdominal tenderness. Musculoskeletal: Cervical back: Neck supple. Comments: Palpable radial and popliteal pulses bilaterally Status post left fourth and fifth toe ray amputations Area of callus on posterior heel that was removed. No areas of skin breakdown a t this time in either lower extremity Mild lower extremity edema Neurological: General: No focal deficit present. Mental Status: She is alert and oriented to person, place, and time. Psychiatric: Mood and Affect: Mood normal. Behavior: Behavior normal. Assessment and Plan: 1. Carotid artery stenosis, symptomatic, bilateral US DUPLEX SCAN CAROTID BILAT ERAL 2. Diabetic peripheral vascular disorder (HCC) 3. Bilateral carotid artery stenosis 4. Diabetic polyneuropathy associated with type 2 diabetes mellitus (HCC) 5. Stage 3a chronic kidney disease (HCC) 6. Coronary artery disease of [place] heart with stable angina pectoris, unspecif ied vessel or lesion type ([facility]) She has diffuse atherosclerotic disease including coronary disease, previous his tory of carotid disease for which she has had endarterectomies, and peripheral a rterial disease. She currently has reasonable arterial flow to both feet. I st ressed the importance of careful foot protection including wearing good socks an d shoes. I have encouraged her to inspect feet daily to identify any new areas of skin breakdown. I would not recommend further arterial testing on her legs u nless she develops areas of skin breakdown on her feet or severe ischemic rest p ain. Her last carotid ultrasound was in 2019. Would recommend a follow-up giles tid artery ultrasound to evaluate for her carotid artery disease. She reports a remote history of stroke, but denies any obvious TIA or stroke symptoms recentl y. Continue antiplatelet therapy with aspirin daily as well as good blood press ure and cholesterol control. She is currently on atorvastatin daily. Kevin Domingo MD documented in this encounter Plan of Treatment [...] is out of town until July(work related) [facility] On track (04/13/2021 Yes Dorota Paris, 2:18 PM CDT) RN Note: I would like to be able to bathe myself. I have a shower chair but I can't get my legs over the lip of the tub. documented as of this encounter Results * US DUPLEX SCAN CAROTID BILATERAL (05/09/2021) Specimen Narrative Performed At This result has an attachment that is n ot available. Performing Organization Address City/State/ZIP Code [place] [address] [place], [place] [address] [facility] documented in this encounter Visit Diagnoses Diagnosis Carotid artery stenosis, symptomatic, b ilateral - Primary Diabetic peripheral vascular disorder ( HCC) Type II or unspecified type diabetes me llitus with peripheral circulatory disorders, not stated as uncontrolled Bilateral carotid artery stenosis Occlusion and stenosis of multiple and bilateral precerebral arteries without mention of cerebral infarction Diabetic polyneuropathy associated with type 2 diabetes mellitus (HCC) Stage 3a chronic kidney disease (HCC) Coronary artery disease of [place] heart with stable angina pectoris, unspecified vessel or lesion type (HCC) documented in this encounter Additional Health Concerns Assessment Noted Time PHQ-9 Depression Total Score: 15 11/10/2019 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
--- OUTSIDE RECORDS SUMMARY | 2021-06-11 11:55 | XMS REPORT | Encounter Summary ---
Author Author [facility] Organization [facility] Address Unknown Phone Unavailable Care Team Providers Care Oiler And Greaser Name Role Phone Lucie Emery MD Unavailable Rosario Mcknight MD Unavailable Unavailable Jyoti Mejia [phone] Unavailable Marbin Montenegro 100 Marbin Montenegro PCP Encounter Details Care Team Description Date Type Department 04/13/2021 Travel Social History Date Tobacco Use Types [...] is out of town until July(work related) [facility] On track (04/13/2021 Yes Dorota [...] Depression Total Score: 15 11/10/2019 3:00 PM FAMILY PSYCHOLOGIST A fall risk assessment has been completed for the pat ient 04/13/2021 9:26 PM CDT PHQ-2 Depression Total Score: 0 10/19/2020 9:27 AM FAMILY PSYCHOLOGIST documented as of this encounter
--- NOTE | 2021-06-11 12:51 | ED General ---
General Chief Complaint: Neurological Problems Stated Complaint: MOTOR ISSUE; GENERAL WEAKNESS Nursing Triage Note: Patient presents to the ED with c/o "muscle jerking". Patient states that this morning when she tried to use the restroom her muscles started jerking and she was able to lower her self onto the toilet. She reports that this has occured before but is not aware of any treatments provided. She also states she has been having pain from her left eye to down to her jaw for the past week. Source of Information: Patient Exam Limitations: No Limitations History of Present Illness Date Seen by Provider: Jun 11, 2021 Time Seen by Provider: 11:57 Initial Comments This is 70-year-old woman presents to the emergency room with complaints of muscle tremoring and weakness while trying to transfer from bed to wheelchair and toilet. She has had this problem before during hospitalizations but is uncertain of the cause. She has multiple significant health problems including heart failure, renal failure, prior strokes, and diabetes. She reports her blood sugars have been in the 200s. She also reports having some shooting pain between her left eye and jaw intermittently over the past week. This is new to her. She states it feels like the neuropathy she experiences in her legs. She is notably hypertensive this morning. She reports taking her blood pressure medication just prior to coming to the emergency room. Saba Gorman is her PCP. Allergies and Home Medications Allergies Coded Allergies: Cephalosporins (Verified Allergy, Unknown, 03/06/21) Sulfa (Sulfonamide Antibiotics) (Verified Allergy, Unknown, 03/06/21) fenofibrate (Verified Allergy, Unknown, 03/06/21) gabapentin (Verified Allergy, Unknown, 03/06/21) levofloxacin (Verified Allergy, Unknown, 03/06/21) naloxone (Verified Allergy, Unknown, 03/06/21) Uncoded Allergies: CONTRAST (Allergy, Unknown, 03/06/21) Patient Home Medication List Home Medication List Reviewed: Yes Azithromycin (Azithromycin) 250 Mg Tablet, 250 MG PO UD Prescribed by: DEBBIE CHAMPION on 03/06/211648 Ondansetron (Ondansetron Odt) 4 Mg Tab.rapdis, 4 MG PO Q4H PRN for NAUSEA/VOMITING Prescribed by: DEBBIE CHAMPION on 03/06/211649 [Bedside Commode] , EA PRN, (DME) Prescribed by: DEBBIE CHAMPION on 06/11/21 1440 Review of Systems Review of Systems Constitutional: see HPI, weakness EENTM: see HPI, other (No acute vision changes) Respiratory: no symptoms reported Cardiovascular: see HPI Gastrointestinal: no symptoms reported Genitourinary: no symptoms reported : No Musculoskeletal: no symptoms reported Skin: no symptoms reported Psychiatric/Neurological: See HPI Hematologic/Lymphatic: No Symptoms Reported Immunological/Allergic: no symptoms reported Past Ikadrji-Swykmz-Kteaez Hx Patient Social History Tobacco Use?: No Use of E-Cig and/or Vaping dev: No Substance use?: No Alcohol Use?: No Pt feels they are or have been: No Immunizations Up To Date First/Initial COVID19 Vaccinat: January 2021 Second COVID19 Vaccination Chris: January 2021 COVID19 Vaccine Education Administrative Assistant: Poli Past Medical History Surgeries: Yes (SPLEEN) Appendectomy, Coronary Stent, Gallbladder, Orthopedic, Pancreatic, Tonsillectomy Respiratory: Yes (Uses oxygen supplementation continuously) Cardiac: Yes (heart stent, heart failure) Angina, Coronary Artery Disease Neurological: Yes Neuropathy, Stroke Genitourinary: Yes Renal Failure Gastrointestinal: Yes Pancreatitis Musculoskeletal: Yes Rheumatoid Arthritis Endocrine: Yes Diabetes, Insulin dep Cancer: No Psychosocial: No Physical Exam Vital Signs Vital Signs - First Documented 06/11/21 11:50 Temp 36.9 Pulse 78 Resp 18 B/P (MAP) 159/113 (128) Pulse Ox 96 O2 Delivery Nasal Cannula O2 Flow Rate 3.00 Capillary Refill : Less Than 3 Seconds Height, Weight, BMI Height: '" Weight: lbs. oz. 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 Generalized weakness noted. No new focal deficits) Skin: Normal Color, Warm/Dry Progress/Results/Core Measures Suspected Sepsis SIRS Temperature: Pulse: 78 Respiratory Rate: 18 Laboratory Tests 06/11/21 12:03: White Blood Count 9.0 Blood Pressure 159 /113 Mean: 128 Laboratory Tests 06/11/21 12:03: Creatinine 1.31H, Platelet Count 363, Total Bilirubin 0.2 Results/Orders Lab Results Laboratory Tests Test 06/11/21 12:03 Range/Units White Blood Count 9.0 4.3-11.0 10^3/uL Red Blood Count 4.11 3.80-5.11 10^6/uL Hemoglobin 12.4 11.5-16.0 g/dL Hematocrit 40 35-52 % Mean Corpuscular Volume 96 80-99 fL Mean Corpuscular Hemoglobin 30 25-34 pg Mean Corpuscular Hemoglobin Concent 31 L 32-36 g/dL Red Cell Distribution Width 15.1 H 10.0-14.5 % Platelet Count 363 130-400 10^3/uL Mean Platelet Volume 10.4 9.0-12.2 fL Immature Granulocyte % (Auto) 1 % Neutrophils (%) (Auto) 60 42-75 % Lymphocytes (%) (Auto) 23 12-44 % Monocytes (%) (Auto) 8 0-12 % Eosinophils (%) (Auto) 7 0-10 % Basophils (%) (Auto) 1 0-10 % Neutrophils # (Auto) 5.4 1.8-7.8 X 10^3 Lymphocytes # (Auto) 2.1 1.0-4.0 X 10^3 Monocytes # (Auto) 0.8 0.0-1.0 X 10^3 Eosinophils # (Auto) 0.6 H 0.0-0.3 10^3/uL Basophils # (Auto) 0.1 0.0-0.1 10^3/uL Immature Granulocyte # (Auto) 0.1 0.0-0.1 10^3/uL Urine Color YELLOW Urine Clarity CLEAR Urine pH 6.0 5-9 Urine Specific [place] 1.015 L 1.016-1.022 Urine Protein TRACE H NEGATIVE Urine Glucose (UA) NEGATIVE NEGATIVE Urine Ketones NEGATIVE NEGATIVE Urine Nitrite NEGATIVE NEGATIVE Urine Bilirubin NEGATIVE NEGATIVE Urine Urobilinogen 0.2 < = 1.0 MG/DL Urine Leukocyte Esterase NEGATIVE NEGATIVE Urine RBC (Auto) NEGATIVE NEGATIVE Urine RBC 0-2 /HPF Urine WBC 2-5 /HPF Urine Squamous Epithelial Cells 2-5 /HPF Urine Renal Epithelial Cells RARE /HPF Urine Crystals NONE /LPF Urine Bacteria MODERATE H /HPF Urine Casts PRESENT /LPF Urine Hyaline Casts 5-10 H /LPF Urine Mucus SMALL H /LPF Urine Culture Indicated YES Sodium Level 139 135-145 MMOL/L Potassium Level 4.2 3.6-5.0 MMOL/L Chloride Level 100 98-107 MMOL/L Carbon Dioxide Level 26 21-32 MMOL/L Anion Gap 13 5-14 MMOL/L Blood Urea Nitrogen 26 H 7-18 MG/DL Creatinine 1.31 H 0.60-1.30 MG/DL Estimat Glomerular Filtration Rate 40 BUN/Creatinine Ratio 20 Glucose Level 237 H 70-105 MG/DL Calcium Level 9.5 8.5-10.1 MG/DL Corrected Calcium 9.7 8.5-10.1 MG/DL Magnesium Level 1.9 1.6-2.4 MG/DL Total Bilirubin 0.2 0.1-1.0 MG/DL Aspartate Amino Transf (AST/SGOT) 16 5-34 U/L Alanine Aminotransferase (ALT/SGPT) 8 0-55 U/L Alkaline Phosphatase 65 40-136 U/L Pro-B-Type Natriuretic Peptide 158.4 H <75.0 PG/ML Total Protein 7.6 6.4-8.2 GM/DL Albumin 3.7 3.2-4.5 GM/DL Smear Scan NEG FOR NRBC'S My Orders Orders - DEBBIE DE LEON MD Cbc With Automated Diff (06/11/21 11:57) Comprehensive Metabolic Panel (06/11/21 11:57) Magnesium (06/11/21 11:57) Ua Culture If Indicated (06/11/21 11:57) Ed Iv/Invasive Line Start (06/11/21 11:57) Probnp Fs (06/11/21 12:21) Urine Culture (06/11/21 12:03) Vital Signs/I&O 06/11/21 06/11/21 11:50 14:55 Temp 36.9 36.9 Pulse 78 67 Resp 18 18 B/P (MAP) 159/113 (128) 153/67 Pulse Ox 96 96 O2 Delivery Nasal Cannula Nasal Cannula O2 Flow Rate 3.00 3.00 3.00 Capillary Refill : Less Than 3 Seconds Blood Pressure Mean: 128 Progress Note : Progress Note Work-up was relatively unremarkable. Blood pressure was trending downward and was acceptable prior to discharge. Nothing was found on her exam or work-up to account for the symptoms she is describing. She was able to transition from the bed to wheelchair. I am not finding any pathology to treat in the ER or diagnosis qualifying for admission. Patient desires to return home. I did advise a review of her medications with the primary care provider as she is on multiple medications including medications with sedative effects such as baclofen. There may be a significant adverse reaction profile to her medication list. A prescription for bedside commode was provided. I did also recommend she discuss physical therapy with her primary care provider to improve strength and balance. Her episodic left-sided facial pain sounds as though it could be a trigeminal neuralgia. Given her issues of weakness and tremors or spasms, I am hesitant to add any medications to her list at this time. She does not seem to be in any distress with this pain. There is no evidence of infection on exam. I have recommended she discuss this further with her primary care provider. Departure Impression Primary Impression: Generalized weakness Additional Impression: Facial pain Disposition: 01 HOME, SELF-CARE Condition: Stable Departure-Patient Inst. Decision time for Depature: 14:41 Referrals: SABA GORMAN APRN (PCP) Primary Care Physician [facility] (Family) Primary Care Physician Patient Instructions: Trigeminal Neuralgia Add. Discharge Instructions: Transfer very carefully from each position. Get assistance from another individual if at all possible. Follow-up with your primary care provider tomorrow. Discuss your medications as some of your symptoms may be related to medication effect. The pain in your face could be related to trigeminal neuralgia. We are electing not to treat this pain at this time because adding more medications to your list may worsen your weakness. Please discuss this further with your primary care provider. Continue to drink plenty of clear liquids. Follow-up on your urine culture result later in the week. Call with questions or concerns. Return to the ER if you have worsening symptoms. All discharge instructions reviewed with patient and/or family. Voiced understanding. Scripts [Bedside Commode] No Conflict Check LORAINE ESQUIVEL, #1 Dx: weakness, history of stroke, right leg weakness Length of need 99 yrs Prov: DEBBIE DE LEON MD 06/11/21 Copy Copies To 1: SOFYA ESPOSITO JOSHUA T MD Jun 11, 2021 12:51
[2021-06-11 12:54] LABS: BILIRUBIN,URINE NEGATIVE (NEGATIVE); CLARITY,URINE CLEAR; COLOR,URINE YELLOW; GLUCOSE, URINE (UA) NEGATIVE (NEGATIVE); HEMATOCRIT 40 % (35-52); HEMOGLOBIN 12.4 g/dL (11.5-16.0); KETONES,URINE NEGATIVE (NEGATIVE); LEUKOCYTE ESTERASE ,URINE NEGATIVE (NEGATIVE); MEAN CORPUSCULAR HEMOGLOBIN 30 pg (25-34); NITRITE,URINE NEGATIVE (NEGATIVE); PROTEIN,URINE TRACE (NEGATIVE)
[2021-06-11 12:55] LABS: BASOPHILS % (AUTO) 1 % (0-10); EOSINOPHILS # (AUTO) 0.6 10^3/uL (0.0-0.3); EOSINOPHILS % (AUTO) 7 % (0-10); LYMPHOCYTES # (AUTO) 2.1 X 10^3 (1.0-4.0); LYMPHOCYTES % (AUTO) 23 % (12-44); MEAN CORPUSCULAR HGB CONC 31 g/dL (32-36); MEAN CORPUSCULAR VOLUME 96 fL (80-99); MEAN PLATELET VOLUME 10.4 fL (9.0-12.2); MONOCYTES # (AUTO) 0.8 X 10^3 (0.0-1.0); MONOCYTES % (AUTO) 8 % (0-12); NEUTROPHILS # (AUTO) 5.4 X 10^3 (1.8-7.8); NEUTROPHILS % (AUTO) 60 % (42-75); PLATELET COUNT 363 10^3/uL (130-400)
[2021-06-11 12:56] LABS: BASOPHILS # (AUTO) 0.1 10^3/uL (0.0-0.1)
[2021-06-11 13:14] LABS: SMEAR SCAN COMMENT NEG FOR NRBC'S
[2021-06-11 13:16] LABS: BACTERIA,URINE MODERATE /HPF; RBC,URINE 0-2 /HPF
[2021-06-11 13:17] LABS: RENAL EPITHELIAL CELLS,URINE RARE /HPF
[2021-06-11 13:20] LABS: CALCIUM 9.5 MG/DL (8.5-10.1); CREATININE SERUM 1.31 MG/DL (0.60-1.30); MAGNESIUM 1.9 MG/DL (1.6-2.4); POTASSIUM 4.2 MMOL/L (3.6-5.0)
[2021-06-11 13:22] LABS: ALBUMIN 3.7 GM/DL (3.2-4.5); BILIRUBIN,TOTAL 0.2 MG/DL (0.1-1.0); TOTAL PROTEIN 7.6 GM/DL (6.4-8.2)
[2021-06-11] MEDS ORDERED: COMMODE (14:40)
[2021-06-11 14:55] VITALS: BP 153/67
== END 2021-06-11 14:55 | disposition home or self-care (01) ==
LOC: EDUNIT# 11:47 → ER FS 11:50
DX: R53.1 Weakness (principal); R51.9 Headache, unspecified; E66.9 Obesity, unspecified; E11.9 Type 2 diabetes mellitus without complications; I50.9 Heart failure, unspecified; Z68.41 Body mass index [BMI] 40.0-44.9, adult; Z86.73 Personal history of transient ischemic attack (TIA), and cerebral infarction without residual deficits
CPT/HCPCS: 36415; 80053; 81000; 83735; 83880; 85025; 87077; 87088; 87186

== ENCOUNTER → 2021-08-21 | Outpatient (CLI) | payer MEDICARE ==
[~2021-08-21] MED LIST changes: +COMMODE
--- NOTE | 2021-08-21 09:21 | Diagnostic Imaging Report ---
INDICATION: PAIN OF LEFT HEEL, HX OF DIABETIC FOOT ULCER. TECHNIQUE: 3 views of the left foot CORRELATION STUDY: None FINDINGS: Postoperative changes the 4th and 5th metatarsals. Toes are held in partial flexion and there appears to be blunting at the tip of the 2nd toe. An acute bony abnormality or bony erosive destructive changes are not present. Rather prominent plantar calcaneal spur as well as ossification of Achilles tendon insertion site posterior calcaneus. No abnormal soft tissue gas collection. IMPRESSION: 1. No acute bony abnormality. No dale bony erosive or destructive change. Dictated by: Dictated on workstation # [id number]
== END ==
LOC: RAD FS 08:50
PROVIDERS: ATTEND Nurse Practitioner Family
DX: M79.672 Pain in left foot (principal); Z86.31 Personal history of diabetic foot ulcer; Z98.890 Other specified postprocedural states
CPT/HCPCS: 73630

== ENCOUNTER → 2021-12-12 | Outpatient (CLI) | payer MEDICARE ==
[~2021-12-12] MED LIST changes: +ACET325T38 PO; +ASCO500C17 PO; +ASPI-1238 PO; +ATOR40TA70 PO; +BACL10TA PO; +CARV12.53 PO; +CRAN400T3 PO; +INSN1U SQ; +INSU100V31 SQ; +ISOS60TA63 PO; +LOSA25TA41 PO; +MECL-149 PO; +METF-865 PO; +MTC5V480 PO; +NF-CLIN1% TP; +NITR100C PO; +NORT50CA PO; +NYST15OI13 TP; +PANT40TA52 PO; +RANO500T6 PO; +SERT-414 PO; +SILV50CR28 TP; +TORS20TA3 PO; +TRAZ150T72 PO
--- NOTE | 2021-12-12 11:59 | Diagnostic Imaging Report ---
PROCEDURE: MRI left joint lower extremity without contrast. TECHNIQUE: Multiplanar, multisequence [id number] MRI of the left lower extremity was accomplished. INDICATION: Ulcer in the posterior left heel. COMPARISON: Radiographs from 08/21/2021. FINDINGS: No acute fracture is seen in the left ankle. Alignment is normal. No focal bony lesions are seen. There is no bone marrow edema or bone marrow replacement seen. There are moderate degenerative changes in the midfoot. 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 No joint effusion is seen. The anterior and posterior syndesmotic ligaments are intact. The anterior and posterior talofibular ligaments appear intact. The calcaneofibular ligament is suboptimally seen, but appears intact. The deltoid ligament is intact. The plantar fascia is thickened, measuring 1 cm. There is a small low-grade partial tear at the origin (image 9, series 5). There is a plantar calcaneal enthesophyte. The sinus tarsi demonstrates normal fat signal. The Achilles tendon demonstrates mild tendinosis. No tear is seen. The peroneal tendons are intact. The flexor tendons are intact. The extensor tendons are intact. There is generalized muscular atrophy and edema, which is likely neurogenic. There is skin thickening and irregularity at the posterior medial heel. No soft tissue masses or fluid collections are seen. IMPRESSION: 1. Skin thickening and irregularity at the posterior medial left heel. No fluid collections or osteomyelitis. 2. Marked thickening with low-grade tear of the plantar fascia, can be seen with plantar fasciitis. 3. Mild tendinosis of the Achilles tendon. Dictated by: Dictated on workstation # [id number]
--- NOTE | 2021-12-12 12:03 | Diagnostic Imaging Report ---
PROCEDURE: MRI right lower extremity without contrast. TECHNIQUE: Multiplanar, multisequence non contrast-enhanced MRI of the right lower extremity was accomplished. INDICATION: Ulceration at the tip of the right great toe. COMPARISON: None. FINDINGS: There is a soft tissue ulceration at the distal tip of the great toe. There is bone marrow edema of the distal phalanx of the great toe. There is mild T1-weighted marrow replacement at the tuft, concerning for osteomyelitis. There are moderate degenerative changes at the interphalangeal joint of the toe. Mild degenerative changes are seen elsewhere in the toes of the right foot. No acute fracture is seen. Alignment appears normal. There are no joint effusions. The flexor and extensor tendons appear intact. The Lisfranc ligament is intact. The musculature of the foot demonstrates marked atrophy with edema, likely neurogenic. IMPRESSION: 1. Soft tissue ulceration at the tip of the right great toe with findings concerning for osteomyelitis at the distal phalangeal tuft. 2. No drainable soft tissue fluid collections are seen on this noncontrast exam. Dictated by: Dictated on workstation # [id number]
== END ==
LOC: RAD 09:30
PROVIDERS: ATTEND Podiatrist Foot & Ankle Surgery
DX: M76.62 Achilles tendinitis, left leg (principal); L97.529 Non-pressure chronic ulcer of other part of left foot with unspecified severity; S96.922A Laceration of unspecified muscle and tendon at ankle and foot level, left foot, initial encounter; L97.429 Non-pressure chronic ulcer of left heel and midfoot with unspecified severity
CPT/HCPCS: 73721

== ENCOUNTER 2021-12-13 10:20 | Emergency (ER) | payer MEDICARE ==
[~2021-12-13 10:20] MED LIST changes: -ACET325T38 PO; -ASCO500C17 PO; -ASPI-1238 PO; -ATOR40TA70 PO; -BACL10TA PO; -CARV12.53 PO; -CRAN400T3 PO; -INSN1U SQ; -INSU100V31 SQ; -ISOS60TA63 PO; -LOSA25TA41 PO; -MECL-149 PO; -METF-865 PO; -MTC5V480 PO; -NF-CLIN1% TP; -NITR100C PO; -NORT50CA PO; -NYST15OI13 TP; -PANT40TA52 PO; -RANO500T6 PO; -SERT-414 PO; -SILV50CR28 TP; -TORS20TA3 PO; -TRAZ150T72 PO
--- NOTE | 2021-12-13 10:30 | ED General ---
General Stated Complaint: HYPERGLYCEMIA History of Present Illness Date Seen by Provider: Dec 13, 2021 Time Seen by Provider: 10:25 Initial Comments 71-year-old female presents with high blood sugar. Patient normally takes a long-acting and a regular insulin. Patient reports that the last time she took her long-acting was yesterday morning. That she did not take any of her regular last night this morning when she got up she took 25 units of regular insulin but has not taken her long-acting. When she checked her blood sugar before taking her 25 units her glucometer read high. Patient reports that she thinks that maybe she was "a little confused this morning" patient denies any fever, cough, urinary symptoms or other systemic complaints. Allergies and Home Medications Allergies Coded Allergies: Cephalosporins (Verified Allergy, Unknown, 03/06/21) Sulfa (Sulfonamide Antibiotics) (Verified Allergy, Unknown, 03/06/21) fenofibrate (Verified Allergy, Unknown, 03/06/21) gabapentin (Verified Allergy, Unknown, 03/06/21) levofloxacin (Verified Allergy, Unknown, 03/06/21) naloxone (Verified Allergy, Unknown, 03/06/21) Uncoded Allergies: CONTRAST (Allergy, Unknown, 03/06/21) Patient Home Medication List Home Medication List Reviewed: Yes Azithromycin (Azithromycin) 250 Mg Tablet, 250 MG PO UD Prescribed by: DEBBIE CHAMPION on 03/06/21 1649 Ondansetron (Ondansetron Odt) 4 Mg Tab.rapdis, 4 MG PO Q4H PRN for NAUSEA/VOMITING Prescribed by: DEBBEI CHAMPION on 03/06/21 1650 [Bedside Commode] , EA PRN, (DME) Prescribed by: DEBBIE CHAMPION on 06/11/21 1440 Review of Systems Review of Systems Constitutional: No fever; malaise Respiratory: No cough, No short of breath Cardiovascular: No chest pain Gastrointestinal: No abdominal pain, No nausea, No vomiting Musculoskeletal: no symptoms reported Skin: no symptoms reported Psychiatric/Neurological: No Symptoms Reported Hematologic/Lymphatic: No Symptoms Reported Immunological/Allergic: no symptoms reported Past Qkjluyl-Uxkoys-Vfebia Hx Immunizations Up To Date First/Initial COVID19 Vaccinat: January 2021 Second COVID19 Vaccination Chris: January 2021 Past Medical History Surgeries: Yes (SPLEEN) Appendectomy, Coronary Stent, Gallbladder, Orthopedic, Pancreatic, Tonsillectomy Respiratory: Yes (Uses oxygen supplementation continuously) Cardiac: Yes (heart stent, heart failure) Angina, Coronary Artery Disease Neurological: Yes Neuropathy, Stroke Genitourinary: Yes Renal Failure Gastrointestinal: Yes Pancreatitis Musculoskeletal: Yes Rheumatoid Arthritis Endocrine: Yes Diabetes, Insulin dep Cancer: No Psychosocial: No Physical Exam Vital Signs Vital Signs - First Documented 12/13/21 10:36 Temp 37.0 Pulse 85 Resp 20 B/P (MAP) 180/94 (122) Pulse Ox 94 O2 Delivery Room Air Capillary Refill : Height, Weight, BMI Height: '" Weight: lbs. oz. kg; 40.00 BMI Method: General Appearance: No Apparent Distress, WD/WN HEENT: PERRL/EOMI Respiratory: Lungs Clear, Normal Breath Sounds Cardiovascular: Regular Rate, Rhythm, No Edema Extremity: Normal Capillary Refill Neurologic/Psychiatric: Alert, Oriented x3, No Motor/Sensory Deficits Skin: Normal Color, Warm/Dry Lymphatic: No Adenopathy Progress/Results/Core Measures Suspected Sepsis SIRS Temperature: Pulse: Respiratory Rate: Laboratory Tests 12/13/21 10:27: White Blood Count 10.5 Blood Pressure / Mean: Laboratory Tests 12/13/21 10:27: Creatinine 1.59H, Platelet Count 358, Total Bilirubin 0.4 Results/Orders Lab Results Laboratory Tests Test 12/13/21 10:27 12/13/21 13:04 12/13/21 13:35 12/13/21 14:20 Range/Units White Blood Count 10.5 4.3-11.0 10^3/uL Red Blood Count 3.86 3.80-5.11 10^6/uL Hemoglobin 11.8 11.5-16.0 g/dL Hematocrit 35 35-52 % Mean Corpuscular Volume 92 80-99 fL Mean Corpuscular Hemoglobin 31 25-34 pg Mean Corpuscular Hemoglobin Concent 33 32-36 g/dL Red Cell Distribution Width 15.4 H 10.0-14.5 % Platelet Count 358 130-400 10^3/uL Mean Platelet Volume 10.9 9.0-12.2 fL Immature Granulocyte % (Auto) 1 % Neutrophils (%) (Auto) 76 H 42-75 % Lymphocytes (%) (Auto) 12 12-44 % Monocytes (%) (Auto) 8 0-12 % Eosinophils (%) (Auto) 2 0-10 % Basophils (%) (Auto) 1 0-10 % Neutrophils # (Auto) 8.1 H 1.8-7.8 10^3/uL Lymphocytes # (Auto) 1.3 1.0-4.0 10^3/uL Monocytes # (Auto) 0.9 0.0-1.0 10^3/uL Eosinophils # (Auto) 0.2 0.0-0.3 10^3/uL Basophils # (Auto) 0.1 0.0-0.1 10^3/uL Immature Granulocyte # (Auto) 0.1 0.0-0.1 10^3/uL Sodium Level 129 L 135-145 MMOL/L Potassium Level 4.7 3.6-5.0 MMOL/L Chloride Level 86 L 98-107 MMOL/L Carbon Dioxide Level 23 21-32 MMOL/L Anion Gap 20 H 5-14 MMOL/L Blood Urea Nitrogen 33 H 7-18 MG/DL Creatinine 1.59 H 0.60-1.30 MG/DL Estimat Glomerular Filtration Rate 34 BUN/Creatinine Ratio 21 Glucose Level 696 *H 70-105 MG/DL Calcium Level 9.6 8.5-10.1 MG/DL Corrected Calcium 9.7 8.5-10.1 MG/DL Total Bilirubin 0.4 0.1-1.0 MG/DL Aspartate Amino Transf (AST/SGOT) 17 5-34 U/L Alanine Aminotransferase (ALT/SGPT) 11 0-55 U/L Alkaline Phosphatase 66 40-136 U/L Total Protein 7.9 6.4-8.2 GM/DL Albumin 3.9 3.2-4.5 GM/DL Glucometer 354 H 506 *H 448 *H 70-110 MG/DL Test 12/13/21 14:54 12/13/21 15:47 Range/Units Glucometer 419 *H 369 H 70-110 MG/DL My Orders Orders - CROCKER,ELDER L DO Cbc With Automated Diff (12/13/21 10:32) Comprehensive Metabolic Panel (12/13/21 10:32) Ua Culture If Indicated (12/13/21 10:32) Ns Iv 1000 Ml (Sodium Chloride 0.9%) (12/13/21 10:32) Arterial Blood Gas (12/13/21 11:32) Ns Iv 1000 Ml (Sodium Chloride 0.9%) (12/13/21 11:55) Insulin (Regular) Human (Novolin R (Per (12/13/21 12:00) Accucheck Stat ONCE (12/13/21 12:37) Insulin (Regular) Human (Novolin R (Per (12/13/21 13:45) Insulin (Regular) Human (Novolin R (Per (12/13/21 15:00) Medications Given in ED Current Medications Medications Dose Ordered Sig/[place] Route Start Time Stop Time Status Last Admin Dose Admin Insulin Human Regular 10 unit ONCE ONCE IV 12/13/21 13:45 12/13/21 13:46 DC 12/13/21 13:41 10 UNIT Insulin Human Regular 10 unit ONCE ONCE IV 12/13/21 15:00 12/13/21 15:01 DC 12/13/21 15:04 10 UNIT Insulin Human Regular 15 unit ONCE ONCE IV 12/13/21 12:00 12/13/21 12:01 DC 12/13/21 12:03 15 UNIT Vital Signs/I&O 12/13/21 12/13/21 10:36 14:02 Temp 37.0 Pulse 85 Resp 20 16 B/P (MAP) 180/94 (122) 138/59 Pulse Ox 94 98 O2 Delivery Room Air Room Air Capillary Refill : Progress Note : Progress Note Patient's blood sugar was coming down appropriately following insulin IV. Patient's last glucose prior to discharge was 367 down from 697. I discussed with her the need to only do a half dose of her daily insulin tonight and then restart her normal insulin regiment tomorrow. She can follow her sliding scale insulin regiment provided by her primary care provider. She should follow-up with them on Friday. Patient stable discharged home Departure Impression Primary Impression: Hyperglycemia Additional Impression: Type 2 diabetes mellitus Qualified Codes: E11.9 - Type 2 diabetes mellitus without complications; Z79.4 - longterm (current) use of insulin Disposition: HOME, SELF-CARE Condition: Stable Departure-Patient Inst. Referrals: SABA GORMAN APRN (PCP) Primary Care Physician [facility] (Family) Primary Care Physician Add. Discharge Instructions: Please take a half dose of your long-acting insulin when you get home then a full dose in the morning Please take insulin tonight based on your sliding scale provided by your primary care provider Follow-up with your primary care provider Friday or Friday for recheck of your symptom ELDER CROCKER DO Dec 13, 2021 10:30
[2021-12-13] MEDS ORDERED: NS IV 1000 ML 1,000 ML IV STA ×2 (10:32→11:55)
[2021-12-13 11:17] LABS: BASOPHILS # (AUTO) 0.1 10^3/uL (0.0-0.1); BASOPHILS % (AUTO) 1 % (0-10); EOSINOPHILS # (AUTO) 0.2 10^3/uL (0.0-0.3); EOSINOPHILS % (AUTO) 2 % (0-10); HEMATOCRIT 35 % (35-52); HEMOGLOBIN 11.8 g/dL (11.5-16.0); LYMPHOCYTES # (AUTO) 1.3 10^3/uL (1.0-4.0); LYMPHOCYTES % (AUTO) 12 % (12-44); MEAN CORPUSCULAR HEMOGLOBIN 31 pg (25-34); MEAN CORPUSCULAR HGB CONC 33 g/dL (32-36); MEAN CORPUSCULAR VOLUME 92 fL (80-99); MEAN PLATELET VOLUME 10.9 fL (9.0-12.2); MONOCYTES # (AUTO) 0.9 10^3/uL (0.0-1.0); MONOCYTES % (AUTO) 8 % (0-12); NEUTROPHILS # (AUTO) 8.1 10^3/uL (1.8-7.8); NEUTROPHILS % (AUTO) 76 % (42-75); PLATELET COUNT 358 10^3/uL (130-400); WHITE BLOOD COUNT 10.5 10^3/uL (4.3-11.0)
[2021-12-13 11:47] LABS: POTASSIUM 4.7 MMOL/L (3.6-5.0)
[2021-12-13 11:48] LABS: CREATININE SERUM 1.59 MG/DL (0.60-1.30)
[2021-12-13 11:51] LABS: BILIRUBIN,TOTAL 0.4 MG/DL (0.1-1.0); CALCIUM 9.6 MG/DL (8.5-10.1)
[2021-12-13 11:52] LABS: ALBUMIN 3.9 GM/DL (3.2-4.5); TOTAL PROTEIN 7.9 GM/DL (6.4-8.2)
[2021-12-13] MEDS ORDERED: inSUlin (REGULAR) HUMAN 1 UNIT/0.01 ML (CHARGE PER UNIT) IV ONE ×3 (12:00→15:00)
[2021-12-13 16:04] VITALS: BP 141/71
== END 2021-12-13 16:00 | disposition home or self-care (01) ==
LOC: EDUNIT# 10:20 → ER FS 10:21
DX: E11.65 Type 2 diabetes mellitus with hyperglycemia (principal); E11.40 Type 2 diabetes mellitus with diabetic neuropathy, unspecified; Z79.4 Long term (current) use of insulin
CPT/HCPCS: 36415; 80053; 82947; 85025

== ENCOUNTER 2021-12-16 13:34 | Inpatient (IN) | payer MEDICARE ==
[~2021-12-16] VITALS: Ht 157.5 cm; Wt 125.1 kg
--- NOTE | 2021-12-16 13:41 | ED General ---
General Stated Complaint: KNEES AND SHOULDERS SHAKING Source of Information: Patient, EMS History of Present Illness Date Seen by Provider: Dec 16, 2021 Time Seen by Provider: 13:41 Initial Comments 71-year-old female presenting by EMS from home with complaints of being too weak to transfer out of her wheelchair to her bed. She also was feeling that she was having shaking and jerking movements in her knees and shoulders. She states that these movements of been going on for over 3 years but felt that they were worse in the last few days. She was seen in the emergency department on December 13 for her elevated sugar and diabetes issues. She was able to be discharged home that day but presents again tonight with complaints of generalized weakness and difficulty with ambulating or taking care of herself. She denies any fall where she hit her head or loss of consciousness. She has no diarrhea, constipation, nausea, vomiting, chest pain, change in vision, cough, shortness of breath, fever, chills. She does have some discomfort with urination and felt that some of this was related to her elevated sugars but also has some chronic UTI that she takes antibiotics every other day to help control the chronic UTI. She states that she had 4 episodes this morning of being too weak to transfer to the commode or bathroom and having difficulty getting around. She lives by herself and does not have any assistance. Timing/Duration: 2-3 Days (Worsening over the last few days), Getting Worse Severity: Severe Modifying Factors: worse with Movement (Trying to get up and move around makes things worse for her) Associated Systoms: No Chest Pain, No Cough, No Diaphoresis, No Fever/Chills, No Headaches, No Loss of Appetite; Malaise; No Nausea/Vomiting, No Rash, No Seizure, No Shortness of Air, No Syncope; Weakness (Generalized) Allergies and Home Medications Allergies Coded Allergies: Cephalosporins (Verified Allergy, Unknown, 03/06/21) Sulfa (Sulfonamide Antibiotics) (Verified Allergy, Unknown, 03/06/21) fenofibrate (Verified Allergy, Unknown, 03/06/21) gabapentin (Verified Allergy, Unknown, 03/06/21) levofloxacin (Verified Allergy, Unknown, 03/06/21) naloxone (Verified Allergy, Unknown, 03/06/21) Uncoded Allergies: CONTRAST (Allergy, Unknown, 03/06/21) Patient Home Medication List Home Medication List Reviewed: Yes Azithromycin (Azithromycin) 250 Mg Tablet, 250 MG PO UD Prescribed by: DEBBIE CHAMPION on 03/06/21 1649 Ondansetron (Ondansetron Odt) 4 Mg Tab.rapdis, 4 MG PO Q4H PRN for NAUSEA/VOMITING Prescribed by: DEBBIE CHAMPION on 03/06/21 1650 [Bedside Commode] , EA PRN, (DME) Prescribed by: DEBBIE CHAMPION on 06/11/21 1440 Review of Systems Review of Systems Constitutional: No chills, No fever EENTM: no symptoms reported Respiratory: no symptoms reported Cardiovascular: No chest pain Gastrointestinal: No abdominal pain, No nausea, No vomiting Genitourinary: dysuria, frequency Musculoskeletal: other (Feels like she has jerking movements in her shoulders and knees over the last 3 years but worse in the last few days) Skin: No change in color Psychiatric/Neurological: Anxiety; Denies Headache; Weakness Hematologic/Lymphatic: Denies Blood Clots Past Pjxvafa-Vbddxc-Ukkxnl Hx Patient Social History Tobacco Use?: No Immunizations Up To Date First/Initial COVID19 Vaccinat: January 2021 Second COVID19 Vaccination Chris: January 2021 Past Medical History Surgery/Hospitalization HX: Diabetes mellitus type 1 insulin-dependent, hypertension, coronary artery disease with stents, cholecystectomy, appendectomy, neuropathy Surgeries: Yes (SPLEEN) Appendectomy, Coronary Stent, Gallbladder, Orthopedic, Pancreatic, Tonsillectomy Respiratory: Yes (Uses oxygen supplementation continuously) Cardiac: Yes (heart stent, heart failure) Angina, Coronary Artery Disease, High Cholesterol, Hypertension Neurological: Yes Neuropathy, Stroke Genitourinary: Yes Renal Failure, UTI-Chronic Gastrointestinal: Yes Pancreatitis Musculoskeletal: Yes Rheumatoid Arthritis Endocrine: Yes Diabetes, Insulin dep Cancer: No Psychosocial: No Physical Exam Vital Signs Vital Signs - First Documented 12/16/21 13:34 Temp 36.4 Pulse 86 Resp 17 B/P (MAP) 111/ Pulse Ox 95 O2 Delivery Nasal Cannula O2 Flow Rate 2.00 Capillary Refill : Height, Weight, BMI Height: '" Weight: lbs. oz. kg; 40.00 BMI Method: General Appearance: Obese HEENT: PERRL/EOMI, Pharynx Normal Neck: Full Range of Motion, Normal Inspection, Non Tender, Supple Respiratory: Chest Non Tender, Lungs Clear, Normal Breath Sounds, No Accessory Muscle Use, No Respiratory Distress Cardiovascular: Regular Rate, Rhythm, Normal Peripheral Pulses Gastrointestinal: Normal Bowel Sounds, No Pulsatile Mass, Non Tender, Soft Rectal: Deferred Extremity: Normal Capillary Refill, Pedal Edema (trace to 1 +) Neurologic/Psychiatric: Alert, Oriented x3, police reserves commander II-XII Norm as Tested, Other (general weakness and 2 person assist to get up to bedside commode) Skin: Normal Color, Warm/Dry Progress/Results/Core Measures Suspected Sepsis SIRS Temperature: Pulse: Respiratory Rate: Laboratory Tests 12/16/21 14:48: White Blood Count 8.5 Blood Pressure / Mean: Laboratory Tests 12/16/21 14:48: Creatinine 1.45H, Platelet Count 379, Total Bilirubin 0.3 Results/Orders Lab Results Laboratory Tests Test 12/16/21 14:48 12/16/21 14:57 Range/Units White Blood Count 8.5 4.3-11.0 10^3/uL Red Blood Count 4.21 3.80-5.11 10^6/uL Hemoglobin 12.7 11.5-16.0 g/dL Hematocrit 39 35-52 % Mean Corpuscular Volume 92 80-99 fL Mean Corpuscular Hemoglobin 30 25-34 pg Mean Corpuscular Hemoglobin Concent 33 32-36 g/dL Red Cell Distribution Width 15.7 H 10.0-14.5 % Platelet Count 379 130-400 10^3/uL Mean Platelet Volume 10.4 9.0-12.2 fL Immature Granulocyte % (Auto) 1 % Neutrophils (%) (Auto) 70 42-75 % Lymphocytes (%) (Auto) 14 12-44 % Monocytes (%) (Auto) 8 0-12 % Eosinophils (%) (Auto) 7 0-10 % Basophils (%) (Auto) 1 0-10 % Neutrophils # (Auto) 5.9 1.8-7.8 10^3/uL Lymphocytes # (Auto) 1.2 1.0-4.0 10^3/uL Monocytes # (Auto) 0.7 0.0-1.0 10^3/uL Eosinophils # (Auto) 0.6 H 0.0-0.3 10^3/uL Basophils # (Auto) 0.1 0.0-0.1 10^3/uL Immature Granulocyte # (Auto) 0.0 0.0-0.1 10^3/uL Sodium Level 137 135-145 MMOL/L Potassium Level 4.6 3.6-5.0 MMOL/L Chloride Level 95 L 98-107 MMOL/L Carbon Dioxide Level 26 21-32 MMOL/L Anion Gap 16 H 5-14 MMOL/L Blood Urea Nitrogen 33 H 7-18 MG/DL Creatinine 1.45 H 0.60-1.30 MG/DL Estimat Glomerular Filtration Rate 38 BUN/Creatinine Ratio 23 Glucose Level 293 H 70-105 MG/DL Calcium Level 9.8 8.5-10.1 MG/DL Corrected Calcium 9.9 8.5-10.1 MG/DL Magnesium Level 2.1 1.6-2.4 MG/DL Total Bilirubin 0.3 0.1-1.0 MG/DL Aspartate Amino Transf (AST/SGOT) 20 5-34 U/L Alanine Aminotransferase (ALT/SGPT) 10 0-55 U/L Alkaline Phosphatase 61 40-136 U/L Total Protein 7.9 6.4-8.2 GM/DL Albumin 3.9 3.2-4.5 GM/DL Urine Color YELLOW Urine Clarity CLEAR Urine pH 6.5 5-9 Urine Specific [place] 1.010 L 1.016-1.022 Urine Protein NEGATIVE NEGATIVE Urine Glucose (UA) TRACE H NEGATIVE Urine Ketones NEGATIVE NEGATIVE Urine Nitrite POSITIVE H NEGATIVE Urine Bilirubin NEGATIVE NEGATIVE Urine Urobilinogen 0.2 < = 1.0 MG/DL Urine Leukocyte Esterase NEGATIVE NEGATIVE Urine RBC (Auto) NEGATIVE NEGATIVE Urine RBC NONE /HPF Urine WBC 25-50 H /HPF Urine Squamous Epithelial Cells 2-5 /HPF Urine Crystals NONE /LPF Urine Bacteria FEW H /HPF Urine Casts PRESENT /LPF Urine Hyaline Casts 2-5 H /LPF Urine Mucus NEGATIVE /LPF Urine Culture Indicated YES My Orders Orders - MARY BHATT MD Cbc With Automated Diff (12/16/21 14:20) Comprehensive Metabolic Panel (12/16/21 14:20) Ua Culture If Indicated (12/16/21 14:20) Magnesium (12/16/21 14:20) Urine Culture (12/16/21 14:57) Ed Iv/Invasive Line Start (12/16/21 16:35) Clonidine Tablet (Catapres Tablet) (12/16/21 17:08) Ed Admission (Communication) (12/16/21 17:32) Vital Signs/I&O 12/16/21 12/16/21 13:34 13:34 Temp 36.4 Pulse 86 Resp 17 B/P (MAP) 111/ Pulse Ox 95 O2 Delivery Nasal Cannula Nasal Cannula O2 Flow Rate 2.00 203.00 Capillary Refill : Progress Note #1: Progress Note Order labs and urine. With her complaint of generalized weakness will evaluate to see if there is any new electrolyte imbalance compared to blood work from December 13. Evaluate for UTI. She does have hypertension that appears to be labile but had similar issues when she was here on December 13 and then her blood pressure came down on its own. Differential diagnosis includes hypertensive urgency, electrolyte imbalance, UTI, diabetic neuropathy, dehydration Progress Note #2: Progress Note Patient had extensive scar tissue and despite multiple IV attempts no IV access was able to be obtained. Labs were finally obtained with a straight stick. Patient was a 2 person assist to get up to commode for urine sample. She did h ave improving blood pressure during her stay and although medication was ordered it was not administered since her pressures improved. Once labs did come back her CBC. Stable and similar to a few days ago. Her chemistry panel appeared improved other than she continues to have hyperglycemia. She has renal insufficiency with elevated creatinine. Her urine did show signs of infection and her previous urine cultures had shown resistance to several antibiotics. Patient also reports being allergic to cephalosporins, sulfa, Levaquin. Based on her most recent urine culture meropenem would be one of the antibiotics that she could receive. However with no IV access antibiotics were not administered here in the ED. As patient was continuing to complain of weakness and inability to transfer or ambulate without assistance and stated that she was living alone I called Dr. David for the [facility] service. She graciously accepted the patient as an observation admit for her UTI, Labile HTN and weakness. She will see about obtaining vascular access on the patient after she gets to [facility]. Departure Communication (Admissions) Time/Spoke to Admitting Phy: 17:21 d/w Dr. Miguel about finding for UTI and elevated BP and pt being weak and unable to care for herself at home or get up to commode without 2 person assist. Unable to obtain IV access after numerous attempts for peripheral access here in ED. She graciously accepted pt for observation admit to med surg and will place queued orders and see about consult for venous access at [facility] Impression Primary Impression: Cystitis without hematuria Additional Impressions: Renal insufficiency Diabetes mellitus, insulin dependent (IDDM), uncontrolled Labile hypertension Disposition: 30 STILL A PATIENT Condition: Stable Admissions Decision to Admit Reason: Admit from ER (General) Decision to Admit/Date: Dec 16, 2021 Time/Decision to Admit Time: 17:21 Departure-Patient Inst. Referrals: SABA GORMAN APRN (PCP) Primary Care Physician [facility] (Family) Primary Care Physician MARY BHATT MD Dec 16, 2021 13:41
[2021-12-16 14:38] LABS: BASOPHILS # (AUTO) 0.1 10^3/uL (0.0-0.1); BASOPHILS % (AUTO) 1 % (0-10); EOSINOPHILS # (AUTO) 0.6 10^3/uL (0.0-0.3); EOSINOPHILS % (AUTO) 7 % (0-10); HEMATOCRIT 39 % (35-52); HEMOGLOBIN 12.7 g/dL (11.5-16.0); LYMPHOCYTES # (AUTO) 1.2 10^3/uL (1.0-4.0); LYMPHOCYTES % (AUTO) 14 % (12-44); MEAN CORPUSCULAR HEMOGLOBIN 30 pg (25-34); MEAN CORPUSCULAR HGB CONC 33 g/dL (32-36); MEAN CORPUSCULAR VOLUME 92 fL (80-99); MEAN PLATELET VOLUME 10.4 fL (9.0-12.2); MONOCYTES # (AUTO) 0.7 10^3/uL (0.0-1.0); MONOCYTES % (AUTO) 8 % (0-12); NEUTROPHILS # (AUTO) 5.9 10^3/uL (1.8-7.8); NEUTROPHILS % (AUTO) 70 % (42-75); PLATELET COUNT 379 10^3/uL (130-400); WHITE BLOOD COUNT 8.5 10^3/uL (4.3-11.0)
[2021-12-16 14:57] LABS: CREATININE SERUM 1.45 MG/DL (0.60-1.30); POTASSIUM 4.6 MMOL/L (3.6-5.0)
[2021-12-16 14:58] LABS: ALBUMIN 3.9 GM/DL (3.2-4.5); BILIRUBIN,TOTAL 0.3 MG/DL (0.1-1.0); CALCIUM 9.8 MG/DL (8.5-10.1); MAGNESIUM 2.1 MG/DL (1.6-2.4); TOTAL PROTEIN 7.9 GM/DL (6.4-8.2)
[2021-12-16 15:00] LABS: BILIRUBIN,URINE NEGATIVE (NEGATIVE); CLARITY,URINE CLEAR; COLOR,URINE YELLOW; GLUCOSE, URINE (UA) TRACE (NEGATIVE); KETONES,URINE NEGATIVE (NEGATIVE); LEUKOCYTE ESTERASE ,URINE NEGATIVE (NEGATIVE); NITRITE,URINE POSITIVE (NEGATIVE); PH,URINE 6.5 (5-9); PROTEIN,URINE NEGATIVE (NEGATIVE)
[2021-12-16 15:04] LABS: BACTERIA,URINE FEW /HPF; WBC,URINE 25-50 /HPF
[2021-12-16] MEDS ORDERED: hydrALAZINE (APESOLINE) 20 MG/ML VIAL IV STA (16:35)
[2021-12-16] MEDS ORDERED: cloNIDine 0.1 MG (CATAPRES) TAB PO STA (17:08)
[2021-12-16 20:13] VITALS: BP 167/77
[2021-12-16] MEDS ORDERED: ONDANSETRON 4 MG (ZOFRAN) ORAL DISSOLVE TAB PO PRN (21:30)
[2021-12-16] MEDS ORDERED: morphine INJ 4 MG/ML 1 ML (VIAL/SYRINGE) IV PRN (21:30)
[2021-12-16] MEDS ORDERED: inSUlin (REGULAR) HUMAN 1 UNIT/0.01 ML (CHARGE PER UNIT) SC PRN (21:30)
[2021-12-16] MEDS ORDERED: ONDANSETRON 4 MG/2 ML (SDV) Z0FRAN IV PRN (21:30)
[2021-12-16] MEDS ORDERED: MEROPENEM 1,000 MG in NS (IVPB) 100 ML IV SCH (21:30)
[2021-12-16] MEDS ORDERED: ANTACID SUSP 30 ML UDC (MYLANTA) PO PRN (21:30)
[2021-12-16] MEDS ORDERED: BISACODYL 10 MG SUPP (DULCOLAX) PR PRN (21:30)
[2021-12-16] MEDS ORDERED: diphenhydrAMINE 50 MG/ML INJ (BENADRYL) IVP PRN (21:30)
[2021-12-16] MEDS: MEROPENEM 500 MG/NS 100 ML IVPB IV SCH ×2 (22:50)
[2021-12-16] MEDS: NS IV 1000 ML 1,000 ML IV SCH (22:51)
[2021-12-16] MEDS: ENOXAPARIN 40 MG/0.4 ML (LOVENOX) SYR SC SCH (23:19)
[2021-12-16] MEDS: MELATONIN 3 MG TABLET PO PRN (23:49)
[2021-12-17] VITALS (8 sets, daily range): BP systolic 140–219; BP diastolic 61–93
[2021-12-17] MEDS ORDERED: RT-ALBUTEROL SULF 2.5 MG/3 ML PRE-MIX VIAL INH PRN (03:15)
[2021-12-17] MEDS: ACETAMINOPHEN 325 MG TABLET PO PRN ×2 (03:25→11:46)
[2021-12-17] MEDS: MEROPENEM 500 MG/NS 100 ML IVPB IV SCH ×6 (05:42→22:31)
[2021-12-17] MEDS: inSUlin ASPART (NovoLOG) 1 UNIT/0.01 ML (CHARGE PER UNIT) SC SCH ×4 (06:04→20:26)
[2021-12-17 06:13] LABS: BASOPHILS # (AUTO) 0.1 10^3/uL (0.0-0.1); BASOPHILS % (AUTO) 1 % (0-10); EOSINOPHILS # (AUTO) 0.8 10^3/uL (0.0-0.3); EOSINOPHILS % (AUTO) 7 % (0-10); HEMATOCRIT 39 % (35-52); HEMOGLOBIN 12.8 g/dL (11.5-16.0); LYMPHOCYTES # (AUTO) 2.2 10^3/uL (1.0-4.0); LYMPHOCYTES % (AUTO) 19 % (12-44); MEAN CORPUSCULAR HEMOGLOBIN 31 pg (25-34); MEAN CORPUSCULAR HGB CONC 33 g/dL (32-36); MEAN CORPUSCULAR VOLUME 94 fL (80-99); MEAN PLATELET VOLUME 10.4 fL (9.0-12.2); MONOCYTES # (AUTO) 1.2 10^3/uL (0.0-1.0); MONOCYTES % (AUTO) 10 % (0-12); NEUTROPHILS # (AUTO) 7.1 10^3/uL (1.8-7.8); NEUTROPHILS % (AUTO) 63 % (42-75); PLATELET COUNT 364 10^3/uL (130-400); WHITE BLOOD COUNT 11.4 10^3/uL (4.3-11.0)
[2021-12-17 06:32] LABS: ALBUMIN 3.8 GM/DL (3.2-4.5); BILIRUBIN,TOTAL 0.6 MG/DL (0.1-1.0); CALCIUM 10.2 MG/DL (8.5-10.1); CREATININE SERUM 1.55 MG/DL (0.60-1.30); POTASSIUM 4.3 MMOL/L (3.6-5.0); TOTAL PROTEIN 7.8 GM/DL (6.4-8.2)
[2021-12-17] MEDS ORDERED: cloNIDine 0.1 MG (CATAPRES) TAB PO NR (08:30)
[2021-12-17] MEDS: DOCUSATE SODIUM 100 MG (COLACE) CAP PO SCH ×2 (08:34→20:24)
[2021-12-17] MEDS: PANTOPRAZOLE 40 MG (PROTONIX) TAB PO SCH (08:34)
[2021-12-17] MEDS: ENOXAPARIN 40 MG/0.4 ML (LOVENOX) SYR SC SCH ×2 (08:37→20:30)
--- NOTE | 2021-12-17 09:46 | Occupational Therapy Eval ---
OT Evaluation-General/PLF Medical Diagnosis Admission Date Dec 16, 2021 at 18:55 Medical Diagnosis: cystitis without hematuria, DM Onset Date: Dec 16, 2021 Therapy Diagnosis Therapy Diagnosis: decreased ADL status, weakness Precautions Precautions/Isolations: Fall Prevention, Standard Precautions Referral Physician: Lamont Boyce Reason: Evaluation/Treatment Medical History Additional Medical History DM, HTN, CAD with stents, cholecystectomy, neuropathy, appendectomy, heart failure, angina, CVA, RA, pancreatitis Current History Pt recently seen in ED (12/13/21) for elevated sugar and diabetes issues. 12/16/21 EMS from home c/o being too week to transfer out of w/c to bed. Pt has had shaky/jerky movements in knees and shoulders for 3 years, worse over the last several days. Social History Current Living Status: Alone ADL-Prior Level of Function SCALE: Activities may be completed with or without assistive devices. 1-Isoluosrvm-osvmktq completes the activity by him/herself with no assistance from a helper. 5-Set-up or Clean-up Assistance-helper sets up or cleans up; patient completes activity. [place] assists only prior to or following the activity. 4-Supervision or Touching Assistance-helper provides verbal cues and/or touching/steadying and/or contact guard assistance as patient completes activity. Assistance may be provided throughout the activity or intermittently. 3-Partial/Moderate Assistance-helper does LESS THAN HALF the effort. [place] lifts, holds or supports trunk or limbs, but provides less than half the effort. 2-Substantial/Maximal Assistance-helper does MORE THAN HALF the effort. [place] lifts or holds trunk or limbs and provides more than half the effort. 3-Vsdxmbxsz-qculdj does ALL the effort. Patient does none of the effort to complete the activity. Or, the assistance of 2 or more helpers is required for the patient to complete the activity. If activity was not attempted, code reason: 7-Patient Refused. 9-Not Applicable-not attempted and the patient did not perform the activity before the current illness, exacerbation or injury. 10-Not Attempted due to Environmental Limitations-(lack of equipment, weather restraints, etc.). 88-Not Attempted due to Medical Conditions or Safety Concerns. ADL PLOF Comments Pt lives alone, uses a w/c for functional mobility. She is able to complete SPT independently using SPC between surfaces. Pt sleeps in a recliner, and stays up in the recliner for most of the day unless she is transferring to w/c to go to the bathroom. Pt has a BSC, but c/o of it being too small and pt unable to wipe herself when using BSC. Pt has AE for toilet hygiene. She is independent with sponge baths at w/c level, she does have a tub/shower with a shower bench that her daughter has helped her with in the past, but this has been 3 months. Self Care: Independent Functional Cognition: Independent DME/Equipment: Bath Bench, Bedside Commode, Tub/Shower DME/Equipment Comments w/c, BSC, cane, education courses sales representative OT Current Status Subjective Pt in bed, agreeable to OT evaluation. No OOB activities performed on this date due to high BP. Per chart review, pt's BP 214/93 at 0800. Mental Status/Objective Patient Orientation: Person, Place, Time, Situation Attachments: Oxygen (3L) Current Upper Extremity ROM BUE shoulder flexion to approx 85% during tx, pt reports some shakiness/jerking movements in shoulders especially overhead. No tremors noted during visit. Upper Extremity Strength grossly 3+/5 ADL-Treatment Eating (QC): 6 (Per pt report.) Oral Hygiene (QC): 5 (Per clinical judgment.) Toileting Hygiene (QC): 2 (max A) Other Treatments Pt in bed, agreeable to OT evaluation/tx. Pt provides information about PLOF and home set up, and participates in UE screen. No OOB activities performed on this date due to high BP. Pt attempted to complete footwear at bed level, but unable to successfully doff gripper socks. Pt would require max A overall at this time to complete task. OT educated pt on various AE available to purchase in order to increase independence with ADLs. Pt reports she has a education courses sales representative at home, and has seen a sock aide before. OT informed pt that further education and practice with AE can occur in follow up txs, pt verbalized understanding. Post tx, pt in bed, call light in reach and all needs met. Education OT Patient Education: Correct positioning, Energy conservation, Modified ADL techniques, Progress toward Goal/Update tx plan, Purpose of tx/functional activities, Rehab process Teaching Recipient: Patient Teaching Methods: Discussion Response to Teaching: Verbalize Understanding OT Cutting Tool Sharpener Goals Mcc Goals Time Frame: Dec 28, 2021 Eating (QC): 6 Oral Hygiene (QC): 6 Toileting Hygiene (QC): 4 Shower/Bathe Self (QC): 5 (sponge bath) Upper Body Dressing (QC): 5 Lower Body Dressing (QC): 4 On/Off Footwear (QC): 4 Additional Goals: 1-Demonstrate ADL Tasks, 2-Verbalize Understanding, 3- ImproveStrength/Ryan 1=Demonstrate adherence to instructed precautions during ADL tasks. 2=Patient will verbalize/demonstrate understanding of assistive devices/modifications for ADL. 3=Patient will improve strength/tolerance for activity to enable patient to perform ADL's. OT Education/Plan Problem List/Assessment Assessment: Decreased Activ Tolerance, Decreased UE Strength, Impaired Funct Balance, Impaired I ADL's Pt would benefit from short term skilled OT services in order to increase safety and independence with ADLs and functional transfers, and for education on AE for LE dressing in order to maximize pt's LOF for safe return home. Discharge Recommendations Plan/Recommendations: Continue POC Treatment Plan/Plan of Care Patient would benefit from OT for education, treatment and training to promote independence in ADL's, mobility, safety and/or upper extremity function for ADL's. Plan of Care: ADL Retraining, Functional Mobility, UE Funct Exercise/Act Treatment Duration: Dec 28, 2021 Frequency: 3 times per week (3-5 times per week) Rehab Potential: Fair Time/GCodes Start Time: 08:49 Stop Time: 09:05 Total Time Billed (hr/min): 16 Billed Treatment Time 1, DAHLIA KING OT Dec 17, 2021 09:45
--- NOTE | 2021-12-17 11:46 | Physical Therapy Evaluation ---
PT Evaluation-General Medical Diagnosis Admission Date Dec 16, 2021 at 18:55 Medical Diagnosis: cystitis without hematuria, DM Onset Date: Dec 16, 2021 Therapy Diagnosis Therapy Diagnosis: debility/weakness Precautions Precautions/Isolations: Fall Prevention, Standard Precautions Referral Physician: Lamont Reason for Referral: Evaluation/Treatment Medical History Pertinent Medical History: CAD, CVA, DM, HTN, Neuropathy, Rheumatoid Arthritis Additional Medical History obesity Current History ER secondary to weakness/shaking Reviewed History: Yes Social History Home: Apartment Current Living Status: Alone Prior Prior Level of Function SCALE: Activities may be completed with or without assistive devices. 2-Nnsahwadrq-yzamowa completes the activity by him/herself with no assistance from a helper. 5-Set-up or Clean-up Assistance-helper sets up or cleans up; patient completes activity. [place] assists only prior to or following the activity. 4-Supervision or Touching Assistance-helper provides verbal cues and/or touching/steadying and/or contact guard assistance as patient completes activity. Assistance may be provided throughout the activity or intermittently. 3-Partial/Moderate Assistance-helper does LESS THAN HALF the effort. [place] lifts, holds or supports trunk or limbs, but provides less than half the effort. 2-Substantial/Maximal Assistance-helper does MORE THAN HALF the effort. [place] lifts or holds trunk or limbs and provides more than half the effort. 2-Dtdhazdot-gjnrpw does ALL the effort. Patient does none of the effort to complete the activity. Or, the assistance of 2 or more helpers is required for the patient to complete the activity. If activity was not attempted, code reason: 7-Patient Refused. 9-Not Applicable-not attempted and the patient did not perform the activity before the current illness, exacerbation or injury. 10-Not Attempted due to Environmental Limitations-(lack of equipment, weather restraints, etc.). 88-Not Attempted due to Medical Conditions or Safety Concerns. Bed Mobility: 6 Transfers (B,C,W/C): 6 Gait: 6 (short distances) Stairs: 9 Wheelchair Mobility: 6 Prior Devices Use: Manual wheelchair, Walker has been w/c bound for a while per patient report due to bilateral LE "shaking" PT Evaluation-Current Subjective Patient is very hesitant/resistive for OOB activity. She reports she is glad her blood pressure is down. Objective Patient Orientation: Normal For Age Attachments: Oxygen ROM/Strength ROM Lower Extremities bilateral LE WFL Strength Lower Extremities 3+/5 grossly bilateral LE Integumentary/Posture Bladder Incontinence: Yes Posture WFL Neuromuscular (Tone, Coordination, Reflexes) ataxic/bilateral LE tremors/diminished coordination Sensory Vision: Wears Glasses Hearing: Functional Transfers Lying to Sitting/Side of Bed(Q: 4 (SBA) Sit to Stand (QC): 2 (x 3 sets to FWW) Chair/Iio-on-Gvaqc Xfer(QC): 2 (SPT due to patient resisting all movement due to fear of falling per her report) Balance Sitting Static: Normal Sitting Dynamic: Normal Standing Static: Fair Standing Dynamic: Poor Assessment/Needs 71 y.o. female, will benefit from skilled PT to address functional strength and mobility to improve current LOF. Patient demonstrates the ability to perform sit to stand to FWW, however, begins to panic if bilateral LE begin to "shake". Patient reports frustration with this. Patient is up in recliner with needs met. Rehab Potential: Guarded PT Computer Tech Goals Computer Tech Goals PT Jail Goals Time Frame: Dec 29, 2021 Roll Left & Right (QC): 5 Sit to Lying (QC): 5 Lying-Sitting on Side/Bed(QC): 5 Sit to Stand (QC): 3 Chair/Kyt-db-Akvix Xfer(QC): 3 Toilet Transfer (QC): 3 Walk 10 feet (QC): 3 PT Plan Problem List Problem List: Activity Tolerance, Functional Strength, Safety, Balance, Gait, Transfer, Bed Mobility Treatment/Plan Treatment Plan: Continue Plan of Care Treatment Plan: Bed Mobility, Education, Functional Activity Ryan, Functional Strength, Gait, Safety, Therapeutic Exercise, Transfers Treatment Duration: Dec 29, 2021 Frequency: 6 times per week Estimated Hrs Per Day: .25 hour per day Patient and/or Family Agrees t: Yes Time/GCodes Time In: 1121 Time Out: 1135 Total Billed Treatment Time: 14 Total Billed Treatment 1 visit EVModC 14 min MAUDE MALDONADO PT Dec 17, 2021 11:46
[2021-12-17] MEDS: NS IV 1000 ML 1,000 ML IV SCH (11:47)
[2021-12-17] MEDS ORDERED: ASCO500C17 PO (12:53)
[2021-12-17] MEDS ORDERED: ATOR40TA70 PO (12:53)
[2021-12-17] MEDS ORDERED: NYST15OI13 TP (12:53)
[2021-12-17] MEDS ORDERED: ISOS60TA63 PO (12:53)
[2021-12-17] MEDS ORDERED: SILV50CR28 TP (12:53)
[2021-12-17] MEDS ORDERED: PANT40TA52 PO (12:53)
[2021-12-17] MEDS ORDERED: CARV12.53 PO (12:53)
[2021-12-17] MEDS ORDERED: INSN1U SQ (12:53)
[2021-12-17] MEDS ORDERED: MECL-149 PO (12:53)
[2021-12-17] MEDS ORDERED: ASPI-1238 PO (12:53)
[2021-12-17] MEDS ORDERED: TORS20TA3 PO (12:53)
[2021-12-17] MEDS ORDERED: INSU100V31 SQ (12:53)
[2021-12-17] MEDS ORDERED: NITR100C PO (12:53)
[2021-12-17] MEDS ORDERED: LOSA25TA41 PO (12:53)
[2021-12-17] MEDS ORDERED: SERT-414 PO (12:53)
[2021-12-17] MEDS ORDERED: TRAZ150T72 PO (12:53)
[2021-12-17] MEDS ORDERED: RANO500T6 PO (12:53)
[2021-12-17] MEDS ORDERED: ACET325T38 PO (12:53)
[2021-12-17] MEDS ORDERED: NF-CLIN1% TP (12:53)
[2021-12-17] MEDS ORDERED: METF-865 PO (12:53)
[2021-12-17] MEDS ORDERED: CRAN400T3 PO (12:53)
[2021-12-17] MEDS ORDERED: NORT50CA PO (12:53)
[2021-12-17] MEDS ORDERED: MTC5V480 PO (12:53)
[2021-12-17] MEDS ORDERED: BACL10TA PO (12:58)
[2021-12-17] MEDS ORDERED: ISOSORBIDE MONONITRATE 60 MG (IMDUR) TAB PO ONE (14:30)
[2021-12-17] MEDS: RANOLAZINE ER 500 MG TAB (RANEXA) PO SCH (16:45)
[2021-12-17] MEDS: hydrALAZINE (APESOLINE) 20 MG/ML VIAL IV PRN ×2 (17:01→22:33)
--- NOTE | 2021-12-17 18:15 | History & Physical ---
HPI History of Present Illness: 71 yo F with h/o recurrent UTIs that presented to ER because she was too weak to transfer to the [facility]. Denies any fever or chills. She has been eating and drinking but less then normal. Denies any pain. States that she also has a wound on her lower right abdomen that wont heal and she has been seeing Dr Lopez for a foot wound. Source: patient Exam Limitations: no limitations Date seen by provider: Dec 17, 2021 Time Seen by Provider: 11:15 Attending Physician Jean-Claude Matos MD PCP Betty Denney Aprn Consult Date of Admission Dec 16, 2021 at 18:55 Home Medications Home Medications Reviewed patient Home Medication Reconciliation performed by pharmacy medication reconciliations locate technician and/or nursing. Patients Allergies have been reviewed. Allergies Coded Allergies: Cephalosporins (Verified Allergy, Unknown, 03/06/21) Sulfa (Sulfonamide Antibiotics) (Verified Allergy, Unknown, 03/06/21) fenofibrate (Verified Allergy, Unknown, 03/06/21) gabapentin (Verified Allergy, Unknown, 03/06/21) levofloxacin (Verified Allergy, Unknown, 03/06/21) naloxone (Verified Allergy, Unknown, 03/06/21) Uncoded Allergies: CONTRAST (Allergy, Unknown, 03/06/21) VFH-Syuszp-Dnivfz Hx Patient Social History Smoking Status: Former Smoker Alcohol Use?: No Tobacco type used: Cigarettes Have you traveled recently?: No Immunizations Up To Date Influenza Vaccine Up-to-Date: Yes; Up-to-Date First/Initial COVID19 Vaccinat: January 2021 Second COVID19 Vaccination Chris: January 2021 Third COVID19 Vaccination Date: January 2021 Past Medical History Recurrent UTI IDDM HTN Review of Systems ([facility]) Constitutional: malaise Respiratory: no symptoms reported Cardiovascular: no symptoms reported Gastrointestinal: abdominal pain, other Genitourinary: frequency : No Musculoskeletal: no symptoms reported Skin: lesions Reviewed Test Results Reviewed Test Results Lab Laboratory Tests Test 12/16/21 21:40 12/17/21 06:00 12/17/21 06:10 12/17/21 11:07 Range/Units Glucometer 128 H 192 H 207 H 70-110 MG/DL White Blood Count 11.4 H 4.3-11.0 10^3/uL Red Blood Count 4.20 3.80-5.11 10^6/uL Hemoglobin 12.8 11.5-16.0 g/dL Hematocrit 39 35-52 % Mean Corpuscular Volume 94 80-99 fL Mean Corpuscular Hemoglobin 31 25-34 pg Mean Corpuscular Hemoglobin Concent 33 32-36 g/dL Red Cell Distribution Width 15.7 H 10.0-14.5 % Platelet Count 364 130-400 10^3/uL Mean Platelet Volume 10.4 9.0-12.2 fL Immature Granulocyte % (Auto) 1 % Neutrophils (%) (Auto) 63 42-75 % Lymphocytes (%) (Auto) 19 12-44 % Monocytes (%) (Auto) 10 0-12 % Eosinophils (%) (Auto) 7 0-10 % Basophils (%) (Auto) 1 0-10 % Neutrophils # (Auto) 7.1 1.8-7.8 10^3/uL Lymphocytes # (Auto) 2.2 1.0-4.0 10^3/uL Monocytes # (Auto) 1.2 H 0.0-1.0 10^3/uL Eosinophils # (Auto) 0.8 H 0.0-0.3 10^3/uL Basophils # (Auto) 0.1 0.0-0.1 10^3/uL Immature Granulocyte # (Auto) 0.1 0.0-0.1 10^3/uL Sodium Level 138 135-145 MMOL/L Potassium Level 4.3 3.6-5.0 MMOL/L Chloride Level 98 98-107 MMOL/L Carbon Dioxide Level 27 21-32 MMOL/L Anion Gap 13 5-14 MMOL/L Blood Urea Nitrogen 31 H 7-18 MG/DL Creatinine 1.55 H 0.60-1.30 MG/DL Estimat Glomerular Filtration Rate 35 BUN/Creatinine Ratio 20 Glucose Level 210 H 70-105 MG/DL Calcium Level 10.2 H 8.5-10.1 MG/DL Corrected Calcium 10.4 H 8.5-10.1 MG/DL Total Bilirubin 0.6 0.1-1.0 MG/DL Aspartate Amino Transf (AST/SGOT) 19 5-34 U/L Alanine Aminotransferase (ALT/SGPT) 13 0-55 U/L Alkaline Phosphatase 50 40-136 U/L Total Protein 7.8 6.4-8.2 GM/DL Albumin 3.8 3.2-4.5 GM/DL Test 12/17/21 17:36 Range/Units Glucometer 243 H 70-110 MG/DL Physical Exam-([facility]) Physical Exam Vital Signs VS - Last 72 Hours, by Label 12/16/21 12/16/21 12/16/21 12/16/21 13:34 13:34 18:06 20:00 Temp 36.4 Pulse 86 68 Resp 17 16 B/P (MAP) 111/ 119/76 Pulse Ox 95 99 O2 Delivery Nasal Cannula Nasal Cannula Nasal Cannula Nasal Cannula O2 Flow Rate 2.00 203.00 2.00 4.00 12/16/21 12/17/21 12/17/21 12/17/21 20:13 00:43 02:54 04:27 Temp 35.4 36.3 36.4 36.0 Pulse 69 71 86 68 Resp 20 20 18 B/P (MAP) 167/77 (107) 167/75 (105) 189/79 (115) Pulse Ox 97 100 95 95 O2 Delivery Nasal Cannula Nasal Cannula Nasal Cannula O2 Flow Rate 3.00 3.00 3.00 FiO2 28 12/17/21 12/17/21 12/17/21 12/17/21 07:51 08:00 08:00 11:02 Temp 36.4 36.4 36.2 Pulse 70 70 75 Resp 18 18 20 B/P (MAP) 214/93 (133) 162/71 (101) Pulse Ox 97 97 96 O2 Delivery Nasal Cannula Nasal Cannula Nasal Cannula Nasal Cannula O2 Flow Rate 3.00 4.00 3.00 3.00 12/17/21 12/17/21 16:00 18:51 Temp 36.0 Pulse 73 76 Resp 16 B/P (MAP) 217/91 (133) 165/61 (95) Pulse Ox 99 O2 Delivery Nasal Cannula O2 Flow Rate 3.00 Capillary Refill : Less Than 3 Seconds General Appearance: WD/WN, no apparent distress, obese HEENT: PERRL/EOMI Neck: non-tender, full range of motion Respiratory: chest non-tender, lungs clear, normal breath sounds, no respiratory distress, no accessory muscle use Cardiovascular: normal peripheral pulses, regular rate, rhythm, no edema, no murmur Gastrointestinal: normal bowel sounds, non tender, soft Back: no CVA tenderness Extremities: no calf tenderness, pedal edema (1+) Neurologic/Psychiatric: clinical support tech II-XII nml as tested, no motor/sensory deficits, alert, normal mood/affect, oriented x 3 Skin: other (Right lower abdomen in pannus open wound with mild erythema, foot wound) Assessment/Plan Assessment/Plan Admission Status: Observation (1) Cystitis without hematuria Status: Acute Assessment & Plan: - Continue IV antibiotics, h/o recurrent UTIs, waiting on C/s (2) HTN (hypertension) Status: Chronic Assessment & Plan: - Continue home meds Qualifiers: Qualified Codes: I10 - Essential (primary) hypertension (3) Acute kidney injury superimposed on chronic kidney disease Status: Acute Assessment & Plan: - Daily BMPs, gentle hydration (4) Diabetes mellitus, insulin dependent (IDDM), uncontrolled Status: Acute Assessment & Plan: - Continue home meds, Accuchecks ACHS JEAN-CLAUDE MATOS MD Dec 17, 2021 18:15
[2021-12-17] MEDS: traZODone 150 MG (DESYREL) TABLET PO SCH (20:25)
[2021-12-18] MEDS: MELATONIN 3 MG TABLET PO PRN ×2 (00:37→20:49)
[2021-12-18] MEDS: diphenhydrAMINE 25 MG TAB (BENADRYL) PO PRN ×3 (00:37→20:49)
[2021-12-18] MEDS: NS IV 1000 ML 1,000 ML IV SCH ×2 (02:30→18:15)
[2021-12-18 03:52] VITALS: BP 145/75
[2021-12-18] MEDS: MEROPENEM 500 MG/NS 100 ML IVPB IV SCH ×6 (06:21→20:51)
[2021-12-18 06:36] LABS: BASOPHILS # (AUTO) 0.1 10^3/uL (0.0-0.1); BASOPHILS % (AUTO) 1 % (0-10); EOSINOPHILS # (AUTO) 0.8 10^3/uL (0.0-0.3); EOSINOPHILS % (AUTO) 8 % (0-10); HEMATOCRIT 38 % (35-52); HEMOGLOBIN 11.9 g/dL (11.5-16.0); LYMPHOCYTES # (AUTO) 2.6 10^3/uL (1.0-4.0); LYMPHOCYTES % (AUTO) 26 % (12-44); MEAN CORPUSCULAR HEMOGLOBIN 30 pg (25-34); MEAN CORPUSCULAR HGB CONC 32 g/dL (32-36); MEAN CORPUSCULAR VOLUME 96 fL (80-99); MEAN PLATELET VOLUME 10.5 fL (9.0-12.2); MONOCYTES # (AUTO) 1.2 10^3/uL (0.0-1.0); MONOCYTES % (AUTO) 12 % (0-12); NEUTROPHILS # (AUTO) 5.2 10^3/uL (1.8-7.8); NEUTROPHILS % (AUTO) 53 % (42-75); PLATELET COUNT 349 10^3/uL (130-400); WHITE BLOOD COUNT 9.9 10^3/uL (4.3-11.0)
[2021-12-18] MEDS: inSUlin ASPART (NovoLOG) 1 UNIT/0.01 ML (CHARGE PER UNIT) SC SCH ×4 (06:48→20:52)
[2021-12-18 06:55] LABS: ALBUMIN 3.5 GM/DL (3.2-4.5); BILIRUBIN,TOTAL 0.5 MG/DL (0.1-1.0); CALCIUM 9.2 MG/DL (8.5-10.1); CREATININE SERUM 1.1 MG/DL (0.60-1.30); POTASSIUM 3.9 MMOL/L (3.6-5.0); TOTAL PROTEIN 7.1 GM/DL (6.4-8.2)
[2021-12-18 08:25] VITALS: BP 178/73
[2021-12-18] MEDS: PANTOPRAZOLE 40 MG (PROTONIX) TAB PO SCH (08:59)
[2021-12-18] MEDS: ISOSORBIDE MONONITRATE 60 MG (IMDUR) TAB PO SCH (09:00)
[2021-12-18] MEDS: RANOLAZINE ER 500 MG TAB (RANEXA) PO SCH ×2 (09:00→20:49)
[2021-12-18] MEDS: LOSARTAN 25 MG (COZAAR) TAB PO SCH (09:00)
[2021-12-18] MEDS: DOCUSATE SODIUM 100 MG (COLACE) CAP PO SCH ×2 (09:00→20:49)
[2021-12-18] MEDS: ASPIRIN E.C. 81 MG (ECOTRIN) TAB PO SCH (09:00)
[2021-12-18] MEDS: ENOXAPARIN 40 MG/0.4 ML (LOVENOX) SYR SC SCH ×2 (09:01→20:51)
--- NOTE | 2021-12-18 09:45 | Physical Therapy Daily Note ---
PT Daily Note-Current Subjective Patient adamantly declined OOB activity but agrees to PT. Patient reports she wants to go home with home health and family support. Mental Status Patient Orientation: Normal For Age Attachments: Oxygen, IV Transfers SCALE: Activities may be completed with or without assistive devices. 9-Blmavmodrq-katqajv completes the activity by him/herself with no assistance from a helper. 5-Set-up or Clean-up Assistance-helper sets up or cleans up; patient completes activity. [place] assists only prior to or following the activity. 4-Supervision or Touching Assistance-helper provides verbal cues and/or touching/steadying and/or contact guard assistance as patient completes activity. Assistance may be provided throughout the activity or intermittently. 3-Partial/Moderate Assistance-helper does LESS THAN HALF the effort. [place] lifts, holds or supports trunk or limbs, but provides less than half the effort. 2-Substantial/Maximal Assistance-helper does MORE THAN HALF the effort. [place] lifts or holds trunk or limbs and provides more than half the effort. 5-Omkvumrec-kvletv does ALL the effort. Patient does none of the effort to complete the activity. Or, the assistance of 2 or more helpers is required for the patient to complete the activity. If activity was not attempted, code reason: 7-Patient Refused. 9-Not Applicable-not attempted and the patient did not perform the activity before the current illness, exacerbation or injury. 10-Not Attempted due to Environmental Limitations-(lack of equipment, weather restraints, etc.). 88-Not Attempted due to Medical Conditions or Safety Concerns. Exercises Supine Ex: Ankle pumps, Quad Set, Heel Slides, Straight leg raise, Hip abd/add Supine Reps: 12 (2 sets) Assessment Patient tolerated bed exercises only with refusal for OOB activity. RN present. PT Intermediate Goals Intermediate Goals PT Top Lift Trimmer Goals Time Frame: Dec 29, 2021 Roll Left & Right (QC): 5 Sit to Lying (QC): 5 Lying-Sitting on Side/Bed(QC): 5 Sit to Stand (QC): 3 Chair/Wzs-ck-Eofqq Xfer(QC): 3 Toilet Transfer (QC): 3 Walk 10 feet (QC): 3 PT Plan Treatment/Plan Treatment Plan: Continue Plan of Care Treatment Plan: Bed Mobility, Education, Functional Activity Yran, Functional Strength, Gait, Safety, Therapeutic Exercise, Transfers Treatment Duration: Dec 29, 2021 Frequency: 6 times per week Estimated Hrs Per Day: .25 hour per day Patient and/or Family Agrees t: Yes Time/GCodes Time In: 855 Time Out: 906 Total Billed Treatment Time: 11 Total Billed Treatment 1 visit EX 11 min MAUDE MALDONADO PT Dec 18, 2021 09:45
--- NOTE | 2021-12-18 10:55 | Occupational Ther Daily Note ---
OT Current Status-Daily Note Subjective Pt reports headache, states RN is already aware. Appearance Pt left supine in bed, all needs within reach. Mental Status/Objective Attachments: IV, Oxygen ADL-Treatment Therapy Code Descriptions/Definitions Functional [place] Measure: 0=Not Assessed/NA 4=Minimal Assistance 1=Total Assistance 5=Supervision or Setup 2=Maximal Assistance 6=Modified [place] 3=Moderate Assistance 7=Complete IndependenceSCALE: Activities may be completed with or without assistive devices. 5-Iaimeckflz-jaegimr completes the activity by him/herself with no assistance from a helper. 5-Set-up or Clean-up Assistance-helper sets up or cleans up; patient completes activity. [place] assists only prior to or following the activity. 4-Supervision or Touching Assistance-helper provides verbal cues and/or touching/steadying and/or contact guard assistance as patient completes activity. Assistance may be provided throughout the activity or intermittently. 3-Partial/Moderate Assistance-helper does LESS THAN HALF the effort. [place] lifts, holds or supports trunk or limbs, but provides less than half the effort. 2-Substantial/Maximal Assistance-helper does MORE THAN HALF the effort. [place] lifts or holds trunk or limbs and provides more than half the effort. 4-Xkbdtdbeg-yxcwfu does ALL the effort. Patient does none of the effort to complete the activity. Or, the assistance of 2 or more helpers is required for the patient to complete the activity. If activity was not attempted, code reason: 7-Patient Refused. 9-Not Applicable-not attempted and the patient did not perform the activity before the current illness, exacerbation or injury. 10-Not Attempted due to Environmental Limitations-(lack of equipment, weather restraints, etc.). 88-Not Attempted due to Medical Conditions or Safety Concerns. Other Treatment Pt declines all OOB/EOB activities due to c/o headache pain. Per OT eval, pt wanting to learn more information about AE. OT instructed and demonstrated pt on use of roof truss detailer, sock aid, and LHS. Pt states that she uses a roof truss detailer all the time but only for retrieving things from the floor and not for dressing. She also states that she will never use a sock aid as she is able to perform cross over method to get socks on. Pt reports fear of transferring on/off toilet as t hat is where she has fallen in the past. Discussion on bathroom set up and modifications/DME that will help make task easier and safer. Education OT Patient Education: Correct positioning, Energy conservation, Modified ADL techniques, Progress toward Goal/Update tx plan, Purpose of tx/functional activities, Rehab process, Safety issues, Transfer techniques, Use of adapted equipment Teaching Recipient: Patient Teaching Methods: Demonstration, Discussion Response to Teaching: Verbalize Understanding, Unable to Return Demonstration, Reinforcement Needed OT Skilled Nursing Goals Ops Manager Goals Time Frame: Dec 28, 2021 Eating (QC): 6 Oral Hygiene (QC): 6 Toileting Hygiene (QC): 4 Shower/Bathe Self (QC): 5 (sponge bath) Upper Body Dressing (QC): 5 Lower Body Dressing (QC): 4 On/Off Footwear (QC): 4 Additional Goals: 1-Demonstrate ADL Tasks, 2-Verbalize Understanding, 3- ImproveStrength/Ryan 1=Demonstrate adherence to instructed precautions during ADL tasks. 2=Patient will verbalize/demonstrate understanding of assistive devices/modifications for ADL. 3=Patient will improve strength/tolerance for activity to enable patient to perform ADL's. OT Education/Plan Problem List/Assessment Assessment: Decreased Activ Tolerance, Decreased UE Strength, Impaired I ADL's, Impaired Self-Care Skills Pt would benefit from short term skilled OT services in order to increase safety and independence with ADLs and functional transfers, and for education on AE for LE dressing in order to maximize pt's LOF for safe return home. Discharge Recommendations Plan/Recommendations: Continue POC Treatment Plan/Plan of Care Treatment,Training & Education: Yes Patient would benefit from OT for education, treatment and training to promote independence in ADL's, mobility, safety and/or upper extremity function for ADL's. Plan of Care: ADL Retraining, Functional Mobility, UE Funct Exercise/Act Treatment Duration: Dec 28, 2021 Frequency: 3 times per week (3-5 times per week) Estimated Hrs Per Day: .25 hour per day Agreement: Yes Rehab Potential: Guarded Time/GCodes Start Time: 10:35 Stop Time: 10:48 Total Time Billed (hr/min): 13 Billed Treatment Time 1 visit ADL Lea Yates OT Dec 18, 2021 10:55
[2021-12-18 11:45] VITALS: BP 168/71
[2021-12-18 16:35] VITALS: BP 142/70
--- NOTE | 2021-12-18 16:37 | Progress Note ---
Subjective Subjective/Events-last exam Patient feeling better this AM. She is wandering about MRI results that were done as an outpatient at another facility. Tolerating PO diet Review of Systems General: [place] Pulmonary: No Dyspnea, No Cough Cardiovascular: No: Chest Pain, Palpitations, Edema Gastrointestinal: No: Nausea, Vomiting, Abdominal Pain, Diarrhea, Constipation Neurological: Weakness, Incoordination Objective Exam Last Set of Vital Signs Vital Signs Date Time Temp Pulse Resp B/P (MAP) Pulse Ox O2 Delivery O2 Flow Rate FiO2 12/18/21 11:45 35.7 86 18 168/71 (103) 91 Room Air 12/18/21 08:00 4.00 12/17/21 02:54 28 Capillary Refill : Less Than 3 Seconds I&O Intake and Output 12/17/21 23:59 Intake Total 1590 ml Output Total 1200 ml Balance 390 ml Intake Oral 1590 ml Output Urine Total 1200 ml General: Alert, Oriented X3, Cooperative, No Acute Distress HEENT: Mucous Memb Moist/[place] Lungs: Clear to Auscultation, Normal Air Movement Heart: Regular Rate, No Murmurs Abdomen: Normal Bowel Sounds, Soft, No Tenderness, No Masses Extremities: No Tenderness/Swelling, Other (trace edema) Neuro: Normal Speech Psych/Mental Status: Mental Status NL, Mood NL Results/Procedures Lab Laboratory Tests 12/17/21 17:36: Glucometer 243H 12/17/21 20:07: Glucometer 257H 12/18/21 06:27: Glucometer 178H 12/18/21 06:29: White Blood Count 9.9, Red Blood Count 3.92, Hemoglobin 11.9, Hematocrit 38, Mean Corpuscular Volume 96, Mean Corpuscular Hemoglobin 30, Mean Corpuscular Hemoglobin Concent 32, Red Cell Distribution Width 15.8H, Platelet Count 349, Mean Platelet Volume 10.5, Immature Granulocyte % (Auto) 0, Neutrophils (%) (Auto) 53, Lymphocytes (%) (Auto) 26, Monocytes (%) (Auto) 12, Eosinophils (%) (Auto) 8, Basophils (%) (Auto) 1, Neutrophils # (Auto) 5.2, Lymphocytes # (Auto) 2.6, Monocytes # (Auto) 1.2H, Eosinophils # (Auto) 0.8H, Basophils # (Auto) 0.1, Immature Granulocyte # (Auto) 0.0, Sodium Level 136, Potassium Level 3.9, Chloride Level 99, Carbon Dioxide Level 27, Anion Gap 10, Blood Urea Nitrogen 22H, Creatinine 1.10, Estimat Glomerular Filtration Rate 53, BUN/Creatinine Ratio 20, Glucose Level 189H, Calcium Level 9.2, Corrected Calcium 9.6, Total Bilirubin 0.5, Aspartate Amino Transf (AST/SGOT) 19, Alanine Aminotransferase (ALT/SGPT) 14, Alkaline Phosphatase 48, Total Protein 7.1, Albumin 3.5 12/18/21 11:24: Glucometer 226H Microbiology 12/16/21 Urine Culture - Final, Complete >=3 Gram Positive Isolates Assessment/Plan Assessment/Plan (1) Cystitis without hematuria Status: Acute Assessment & Plan: - Continue IV antibiotics, h/o recurrent UTIs, waiting on C/s 12/18: waiting on final culture reports, 3+ bacteria present (2) HTN (hypertension) Status: Chronic Assessment & Plan: - Continue home meds Qualifiers: Qualified Codes: I10 - Essential (primary) hypertension (3) Acute kidney injury superimposed on chronic kidney disease Status: Resolved Assessment & Plan: - Daily BMPs, gentle hydration (4) Diabetes mellitus, insulin dependent (IDDM), uncontrolled Status: Acute Assessment & Plan: - Continue home meds, Accuchecks JEAN-CLAUDE GUERIN MD Dec 18, 2021 16:37
[2021-12-18 19:05] VITALS: BP 154/73
[2021-12-18] MEDS: SERTRALINE 100 MG (ZOLOFT) TAB PO SCH (20:50)
[2021-12-18] MEDS: traZODone 150 MG (DESYREL) TABLET PO SCH (20:50)
[2021-12-18] MEDS: ACETAMINOPHEN 325 MG TABLET PO PRN (20:51)
[2021-12-18 23:57] VITALS: BP 149/69
[2021-12-19] VITALS (7 sets, daily range): BP systolic 128–190; BP diastolic 67–80
[2021-12-19] MEDS: MEROPENEM 500 MG/NS 100 ML IVPB IV SCH ×6 (05:25→21:43)
[2021-12-19] MEDS: inSUlin ASPART (NovoLOG) 1 UNIT/0.01 ML (CHARGE PER UNIT) SC SCH ×4 (05:29→21:44)
[2021-12-19 05:34] LABS: BASOPHILS # (AUTO) 0.1 10^3/uL (0.0-0.1); BASOPHILS % (AUTO) 1 % (0-10); EOSINOPHILS # (AUTO) 0.6 10^3/uL (0.0-0.3); EOSINOPHILS % (AUTO) 8 % (0-10); HEMATOCRIT 34 % (35-52); HEMOGLOBIN 10.7 g/dL (11.5-16.0); LYMPHOCYTES # (AUTO) 2.7 10^3/uL (1.0-4.0); LYMPHOCYTES % (AUTO) 33 % (12-44); MEAN CORPUSCULAR HEMOGLOBIN 30 pg (25-34); MEAN CORPUSCULAR HGB CONC 32 g/dL (32-36); MEAN CORPUSCULAR VOLUME 96 fL (80-99); MEAN PLATELET VOLUME 10.3 fL (9.0-12.2); MONOCYTES % (AUTO) 13 % (0-12); NEUTROPHILS # (AUTO) 3.8 10^3/uL (1.8-7.8); NEUTROPHILS % (AUTO) 46 % (42-75); PLATELET COUNT 319 10^3/uL (130-400); WHITE BLOOD COUNT 8.3 10^3/uL (4.3-11.0)
[2021-12-19 05:58] LABS: ALBUMIN 3.2 GM/DL (3.2-4.5); BILIRUBIN,TOTAL 0.5 MG/DL (0.1-1.0); CALCIUM 8.6 MG/DL (8.5-10.1); CREATININE SERUM 1.11 MG/DL (0.60-1.30); POTASSIUM 4.2 MMOL/L (3.6-5.0); TOTAL PROTEIN 6.5 GM/DL (6.4-8.2)
--- NOTE | 2021-12-19 08:41 | Occupational Ther Daily Note ---
OT Current Status-Daily Note Subjective Pt reports sore throat and swollen tongue. OT notified SYSTEMS INTEGRATION ADVISOR to let RN know. Appearance Pt left supine in bed, all needs within reach. Mental Status/Objective Attachments: Elder Catheter, IV ADL-Treatment Therapy Code Descriptions/Definitions Functional [place] Measure: 0=Not Assessed/NA 4=Minimal Assistance 1=Total Assistance 5=Supervision or Setup 2=Maximal Assistance 6=Modified [place] 3=Moderate Assistance 7=Complete IndependenceSCALE: Activities may be completed with or without assistive devices. 9-Iwyxvyupvm-xyrwdug completes the activity by him/herself with no assistance from a helper. 5-Set-up or Clean-up Assistance-helper sets up or cleans up; patient completes activity. [place] assists only prior to or following the activity. 4-Supervision or Touching Assistance-helper provides verbal cues and/or touching/steadying and/or contact guard assistance as patient completes activity . Assistance may be provided throughout the activity or intermittently. 3-Partial/Moderate Assistance-helper does LESS THAN HALF the effort. [place] lifts, holds or supports trunk or limbs, but provides less than half the effort. 2-Substantial/Maximal Assistance-helper does MORE THAN HALF the effort. [place] lifts or holds trunk or limbs and provides more than half the effort. 9-Vzrevptkv-uukeou does ALL the effort. Patient does none of the effort to complete the activity. Or, the assistance of 2 or more helpers is required for the patient to complete the activity. If activity was not attempted, code reason: 7-Patient Refused. 9-Not Applicable-not attempted and the patient did not perform the activity before the current illness, exacerbation or injury. 10-Not Attempted due to Environmental Limitations-(lack of equipment, weather restraints, etc.). 88-Not Attempted due to Medical Conditions or Safety Concerns. Other Treatment Pt sleeping at OT arrival. Easy to waken. She participated in UE exercises with goal to promote increased strength and endurance needed for functional transfers and adls. OT issued pt yellow theraband but pt may be able to increase resistance to red or green theraband during next exercise treatment. Min cues for technique with good follow through. 10x1, all planes. Good tolerance. Education OT Patient Education: Correct positioning, Exercise program, Purpose of tx/functional activities Teaching Recipient: Patient Teaching Methods: Demonstration, Discussion Response to Teaching: Verbalize Understanding, Return Demonstration, Reinforcement Needed OT Intermediate Goals [employer] Goals Time Frame: Dec 28, 2021 Eating (QC): 6 Oral Hygiene (QC): 6 Toileting Hygiene (QC): 4 Shower/Bathe Self (QC): 5 (sponge bath) Upper Body Dressing (QC): 5 Lower Body Dressing (QC): 4 On/Off Footwear (QC): 4 Additional Goals: 1-Demonstrate ADL Tasks, 2-Verbalize Understanding, 3- ImproveStrength/Ryan 1=Demonstrate adherence to instructed precautions during ADL tasks. 2=Patient will verbalize/demonstrate understanding of assistive devices/modifications for ADL. 3=Patient will improve strength/tolerance for activity to enable patient to perform ADL's. OT Education/Plan Problem List/Assessment Assessment: Decreased Activ Tolerance, Decreased UE Strength, Impaired Funct Balance, Impaired I ADL's, Impaired Self-Care Skills Pt would benefit from short term skilled OT services in order to increase safety and independence with ADLs and functional transfers, and for education on AE for LE dressing in order to maximize pt's LOF for safe return home. Discharge Recommendations Plan/Recommendations: Continue POC Treatment Plan/Plan of Care Treatment,Training & Education: Yes Patient would benefit from OT for education, treatment and training to promote independence in ADL's, mobility, safety and/or upper extremity function for ADL's. Plan of Care: ADL Retraining, Functional Mobility, UE Funct Exercise/Act Treatment Duration: Dec 28, 2021 Frequency: 3 times per week (3-5 times per week) Estimated Hrs Per Day: .25 hour per day Agreement: Yes Rehab Potential: Guarded Time/GCodes Start Time: 07:55 Stop Time: 08:08 Total Time Billed (hr/min): 13 Billed Treatment Time 1 visit EX Lea Yates OT Dec 19, 2021 08:40
[2021-12-19] MEDS: LOSARTAN 25 MG (COZAAR) TAB PO SCH (08:55)
[2021-12-19] MEDS: DOCUSATE SODIUM 100 MG (COLACE) CAP PO SCH ×2 (08:55→21:43)
[2021-12-19] MEDS: RANOLAZINE ER 500 MG TAB (RANEXA) PO SCH ×2 (08:55→21:43)
[2021-12-19] MEDS: ISOSORBIDE MONONITRATE 60 MG (IMDUR) TAB PO SCH (08:55)
[2021-12-19] MEDS: ASPIRIN E.C. 81 MG (ECOTRIN) TAB PO SCH (08:55)
[2021-12-19] MEDS: PANTOPRAZOLE 40 MG (PROTONIX) TAB PO SCH (08:55)
[2021-12-19] MEDS: TORSEMIDE 20 MG (DEMADEX) TAB PO SCH (08:55)
[2021-12-19] MEDS: ENOXAPARIN 40 MG/0.4 ML (LOVENOX) SYR SC SCH ×2 (08:56→21:43)
[2021-12-19] MEDS: NS IV 1000 ML 1,000 ML IV SCH (08:58)
--- NOTE | 2021-12-19 09:53 | Physical Therapy Daily Note ---
PT Daily Note-Current Subjective Patient in bed pre tx, agrees to PT, has a headache but no pain anywhere else. Patient would like to get into the recliner. Appearance Patient in recliner post tx with nurse call, phone, tray, all needs met. Mental Status Patient Orientation: Person, Place, Situation Attachments: Oxygen, IV Transfers SCALE: Activities may be completed with or without assistive devices. 0-Ocpveaamqs-uopbxgj completes the activity by him/herself with no assistance from a helper. 5-Set-up or Clean-up Assistance-helper sets up or cleans up; patient completes activity. [place] assists only prior to or following the activity. 4-Supervision or Touching Assistance-helper provides verbal cues and/or touching/steadying and/or contact guard assistance as patient completes activity. Assistance may be provided throughout the activity or intermittently. 3-Partial/Moderate Assistance-helper does LESS THAN HALF the effort. [place] lifts, holds or supports trunk or limbs, but provides less than half the effort. 2-Substantial/Maximal Assistance-helper does MORE THAN HALF the effort. [place] lifts or holds trunk or limbs and provides more than half the effort. 1-Kugjbfchx-xdcbsg does ALL the effort. Patient does none of the effort to c omplete the activity. Or, the assistance of 2 or more helpers is required for the patient to complete the activity. If activity was not attempted, code reason: 7-Patient Refused. 9-Not Applicable-not attempted and the patient did not perform the activity before the current illness, exacerbation or injury. 10-Not Attempted due to Environmental Limitations-(lack of equipment, weather restraints, etc.). 88-Not Attempted due to Medical Conditions or Safety Concerns. Roll Left & Right (QC): 6 Lying to Sitting/Side of Bed(Q: 3 Sit to Stand (QC): 3 Chair/Irl-ni-Uugrp Xfer(QC): 3 Patient needed min assist for supine to sit, she was able to scoot to the edge of the bed on her own and then min assist for sit to stand and transfer to recliner. She was able to take several steps to the recliner, ambulated about 3', very short steps, little to no foot clearance. Exercises Seated Therapy Exercises: Ankle pumps, Long arc quads Seated Reps: 20 Treatments bed mobility and transfers, ambulation, LE ROM Assessment Current Status: Fair Progress improved transfers and ambulation PT Radio Announcer Goals Usp Goals PT Radio Announcer Goals Time Frame: Dec 29, 2021 Roll Left & Right (QC): 5 Sit to Lying (QC): 5 Lying-Sitting on Side/Bed(QC): 5 Sit to Stand (QC): 3 Chair/Jyd-eh-Xisax Xfer(QC): 3 Toilet Transfer (QC): 3 Walk 10 feet (QC): 3 PT Plan Problem List Problem List: Activity Tolerance, Functional Strength, Safety, Balance, Gait, Transfer, Bed Mobility, ROM Treatment/Plan Treatment Plan: Continue Plan of Care Treatment Plan: Bed Mobility, Education, Functional Activity Ryan, Functional Strength, Gait, Safety, Therapeutic Exercise, Transfers Treatment Duration: Dec 29, 2021 Frequency: 6 times per week Estimated Hrs Per Day: .25 hour per day Patient and/or Family Agrees t: Yes Safety Risks/Education Patient Education: Gait Training, Transfer Techniques, Correct Positioning, Safety Issues Teaching Recipient: Patient Teaching Methods: Demonstration, Discussion Response to Teaching: Reinforcement Needed Time/GCodes Time In: 929 Time Out: 939 Total Billed Treatment Time: 10 Total Billed Treatment 1 visit FA KATIE GAMBOA PT Dec 19, 2021 09:53
--- NOTE | 2021-12-19 12:51 | Progress Note ---
Subjective Subjective/Events-last exam Patient states that she is doing better this AM. She was able to get to chair with assist x1. Still feeling very weak and afraid to fall. Tolerating PO diet. She has not had a BM since coming into the hospital. Review of Systems General: Fatigue Pulmonary: No Dyspnea, No Cough Cardiovascular: No: Chest Pain, Palpitations, Edema Gastrointestinal: Abdominal Pain; No: Nausea, Vomiting, Diarrhea, Constipation Neurological: Weakness, Numbness, Incoordination Objective Exam Last Set of Vital Signs Vital Signs Date Time Temp Pulse Resp B/P (MAP) Pulse Ox O2 Delivery O2 Flow Rate FiO2 12/19/21 12:05 36.6 67 18 172/72 (105) 95 Nasal Cannula 3.00 12/17/21 02:54 28 Capillary Refill : Less Than 3 Seconds I&O Intake and Output 12/19/21 00:00 Intake Total 2540 ml Output Total 1825 ml Balance 715 ml Intake Oral 1440 ml IV Total 1100 ml Output Urine Total 1825 ml General: Alert, Oriented X3, No Acute Distress Lungs: Clear to Auscultation, Normal Air Movement Heart: Regular Rate, No Murmurs Abdomen: Normal Bowel Sounds, Soft, No Tenderness, No Masses Extremities: Other (1+ swelling) Neuro: Normal Speech Results/Procedures Lab Laboratory Tests 12/18/21 16:33: Glucometer 231H 12/18/21 20:33: Glucometer 196H 12/19/21 05:24: Glucometer 143H 12/19/21 05:27: White Blood Count 8.3, Red Blood Count 3.53L, Hemoglobin 10.7L, Hematocrit 34L, Mean Corpuscular Volume 96, Mean Corpuscular Hemoglobin 30, Mean Corpuscular Hemoglobin Concent 32, Red Cell Distribution Width 15.8H, Platelet Count 319, Mean Platelet Volume 10.3, Immature Granulocyte % (Auto) 1, Neutrophils (%) (Auto) 46, Lymphocytes (%) (Auto) 33, Monocytes (%) (Auto) 13H, Eosinophils (%) (Auto) 8, Basophils (%) (Auto) 1, Neutrophils # (Auto) 3.8, Lymphocytes # (Auto) 2.7, Monocytes # (Auto) 1.0, Eosinophils # (Auto) 0.6H, Basophils # (Auto) 0.1, Immature Granulocyte # (Auto) 0.0, Sodium Level 137, Potassium Level 4.2, Chloride Level 102, Carbon Dioxide Level 24, Anion Gap 11, Blood Urea Nitrogen 21H, Creatinine 1.11, Estimat Glomerular Filtration Rate 53, BUN/Creatinine Rat io 19, Glucose Level 160H, Calcium Level 8.6, Corrected Calcium 9.2, Total Bilirubin 0.5, Aspartate Amino Transf (AST/SGOT) 17, Alanine Aminotransferase (ALT/SGPT) 11, Alkaline Phosphatase 42, Total Protein 6.5, Albumin 3.2 12/19/21 11:30: Glucometer 266H Microbiology 12/16/21 Urine Culture - Final, Complete >=3 Gram Positive Isolates Assessment/Plan Assessment/Plan (1) Cystitis without hematuria Status: Acute Assessment & Plan: - Continue IV antibiotics, h/o recurrent UTIs, waiting on C/s 12/18: waiting on final culture reports, 3+ bacteria present 12/19: Will complete 5 days of antibiotics (2) HTN (hypertension) Status: Chronic Assessment & Plan: - Continue home meds Qualifiers: Qualified Codes: I10 - Essential (primary) hypertension (3) Acute kidney injury superimposed on chronic kidney disease Status: Resolved Assessment & Plan: - Daily BMPs, gentle hydration (4) Diabetes mellitus, insulin dependent (IDDM), uncontrolled Status: Acute Assessment & Plan: - Continue home meds, Accuchecks ACHS (5) Discharge planning issues Status: Acute Assessment & Plan: 12/19: Working with SW, referrals have been sent for SNF, patient working with therapy JEAN-CLAUDE ALLEN MD Dec 19, 2021 12:50
--- NOTE | 2021-12-19 17:29 | Podiatry Progress Note ---
Standard Progress Note Progress Notes/Assess & Plan Date Seen by a Provider: Dec 19, 2021 Time Seen by a Provider: 17:27 Progress/Assessment & Plan Consultation was dictated. Continue with wound care to the right 1st toe. The patient will likely have a partial amputation of the right hallux. Awaiting medical clearance for the procedure. Final Diagnosis Osteomyelitis of the right hallux Diabetic neuropathy, right hallux GERARD RAUSCH DPM Dec 19, 2021 17:29
[2021-12-19] MEDS ORDERED: LOSARTAN 25 MG (COZAAR) TAB PO NR (17:30)
[2021-12-19] MEDS: PHENAZOPYRIDINE 100 MG (PYRIDIUM) TABLET PO PRN ×2 (17:35→23:34)
--- NOTE | 2021-12-19 19:04 | CONSULTATION REPORT ---
DATE OF SERVICE: 12/19/2021 REASON FOR CONSULTATION: Continuation of foot care. HISTORY OF PRESENT ILLNESS: This 71-year-old female is well known to my office for care of a chronic wound to the right great toe. The wound has been present since August and she was referred to my office for followup. Due to the chronic nature of the wound, an MRI was ordered due to some changes on x-ray visualized. The MRI also indicated that there are osseous changes that indicate osteomyelitis of the right hallux distal phalanx. The patient was admitted through the ER due to weakness. She had difficulty transferring and standing upright. She believes this was due to a chronic UTI. She currently denies any fever, chills, nausea, vomiting and overall affect. She feels that she is doing so much better than when she was admitted originally. PAST MEDICAL HISTORY: Includes insulin-dependent diabetes, hypertension and recurrent UTIs. 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 SOCIAL HISTORY: The patient is a former smoker. CURRENT MEDICATIONS: Listed on the patient's chart. ALLERGIES: SHE HAS SEVERAL ALLERGIES INCLUDING CONTRAST, CEPHALOSPORINS, GABAPENTIN, , LEVOFLOXACIN, FENOFIBRATE. PHYSICAL EXAMINATION: LOWER EXTREMITY: The patient has palpable dorsalis pedis pulse, nonpalpable posterior tibial pulse on the right and left. Cap refill time is approximately 3 seconds to the hallux. NEUROLOGIC: The patient has diminished protective sensation with 10-gram monofilament wire examination bilaterally. INTEGUMENTARY: The patient has a full thickness wound down to subcutaneous tissue to the distal aspect of the right hallux that measures approximately 11 x 7 mm and approximately 4 mm in depth with a fibrotic base, minimal granular tissue, no active exudate, no proximal streaking is identified. No significant increase in calor to the right hallux is noted at this time. NEUROLOGIC: The patient also has a hyperkeratotic lesion posterior aspect of the left calcaneus. 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 She has 4/5 muscle strength to the four major quadrants of the foot. ASSESSMENT: Osteomyelitis, right hallux; chronic ulceration, right hallux; diabetic neuropathy. PLAN: Various treatment options were discussed with patient today. She is to consider conservative and surgical options. Conservative treatment would include use of long-term IV antibiotics for osteomyelitis; however, a bone biopsy would be necessary to direct antibiotic therapy. We also talked about a partial amputation to the right hallux. She seemed to lean more heavily towards this option. She will need medical clearance for the procedure, which would be amputation of the distal phalanx of the right hallux. Risks and benefits were discussed at length with the patient. In the meantime, she is going to continue with the local wound care for the right hallux until more definitive treatment option will be decided on. Silvadene cream and a sterile gauze dressing was applied today. She will continue with wound care until further notice. Job ID: [id number] DocumentID: [id number] Dictated Date: 12/19/2021 17:35:52 Extrusion Die Template Maker Date: 12/19/2021 19:03:02 Dictated By: NIURKA MAYORGA
[2021-12-19] MEDS: SERTRALINE 100 MG (ZOLOFT) TAB PO SCH (21:43)
[2021-12-19] MEDS: traZODone 150 MG (DESYREL) TABLET PO SCH (21:43)
[2021-12-20 03:20] VITALS: BP 172/72
[2021-12-20 04:20] VITALS: BP 170/70
[2021-12-20] MEDS: MEROPENEM 500 MG/NS 100 ML IVPB IV SCH ×6 (05:44→21:26)
[2021-12-20] MEDS: inSUlin ASPART (NovoLOG) 1 UNIT/0.01 ML (CHARGE PER UNIT) SC SCH ×4 (05:44→21:23)
[2021-12-20 05:50] LABS: BASOPHILS # (AUTO) 0.1 10^3/uL (0.0-0.1); BASOPHILS % (AUTO) 1 % (0-10); EOSINOPHILS # (AUTO) 0.7 10^3/uL (0.0-0.3); EOSINOPHILS % (AUTO) 7 % (0-10); HEMATOCRIT 34 % (35-52); HEMOGLOBIN 10.7 g/dL (11.5-16.0); LYMPHOCYTES # (AUTO) 2.8 10^3/uL (1.0-4.0); LYMPHOCYTES % (AUTO) 30 % (12-44); MEAN CORPUSCULAR HEMOGLOBIN 30 pg (25-34); MEAN CORPUSCULAR HGB CONC 32 g/dL (32-36); MEAN CORPUSCULAR VOLUME 95 fL (80-99); MEAN PLATELET VOLUME 10.6 fL (9.0-12.2); MONOCYTES % (AUTO) 11 % (0-12); NEUTROPHILS # (AUTO) 4.7 10^3/uL (1.8-7.8); NEUTROPHILS % (AUTO) 50 % (42-75); PLATELET COUNT 318 10^3/uL (130-400); WHITE BLOOD COUNT 9.5 10^3/uL (4.3-11.0)
[2021-12-20 06:04] LABS: ALBUMIN 3.1 GM/DL (3.2-4.5); POTASSIUM 4.5 MMOL/L (3.6-5.0)
[2021-12-20 06:06] LABS: CALCIUM 8.8 MG/DL (8.5-10.1)
[2021-12-20 06:07] LABS: TOTAL PROTEIN 6.5 GM/DL (6.4-8.2)
[2021-12-20 06:09] LABS: BILIRUBIN,TOTAL 0.6 MG/DL (0.1-1.0)
[2021-12-20 06:10] LABS: CREATININE SERUM 1.01 MG/DL (0.60-1.30)
[2021-12-20] MEDS: PANTOPRAZOLE 40 MG (PROTONIX) TAB PO SCH (08:04)
[2021-12-20] MEDS: DOCUSATE SODIUM 100 MG (COLACE) CAP PO SCH ×2 (08:04→21:23)
[2021-12-20] MEDS: TORSEMIDE 20 MG (DEMADEX) TAB PO SCH (08:04)
[2021-12-20] MEDS: LOSARTAN 50 MG (COZAAR) TAB PO SCH (08:04)
[2021-12-20] MEDS: RANOLAZINE ER 500 MG TAB (RANEXA) PO SCH ×2 (08:04→21:23)
[2021-12-20] MEDS: ASPIRIN E.C. 81 MG (ECOTRIN) TAB PO SCH (08:04)
[2021-12-20] MEDS: PHENAZOPYRIDINE 100 MG (PYRIDIUM) TABLET PO PRN (08:04)
[2021-12-20] MEDS: ISOSORBIDE MONONITRATE 60 MG (IMDUR) TAB PO SCH (08:04)
[2021-12-20] MEDS: ENOXAPARIN 40 MG/0.4 ML (LOVENOX) SYR SC SCH ×2 (08:05→21:23)
[2021-12-20 08:16] VITALS: BP 144/65
--- NOTE | 2021-12-20 10:03 | Physical Therapy Daily Note ---
PT Daily Note-Current Subjective Patient was lying in bed awake upon entering. Patient reports that she developed a sore on her hip region from sitting in the morning till past 8pm yesterday. Patient verbalized that it was okay to sit again and consented to be transfered. Patient was told that if she needed to change positions. or get into bed, that she could use the call light for help. Pain Comment: Patient verbalized pain from sore in posterior hip region. Mental Status Patient Orientation: Person, Place, Situation Attachments: Oxygen Transfers SCALE: Activities may be completed with or without assistive devices. 6-Ehjdlnqdaa-pftohgh completes the activity by him/herself with no assistance from a helper. 5-Set-up or Clean-up Assistance-helper sets up or cleans up; patient completes activity. [place] assists only prior to or following the activity. 4-Supervision or Touching Assistance-helper provides verbal cues and/or touching/steadying and/or contact guard assistance as patient completes activity. Assistance may be provided throughout the activity or intermittently. 3-Partial/Moderate Assistance-helper does LESS THAN HALF the effort. [place] lifts, holds or supports trunk or limbs, but provides less than half the effort. 2-Substantial/Maximal Assistance-helper does MORE THAN HALF the effort. [place] lifts or holds trunk or limbs and provides more than half the effort. 6-Vqsaxopvw-axwbpm does ALL the effort. Patient does none of the effort to complete the activity. Or, the assistance of 2 or more helpers is required for the patient to complete the activity. If activity was not attempted, code reason: 7-Patient Refused. 9-Not Applicable-not attempted and the patient did not perform the activity before the current illness, exacerbation or injury. 10-Not Attempted due to Environmental Limitations-(lack of equipment, weather restraints, etc.). 88-Not Attempted due to Medical Conditions or Safety Concerns. Roll Left & Right (QC): 6 Lying to Sitting/Side of Bed(Q: 6 Sit to Stand (QC): 3 Chair/Xfw-xv-Yxqqz Xfer(QC): 4 Weight Bearing Right Lower Extremity: Right Full Weight Bearing Left Lower Extremity: Left Full Weight Bearing Gait Training Does the Patient Walk?: No and Walking Goal IS indicated Wheelchair Training Does the Pt Use a Wheelchair?: Yes Type of Wheelchair: Manual Exercises Seated Therapy Exercises: Ankle pumps (2x10), Long arc quads (2x10), Hip flexion (2x10) Treatments Transfers, LE strength and ROM Assessment Current Status: Good Progress Patient was able to sit<->stand with minAx1. Patient demonstrated good ROM with the seated exercises. Patient was left in chair with needs met, and call light near by, and reminder to utilize call light for needs or to transfer into a different position. PT Ice Cream Shop Associate Goals Ice Cream Shop Associate Goals PT [facility]dc Goals Time Frame: Dec 29, 2021 Roll Left & Right (QC): 5 Sit to Lying (QC): 5 Lying-Sitting on Side/Bed(QC): 5 Sit to Stand (QC): 3 Chair/Rks-sg-Lfqcq Xfer(QC): 3 Toilet Transfer (QC): 3 Walk 10 feet (QC): 3 PT Plan Problem List Problem List: Activity Tolerance, Functional Strength, Safety, Balance, Gait, Transfer, Bed Mobility, ROM Treatment/Plan Treatment Plan: Continue Plan of Care Treatment Plan: Bed Mobility, Education, Functional Activity Ryan, Functional Strength, Gait, Safety, Therapeutic Exercise, Transfers Treatment Duration: Dec 29, 2021 Frequency: 6 times per week Estimated Hrs Per Day: .25 hour per day Patient and/or Family Agrees t: Yes Safety Risks/Education Patient Education: Transfer Techniques, Reviewed Precautions, Correct Positioning, Safety Issues Teaching Methods: Discussion Response to Teaching: Verbalize Understanding Time/GCodes Time In: 924 Time Out: 934 Total Billed Treatment Time: 10 Total Billed Treatment 1 visit FA KATIE GAMBOA PT Dec 20, 2021 10:03
--- NOTE | 2021-12-20 10:59 | Occupational Ther Daily Note ---
OT Current Status-Daily Note Subjective Pt alert, sitting in recliner. Agrees to only B UE exercises. No c/o pain. Mental Status/Objective Patient Orientation: Person, Place, Time, Situation ADL-Treatment Pt continues to decline any lower body dressing AE. Recommended to pt that having information on AE for use in the future would be useful and decrease fatigue with lower body dressing. Pt continued to decliner. Pt then stated that she is looking for a bariatric BSC due to inability to cleanse self on regular BSC due to small toilet seat. Pt also states that she uses toilet tongs to assist with cleansing. Therapy Code Descriptions/Definitions Functional [place] Measure: 0=Not Assessed/NA 4=Minimal Assistance 1=Total Assistance 5=Supervision or Setup 2=Maximal Assistance 6=Modified [place] 3=Moderate Assistance 7=Complete IndependenceSCALE: Activities may be completed with or without assistive devices. 1-Hhpwnsoldr-kfxcjzo completes the activity by him/herself with no assistance from a helper. 5-Set-up or Clean-up Assistance-helper sets up or cleans up; patient completes activity. [place] assists only prior to or following the activity. 4-Supervision or Touching Assistance-helper provides verbal cues and/or touching/steadying and/or contact guard assistance as patient completes activity. Assistance may be provided throughout the activity or intermittently. 3-Partial/Moderate Assistance-helper does LESS THAN HALF the effort. [place] lifts, holds or supports trunk or limbs, but provides less than half the effort. 2-Substantial/Maximal Assistance-helper does MORE THAN HALF the effort. [place] lifts or holds trunk or limbs and provides more than half the effort. 3-Dytycynhs-zxjarp does ALL the effort. Patient does none of the effort to complete the activity. Or, the assistance of 2 or more helpers is required for the patient to complete the activity. If activity was not attempted, code reason: 7-Patient Refused. 9-Not Applicable-not attempted and the patient did not perform the activity before the current illness, exacerbation or injury. 10-Not Attempted due to Environmental Limitations-(lack of equipment, weather restraints, etc.). 88-Not Attempted due to Medical Conditions or Safety Concerns. Other Treatment Pt able to complete 4 B UE exercises from previous therapy sessions using medium resistance theraband independently. Pt states that she had green (med/high resistance) theraband at home from previous PT sessions throughout the years. After therapy, pt sitting in recliner with call light/phone in reach. All needs met in room. OT Longterm Goals Parquetry Layer Goals Time Frame: Dec 28, 2021 Eating (QC): 6 Oral Hygiene (QC): 6 Toileting Hygiene (QC): 4 Shower/Bathe Self (QC): 5 (sponge bath) Upper Body Dressing (QC): 5 Lower Body Dressing (QC): 4 On/Off Footwear (QC): 4 Additional Goals: 1-Demonstrate ADL Tasks, 2-Verbalize Understanding, 3- ImproveStrength/Ryan 1=Demonstrate adherence to instructed precautions during ADL tasks. 2=Patient will verbalize/demonstrate understanding of assistive devices/modifications for ADL. 3=Patient will improve strength/tolerance for activity to enable patient to perform ADL's. OT Education/Plan Problem List/Assessment Assessment: Decreased Activ Tolerance, Decreased UE Strength, Impaired Self- Care Skills Pt would benefit from short term skilled OT services in order to increase safety and independence with ADLs and functional transfers, and for education on AE for LE dressing in order to maximize pt's LOF for safe return home. Discharge Recommendations Plan/Recommendations: Continue POC Treatment Plan/Plan of Care Patient would benefit from OT for education, treatment and training to promote independence in ADL's, mobility, safety and/or upper extremity function for ADL's. Plan of Care: ADL Retraining, Functional Mobility, UE Funct Exercise/Act Treatment Duration: Dec 28, 2021 Frequency: 3 times per week (3-5 times per week) Estimated Hrs Per Day: .25 hour per day Agreement: Yes Rehab Potential: Guarded Time/GCodes Start Time: 10:38 Stop Time: 10:56 Total Time Billed (hr/min): 18 Billed Treatment Time 1 visit-EX 1 (18 min) KATHARINA GALLEGO Dec 20, 2021 10:59
[2021-12-20 11:47] VITALS: BP 155/69
[2021-12-20] MEDS ORDERED: VANCOMYCIN INJECTION 0.1 MG in NS (IVPB) 250 ML IV SCH (13:15)
[2021-12-20] MEDS ORDERED: VANCOMYCIN 2000 MG/NS 500 ML IVPB IV NR ×2 (14:00)
[2021-12-20] MEDS: CLINDAMYCIN 600 MG/50 ML IVPB 50 ML IV SCH ×2 (14:25→21:26)
[2021-12-20 15:39] VITALS: BP 178/74
--- NOTE | 2021-12-20 15:43 | Progress Note ---
Subjective Subjective/Events-last exam Patient feeling well this AM. Tolerating PO diet. Pain well controlled. Review of Systems Pulmonary: No Dyspnea, No Cough Cardiovascular: No: Chest Pain, Palpitations, Edema Gastrointestinal: Abdominal Pain; No: Nausea, Vomiting Neurological: Weakness, Incoordination Objective Exam Last Set of Vital Signs Vital Signs Date Time Temp Pulse Resp B/P (MAP) Pulse Ox O2 Delivery O2 Flow Rate FiO2 12/20/21 11:47 36.7 67 18 155/69 (97) 95 Nasal Cannula 2.00 12/20/21 03:20 28 Capillary Refill : Less Than 3 Seconds I&O Intake and Output 12/20/21 00:00 Intake Total 3330 ml Output Total 3875 ml Balance -545 ml Intake Oral 2330 ml IV Total 1000 ml Output Urine Total 3875 ml General: Alert, Oriented X3, No Acute Distress Lungs: Clear to Auscultation, Normal Air Movement Heart: Regular Rate, No Murmurs Abdomen: Normal Bowel Sounds, Soft, No Tenderness, No Masses Extremities: Other (Right great toe with bandage) Results/Procedures Lab Laboratory Tests 12/19/21 16:19: Glucometer 201H 12/19/21 20:51: Glucometer 211H 12/20/21 05:40: White Blood Count 9.5, Red Blood Count 3.54L, Hemoglobin 10.7L, Hematocrit 34L, Mean Corpuscular Volume 95, Mean Corpuscular Hemoglobin 30, Mean Corpuscular Hemoglobin Concent 32, Red Cell Distribution Width 15.6H, Platelet Count 318, Mean Platelet Volume 10.6, Immature Granulocyte % (Auto) 1, Neutrophils (%) (Auto) 50, Lymphocytes (%) (Auto) 30, Monocytes (%) (Auto) 11, Eosinophils (%) (Auto) 7, Basophils (%) (Auto) 1, Neutrophils # (Auto) 4.7, Lymphocytes # (Auto) 2.8, Monocytes # (Auto) 1.0, Eosinophils # (Auto) 0.7H, Basophils # (Auto) 0.1, Immature Granulocyte # (Auto) 0.1, Sodium Level 136, Potassium Level 4.5, Chloride Level 100, Carbon Dioxide Level 24, Anion Gap 12, Blood Urea Nitrogen 19H, Creatinine 1.01, Estimat Glomerular Filtration Rate 59, BUN/Creatinine Ratio 19, Glucose Level 162H, Calcium Level 8.8, Corrected Calcium 9.5, Total Bilirubin 0.6, Aspartate Amino Transf (AST/SGOT) 20, Alanine Aminotransferase (ALT/SGPT) 13, Alkaline Phosphatase 41, Total Protein 6.5, Albumin 3.1L 12/20/21 05:41: Glucometer 157H 12/20/21 11:11: Glucometer 259H Microbiology 12/16/21 Urine Culture - Final, Complete >=3 Gram Positive Isolates Assessment/Plan Assessment/Plan (1) Cystitis without hematuria Status: Acute Assessment & Plan: - Continue IV antibiotics, h/o recurrent UTIs, waiting on C/s 12/18: waiting on final culture reports, 3+ bacteria present 12/19: Will complete 5 days of antibiotics 12/20: Continue IV antibiotics (2) Osteomyelitis of great toe of right foot Status: Acute Assessment & Plan: 12/20: Dr Lopez consulted, plan to go to OR in AM, NPO after midnight, Vanc/Clinda (3) HTN (hypertension) Status: Chronic Assessment & Plan: - Continue home meds Qualifiers: Qualified Codes: I10 - Essential (primary) hypertension (4) Acute kidney injury superimposed on chronic kidney disease Status: Resolved Assessment & Plan: - Daily BMPs, gentle hydration (5) Diabetes mellitus, insulin dependent (IDDM), uncontrolled Status: Acute Assessment & Plan: - Continue home meds, Accuchecks ACHS (6) Discharge planning issues Status: Acute Assessment & Plan: 12/19: Working with SW, referrals have been sent for SNF, patient working with therapy 12/20: Plan to go to OR Friday and then VCV placement on Friday JEAN-CLAUDE ALLEN MD Dec 20, 2021 15:43
[2021-12-20] MEDS ORDERED: LORazepam 0.5 MG (ATIVAN) TABLET PO PRN (17:45)
[2021-12-20 19:41] VITALS: BP 178/74
[2021-12-20] MEDS: SERTRALINE 100 MG (ZOLOFT) TAB PO SCH (21:23)
[2021-12-20] MEDS: traZODone 150 MG (DESYREL) TABLET PO SCH (21:23)
[2021-12-21] VITALS (12 sets, daily range): BP systolic 118–189; BP diastolic 48–76
[2021-12-21] MEDS: VANCOMYCIN 1,750 MG/NS 500 ML IVPB IV SCH ×4 (02:33→15:21)
[2021-12-21] MEDS: MEROPENEM 500 MG/NS 100 ML IVPB IV SCH ×4 (05:36→14:19)
[2021-12-21] MEDS: CLINDAMYCIN 600 MG/50 ML IVPB 50 ML IV SCH ×3 (05:36→22:18)
[2021-12-21 05:49] LABS: BASOPHILS # (AUTO) 0.1 10^3/uL (0.0-0.1); BASOPHILS % (AUTO) 1 % (0-10); EOSINOPHILS # (AUTO) 0.6 10^3/uL (0.0-0.3); EOSINOPHILS % (AUTO) 7 % (0-10); HEMATOCRIT 35 % (35-52); LYMPHOCYTES # (AUTO) 2.3 10^3/uL (1.0-4.0); LYMPHOCYTES % (AUTO) 28 % (12-44); MEAN CORPUSCULAR HEMOGLOBIN 30 pg (25-34); MEAN CORPUSCULAR HGB CONC 32 g/dL (32-36); MEAN CORPUSCULAR VOLUME 95 fL (80-99); MEAN PLATELET VOLUME 10.4 fL (9.0-12.2); MONOCYTES % (AUTO) 13 % (0-12); NEUTROPHILS # (AUTO) 4.2 10^3/uL (1.8-7.8); NEUTROPHILS % (AUTO) 51 % (42-75); PLATELET COUNT 323 10^3/uL (130-400); WHITE BLOOD COUNT 8.2 10^3/uL (4.3-11.0)
[2021-12-21 06:01] LABS: ALBUMIN 3.4 GM/DL (3.2-4.5); POTASSIUM 4.3 MMOL/L (3.6-5.0)
[2021-12-21 06:02] LABS: CALCIUM 9.2 MG/DL (8.5-10.1)
[2021-12-21 06:03] LABS: TOTAL PROTEIN 6.7 GM/DL (6.4-8.2)
[2021-12-21 06:05] LABS: BILIRUBIN,TOTAL 0.5 MG/DL (0.1-1.0)
[2021-12-21] MEDS: inSUlin ASPART (NovoLOG) 1 UNIT/0.01 ML (CHARGE PER UNIT) SC SCH ×4 (06:06→20:53)
[2021-12-21 06:07] LABS: CREATININE SERUM 1.19 MG/DL (0.60-1.30)
[2021-12-21] MEDS: TORSEMIDE 20 MG (DEMADEX) TAB PO SCH ×2 (08:00→15:33)
[2021-12-21] MEDS: ISOSORBIDE MONONITRATE 60 MG (IMDUR) TAB PO SCH (08:00)
[2021-12-21] MEDS: ASPIRIN E.C. 81 MG (ECOTRIN) TAB PO SCH (08:00)
[2021-12-21] MEDS: RANOLAZINE ER 500 MG TAB (RANEXA) PO SCH ×2 (08:00→20:52)
[2021-12-21] MEDS: LOSARTAN 50 MG (COZAAR) TAB PO SCH (08:00)
[2021-12-21] MEDS: PANTOPRAZOLE 40 MG (PROTONIX) TAB PO SCH (08:00)
[2021-12-21] MEDS: ENOXAPARIN 40 MG/0.4 ML (LOVENOX) SYR SC SCH ×2 (09:00→20:52)
--- NOTE | 2021-12-21 09:41 | Physical Therapy Daily Note ---
PT Daily Note-Current Subjective Patient lying supine in bed upon PT arrival, agreeable to treatment however reports she is scheduled to go to surgery this afternoon. Rates headache pain at 5/10 currently Transfers SCALE: Activities may be completed with or without assistive devices. 6-Rjwknkshol-ewitewr completes the activity by him/herself with no assistance from a helper. 5-Set-up or Clean-up Assistance-helper sets up or cleans up; patient completes activity. [place] assists only prior to or following the activity. 4-Supervision or Touching Assistance-helper provides verbal cues and/or touching/steadying and/or contact guard assistance as patient completes activity. Assistance may be provided throughout the activity or intermittently. 3-Partial/Moderate Assistance-helper does LESS THAN HALF the effort. [place] lifts, holds or supports trunk or limbs, but provides less than half the effort. 2-Substantial/Maximal Assistance-helper does MORE THAN HALF the effort. [place] lifts or holds trunk or limbs and provides more than half the effort. 3-Ywsfrsggl-tojyqh does ALL the effort. Patient does none of the effort to complete the activity. Or, the assistance of 2 or more helpers is required for the patient to complete the activity. If activity was not attempted, code reason: 7-Patient Refused. 9-Not Applicable-not attempted and the patient did not perform the activity before the current illness, exacerbation or injury. 10-Not Attempted due to Environmental Limitations-(lack of equipment, weather restraints, etc.). 88-Not Attempted due to Medical Conditions or Safety Concerns. Weight Bearing Right Lower Extremity: Right Full Weight Bearing Left Lower Extremity: Left Full Weight Bearing Gait Training Does the Patient Walk?: No and Walking Goal NOT indicated Exercises Supine Ex: Ankle pumps, Quad Set, Glut sets, Heel Slides, Short Arc Quads, Straight leg raise, Hip abd/add Supine Reps: 20 Assessment Current Status: Poor Progress Patient lying supine in bed upon PT arrival, agreeable to treatment but notes she has not ambulated in 10 years. Reports she is scheduled for surgery on her right Great toe this afternoon. LE therapeutic bed exercises performed as listed above. Patient in bed post treatment with all needs met, nursing notified, call light in hand. PT Intermediate Goals Intermediate Goals PT Camera Systems Engineer Goals Time Frame: Dec 29, 2021 Roll Left & Right (QC): 5 Sit to Lying (QC): 5 Lying-Sitting on Side/Bed(QC): 5 Sit to Stand (QC): 3 Chair/Nbe-ze-Fumen Xfer(QC): 3 Toilet Transfer (QC): 3 Walk 10 feet (QC): 3 PT Plan Treatment/Plan Treatment Plan: Continue Plan of Care Treatment Plan: Bed Mobility, Education, Functional Activity Ryan, Functional Strength, Gait, Safety, Therapeutic Exercise, Transfers Treatment Duration: Dec 29, 2021 Frequency: 6 times per week Estimated Hrs Per Day: .25 hour per day Patient and/or Family Agrees t: Yes Time/GCodes Time In: 913 Time Out: 929 Total Billed Treatment Time: 16 Total Billed Treatment Visit, Ex GLEN BRUSH PT Dec 21, 2021 09:41
--- NOTE | 2021-12-21 09:57 | Occupational Ther Daily Note ---
OT Current Status-Daily Note Subjective Pt alert, lying in bed. Pt to have surgery today. Pt agrees to therapy, no OOB tasks. No c/o pain. Mental Status/Objective Patient Orientation: Person, Place, Time, Situation Attachments: IV ADL-Treatment Therapy Code Descriptions/Definitions Functional [place] Measure: 0=Not Assessed/NA 4=Minimal Assistance 1=Total Assistance 5=Supervision or Setup 2=Maximal Assistance 6=Modified [place] 3=Moderate Assistance 7=Complete IndependenceSCALE: Activities may be completed with or without assistive devices. 0-Jbjrokenmv-oanhbxs completes the activity by him/herself with no assistance from a helper. 5-Set-up or Clean-up Assistance-helper sets up or cleans up; patient completes activity. [place] assists only prior to or following the activity. 4-Supervision or Touching Assistance-helper provides verbal cues and/or touching/steadying and/or contact guard assistance as patient completes act ivity. Assistance may be provided throughout the activity or intermittently. 3-Partial/Moderate Assistance-helper does LESS THAN HALF the effort. [place] lifts, holds or supports trunk or limbs, but provides less than half the effort. 2-Substantial/Maximal Assistance-helper does MORE THAN HALF the effort. [place] lifts or holds trunk or limbs and provides more than half the effort. 8-Uodshhwgo-bcrfqi does ALL the effort. Patient does none of the effort to complete the activity. Or, the assistance of 2 or more helpers is required for the patient to complete the activity. If activity was not attempted, code reason: 7-Patient Refused. 9-Not Applicable-not attempted and the patient did not perform the activity before the current illness, exacerbation or injury. 10-Not Attempted due to Environmental Limitations-(lack of equipment, weather restraints, etc.). 88-Not Attempted due to Medical Conditions or Safety Concerns. Other Treatment Pt declines any ADLs. Pt completed 3 exercises with medium resistance theraband 2 sets 10 reps with verbal instructions with gestural/physical cues. Skilled instructions given for correct technique. Shldr abd/add, finger extension, horizontal rows. After session, pt sitting up in bed with call light/phone in reach. All needs met in room. OT Longterm Goals Track Repair Person Goals Time Frame: Dec 28, 2021 Eating (QC): 6 Oral Hygiene (QC): 6 Toileting Hygiene (QC): 4 Shower/Bathe Self (QC): 5 (sponge bath) Upper Body Dressing (QC): 5 Lower Body Dressing (QC): 4 On/Off Footwear (QC): 4 Additional Goals: 1-Demonstrate ADL Tasks, 2-Verbalize Understanding, 3- ImproveStrength/Ryan 1=Demonstrate adherence to instructed precautions during ADL tasks. 2=Patient will verbalize/demonstrate understanding of assistive devices/modifications for ADL. 3=Patient will improve strength/tolerance for activity to enable patient to perform ADL's. OT Education/Plan Problem List/Assessment Assessment: Decreased UE Strength Pt would benefit from short term skilled OT services in order to increase safety and independence with ADLs and functional transfers, and for education on AE for LE dressing in order to maximize pt's LOF for safe return home. Discharge Recommendations Plan/Recommendations: Continue POC Treatment Plan/Plan of Care Patient would benefit from OT for education, treatment and training to promote independence in ADL's, mobility, safety and/or upper extremity function for ADL's. Plan of Care: ADL Retraining, Functional Mobility, UE Funct Exercise/Act Treatment Duration: Dec 28, 2021 Frequency: 3 times per week (3-5 times per week) Estimated Hrs Per Day: .25 hour per day Agreement: Yes Rehab Potential: Guarded Time/GCodes Start Time: 09:35 Stop Time: 09:51 Total Time Billed (hr/min): 16 Billed Treatment Time 1 visit-EX 1 (16 min) KATHARINA GALLEGO Dec 21, 2021 09:57
--- NOTE | 2021-12-21 10:35 | Occupational Ther Daily Note ---
OT Current Status-Daily Note Subjective Pt alert, sitting in recliner. Pt agrees to therapy. No c/o pain. VCV accepted pt. Mental Status/Objective Patient Orientation: Person, Place, Time, Situation Attachments: IV ADL-Treatment Pt agrees to sponge bath. After set up, pt completed sponge bath by self. Pt then ambulated using FWW to<-->from bathroom with 1 LOB. Assist with stand to sit on toilet transfer due to unable to control decent. Pt able to manipulate clothing and cleanse self. After set up, pt complete lower body and upper body dressing by self. Assist to complete footwear. Pt required cues to scoot back until chair is felt on back of legs due to pt sitting before squaring up to chair and still a distance from chair then unable to control decent. After ther apy, pt sitting in recliner with call light/phone in reach. All needs met in room. Therapy Code Descriptions/Definitions Functional [place] Measure: 0=Not Assessed/NA 4=Minimal Assistance 1=Total Assistance 5=Supervision or Setup 2=Maximal Assistance 6=Modified [place] 3=Moderate Assistance 7=Complete IndependenceSCALE: Activities may be completed with or without assistive devices. 0-Qecbpoglox-rjyghzq completes the activity by him/herself with no assistance from a helper. 5-Set-up or Clean-up Assistance-helper sets up or cleans up; patient completes activity. [place] assists only prior to or following the activity. 4-Supervision or Touching Assistance-helper provides verbal cues and/or touching/steadying and/or contact guard assistance as patient completes activity. Assistance may be provided throughout the activity or intermittently. 3-Partial/Moderate Assistance-helper does LESS THAN HALF the effort. [place] lifts, holds or supports trunk or limbs, but provides less than half the effort. 2-Substantial/Maximal Assistance-helper does MORE THAN HALF the effort. [place] lifts or holds trunk or limbs and provides more than half the effort. 4-Kjtcaxmig-wbtxxf does ALL the effort. Patient does none of the effort to complete the activity. Or, the assistance of 2 or more helpers is required for the patient to complete the activity. If activity was not attempted, code reason: 7-Patient Refused. 9-Not Applicable-not attempted and the patient did not perform the activity before the current illness, exacerbation or injury. 10-Not Attempted due to Environmental Limitations-(lack of equipment, weather restraints, etc.). 88-Not Attempted due to Medical Conditions or Safety Concerns. Shower/Bathe Self (QC): 5 Upper Body Dressing (QC): 5 Lower Body Dressing (QC): 5 On/Off Footwear: 2 Toileting Hygiene (QC): 6 Toilet Transfer (QC): 3 (mod A) OT Hvac Commercial Salesperson Goals Alf Goals Time Frame: Dec 28, 2021 Eating (QC): 6 Oral Hygiene (QC): 6 Toileting Hygiene (QC): 4 Shower/Bathe Self (QC): 5 (sponge bath) Upper Body Dressing (QC): 5 Lower Body Dressing (QC): 4 On/Off Footwear (QC): 4 Additional Goals: 1-Demonstrate ADL Tasks, 2-Verbalize Understanding, 3- ImproveStrength/Ryan 1=Demonstrate adherence to instructed precautions during ADL tasks. 2=Patient will verbalize/demonstrate understanding of assistive devices/m odifications for ADL. 3=Patient will improve strength/tolerance for activity to enable patient to perform ADL's. OT Education/Plan Problem List/Assessment Assessment: Decreased Activ Tolerance, Decreased Safety Aware, Impaired Self- Care Skills Pt would benefit from short term skilled OT services in order to increase safety and independence with ADLs and functional transfers, and for education on AE for LE dressing in order to maximize pt's LOF for safe return home. Discharge Recommendations Plan/Recommendations: Continue POC Treatment Plan/Plan of Care Patient would benefit from OT for education, treatment and training to promote independence in ADL's, mobility, safety and/or upper extremity function for ADL's. Plan of Care: ADL Retraining, Functional Mobility, UE Funct Exercise/Act Treatment Duration: Dec 28, 2021 Frequency: 3 times per week (3-5 times per week) Estimated Hrs Per Day: .25 hour per day Agreement: Yes Rehab Potential: Guarded Time/GCodes Start Time: 10:00 Stop Time: 10:30 Total Time Billed (hr/min): 30 Billed Treatment Time 1 visit-ADL 2 (30 min) KATHARINA GALLEGO Dec 21, 2021 10:35
[2021-12-21] MEDS: DOCUSATE SODIUM 100 MG (COLACE) CAP PO SCH ×2 (11:30→20:52)
[2021-12-21] MEDS ORDERED: LIDOCAINE 1% INJ 50 ML (XYLOCAINE) VIAL ONE (12:08)
[2021-12-21] MEDS ORDERED: BUPIVACAINE 0.5% 30 ML (SENSORCAINE) VIAL ONE (12:08)
--- NOTE | 2021-12-21 12:29 | Progress Note-Pre Operative ---
Pre-Operative Progress Note H&P Reviewed The H&P was reviewed, patient examined and no changes noted. Date Seen by Provider: Dec 21, 2021 Time Seen by Provider: 12:28 Date H&P Reviewed: Dec 21, 2021 Time H&P Reviewed: 12:28 Pre-Operative Diagnosis: Osteomyelitis, right hallux GERARD RAUSCH DPM Dec 21, 2021 12:29
[2021-12-21] MEDS ORDERED: LACTATED RINGERS 1,000 ML IV PRN (12:30)
--- NOTE | 2021-12-21 12:31 | Podiatry Progress Note ---
Standard Progress Note Progress Notes/Assess & Plan Date Seen by a Provider: Dec 21, 2021 Time Seen by a Provider: 12:29 Progress/Assessment & Plan The patient has been medically cleared for surgery to the right 1st toe. The patient will have a partial amputation of the right hallux. Final Diagnosis Osteomyelitis Right Hallux (per MRI) GERARD RAUSCH DPM Dec 21, 2021 12:31
[2021-12-21] MEDS ORDERED: KETAMINE 50 MG/5 ML SYRINGE ONE (12:36)
[2021-12-21] MEDS ORDERED: PROPOFOL INJECTION 50 ML IV ONE (12:40)
--- NOTE | 2021-12-21 13:32 | Progress Note-Post Operative ---
Post-Operative Progess Note Surgeon (s)/Senior Teradata Developer (s) Surgeon GERARD RAUSCH DPM Senior Teradata Developer: None Pre-Operative Diagnosis Osteomyelitis, right hallux Post-Operative Diagnosis Same Procedure & Operative Findings Date of Procedure 12/21/21 Procedure Performed/Findings Partial Amputation of the Right Hallux Anesthesia Type MAC Estimated Blood Loss Estimated blood loss (mL): Minimal Specimens/Packing Specimens Removed Distal Phalanx, right hallux Packing: None GERARD RAUSCH DPM Dec 21, 2021 13:32
--- NOTE | 2021-12-21 13:41 | Anesthesia-General Post-Op ---
MAC Patient Condition Mental Status/LOC: Same as Preop Cardiovascular: Satisfactory Nausea/Vomiting: Absent Respiratory: Satisfactory Pain: Controlled Complications: Absent Post Op Complications Complications None Follow Up Care/Instructions Patient Instructions None needed. Anesthesiology Discharge Order Discharge Order Patient is doing well, no complaints, stable vital signs, no apparent adverse anesthesia problems. No complications reported per nursing. RICHY ROSAS CRNA Dec 21, 2021 13:40
[2021-12-21] MEDS ORDERED: fentaNYL INJ 100 MCG/2 ML AMP IVP ONE (13:45)
[2021-12-21] MEDS ORDERED: ONDANSETRON 4 MG/2 ML (SDV) Z0FRAN IVP PRN (13:45)
[2021-12-21] MEDS ORDERED: morphine INJ 10 MG/ML 1ML (SYR OR VIAL) IVP ONE (13:45)
[2021-12-21] MEDS: LACTATED RINGERS 1,000 ML IV SCH ×2 (13:51→17:28)
--- NOTE | 2021-12-21 15:07 | Diagnostic Imaging Report ---
INDICATION: Postop right foot. TIME OF EXAM: 1:47 PM 3 views right foot were obtained. FINDINGS: There has been partial amputation of the distal phalanx of the great toe. Remaining phalanges are intact. Metatarsals appear to be intact. Midfoot and hindfoot are unremarkable apart from large plantar calcaneal spur. No fractures or bony destructive changes are seen. IMPRESSION: Amputation of the majority of the distal phalanx great toe. No other significant abnormality is seen. Dictated by: Dictated on workstation # [id number]
[2021-12-21] MEDS ORDERED: TORSEMIDE 20 MG (DEMADEX) TAB ONE (15:27)
[2021-12-21] MEDS: polyethylene glycoL POWDER 17 GM (MIRALAX) PACK PO PRN (15:31)
[2021-12-21] MEDS: PHENAZOPYRIDINE 100 MG (PYRIDIUM) TABLET PO PRN (17:28)
--- NOTE | 2021-12-21 18:32 | OPERATIVE REPORT ---
DATE OF SERVICE: 12/21/2021 SURGEON: Winsome Rausch DPM. PREOPERATIVE DIAGNOSIS: Osteomyelitis, right hallux. POSTOPERATIVE DIAGNOSIS: Osteomyelitis, right hallux. PROCEDURE PERFORMED: Partial amputation, right hallux. WOUND CLASS: Contaminated. ANESTHESIA: Monitored anesthesia care. HEMOSTASIS: Pneumatic ankle tourniquet at 250 mmHg. INDICATIONS FOR PROCEDURE: This 71-year-old female was admitted to the hospital secondary to balance issues. She was well known to my office for a chronic right great toe ulceration. An MRI was performed on the right lower extremity, which indicated osteomyelitis of the distal tuft of the right hallux. The risks and benefits of an amputation versus bone biopsy and long-term IV antibiotics were discussed at length with the patient and family. The patient has opted to have a partial amputation of the right hallux performed after risks and benefits were discussed at length. No guarantees were extended to the patient and she is willing to proceed. DESCRIPTION OF PROCEDURE: The patient was brought back to the operating table, placed in a secure supine position. Appropriate timeout was performed. A pneumatic ankle tourniquet was placed on the right lower extremity over several layers of padding. The right foot was then anesthetized with a Ordaz block utilizing 14 mL of 1:1 mixture of 1% Xylocaine and 0.5% Marcaine. The right foot was then prepped and draped in a normal sterile manner. The right foot was then elevated and allowed to exsanguinate after which the tourniquet was inflated to 250 mmHg. Attention was then directed to the distal aspect of the right hallux, where a full-thickness ulceration was identified. There was no active exudate. There was no proximal streaking and no gross signs of bacterial infection at this time. Two semi-elliptical incisions were created beginning at the mid portion of the distal phalanx. The first incision extended distally to the hyponychium area just below the ulceration site and it extended proximally on the lateral aspect of the toe. A second incision was from the same beginning spot to the dorsal aspect of the distal phalanx area meeting up with the lateral portion of the incision. The incisions were extended down to bone, after which utilizing a power sagittal saw, an osteotomy was performed to mid distal phalanx from medial to lateral. The distal aspect of the toe was then removed and sent for gross and microscopic evaluation after a small bone sample was taken for culture and sensitivities of the distal tuft. The remainder of the toe was without any major pathology identified. There was good bleeding to the bone as well as the subcutaneous tissue. There was no purulence and no dale osteolysis identified. The integrity of the bone in this area appeared to be within normal limits. Pulse irrigation was performed with normal saline 1000 mL. After this was performed, a swab culture was taken from the remainder of the right hallux. The plantar skin flap was then approximated to the dorsal aspect of the amputation site without any skin tension. It was sutured in this position with a simple interrupted type stitch with 4-0 Prolene. Excellent skin coaptation was appreciated at this time. It should be noted that only necessary blood vessels were cauterized as encountered. Postoperative dressing consisted of Betadine soaked Adaptic, sterile 4 x 4, sterile Kerlix all secured with a Coban wrap. The patient tolerated the anesthesia and procedure well, was transported from the operating room to the recovery area with vital signs stable and vascular status intact to the remaining digits of the right foot. The patient is to be partial weightbearing on the right with heel contact only and with a surgical splint shoe to reduce risk of dehiscence of the amputation site. The patient will continue with IV antibiotics at this juncture. We anticipate that the bone culture and swab culture may alter her antibiotic therapy. She is to follow up in my office in approximately 10 days' period of time for potential suture removal. We anticipate the patient being transferred to a skilled nursing facility sometime in the near future for further rehabilitation and care. Job ID: [id number] DocumentID: [id number] Dictated Date: 12/21/2021 13:45:44 Social Welfare Research Worker Date: 12/21/2021 18:31:38 Dictated By: WINSOME RAUSCH DPM
[2021-12-21] MEDS ORDERED: MEROPENEM 500 MG/NS 100 ML IVPB IV SCH ×2 (20:00)
[2021-12-21] MEDS: SERTRALINE 100 MG (ZOLOFT) TAB PO SCH (20:52)
[2021-12-21] MEDS: traZODone 150 MG (DESYREL) TABLET PO SCH (20:52)
[2021-12-22] VITALS (7 sets, daily range): BP systolic 135–193; BP diastolic 61–88
[2021-12-22] MEDS ORDERED: TROUGH ORDER-PHARMACY XX NR (01:00)
[2021-12-22 01:23] LABS: BASOPHILS # (AUTO) 0.1 10^3/uL (0.0-0.1); BASOPHILS % (AUTO) 1 % (0-10); EOSINOPHILS # (AUTO) 0.7 10^3/uL (0.0-0.3); EOSINOPHILS % (AUTO) 7 % (0-10); HEMATOCRIT 35 % (35-52); LYMPHOCYTES # (AUTO) 2.3 10^3/uL (1.0-4.0); LYMPHOCYTES % (AUTO) 26 % (12-44); MEAN CORPUSCULAR HEMOGLOBIN 30 pg (25-34); MEAN CORPUSCULAR HGB CONC 32 g/dL (32-36); MEAN CORPUSCULAR VOLUME 95 fL (80-99); MEAN PLATELET VOLUME 10.8 fL (9.0-12.2); MONOCYTES # (AUTO) 1.1 10^3/uL (0.0-1.0); MONOCYTES % (AUTO) 12 % (0-12); NEUTROPHILS # (AUTO) 4.8 10^3/uL (1.8-7.8); NEUTROPHILS % (AUTO) 53 % (42-75); PLATELET COUNT 286 10^3/uL (130-400); WHITE BLOOD COUNT 8.9 10^3/uL (4.3-11.0)
[2021-12-22 01:32] LABS: ALBUMIN 3.3 GM/DL (3.2-4.5); POTASSIUM 4.1 MMOL/L (3.6-5.0)
[2021-12-22 01:34] LABS: TOTAL PROTEIN 6.5 GM/DL (6.4-8.2)
[2021-12-22 01:36] LABS: BILIRUBIN,TOTAL 0.5 MG/DL (0.1-1.0)
[2021-12-22 01:38] LABS: CREATININE SERUM 1.02 MG/DL (0.60-1.30)
[2021-12-22 01:48] LABS: VANCOMYCIN,TROUGH 35.7 UG/ML (10.0-20.0)
[2021-12-22] MEDS: VANCOMYCIN 1,750 MG/NS 500 ML IVPB IV SCH ×4 (01:51→15:00)
[2021-12-22] MEDS: LACTATED RINGERS 1,000 ML IV SCH ×2 (03:35→10:04)
[2021-12-22] MEDS: PHENAZOPYRIDINE 100 MG (PYRIDIUM) TABLET PO PRN (04:58)
[2021-12-22] MEDS: inSUlin ASPART (NovoLOG) 1 UNIT/0.01 ML (CHARGE PER UNIT) SC SCH ×4 (05:48→21:28)
[2021-12-22] MEDS: CLINDAMYCIN 600 MG/50 ML IVPB 50 ML IV SCH ×3 (05:48→21:28)
--- NOTE | 2021-12-22 06:20 | Progress Note - Hospitalist ---
Subjective HPI/CC On Admission Date Seen by Provider: Dec 22, 2021 Time Seen by Provider: 11:30 Subjective/Events-last exam Patient doing a lot better We will Hep-Lock IV fluid Dr. Lopez assessed left great toe amputation today looks good IV antibiotics maintained Supportive care will continue Review of Systems General: Fatigue, Malaise Musculoskeletal: foot pain Objective Exam Vital Signs Vital Signs Date Time Temp Pulse Resp B/P (MAP) Pulse Ox O2 Delivery O2 Flow Rate FiO2 12/23/21 04:23 36.4 64 20 167/67 (100) 95 Nasal Cannula 2.00 12/20/21 03:20 28 Capillary Refill : Less Than 3 Seconds General Appearance: No Apparent Distress, WD/WN, Chronically ill Respiratory: Lungs Clear, Normal Breath Sounds Cardiovascular: Regular Rate, Rhythm Neurologic/Psychiatric: Alert, Oriented x3 Results/Procedures Lab Laboratory Tests 12/23/21 05:20 Patient resulted labs reviewed. Assessment/Plan Assessment and Plan Assess & Plan/Chief Complaint Assessment: UTI Status post right great toe amputation by Dr. Lopez Severe weakness Diabetes Hypertension BMI 49 Plan: IV antibiotics Supportive intermediate medMISSAEL Garcia DO Dec 22, 2021 06:20
[2021-12-22] MEDS: polyethylene glycoL POWDER 17 GM (MIRALAX) PACK PO PRN (08:20)
[2021-12-22] MEDS: ISOSORBIDE MONONITRATE 60 MG (IMDUR) TAB PO SCH (08:20)
[2021-12-22] MEDS: DOCUSATE SODIUM 100 MG (COLACE) CAP PO SCH ×2 (08:20→21:27)
[2021-12-22] MEDS: ENOXAPARIN 40 MG/0.4 ML (LOVENOX) SYR SC SCH ×2 (08:21→21:28)
[2021-12-22] MEDS: LOSARTAN 50 MG (COZAAR) TAB PO SCH (08:21)
[2021-12-22] MEDS: RANOLAZINE ER 500 MG TAB (RANEXA) PO SCH ×2 (08:21→21:27)
[2021-12-22] MEDS: TORSEMIDE 20 MG (DEMADEX) TAB PO SCH (08:21)
[2021-12-22] MEDS: PANTOPRAZOLE 40 MG (PROTONIX) TAB PO SCH (08:21)
[2021-12-22] MEDS: ASPIRIN E.C. 81 MG (ECOTRIN) TAB PO SCH (08:21)
--- NOTE | 2021-12-22 11:47 | Physical Therapy Daily Note ---
PT Daily Note-Current Subjective Pt. in bed, states she would like to use commode instead of purewick. Nurse states patient is currently TTWB on R following yesterday's procedure. Mental Status Patient Orientation: Person, Place, Time, Situation Attachments: Oxygen, IV Transfers SCALE: Activities may be completed with or without assistive devices. 2-Sugppavthz-ifgsefd completes the activity by him/herself with no assistance from a helper. 5-Set-up or Clean-up Assistance-helper sets up or cleans up; patient completes activity. [place] assists only prior to or following the activity. 4-Supervision or Touching Assistance-helper provides verbal cues and/or touching/steadying and/or contact guard assistance as patient completes activity. Assistance may be provided throughout the activity or intermittently. 3-Partial/Moderate Assistance-helper does LESS THAN HALF the effort. Montgomery lifts, holds or supports trunk or limbs, but provides less than half the effort. 2-Substantial/Maximal Assistance-helper does MORE THAN HALF the effort. [place] lifts or holds trunk or limbs and provides more than half the effort. 7-Ntlhnxyzu-egugnl does ALL the effort. Patient does none of the effort to complete the activity. Or, the assistance of 2 or more helpers is required for the patient to complete the activity. If activity was not attempted, code reason: 7-Patient Refused. 9-Not Applicable-not attempted and the patient did not perform the activity before the current illness, exacerbation or injury. 10-Not Attempted due to Environmental Limitations-(lack of equipment, weather restraints, etc.). 88-Not Attempted due to Medical Conditions or Safety Concerns. Lying to Sitting/Side of Bed(Q: 4 Sit to Stand (QC): 4 Toilet Transfer (QC): 4 Weight Bearing Right Lower Extremity: Right Partial Weight Bearing Left Lower Extremity: Left Full Weight Bearing Gait Training Does the Patient Walk?: No and Walking Goal NOT indicated Exercises Seated Therapy Exercises: Ankle pumps, Long arc quads, Hip flexion, Hip abd/add, Glut set Seated Reps: 20 Treatments transfers, LE exercises Assessment Current Status: Good Progress Pt. did appear to maintain PWB on R during transfers bed to/from commode using FWW and min A. Pt. did well with seated LE exercises at EOB and stated she had been doing them. Pt. is encouraged to continue with transfers to/from commode. Pt. returned to bed post session with call light and all needs met. PT Director Of Research And Development Goals [facility] Goals PT Director Of Research And Development Goals Time Frame: Dec 29, 2021 Roll Left & Right (QC): 5 Sit to Lying (QC): 5 Lying-Sitting on Side/Bed(QC): 5 Sit to Stand (QC): 3 Chair/Dyb-fx-Wjwve Xfer(QC): 3 Toilet Transfer (QC): 3 Walk 10 feet (QC): 3 PT Plan Treatment/Plan Treatment Plan: Continue Plan of Care Treatment Plan: Bed Mobility, Education, Functional Activity Ryan, Functional Strength, Gait, Safety, Therapeutic Exercise, Transfers Treatment Duration: Dec 29, 2021 Frequency: 6 times per week Estimated Hrs Per Day: .25 hour per day Patient and/or Family Agrees t: Yes Time/GCodes Time In: 0949 Time Out: 1012 Total Billed Treatment Time: 23 Total Billed Treatment 1, FA 23' TERESA JONES PT Dec 22, 2021 11:47
--- NOTE | 2021-12-22 12:13 | Podiatry Progress Note ---
Standard Progress Note Progress Notes/Assess & Plan Date Seen by a Provider: Dec 22, 2021 Time Seen by a Provider: 12:08 Progress/Assessment & Plan Post op day #1: Partial Amputation of the right hallux. The patient denies F/C/N/V. She rates her foot pain as 5/10. Pain controlled with oral me dication. The dressing is intact right foot. Awaiting results of bone biopsy for antibiotic therapy. Okay to continue with partial weight bearing right foot with splint shoe and walker. She is to follow up in office on December 31. Okay to discharge to nursing facility for PT and Rehab. Final Diagnosis Osteomyelitis right foot with partial hallux amputation, right. GERARD RAUSCH DPM Dec 22, 2021 12:13
[2021-12-22] MEDS ORDERED: LACTULOSE SYRUP 10GM/15ML (ENULOSE) 30ML UDC PO ONE (12:30)
[2021-12-22] MEDS ORDERED: BISACODYL 10 MG SUPP (DULCOLAX) PR PRN (12:30)
[2021-12-22] MEDS: SENNA W/DOCUSATE (SENOKOT S) TABLET PO SCH ×2 (13:02→21:27)
[2021-12-22] MEDS: traZODone 150 MG (DESYREL) TABLET PO SCH (21:27)
[2021-12-22] MEDS: SERTRALINE 100 MG (ZOLOFT) TAB PO SCH (21:27)
[2021-12-23] VITALS (7 sets, daily range): BP systolic 108–179; BP diastolic 54–69
[2021-12-23] MEDS: inSUlin ASPART (NovoLOG) 1 UNIT/0.01 ML (CHARGE PER UNIT) SC SCH ×4 (05:24→20:42)
[2021-12-23 05:33] LABS: BASOPHILS # (AUTO) 0.1 10^3/uL (0.0-0.1); BASOPHILS % (AUTO) 1 % (0-10); EOSINOPHILS # (AUTO) 0.7 10^3/uL (0.0-0.3); EOSINOPHILS % (AUTO) 8 % (0-10); HEMATOCRIT 31 % (35-52); HEMOGLOBIN 9.9 g/dL (11.5-16.0); LYMPHOCYTES # (AUTO) 2.7 10^3/uL (1.0-4.0); LYMPHOCYTES % (AUTO) 32 % (12-44); MEAN CORPUSCULAR HEMOGLOBIN 30 pg (25-34); MEAN CORPUSCULAR HGB CONC 32 g/dL (32-36); MEAN CORPUSCULAR VOLUME 96 fL (80-99); MEAN PLATELET VOLUME 10.9 fL (9.0-12.2); MONOCYTES % (AUTO) 12 % (0-12); NEUTROPHILS # (AUTO) 3.8 10^3/uL (1.8-7.8); NEUTROPHILS % (AUTO) 46 % (42-75); PLATELET COUNT 248 10^3/uL (130-400); WHITE BLOOD COUNT 8.3 10^3/uL (4.3-11.0)
[2021-12-23] MEDS: CLINDAMYCIN 600 MG/50 ML IVPB 50 ML IV SCH ×3 (05:35→21:45)
[2021-12-23 05:49] LABS: POTASSIUM 4.3 MMOL/L (3.6-5.0)
[2021-12-23 05:50] LABS: CALCIUM 8.9 MG/DL (8.5-10.1)
[2021-12-23 05:54] LABS: BILIRUBIN,TOTAL 0.4 MG/DL (0.1-1.0)
[2021-12-23 05:55] LABS: CREATININE SERUM 1.08 MG/DL (0.60-1.30)
[2021-12-23] MEDS ORDERED: MECLIZINE 25 MG (ANTIVERT) TAB PO PRN (06:30)
[2021-12-23] MEDS ORDERED: BACLOFEN 10 MG (LIORESAL) TAB PO PRN (06:30)
--- NOTE | 2021-12-23 06:59 | Progress Note - Hospitalist ---
Subjective HPI/CC On Admission Date Seen by Provider: Dec 23, 2021 Time Seen by Provider: 12:00 Subjective/Events-last exam Patient doing well Going to [facility] tomorrow No pain is reported Was able to ambulate bathroom Bowels are moving well Review of Systems General: Fatigue, Malaise Objective Exam Vital Signs Vital Signs Date Time Temp Pulse Resp B/P (MAP) Pulse Ox O2 Delivery O2 Flow Rate FiO2 12/24/21 04:32 36.1 69 20 143/66 (91) 98 Nasal Cannula 2.00 12/20/21 03:20 28 Capillary Refill : Less Than 3 Seconds General Appearance: No Apparent Distress, WD/WN, Chronically ill, Obese Respiratory: Lungs Clear, Normal Breath Sounds Cardiovascular: Regular Rate, Rhythm Neurologic/Psychiatric: Alert, Oriented x3, No Motor/Sensory Deficits, Normal Mood/Affect Results/Procedures Lab Laboratory Tests 12/23/21 05:20 12/24/21 04:40 Patient resulted labs reviewed. Assessment/Plan Assessment and Plan Assess & Plan/Chief Complaint Assessment: UTI Status post right great toe amputation by Dr. Lopez Severe weakness Diabetes Hypertension BMI 49 Plan: IV antibiotics Supportive prison meds 12/23/2021: Supportive care Monitor closely MISSAEL RAMIREZ DO Dec 23, 2021 06:59
[2021-12-23] MEDS: RANOLAZINE ER 500 MG TAB (RANEXA) PO SCH ×2 (08:35→20:41)
[2021-12-23] MEDS: ENOXAPARIN 40 MG/0.4 ML (LOVENOX) SYR SC SCH ×2 (08:35→20:41)
[2021-12-23] MEDS: TORSEMIDE 20 MG (DEMADEX) TAB PO SCH (08:36)
[2021-12-23] MEDS: ASCORBIC ACID (VIT C) 500 MG TABLET PO SCH (08:36)
[2021-12-23] MEDS: SENNA W/DOCUSATE (SENOKOT S) TABLET PO SCH ×2 (08:36→20:41)
[2021-12-23] MEDS: LOSARTAN 50 MG (COZAAR) TAB PO SCH (08:36)
[2021-12-23] MEDS: metFORMIN XR 500 MG (GLUCOPHAGE XR) TAB PO SCH ×2 (08:36→17:15)
[2021-12-23] MEDS: ASPIRIN E.C. 81 MG (ECOTRIN) TAB PO SCH (08:36)
[2021-12-23] MEDS: PANTOPRAZOLE 40 MG (PROTONIX) TAB PO SCH (08:36)
[2021-12-23] MEDS: DOCUSATE SODIUM 100 MG (COLACE) CAP PO SCH ×2 (08:37→20:41)
[2021-12-23] MEDS: inSUlin (REGULAR) HUMAN 1 UNIT/0.01 ML (CHARGE PER UNIT) SC SCH ×3 (08:37→17:15)
[2021-12-23] MEDS: ISOSORBIDE MONONITRATE 60 MG (IMDUR) TAB PO SCH (08:37)
[2021-12-23] MEDS ORDERED: PANTOPRAZOLE 40 MG (PROTONIX) TAB PO SCH (09:00)
[2021-12-23] MEDS ORDERED: RANOLAZINE ER 500 MG TAB (RANEXA) PO SCH (09:00)
[2021-12-23] MEDS ORDERED: NON-FORMULARY MEDICATION 1 EA EA (Cranberry Fruit (Cranberry) 400 MG) PO SCH (09:00)
[2021-12-23] MEDS ORDERED: inSUlin NPH (NovoLIN N) 1 UNIT/0.01 ML (CHARGE PER UNIT) SQ SCH (09:00)
[2021-12-23] MEDS: NYSTATIN OINTMENT 30 GM TUBE TP SCH (13:21)
[2021-12-23] MEDS: VANCOMYCIN 1,750 MG/NS 500 ML IVPB IV SCH ×2 (15:03)
[2021-12-23] MEDS: SERTRALINE 100 MG (ZOLOFT) TAB PO SCH (20:41)
[2021-12-23] MEDS ORDERED: NORTRIPTYLINE 25 MG (PAMELOR) CAP PO SCH (21:00)
[2021-12-23] MEDS ORDERED: traZODone 150 MG (DESYREL) TABLET PO SCH (21:00)
[2021-12-24 00:50] VITALS: BP 168/70
[2021-12-24 04:32] VITALS: BP 143/66
[2021-12-24 04:57] LABS: BASOPHILS # (AUTO) 0.1 10^3/uL (0.0-0.1); BASOPHILS % (AUTO) 1 % (0-10); EOSINOPHILS # (AUTO) 0.7 10^3/uL (0.0-0.3); EOSINOPHILS % (AUTO) 8 % (0-10); HEMATOCRIT 33 % (35-52); HEMOGLOBIN 10.4 g/dL (11.5-16.0); LYMPHOCYTES # (AUTO) 2.6 10^3/uL (1.0-4.0); LYMPHOCYTES % (AUTO) 28 % (12-44); MEAN CORPUSCULAR HEMOGLOBIN 31 pg (25-34); MEAN CORPUSCULAR HGB CONC 32 g/dL (32-36); MEAN CORPUSCULAR VOLUME 96 fL (80-99); MONOCYTES % (AUTO) 11 % (0-12); NEUTROPHILS # (AUTO) 4.8 10^3/uL (1.8-7.8); NEUTROPHILS % (AUTO) 51 % (42-75); PLATELET COUNT 266 10^3/uL (130-400); WHITE BLOOD COUNT 9.3 10^3/uL (4.3-11.0)
[2021-12-24 05:05] LABS: ALBUMIN 3.1 GM/DL (3.2-4.5)
[2021-12-24 05:06] LABS: CALCIUM 9.3 MG/DL (8.5-10.1)
[2021-12-24 05:08] LABS: TOTAL PROTEIN 6.3 GM/DL (6.4-8.2)
[2021-12-24 05:09] LABS: BILIRUBIN,TOTAL 0.4 MG/DL (0.1-1.0)
[2021-12-24 05:11] LABS: CREATININE SERUM 0.98 MG/DL (0.60-1.30)
[2021-12-24] MEDS ORDERED: DEXTROSE 50% 50 ML (IMS) SYR ONE (05:22)
[2021-12-24] MEDS: CLINDAMYCIN 600 MG/50 ML IVPB 50 ML IV SCH (05:24)
[2021-12-24] MEDS: inSUlin ASPART (NovoLOG) 1 UNIT/0.01 ML (CHARGE PER UNIT) SC SCH (05:24)
[2021-12-24] MEDS ORDERED: DEXTROSE 50% 50 ML (IMS) SYR IV ONE (05:30)
[2021-12-24] MEDS ORDERED: LOSA50TA63 PO (07:25)
[2021-12-24] MEDS ORDERED: RANO500T6 PO (07:25)
[2021-12-24] MEDS ORDERED: INSU100V3 SC (07:25)
[2021-12-24] MEDS ORDERED: CARV12.53 PO (07:25)
[2021-12-24] MEDS ORDERED: MECL-149 PO (07:25)
[2021-12-24] MEDS ORDERED: NORT50CA PO (07:25)
[2021-12-24] MEDS ORDERED: SENN1TAB76 PO (07:25)
[2021-12-24] MEDS ORDERED: METF-865 PO (07:25)
[2021-12-24] MEDS ORDERED: ACET325T38 PO (07:25)
[2021-12-24] MEDS ORDERED: ASCO500C17 PO (07:25)
[2021-12-24] MEDS ORDERED: PANT40TA52 PO (07:25)
[2021-12-24] MEDS ORDERED: ALPR0.5T PO (07:25)
[2021-12-24] MEDS ORDERED: INSU100V5 SQ (07:25)
[2021-12-24] MEDS ORDERED: ISOS60TA63 PO (07:25)
[2021-12-24] MEDS ORDERED: ASPI-1238 PO (07:25)
[2021-12-24] MEDS ORDERED: CLIN150C20 PO (07:25)
[2021-12-24] MEDS ORDERED: BACL10TA PO (07:25)
[2021-12-24] MEDS ORDERED: CRAN400T3 PO (07:25)
[2021-12-24] MEDS ORDERED: NITR100C PO (07:25)
[2021-12-24] MEDS ORDERED: NYST15OI13 TP (07:25)
[2021-12-24] MEDS ORDERED: ENOX40DI8 SC (07:25)
[2021-12-24] MEDS ORDERED: OXC5T PO (07:25)
[2021-12-24] MEDS ORDERED: TORS20TA3 PO (07:25)
[2021-12-24] MEDS ORDERED: ONDA4TAB11 PO (07:25)
[2021-12-24] MEDS ORDERED: SERT-414 PO (07:25)
[2021-12-24] MEDS ORDERED: ATOR40TA70 PO (07:25)
[2021-12-24] MEDS ORDERED: TRAZ150T72 PO (07:25)
[2021-12-24] MEDS ORDERED: MTC5V480 PO (07:25)
--- NOTE | 2021-12-24 07:27 | Discharge Summary ---
Discharge Summary Hospital Course Was the Problem List Reviewed?: Yes Problems/Dx: (1) Cystitis without hematuria Status: Acute (2) Acute kidney injury superimposed on chronic kidney disease Status: Resolved (3) Diabetes mellitus, insulin dependent (IDDM), uncontrolled Status: Acute (4) HTN (hypertension) Status: Chronic Qualifiers: Qualified Codes: I10 - Essential (primary) hypertension (5) Discharge planning issues Status: Acute (6) Osteomyelitis of great toe of right foot Status: Acute (7) Labile hypertension Status: Acute (8) Renal insufficiency Status: Acute (9) Generalized weakness Status: Acute (10) Type 2 diabetes mellitus Status: Acute Hospital Course Date of Admission: Dec 21, 2021 at 12:44 Admission Diagnosis : Family Physician/Provider: [facility] [place] Date of Discharge: 12/24/21 Discharge Diagnosis: UTI, hyperglycemia, right great toe osteomyelitis requiring amputation by Dr. Lopez [facility] Course: Pt had a lengthy hospital course after she was admitted for UTI and IV antibiotics initiated. She ultimately obtained a great toe amputation. Her diabetes was managed with insulin reintroduction. Ultimately she was stabilized. Her labs remained stable. She was discharged to [facility] on skilled care. Labs and Pending Lab Test: Laboratory Tests 12/23/21 15:56: Glucometer 170H 12/23/21 20:33: Glucometer 55*L 12/23/21 20:35: Glucometer 55*L 12/23/21 21:01: Glucometer 54*L 12/23/21 21:33: Glucometer 59*L 12/23/21 22:17: Glucometer 64L 12/24/21 04:34: Glucometer 49*L 12/24/21 04:40: White Blood Count 9.3, Red Blood Count 3.40L, Hemoglobin 10.4L, Hematocrit 33L, Mean Corpuscular Volume 96, Mean Corpuscular Hemoglobin 31, Mean Corpuscular Hemoglobin Concent 32, Red Cell Distribution Width 15.7H, Platelet Count 266, Mean Platelet Volume 11.0, Immature Granulocyte % (Auto) 1, Neutrophils (%) (Auto) 51, Lymphocytes (%) (Auto) 28, Monocytes (%) (Auto) 11, Eosinophils (%) (Auto) 8, Basophils (%) (Auto) 1, Neutrophils # (Auto) 4.8, Lymphocytes # (Auto) 2.6, Monocytes # (Auto) 1.0, Eosinophils # (Auto) 0.7H, Basophils # (Auto) 0.1, Immature Granulocyte # (Auto) 0.1, Sodium Level 137, Potassium Level 4.0, Chloride Level 99, Carbon Dioxide Level 26, Anion Gap 12, Blood Urea Nitrogen 19H, Creatinine 0.98, Estimat Glomerular Filtration Rate 61, BUN/Creatinine Ratio 19, Glucose Level 55*L, Calcium Level 9.3, Corrected Calcium 10.0, Total Bilirubin 0.4, Aspartate Amino Transf (AST/SGOT) 18, Alanine Aminotransferase (ALT/SGPT) 10, Alkaline Phosphatase 44, Total Protein 6.3L, Albumin 3.1L 12/24/21 05:14: Glucometer 53*L 12/24/21 06:03: Glucometer 141H Microbiology 12/21/21 Gram Stain - Final, Resulted 12/21/21 Anaerobic Culture, Resulted Pending 12/21/21 Surgical Culture - Preliminary, Resulted No growth 12/21/21 Fungal Culture 1, Resulted Pending 12/20/21 MRSA Screen - Final, Complete MRSA not isolated 12/16/21 Urine Culture - Final, Complete >=3 Gram Positive Isolates Home Meds Active Xanax (Alprazolam) 0.5 Mg Tablet 0.5 Mg PO Q4H PRN Clindamycin HCl 150 Mg Capsule 150 Mg PO TID Humulin R (Insulin Regular, Human) 1,000 Units/10 Ml Soln 7 Unit SC TIDWM Levemir (Insulin Determir) 1,000 Units/10 Ml Soln 10 Unit SQ BID Ondansetron Odt (Ondansetron) 4 Mg Tab.rapdis 4 Mg PO Q6H PRN Stool Softener-Laxative Tablet (Sennosides/Docusate Sodium) 1 Each Tablet 1 Ea PO BID Oxyir Tablet (Oxycodone HCl) 5 Mg Tab 5 Mg PO Q4H PRN Losartan Potassium 50 Mg Tablet 50 Mg PO DAILY Enoxaparin Sodium 40 Mg/0.4 Ml Syringe 40 Mg SC Q12H Baclofen 10 Mg Tablet 10 Mg PO TID PRN Isosorbide Mononitrate ER (Isosorbide Mononitrate) 60 Mg Tab 90 Mg PO DAILY Sertraline HCl 100 Mg Tablet 100 Mg PO HS Nortriptyline HCl 50 Mg Capsule 50 Mg PO HS Metformin HCl ER (Metformin HCl) 500 Mg Tab.er.24h 1,000 Mg PO W/DINNER TAKES 2 (500MG) TABLETS Atorvastatin Calcium 40 Mg Tablet 40 Mg PO HS Carvedilol 12.5 Mg Tablet 12.5 Mg PO BID Pantoprazole Sodium 40 Mg Tablet.dr 40 Mg PO DAILY Nitrofurantoin (Nitrofurantoin Macrocrystal) 100 Mg Capsule 100 Mg PO Q48H Trazodone HCl 150 Mg Tablet 300 Mg PO HS TAKES 2 (150MG) TABLETS Ranolazine ER (Ranolazine) 500 Mg Tab.er.12h 500 Mg PO BID Torsemide 20 Mg Tablet 40 Mg PO DAILY TAKES 2 (20MG) TABLETS Metoclopramide HCl 5 Mg/5 Ml Syrp 5 Ml PO TID PRN Cranberry (Cranberry Fruit) 400 Mg Tablet 400 Mg PO DAILY Aspirin EC (Aspirin) 81 Mg Tablet.dr 81 Mg PO DAILY Tylenol (Acetaminophen) 325 Mg Tablet 650 Mg PO Q6H PRN Nystatin 15 Gm Oint...g. 1 Applic TP DAILY Vitamin C (Ascorbic Acid) 500 Mg Capsule 500 Mg PO DAILY Meclizine HCl 25 Mg Tablet 25 Mg PO TID PRN Reported Losartan Potassium 25 Mg Tablet 25 Mg PO DAILY Novolin N (Insulin NPH Human Isophane) 100 Unit/1 Ml Vial 45 Units SQ BID Novolin R (Insulin Regular, Human) 100 Unit/1 Ml Vial 25 Units SQ TIDWM Silver Sulfadiazine 50 Gm Cream..g. 1 Applic TP DAILY Clindamycin Phosphate (Clindamycin Phos) 60 Ml Lotion 1 Applic TP TID Assessment/Pt Instructions PCP in 1 week Discharge Planning: <30 minutes discharge planning Discharge Instructions Discharge Diet: ADA Diet Activity as Tolerated: Yes Discharge Physical Examination Vital Signs Vital Signs Date Time Temp Pulse Resp B/P (MAP) Pulse Ox O2 Delivery O2 Flow Rate FiO2 12/24/21 04:32 36.1 69 20 143/66 (91) 98 Nasal Cannula 2.00 12/20/21 03:20 28 General Appearance: No Apparent Distress, WD/WN, Chronically ill, Obese Allergies: Coded Allergies: Cephalosporins (Verified Allergy, Unknown, 03/06/21) Sulfa (Sulfonamide Antibiotics) (Verified Allergy, Unknown, 03/06/21) fenofibrate (Verified Allergy, Unknown, 03/06/21) gabapentin (Verified Allergy, Unknown, 03/06/21) levofloxacin (Verified Allergy, Unknown, 03/06/21) naloxone (Verified Allergy, Unknown, 03/06/21) Uncoded Allergies: CONTRAST (Allergy, Unknown, 03/06/21) Discharge Summary Date of Admission Dec 21, 2021 at 12:44 Date of Discharge Discharge Date: Dec 24, 2021 Discharge Diagnosis Assessment: UTI Status post right great toe amputation by Dr. Lopez Severe weakness Diabetes Hypertension BMI 49 Plan: IV antibiotics Supportive [facility] meds 12/23/2021: Supportive care Monitor closely MISSAEL RAMIREZ DO Dec 24, 2021 07:27
--- NOTE | 2021-12-24 07:27 | Discharge Inst-Skilled Nursing ---
Discharge Inst-Skilled NF Reconcile Patient Problems Problems Reviewed?: Yes Patient Instructions Patient Problems: Great toe amputation UTI Goal: Return home Consult/Follow Up/Orders Follow Up Appt.: Dr Lopez in 1 week CHC 1 week Skilled NF Admit to: [facility] Certification ([facility]) I certify that [facility] services are required to be given on an inpatient basis because of the above named patient's need for residential care on a continuing basis for the conditions(s) for which he/she was receiving inpatient hospital services prior to his/her transfer to the [facility]. Halfway Facility Order: Nursing Services, Safety Deposit Clerk-Evaluate & Treat, Physical Therapy-Evaluate & Treat Oxygen Delivery Method: Nasal Cannula Discharge Diet: ADA Diet Daily Activity as Tolerated: Yes Resuscitation Status: Full Code New & Resume Previous Orders New Medications: Alprazolam (Xanax) 0.5 Mg Tablet 0.5 MG PO Q4H PRN for ANXIETY, #10 TAB Clindamycin HCl (Clindamycin HCl) 150 Mg Capsule 150 MG PO TID, #15 CAP Enoxaparin Sodium (Enoxaparin Sodium) 40 Mg/0.4 Ml Syringe 40 MG SC Q12H, #28 SYRINGE Insulin Determir (Levemir) 1,000 Units/10 Ml Soln 10 UNIT SQ BID, #1 EA Insulin Regular, Human (Humulin R) 1,000 Units/10 Ml Soln 7 UNIT SC TIDWM, #1 EA Losartan Potassium (Losartan Potassium) 50 Mg Tablet 50 MG PO DAILY, #30 TAB Ondansetron (Ondansetron Odt) 4 Mg Tab.rapdis 4 MG PO Q6H PRN for NAUSEA/VOMITING-1ST LINE, #20 TAB Oxycodone Hcl (Oxyir Tablet) 5 Mg Tab 5 MG PO Q4H PRN for PAIN-SEE DOSE INSTRUCTIONS, #20 TAB Sennosides/Docusate Sodium (Stool Softener-Laxative Tablet) 1 Each Tablet 1 EA PO BID, #30 TAB Changed Medications: Isosorbide Mononitrate (Isosorbide Mononitrate ER) 60 Mg Tab 90 MG PO DAILY, #60 TAB (Changed from: Removed Instructions) Continued Medications: Acetaminophen (Tylenol) 325 Mg Tablet 650 MG PO Q6H PRN for PAIN-MILD (1-4), #30 TAB (This prescription has been renewed) Ascorbic Acid (Vitamin C) 500 Mg Capsule 500 MG PO DAILY, #30 CAP (This prescription has been renewed) Aspirin (Aspirin EC) 81 Mg Tablet.dr 81 MG PO DAILY, #30 TAB (This prescription has been renewed) Atorvastatin Calcium (Atorvastatin Calcium) 40 Mg Tablet 40 MG PO HS, #30 TAB (This prescription has been renewed) Baclofen (Baclofen) 10 Mg Tablet 10 MG PO TID PRN for MUSCLE SPASMS, #30 TAB (This prescription has been renewed) Carvedilol (Carvedilol) 12.5 Mg Tablet 12.5 MG PO BID, #60 TAB (This prescription has been renewed) Cranberry Fruit (Cranberry) 400 Mg Tablet 400 MG PO DAILY, #30 TAB (This prescription has been renewed) Meclizine HCl (Meclizine HCl) 25 Mg Tablet 25 MG PO TID PRN for VERTIGO, #30 TAB (This prescription has been renewed) Metformin HCl (Metformin HCl ER) 500 Mg Tab.er.24h 1000 MG PO W/DINNER, #60 TAB (This prescription has been renewed) TAKES 2 (500MG) TABLETS Metoclopramide HCl (Metoclopramide HCl) 5 Mg/5 Ml Syrp 5 ML PO TID PRN for NAUSEA/VOMITING-3RD LINE, #120 ML (This prescription has been renewed) Nitrofurantoin Macrocrystal (Nitrofurantoin) 100 Mg Capsule 100 MG PO Q48H, #15 CAP (This prescription has been renewed) Nortriptyline HCl (Nortriptyline HCl) 50 Mg Capsule 50 MG PO HS, #30 CAP (This prescription has been renewed) Nystatin (Nystatin) 15 Gm Oint...g. 1 APPLIC TP DAILY, #1 EA (This prescription has been renewed) Pantoprazole Sodium (Pantoprazole Sodium) 40 Mg Tablet.dr 40 MG PO DAILY, #30 TAB (This prescription has been renewed) Ranolazine (Ranolazine ER) 500 Mg Tab.er.12h 500 MG PO BID, #60 TAB (This prescription has been renewed) Sertraline HCl (Sertraline HCl) 100 Mg Tablet 100 MG PO HS, #30 TAB (This prescription has been renewed) Torsemide (Torsemide) 20 Mg Tablet 40 MG PO DAILY, #60 TAB (This prescription has been renewed) TAKES 2 (20MG) TABLETS Trazodone HCl (Trazodone HCl) 150 Mg Tablet 300 MG PO HS, #60 TAB (This prescription has been renewed) TAKES 2 (150MG) TABLETS Discontinued Medications: Clindamycin Phos (Clindamycin Phosphate) 60 Ml Lotion 1 APPLIC TP TID, EA Insulin NPH Human Isophane (Novolin N) 100 Unit/1 Ml Vial 45 UNITS SQ BID, UNITS Insulin Regular, Human (Novolin R) 100 Unit/1 Ml Vial 25 UNITS SQ TIDWM, UNITS Losartan Potassium (Losartan Potassium) 25 Mg Tablet 25 MG PO DAILY, TAB Silver Sulfadiazine (Silver Sulfadiazine) 50 Gm Cream..g. 1 APPLIC TP DAILY, EA Luana Miguel Dec 24, 2021 07:26 LUANA MIGUEL DO Dec 24, 2021 07:27
[2021-12-24] MEDS ORDERED: inSUlin (REGULAR) HUMAN 1 UNIT/0.01 ML (CHARGE PER UNIT) SC SCH (08:00)
[2021-12-24] MEDS: ASPIRIN E.C. 81 MG (ECOTRIN) TAB PO SCH (08:37)
[2021-12-24] MEDS: ISOSORBIDE MONONITRATE 60 MG (IMDUR) TAB PO SCH (08:37)
[2021-12-24] MEDS: ENOXAPARIN 40 MG/0.4 ML (LOVENOX) SYR SC SCH (08:37)
[2021-12-24] MEDS: metFORMIN XR 500 MG (GLUCOPHAGE XR) TAB PO SCH (08:37)
[2021-12-24] MEDS: ASCORBIC ACID (VIT C) 500 MG TABLET PO SCH (08:37)
[2021-12-24] MEDS: PANTOPRAZOLE 40 MG (PROTONIX) TAB PO SCH (08:37)
[2021-12-24] MEDS: RANOLAZINE ER 500 MG TAB (RANEXA) PO SCH (08:38)
[2021-12-24] MEDS: TORSEMIDE 20 MG (DEMADEX) TAB PO SCH (08:38)
[2021-12-24] MEDS: LOSARTAN 50 MG (COZAAR) TAB PO SCH (08:39)
[2021-12-24] MEDS: NYSTATIN OINTMENT 30 GM TUBE TP SCH (08:39)
[2021-12-24 08:42] VITALS: BP 162/65
[2021-12-24] MEDS: DOCUSATE SODIUM 100 MG (COLACE) CAP PO SCH (08:42)
[2021-12-24] MEDS: SENNA W/DOCUSATE (SENOKOT S) TABLET PO SCH (08:42)
[2021-12-24 11:33] VITALS: BP 150/66
[2021-12-24 15:36] VITALS: BP 150/66
[2021-12-24] MEDS ORDERED: ENOXAPARIN 60 MG/0.6 ML (LOVENOX) SYR SC SCH (21:00)
== END 2021-12-24 14:30 | DRG 617 ==
LOC: EDUNIT# 13:34 → ER FS 13:35 → 4TH 18:42 → UNDOADMOB 18:55 → 4TH 18:55 → INTOOBSV 12-21 12:44 → OBSVTOIN 12-21 12:44 → UNDODISIN 12-24 14:30
PROVIDERS: ADMIT Internal Medicine; ATTEND Internal Medicine
PROC: 0Y6P0Z3 Detachment at Right 1st Toe, Low, Open Approach (ICD-10-PCS; principal; 2021-12-21 12:29)
DX: E10.69 Type 1 diabetes mellitus with other specified complication (principal); M86.8X7 Other osteomyelitis, ankle and foot; Z68.42 Body mass index [BMI] 45.0-49.9, adult; E10.65 Type 1 diabetes mellitus with hyperglycemia; N30.90 Cystitis, unspecified without hematuria; E10.40 Type 1 diabetes mellitus with diabetic neuropathy, unspecified; I12.9 Hypertensive chronic kidney disease with stage 1 through stage 4 chronic kidney disease, or unspecified chronic kidney disease; E10.22 Type 1 diabetes mellitus with diabetic chronic kidney disease; Z20.822 Contact with and (suspected) exposure to COVID-19; N18.9 Chronic kidney disease, unspecified; N17.9 Acute kidney failure, unspecified; I25.119 Atherosclerotic heart disease of native coronary artery with unspecified angina pectoris; E78.00 Pure hypercholesterolemia, unspecified; M06.9 Rheumatoid arthritis, unspecified; Z79.4 Long term (current) use of insulin; Z95.5 Presence of coronary angioplasty implant and graft; Z88.1 Allergy status to other antibiotic agents; Z88.2 Allergy status to sulfonamides; Z88.8 Allergy status to other drugs, medicaments and biological substances
CPT/HCPCS: 36415; 73620; 80053; 80202; 81000; 82947; 83735; 85025; 87070; 87075; 87077; 87081; 87088; 87101; 87186; 87205; 87636; 94760; G0378

== ENCOUNTER 2022-01-29 02:31 | Observation (INO) | payer MEDICARE ==
[~2022-01-29] VITALS: Ht 172.7 cm; Wt 120.9 kg
[~2022-01-29 02:31] MED LIST changes: +ACET325T38 PO; +ALPR0.5T PO; +ASCO500C17 PO; +ASPI-1238 PO; +ATOR40TA70 PO; +BACL10TA PO; +CARV12.53 PO; +CLIN150C20 PO; +CRAN400T3 PO; +ENOX40DI8 SC; +INSN1U SQ; +INSU100V3 SC; +INSU100V31 SQ; +INSU100V5 SQ; +ISOS60TA63 PO; +LOSA25TA41 PO; +LOSA50TA63 PO; +MECL-149 PO; +METF-865 PO; +MTC5V480 PO; +NF-CLIN1% TP; +NITR100C PO; +NORT50CA PO; +NYST15OI13 TP; +OXC5T PO; +PANT40TA52 PO; +RANO500T6 PO; +SENN1TAB76 PO; +SERT-414 PO; +SILV50CR28 TP; +TORS20TA3 PO; +TRAZ150T72 PO
--- NOTE | 2022-01-29 02:55 | ED General ---
General Stated Complaint: POSS STROKE Source of Information: Patient, EMS, Old Records History of Present Illness Date Seen by Provider: Jan 29, 2022 Time Seen by Provider: 02:31 Initial Comments 71-year-old female presenting with complaints of waking up this morning and shaking. She was not wearing her oxygen when she woke up and she does have severe obstructive sleep apnea. She had to urinate and by the time she got to the bathroom she had already gone sound in her brief. She was able to go more after she got to the bathroom. She states that she has had increased urine output and burning and pain with urination. She has a history of recurrent UTIs. She was started a new medicine from the urologist but did not pick it up yet. She does take nitrofurantoin for chronic UTIs. She feels like she has a headache. She denies chest pain, abdominal pain, nausea, vomiting, diarrhea. She has shortness of breath with confusion and states she is supposed to be on oxygen at home. She reports just recently being discharged from [facility] where she was admitted for sepsis. Associated Systoms: No Chest Pain, No Cough, No Diaphoresis, No Fever/Chills; Headaches; No Loss of Appetite, No Malaise, No Nausea/Vomiting, No Rash, No Seizure; Shortness of Air; No Syncope, No Weakness Allergies and Home Medications Allergies Coded Allergies: Cephalosporins (Verified Allergy, Unknown, 03/06/21) Iodinated Contrast Media (Verified Allergy, Unknown, HIVES, 01/28/22) Sulfa (Sulfonamide Antibiotics) (Verified Allergy, Unknown, 03/06/21) fenofibrate (Verified Allergy, Unknown, 03/06/21) gabapentin (Verified Allergy, Unknown, 03/06/21) levofloxacin (Verified Allergy, Unknown, 03/06/21) naloxone (Verified Allergy, Unknown, 03/06/21) Uncoded Allergies: CONTRAST (Allergy, Unknown, 03/06/21) Patient Home Medication List Home Medication List Reviewed: Yes Acetaminophen (Tylenol) 325 Mg Tablet, 650 MG PO Q6H PRN for PAIN-MILD (1-4) Prescribed by: MISSAEL RAMIREZ on 12/24/21 0725 Alprazolam (Xanax) 0.5 Mg Tablet, 0.5 MG PO Q4H PRN for ANXIETY Prescribed by: MISSAEL RAMIREZ on 12/24/21725 Ascorbic Acid (Vitamin C) 500 Mg Capsule, 500 MG PO DAILY Prescribed by: MISSAEL RAMIREZ on 12/24/21724 Aspirin (Aspirin EC) 81 Mg Tablet.dr, 81 MG PO DAILY Prescribed by: MISSAEL RAMIREZ on 12/24/21724 Atorvastatin Calcium (Atorvastatin Calcium) 40 Mg Tablet, 40 MG PO HS Prescribed by: MISSAEL RAMIREZ on 12/24/21724 Baclofen (Baclofen) 10 Mg Tablet, 10 MG PO TID PRN for MUSCLE SPASMS Prescribed by: MISSAEL RAMIREZ on 12/24/21724 Carvedilol (Carvedilol) 12.5 Mg Tablet, 12.5 MG PO BID Prescribed by: MISSAEL RAMIREZ on 12/24/21724 Clindamycin HCl (Clindamycin HCl) 150 Mg Capsule, 150 MG PO TID Prescribed by: MISSAEL RAMIREZ on 12/24/21724 Cranberry Fruit (Cranberry) 400 Mg Tablet, 400 MG PO DAILY Prescribed by: MISSAEL RAMIREZ on 12/24/21724 Enoxaparin Sodium (Enoxaparin Sodium) 40 Mg/0.4 Ml Syringe, 40 MG SC Q12H Prescribed by: MISSAEL RAMIREZ on 12/24/21724 Insulin Determir (Levemir) 1,000 Units/10 Ml Soln, 10 UNIT SQ BID Prescribed by: MISSAEL RAMIREZ on 12/24/21724 Insulin Regular, Human (Humulin R) 1,000 Units/10 Ml Soln, 7 UNIT SC TIDWM Prescribed by: MISSAEL RAMIREZ on 12/24/21724 Isosorbide Mononitrate (Isosorbide Mononitrate ER) 60 Mg Tab, 90 MG PO DAILY Prescribed by: MISSAEL RAMIREZ on 12/24/21724 Losartan Potassium (Losartan Potassium) 50 Mg Tablet, 50 MG PO DAILY Prescribed by: MISSAEL RAMIREZ on 12/24/21724 Meclizine HCl (Meclizine HCl) 25 Mg Tablet, 25 MG PO TID PRN for VERTIGO Prescribed by: MISSAEL RAMIREZ on 12/24/21724 Metformin HCl (Metformin HCl ER) 500 Mg Tab.er.24h, 1,000 MG PO W/DINNER Prescribed by: MISSAEL RAMIREZ on 12/24/21724 Metoclopramide HCl (Metoclopramide HCl) 5 Mg/5 Ml Syrp, 5 ML PO TID PRN for NAUSEA/VOMITING-3RD LINE Prescribed by: MISSAEL RAMIREZ on 12/24/21724 Nitrofurantoin Macrocrystal (Nitrofurantoin) 100 Mg Capsule, 100 MG PO Q48H Prescribed by: MISSAEL RAMIREZ on 12/24/21724 Nortriptyline HCl (Nortriptyline HCl) 50 Mg Capsule, 50 MG PO HS Prescribed by: MISSAEL RAMIREZ on 12/24/21724 Nystatin (Nystatin) 15 Gm Oint...g., 1 APPLIC TP DAILY Prescribed by: MISSAEL RAMIREZ on 12/24/21724 Ondansetron (Ondansetron Odt) 4 Mg Tab.rapdis, 4 MG PO Q6H PRN for NAUSEA/VOM ITING-1ST LINE Prescribed by: MISSAEL RAMIREZ on 12/24/21724 Oxycodone Hcl (Oxyir Tablet) 5 Mg Tab, 5 MG PO Q4H PRN for PAIN-SEE DOSE INSTRUCTIONS Prescribed by: MISSAEL RAMIREZ on 12/24/21725 Pantoprazole Sodium (Pantoprazole Sodium) 40 Mg Tablet.dr, 40 MG PO DAILY Prescribed by: MISSAEL RAMIREZ on 12/24/21724 Ranolazine (Ranolazine ER) 500 Mg Tab.er.12h, 500 MG PO BID Prescribed by: MISSAEL RAMIREZ on 12/24/21724 Sennosides/Docusate Sodium (Stool Softener-Laxative Tablet) 1 Each Tablet, 1 EA PO BID Prescribed by: MISSAEL RAMIREZ on 12/24/21724 Sertraline HCl (Sertraline HCl) 100 Mg Tablet, 100 MG PO HS Prescribed by: MISSAEL RAMIREZ on 12/24/21724 Torsemide (Torsemide) 20 Mg Tablet, 40 MG PO DAILY Prescribed by: MISSAEL RAMIREZ on 12/24/21724 Trazodone HCl (Trazodone HCl) 150 Mg Tablet, 300 MG PO HS Prescribed by: MISSAEL RAMIREZ on 12/24/21724 Review of Systems Review of Systems Constitutional: No fever; malaise, weakness (Generalized) EENTM: No blurred vision, No eye pain, No vision loss, No epistaxis, No nose congestion, No throat pain Respiratory: No cough; short of breath; No stridor, No wheezing Cardiovascular: No chest pain Gastrointestinal: No nausea, No vomiting Genitourinary: dysuria, frequency, incontinence Musculoskeletal: no symptoms reported Skin: No rash Psychiatric/Neurological: Other (generalized tremors) Hematologic/Lymphatic: Denies Blood Clots Past Svsavej-Parckk-Yrxmur Hx Immunizations Up To Date First/Initial COVID19 Vaccinat: January 2021 Second COVID19 Vaccination Chris: January 2021 Third COVID19 Vaccination Date: January 2021 Past Medical History Surgery/Hospitalization HX: Diabetes mellitus type 1 insulin-dependent, hypertension, coronary artery disease with stents, cholecystectomy, appendectomy, neuropathy Surgeries: Yes (SPLEEN) Appendectomy, Coronary Stent, Gallbladder, Orthopedic, Pancreatic, Tonsillectomy Respiratory: Yes (Uses oxygen supplementation continuously) Cardiac: Yes (heart stent, heart failure) Angina, Coronary Artery Disease, High Cholesterol, Hypertension Neurological: Yes Neuropathy, Stroke Genitourinary: Yes Renal Failure, UTI-Chronic Gastrointestinal: Yes Pancreatitis Musculoskeletal: Yes Rheumatoid Arthritis Endocrine: Yes Diabetes, Insulin dep Cancer: No Psychosocial: No Physical Exam Vital Signs Vital Signs - First Documented 01/29/22 01/29/22 02:39 02:40 Temp 36.3 Pulse 80 Resp 20 B/P (MAP) 202/65 (110) Pulse Ox 96 O2 Delivery Room Air O2 Flow Rate 2.00 FiO2 96 Capillary Refill : Height, Weight, BMI Height: '" Weight: lbs. oz. kg; 49.38 BMI Method: General Appearance: No Apparent Distress, Obese HEENT: PERRL/EOMI, Pharynx Normal Neck: Full Range of Motion, Normal Inspection, Non Tender, Supple Respiratory: Chest Non Tender, Lungs Clear, Normal Breath Sounds, No Accessory Muscle Use, No Respiratory Distress Cardiovascular: Regular Rate, Rhythm, Normal Peripheral Pulses Gastrointestinal: Normal Bowel Sounds, No Pulsatile Mass, Non Tender, Soft Rectal: Deferred Extremity: Normal Capillary Refill, Normal Inspection, No Pedal Edema Neurologic/Psychiatric: Alert, Oriented x3, Normal Mood/Affect, pool player II-XII Norm as Tested Skin: Normal Color, Warm/Dry Focused Exam Lactate Level 01/29/22 03:30: Lactic Acid Level 1.38 Lactic Acid Level Laboratory Tests Test 01/29/22 03:30 Lactic Acid Level 1.38 MMOL/L (0.50-2.00) Progress/Results/Core Measures Suspected Sepsis SIRS Temperature: Pulse: Respiratory Rate: Laboratory Tests 01/29/22 03:30: White Blood Count 17.5H Blood Pressure / Mean: 01/29/22 03:30: Lactic Acid Level 1.38 Laboratory Tests 01/29/22 03:30: Creatinine 2.41H, INR Comment 1.0, Platelet Count 327, Total Bilirubin 0.3 Results/Orders Lab Results Laboratory Tests Test 01/29/22 02:44 01/29/22 03:08 01/29/22 03:30 Range/Units Glucometer 98 70-110 MG/DL Urine Color YELLOW Urine Clarity TURBID Urine pH 6.0 5-9 Urine Specific [place] 1.015 L 1.016-1.022 Urine Protein 1+ H NEGATIVE Urine Glucose (UA) NEGATIVE NEGATIVE Urine Ketones NEGATIVE NEGATIVE Urine Nitrite POSITIVE H NEGATIVE Urine Bilirubin NEGATIVE NEGATIVE Urine Urobilinogen 0.2 < = 1.0 MG/DL Urine Leukocyte Esterase 2+ H NEGATIVE Urine RBC (Auto) TRACE-I H NEGATIVE Urine RBC 0-2 /HPF Urine WBC TNTC H /HPF Urine Squamous Epithelial Cells 0-2 /HPF Urine Crystals NONE /LPF Urine Bacteria LARGE H /HPF Urine Casts PRESENT /LPF Urine Hyaline Casts 0-2 H /LPF Urine Mucus NEGATIVE /LPF Urine Culture Indicated YES White Blood Count 17.5 H 4.3-11.0 10^3/uL Red Blood Count 3.60 L 3.80-5.11 10^6/uL Hemoglobin 11.0 L 11.5-16.0 g/dL Hematocrit 34 L 35-52 % Mean Corpuscular Volume 94 80-99 fL Mean Corpuscular Hemoglobin 31 25-34 pg Mean Corpuscular Hemoglobin Concent 33 32-36 g/dL Red Cell Distribution Width 14.6 H 10.0-14.5 % Platelet Count 327 130-400 10^3/uL Mean Platelet Volume 10.9 9.0-12.2 fL Immature Granulocyte % (Auto) 1 % Neutrophils (%) (Auto) 69 42-75 % Lymphocytes (%) (Auto) 13 12-44 % Monocytes (%) (Auto) 9 0-12 % Eosinophils (%) (Auto) 8 0-10 % Basophils (%) (Auto) 0 0-10 % Neutrophils # (Auto) 12.1 H 1.8-7.8 10^3/uL Lymphocytes # (Auto) 2.3 1.0-4.0 10^3/uL Monocytes # (Auto) 1.5 H 0.0-1.0 10^3/uL Eosinophils # (Auto) 1.4 H 0.0-0.3 10^3/uL Basophils # (Auto) 0.1 0.0-0.1 10^3/uL Immature Granulocyte # (Auto) 0.1 0.0-0.1 10^3/uL Neutrophils % (Manual) 68 % Lymphocytes % (Manual) 16 % Monocytes % (Manual) 8 % Eosinophils % (Manual) 6 % Metamyelocytes % 1 % Band Neutrophils 1 % Platelet Estimate NORMAL Blood Morphology Comment NORMAL Prothrombin Time 13.4 12.2-14.7 SEC INR Comment 1.0 0.8-1.4 Activated Partial Thromboplast Time 23 L 24-35 SEC Sodium Level 138 135-145 MMOL/L Potassium Level 4.4 3.6-5.0 MMOL/L Chloride Level 99 98-107 MMOL/L Carbon Dioxide Level 26 21-32 MMOL/L Anion Gap 13 5-14 MMOL/L Blood Urea Nitrogen 44 H 7-18 MG/DL Creatinine 2.41 H 0.60-1.30 MG/DL Estimat Glomerular Filtration Rate 21 BUN/Creatinine Ratio 18 Glucose Level 141 H 70-105 MG/DL Lactic Acid Level 1.38 0.50-2.00 MMOL/L Calcium Level 9.6 8.5-10.1 MG/DL Corrected Calcium 9.8 8.5-10.1 MG/DL Magnesium Level 2.3 1.6-2.4 MG/DL Total Bilirubin 0.3 0.1-1.0 MG/DL Aspartate Amino Transf (AST/SGOT) 15 5-34 U/L Alanine Aminotransferase (ALT/SGPT) 9 0-55 U/L Alkaline Phosphatase 55 40-136 U/L Troponin I < 0.30 <0.30 NG/ML Pro-B-Type Natriuretic Peptide 124.1 H <75.0 PG/ML Total Protein 7.7 6.4-8.2 GM/DL Albumin 3.8 3.2-4.5 GM/DL My Orders Orders - MARY BHATT MD Cbc With Automated Diff (01/29/22 02:46) Magnesium (01/29/22 02:46) Chest 1 View Ap/Pa Only (01/29/22 02:46) Ekg Tracing (01/29/22 02:46) Comprehensive Metabolic Panel (01/29/22 02:46) Protime With Inr (01/29/22 02:46) Partial Thromboplastin Time (01/29/22 02:46) O2 (01/29/22 02:46) Monitor-Rhythm Ecg Trace Only (01/29/22 02:46) Ed Iv/Invasive Line Start (01/29/22 02:46) Troponin I Fs (01/29/22 02:46) Probnp Fs (01/29/22 02:46) Straight Cath For Spec.-Adult (01/29/22 02:46) Ua Culture If Indicated (01/29/22 02:46) Lactic Acid Analyzer (01/29/22 02:46) Ct Head Wo (01/29/22 02:46) Manual Differential (01/29/22 03:30) Urine Culture (01/29/22 03:08) Doxycycline Hyclate Tablet (Vibramycin T (01/29/22 04:46) Vital Signs/I&O 01/29/22 01/29/22 01/29/22 02:39 02:40 05:42 Temp 36.3 Pulse 80 69 Resp 20 18 B/P (MAP) 202/65 (110) 147/86 Pulse Ox 96 96 95 O2 Delivery Room Air Nasal Cannula Nasal Cannula O2 Flow Rate 2.00 2.00 FiO2 96 Capillary Refill : Progress Note #1: Progress Note Check labs and ECG with CXR and CT head to evaluate for acute abnormality to cause her symptoms. Check UA to see if she has UTI. Progress Note #2: Progress Note Both EMS and nursing staff were unable to access her veins for IV access. Lab was called and myra blood with arterial stick for testing. Progress Note #3: Progress Note Labs show elevated white blood cell count of 17.5K with left shift. Her lactic acid is normal at 1.38. She has chronic renal insufficiency and on January 24 her creatinine in [facility] was 1.93. She has a creatinine today of 2.4. No acute process on the CT head or chest x-ray. Cath UA demonstrated 3+ leukocyte esterase with bacteria and signs of UTI. As Dr. Pena had ordered doxycycline for her yesterday will start that this morning. Will call and check with Dr. Matos for [facility] to see if she could be admitted to [facility] for hydration and antibiotics. Once at [facility] the PICC line team could be consulted to obtain access for the patient. Progress Note #4: Time: 04:58 Progress Note Discussed with Dr. Matos and she accepted the patient on behalf of [facility] for admission. Will consult the PICC line team for access on arrival to the [facility]. Initiate doxycycline p.o. here in the ED as that was the antibiotic ordered by urology when she was seen yesterday. Continue hydration by starting IV fluids once the PICC line is in place. Encourage fluids and rest. Patient likely needs placement in the more of a intermediate setting instead of independent or assisted living. ECG Initial ECG Impression Date: Jan 29, 2022 Initial ECG Impression Time: 03:30 Initial ECG Rate: 70 Initial ECG Rhythm: Normal Sinus Initial ECG Comparisson: Unchanged Comment Sinus rhythm with a heart rate of 70 bpm. NV interval [address] elevation. QT interval 432 ms with a QTc interval 467 ms. Appears similar to prior tracings in the system Diagnostic Imaging Diagonstic Imaging: Xray Plain Films/CT/US/NM/MRI: chest Comments On my review of her 1 view chest x-ray she has no acute process Reviewed: Reviewed by Me Diagonstic Imaging: CT Plain Films/CT/US/NM/MRI: head Comments Per stat rad CT head without contrast shows no acute intracranial abnormality. Senescent changes. Consider MRI if there is further concern. Read by radiologist Dr. Grey Xiong MD at [phone] and Faxed at [phone] Reviewed: Reviewed Night [facility] Study, Reviewed by Me Departure Communication (Admissions) Time/Spoke to Admitting Phy: 04:[address] Matos and she accepted on behalf of [facility] as the patient follows with nurse practitioner Osmany. Mild consult for PICC line access on arrival to [facility]. As patient is hemodynamically stable and not septic so she does not seem sick enough to require a central line access. Will administer normal saline at 75 mils an hour for hydration since she has chronic renal disease with creatinine that was 1.93 on January 24 and is 2.4 today. Impression Primary Impression: Cystitis without hematuria Additional Impressions: Labile hypertension Tremor Dysuria Chronic renal failure, stage 3b Disposition: 30 STILL A PATIENT Condition: Stable Admissions Decision to Admit Reason: Admit from ER (General) Decision to Admit/Date: Jan 29, 2022 Time/Decision to Admit Time: 04:58 Departure-Patient Inst. Referrals: SABA GORMAN APRN (PCP) Primary Care Physician [facility] ([place]) Primary Care Physician MARY BHATT MD Jan 29, 2022 02:55
[2022-01-29 03:39] LABS: BASOPHILS # (AUTO) 0.1 10^3/uL (0.0-0.1); BASOPHILS % (AUTO) 0 % (0-10); EOSINOPHILS # (AUTO) 1.4 10^3/uL (0.0-0.3); EOSINOPHILS % (AUTO) 8 % (0-10); HEMATOCRIT 34 % (35-52); LYMPHOCYTES # (AUTO) 2.3 10^3/uL (1.0-4.0); LYMPHOCYTES % (AUTO) 13 % (12-44); MEAN CORPUSCULAR HEMOGLOBIN 31 pg (25-34); MEAN CORPUSCULAR HGB CONC 33 g/dL (32-36); MEAN CORPUSCULAR VOLUME 94 fL (80-99); MEAN PLATELET VOLUME 10.9 fL (9.0-12.2); MONOCYTES # (AUTO) 1.5 10^3/uL (0.0-1.0); MONOCYTES % (AUTO) 9 % (0-12); NEUTROPHILS # (AUTO) 12.1 10^3/uL (1.8-7.8); NEUTROPHILS % (AUTO) 69 % (42-75); PLATELET COUNT 327 10^3/uL (130-400); WHITE BLOOD COUNT 17.5 10^3/uL (4.3-11.0)
[2022-01-29 03:41] LABS: BILIRUBIN,URINE NEGATIVE (NEGATIVE); CLARITY,URINE TURBID; COLOR,URINE YELLOW; GLUCOSE, URINE (UA) NEGATIVE (NEGATIVE); KETONES,URINE NEGATIVE (NEGATIVE); LEUKOCYTE ESTERASE ,URINE 2+ (NEGATIVE); NITRITE,URINE POSITIVE (NEGATIVE); PROTEIN,URINE 1+ (NEGATIVE)
[2022-01-29 03:52] LABS: PROTHROMBIN TIME PATIENT 13.4 SEC (12.2-14.7)
[2022-01-29 03:57] LABS: BACTERIA,URINE LARGE /HPF; HYALINE CASTS, URINE 0-2 /LPF; RBC,URINE 0-2 /HPF; SQUAMOUS EPITHELIAL CELL,UR 0-2 /HPF; WBC,URINE TNTC /HPF
[2022-01-29 04:00] LABS: BAND NEUTROPHILS 1 %; EOSINOPHILS % (MANUAL) 6 %; LYMPHOCYTES % (MANUAL) 16 %; METAMYELOCYTES % 1 %; MONOCYTES % (MANUAL) 8 %; NEUTROPHILS % (MANUAL) 68 %; PLATELET ESTIMATE NORMAL
[2022-01-29 04:01] LABS: RBC MORPH NORMAL
[2022-01-29 04:08] LABS: CALCIUM 9.6 MG/DL (8.5-10.1); CREATININE SERUM 2.41 MG/DL (0.60-1.30); POTASSIUM 4.4 MMOL/L (3.6-5.0)
[2022-01-29 04:09] LABS: ALBUMIN 3.8 GM/DL (3.2-4.5); BILIRUBIN,TOTAL 0.3 MG/DL (0.1-1.0); MAGNESIUM 2.3 MG/DL (1.6-2.4); TOTAL PROTEIN 7.7 GM/DL (6.4-8.2)
[2022-01-29] MEDS ORDERED: DOXYCYCLINE 100 MG (VIBRAMYCIN) TABLET PO STA (04:46)
--- NOTE | 2022-01-29 06:09 | Diagnostic Imaging Report ---
PROCEDURE: CT head without contrast. TECHNIQUE: Multiple contiguous axial images were obtained through the brain without the use of intravenous contrast. Auto Exposure Controls were utilized during the CT exam to meet ALARA standards for radiation dose reduction. INDICATION: Tremor and acute confusion CT HEAD: CT images of the head were obtained. FINDINGS: Ventricles and sulci are within normal limits for size for patient's age. There is no intracranial hemorrhage identified. There is no abnormal mass effect or shift of midline structures. IMPRESSION: Unremarkable CT of the head. Consider MRI if symptoms persist. Dictated by: Dictated on workstation # [id number]
--- NOTE | 2022-01-29 07:07 | Diagnostic Imaging Report ---
HISTORY: Hypertension and shortness of breath. TECHNIQUE: Frontal view of the chest. COMPARISON: 03/06/2021 FINDINGS: There is mild elevation of the right hemidiaphragm. There is no pleural effusion or pneumothorax. The cardiac silhouette is normal in size. No focal consolidation is seen. IMPRESSION: 1. No acute pulmonary abnormality. Dictated by: Dictated on workstation # [id number]
[2022-01-29 08:30] VITALS: BP 190/80
[2022-01-29] MEDS ORDERED: NS IV 1000 ML 1,000 ML IV SCH (09:00)
[2022-01-29 11:29] VITALS: BP 147/86
[2022-01-29] MEDS ORDERED: RT-ALBUTEROL SULF 2.5 MG/3 ML PRE-MIX VIAL INH PRN (11:45)
[2022-01-29 11:59] VITALS: BP 210/85
--- NOTE | 2022-01-29 13:01 | History & Physical ---
HPI History of Present Illness: 71 yo F with multiple recurrent admissions with sepsis 2/2 UTI. Patient states that she was having increase in confusion and tremors and she was worried about UTI. She has previous admissions to [facility] and [facility] in the last 2 months. States that she saw her urologist yesterday and he sent her over for the office. Patient was also having some shortness of breath and she was not using her oxygen at night for her KANDACE. Denies any fever or chills. She has known resistance in her UTIs. Source: patient Exam Limitations: no limitations Date seen by provider: Jan 29, 2022 Time Seen by Provider: 12:00 Attending Physician Jean-Claude Matos MD [facility] [place] [facility] At [facility] Consult Date of Admission Jan 29, 2022 at 08:25 Home Medications Home Medications Reviewed patient Home Medication Reconciliation performed by pharmacy medication reconciliations jewelry technician and/or nursing. Patients Allergies have been reviewed. Allergies Coded Allergies: Cephalosporins (Verified Allergy, Unknown, 03/06/21) Iodinated Contrast Media (Verified Allergy, Unknown, HIVES, 01/28/22) Sulfa (Sulfonamide Antibiotics) (Verified Allergy, Unknown, 03/06/21) fenofibrate (Verified Allergy, Unknown, 03/06/21) gabapentin (Verified Allergy, Unknown, 03/06/21) levofloxacin (Verified Allergy, Unknown, 03/06/21) naloxone (Verified Allergy, Unknown, 03/06/21) Uncoded Allergies: CONTRAST (Allergy, Unknown, 03/06/21) MSA-Tkmgxv-Wyiuln Hx Patient Social History Alcohol Use?: No Have you traveled recently?: No Immunizations Up To Date Influenza Vaccine Up-to-Date: Yes; Up-to-Date First/Initial COVID19 Vaccinat: DECEMBER 2020 Second COVID19 Vaccination Chris: January 2021 Third COVID19 Vaccination Date: January 2021 Past Medical History Recurrent UTI IDDM HTN KANDACE CPAP Family Medical History Significant Family History: No Pertinent Family Hx Review of Systems ([facility]) Constitutional: chills, fever EENTM: no symptoms reported Respiratory: dyspnea on exertion Cardiovascular: no symptoms reported Gastrointestinal: no symptoms reported Genitourinary: no symptoms reported Musculoskeletal: no symptoms reported Skin: no symptoms reported Psychiatric/Neurological: No Symptoms Reported Reviewed Test Results Reviewed Test Results Lab Laboratory Tests Test 4/26/22 02:44 01/29/22 03:08 01/29/22 03:30 01/29/22 11:49 Range/Units Glucometer 98 201 H 70-110 MG/DL Urine Color YELLOW Urine Clarity TURBID Urine pH 6.0 5-9 Urine Specific [place] 1.015 L 1.016-1.022 Urine Protein 1+ H NEGATIVE Urine Glucose (UA) NEGATIVE NEGATIVE Urine Ketones NEGATIVE NEGATIVE Urine Nitrite POSITIVE H NEGATIVE Urine Bilirubin NEGATIVE NEGATIVE Urine Urobilinogen 0.2 < = 1.0 MG/DL Urine Leukocyte Esterase 2+ H NEGATIVE Urine RBC (Auto) TRACE-I H NEGATIVE Urine RBC 0-2 /HPF Urine WBC TNTC H /HPF Urine Squamous Epithelial Cells 0-2 /HPF Urine Crystals NONE /LPF Urine Bacteria LARGE H /HPF Urine Casts PRESENT /LPF Urine Hyaline Casts 0-2 H /LPF Urine Mucus NEGATIVE /LPF Urine Culture Indicated YES White Blood Count 17.5 H 4.3-11.0 10^3/uL Red Blood Count 3.60 L 3.80-5.11 10^6/uL Hemoglobin 11.0 L 11.5-16.0 g/dL Hematocrit 34 L 35-52 % Mean Corpuscular Volume 94 80-99 fL Mean Corpuscular Hemoglobin 31 25-34 pg Mean Corpuscular Hemoglobin Concent 33 32-36 g/dL Red Cell Distribution Width 14.6 H 10.0-14.5 % Platelet Count 327 130-400 10^3/uL Mean Platelet Volume 10.9 9.0-12.2 fL Immature Granulocyte % (Auto) 1 % Neutrophils (%) (Auto) 69 42-75 % Lymphocytes (%) (Auto) 13 12-44 % Monocytes (%) (Auto) 9 0-12 % Eosinophils (%) (Auto) 8 0-10 % Basophils (%) (Auto) 0 0-10 % Neutrophils # (Auto) 12.1 H 1.8-7.8 10^3/uL Lymphocytes # (Auto) 2.3 1.0-4.0 10^3/uL Monocytes # (Auto) 1.5 H 0.0-1.0 10^3/uL Eosinophils # (Auto) 1.4 H 0.0-0.3 10^3/uL Basophils # (Auto) 0.1 0.0-0.1 10^3/uL Immature Granulocyte # (Auto) 0.1 0.0-0.1 10^3/uL Neutrophils % (Manual) 68 % Lymphocytes % (Manual) 16 % Monocytes % (Manual) 8 % Eosinophils % (Manual) 6 % Metamyelocytes % 1 % Band Neutrophils 1 % Platelet Estimate NORMAL Blood Morphology Comment NORMAL Prothrombin Time 13.4 12.2-14.7 SEC INR Comment 1.0 0.8-1.4 Activated Partial Thromboplast Time 23 L 24-35 SEC Sodium Level 138 135-145 MMOL/L Potassium Level 4.4 3.6-5.0 MMOL/L Chloride Level 99 98-107 MMOL/L Carbon Dioxide Level 26 21-32 MMOL/L Anion Gap 13 5-14 MMOL/L Blood Urea Nitrogen 44 H 7-18 MG/DL Creatinine 2.41 H 0.60-1.30 MG/DL Estimat Glomerular Filtration Rate 21 BUN/Creatinine Ratio 18 Glucose Level 141 H 70-105 MG/DL Lactic Acid Level 1.38 0.50-2.00 MMOL/L Calcium Level 9.6 8.5-10.1 MG/DL Corrected Calcium 9.8 8.5-10.1 MG/DL Magnesium Level 2.3 1.6-2.4 MG/DL Total Bilirubin 0.3 0.1-1.0 MG/DL Aspartate Amino Transf (AST/SGOT) 15 5-34 U/L Alanine Aminotransferase (ALT/SGPT) 9 0-55 U/L Alkaline Phosphatase 55 40-136 U/L Troponin I < 0.30 <0.30 NG/ML Pro-B-Type Natriuretic Peptide 124.1 H <75.0 PG/ML Total Protein 7.7 6.4-8.2 GM/DL Albumin 3.8 3.2-4.5 GM/DL Test 01/29/22 17:01 01/29/22 20:37 Range/Units Glucometer 202 H 197 H 70-110 MG/DL Physical Exam-([facility]) Physical Exam Vital Signs VS - Last 72 Hours, by Label 01/29/22 01/29/22 01/29/22 01/29/22 02:39 02:40 05:42 08:25 Temp 36.3 Pulse 80 69 Resp 20 18 B/P (MAP) 202/65 (110) 147/86 Pulse Ox 96 96 95 O2 Delivery Room Air Nasal Cannula Nasal Cannula Room Air O2 Flow Rate 2.00 2.00 FiO2 96 01/29/22 01/29/22 01/29/22 01/29/22 08:30 08:30 11:29 11:59 Temp 35.9 36.3 36.2 Pulse 67 80 70 Resp 18 18 B/P (MAP) 190/80 (116) 210/85 (126) Pulse Ox 98 100 98 98 O2 Delivery Nasal Cannula Nasal Cannula Nasal Cannula O2 Flow Rate 2.00 2.00 2.00 FiO2 28 01/29/22 01/29/22 01/29/22 01/29/22 15:11 16:00 18:11 20:00 Temp 36.7 37.0 Pulse 72 72 Resp 16 16 B/P (MAP) 182/80 (114) 161/67 (98) Pulse Ox 97 98 97 96 O2 Delivery Nasal Cannula Nasal Cannula Nasal Cannula Nasal Cannula O2 Flow Rate 2.00 2.00 2.00 2.00 01/29/22 20:14 O2 Delivery Room Air Capillary Refill : Less Than 3 Seconds General Appearance: WD/WN, no apparent distress HEENT: PERRL/EOMI Neck: non-tender, supple Respiratory: chest non-tender, lungs clear, normal breath sounds, no respiratory distress, no accessory muscle use Cardiovascular: normal peripheral pulses, regular rate, rhythm, no murmur Gastrointestinal: normal bowel sounds, non tender, soft Back: no CVA tenderness, no vertebral tenderness Extremities: normal range of motion, no calf tenderness, normal capillary refill, pedal edema (2+ pitting edema) Neurologic/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 nml as tested, no motor/sensory deficits, alert, normal mood/affect, oriented x 3 Skin: normal color, warm/dry Lymphatic: no adenopathy Assessment/Plan Assessment/Plan Admission Status: Inpatient Order (span 2 midnights) Reason for Inpatient Admission: Recurrent and resistance UTI with multiple admissions (1) Cystitis without hematuria Status: Acute Assessment & Plan: - Patient will poor IV access, started on Doxycycline (2) HTN (hypertension) Status: Chronic Assessment & Plan: - started home meds, will continue to monitor Qualifiers: Qualified Codes: I10 - Essential (primary) hypertension (3) Diabetes mellitus, insulin dependent (IDDM), uncontrolled Status: Acute Assessment & Plan: - Restarted home meds (4) Insulin dependent diabetes with renal manifestation Status: Chronic (5) Acute kidney injury superimposed on chronic kidney disease Status: Acute (6) Chronic renal failure, stage 3b Status: Acute (7) KANDACE (obstructive sleep apnea) Status: Chronic (8) DVT prophylaxis Status: Acute Assessment & Plan: - JEAN-CLAUDE Kwok MD Jan 29, 2022 13:01
[2022-01-29] MEDS ORDERED: SERT-414 PO (13:43)
[2022-01-29] MEDS ORDERED: MECL-149 PO (13:43)
[2022-01-29] MEDS ORDERED: LOSA25TA41 PO (13:43)
[2022-01-29] MEDS ORDERED: ATOR40TA70 PO (13:43)
[2022-01-29] MEDS ORDERED: CYCL1DRO OU (13:43)
[2022-01-29] MEDS ORDERED: ACET-2267 PO (13:43)
[2022-01-29] MEDS ORDERED: TRAZ300T3 PO (13:43)
[2022-01-29] MEDS ORDERED: METF-478 PO (13:43)
[2022-01-29] MEDS ORDERED: CARV12.53 PO (13:43)
[2022-01-29] MEDS ORDERED: INSN1U SQ (13:43)
[2022-01-29] MEDS ORDERED: NITR100C PO (13:43)
[2022-01-29] MEDS ORDERED: ONDA-105 PO (13:43)
[2022-01-29] MEDS ORDERED: POLY17PO6 PO (13:43)
[2022-01-29] MEDS ORDERED: METO5SOL18 PO (13:43)
[2022-01-29] MEDS ORDERED: TORS20TA3 PO (13:43)
[2022-01-29] MEDS ORDERED: PREG50CA65 PO (13:43)
[2022-01-29] MEDS ORDERED: BACL10TA PO (13:43)
[2022-01-29] MEDS ORDERED: PANT40TA52 PO (13:43)
[2022-01-29] MEDS ORDERED: ASPI-1238 PO (13:43)
[2022-01-29] MEDS ORDERED: CRAN500T3 PO (13:43)
[2022-01-29] MEDS ORDERED: ASCO500T17 PO (13:43)
[2022-01-29] MEDS ORDERED: NORT50CA PO (13:43)
[2022-01-29] MEDS ORDERED: ISOS60TA63 PO (13:43)
[2022-01-29] MEDS ORDERED: NITR0.4T39 SL (13:43)
[2022-01-29] MEDS ORDERED: INSU100V31 SQ (13:43)
[2022-01-29] MEDS ORDERED: NYST15CR TOP (13:43)
[2022-01-29] MEDS ORDERED: DIVA-74 PO (13:43)
[2022-01-29] MEDS: inSUlin ASPART (NovoLOG) 1 UNIT/0.01 ML (CHARGE PER UNIT) SC SCH ×3 (14:29→21:43)
[2022-01-29] MEDS: LOSARTAN 50 MG (COZAAR) TAB PO SCH (14:30)
[2022-01-29] MEDS: ISOSORBIDE MONONITRATE 60 MG (IMDUR) TAB PO SCH (14:31)
[2022-01-29] MEDS: RT-ALBUTEROL/IPRATROPIUM 3 ML (DUONEB) VIAL INH SCH ×2 (15:09→18:11)
[2022-01-29 16:00] VITALS: BP 182/80
[2022-01-29] MEDS ORDERED: inSUlin ASPART (NovoLOG) 1 UNIT/0.01 ML (CHARGE PER UNIT) SC SCH (16:00)
[2022-01-29] MEDS: DOXYCYCLINE 100 MG (VIBRAMYCIN) TABLET PO SCH (17:07)
[2022-01-29] MEDS ORDERED: hydrALAZINE (APRESOLINE) 25 MG TAB PO NR (17:45)
[2022-01-29 20:00] VITALS: BP 161/67
[2022-01-29] MEDS ORDERED: traZODone 150 MG (DESYREL) TABLET ONE (22:38)
[2022-01-29] MEDS ORDERED: SERTRALINE 100 MG (ZOLOFT) TAB ONE (22:38)
[2022-01-29] MEDS: SERTRALINE 100 MG (ZOLOFT) TAB PO SCH (22:49)
[2022-01-29] MEDS: traZODone 150 MG (DESYREL) TABLET PO SCH (22:49)
[2022-01-29 23:59] VITALS: BP 151/63
[2022-01-30] VITALS (9 sets, daily range): BP systolic 148–209; BP diastolic 69–87
[2022-01-30] MEDS: inSUlin ASPART (NovoLOG) 1 UNIT/0.01 ML (CHARGE PER UNIT) SC SCH ×4 (05:32→20:43)
[2022-01-30 06:02] LABS: BASOPHILS % (AUTO) 0 % (0-10); EOSINOPHILS # (AUTO) 1.1 10^3/uL (0.0-0.3); EOSINOPHILS % (AUTO) 11 % (0-10); HEMATOCRIT 35 % (35-52); HEMOGLOBIN 11.2 g/dL (11.5-16.0); LYMPHOCYTES # (AUTO) 2.6 10^3/uL (1.0-4.0); LYMPHOCYTES % (AUTO) 26 % (12-44); MEAN CORPUSCULAR HEMOGLOBIN 31 pg (25-34); MEAN CORPUSCULAR HGB CONC 32 g/dL (32-36); MEAN CORPUSCULAR VOLUME 98 fL (80-99); MEAN PLATELET VOLUME 11.1 fL (9.0-12.2); MONOCYTES % (AUTO) 10 % (0-12); NEUTROPHILS # (AUTO) 5.1 10^3/uL (1.8-7.8); NEUTROPHILS % (AUTO) 52 % (42-75); PLATELET COUNT 345 10^3/uL (130-400); WHITE BLOOD COUNT 9.9 10^3/uL (4.3-11.0)
[2022-01-30 06:06] LABS: ALBUMIN 3.7 GM/DL (3.2-4.5)
[2022-01-30 06:07] LABS: POTASSIUM 4.2 MMOL/L (3.6-5.0)
[2022-01-30 06:08] LABS: CALCIUM 9.5 MG/DL (8.5-10.1)
[2022-01-30 06:09] LABS: TOTAL PROTEIN 7.3 GM/DL (6.4-8.2)
[2022-01-30 06:11] LABS: BILIRUBIN,TOTAL 0.5 MG/DL (0.1-1.0)
[2022-01-30 06:13] LABS: CREATININE SERUM 1.44 MG/DL (0.60-1.30)
[2022-01-30] MEDS: DOXYCYCLINE 100 MG (VIBRAMYCIN) TABLET PO SCH ×2 (06:15→16:15)
[2022-01-30] MEDS: RT-ALBUTEROL/IPRATROPIUM 3 ML (DUONEB) VIAL INH SCH ×2 (06:25→10:24)
[2022-01-30 07:18] LABS: BAND NEUTROPHILS 0 %; BASOPHILS % (MANUAL) 0 %; EOSINOPHILS % (MANUAL) 9 %; LYMPHOCYTES % (MANUAL) 36 %; MONOCYTES % (MANUAL) 6 %; NEUTROPHILS % (MANUAL) 49 %; RBC MORPH NORMAL
[2022-01-30] MEDS: PREGABALIN 50 MG (LYRICA) CAP PO SCH (08:51)
[2022-01-30] MEDS: ISOSORBIDE MONONITRATE 60 MG (IMDUR) TAB PO SCH (08:52)
[2022-01-30] MEDS: DIVALPROEX 250 MG DELAYED RELEASE (DEPAKOTE) TAB PO SCH (08:52)
[2022-01-30] MEDS: PANTOPRAZOLE 40 MG (PROTONIX) TAB PO SCH (08:52)
[2022-01-30] MEDS: ASPIRIN E.C. 81 MG (ECOTRIN) TAB PO SCH (08:52)
[2022-01-30] MEDS: LOSARTAN 50 MG (COZAAR) TAB PO SCH (08:52)
[2022-01-30] MEDS ORDERED: LOSARTAN 50 MG (COZAAR) TAB PO SCH (09:00)
[2022-01-30] MEDS ORDERED: ISOSORBIDE MONONITRATE 60 MG (IMDUR) TAB PO SCH (09:00)
[2022-01-30] MEDS ORDERED: ACETAMINOPHEN 500 MG TAB (TYLENOL) PO PRN (12:00)
[2022-01-30] MEDS: ARTIFICAL TEARS 0.4 ML UNIT DOSE (REFRESH PLUS) OU PRN (12:29)
--- NOTE | 2022-01-30 15:26 | Physical Therapy Evaluation ---
PT Evaluation-General Medical Diagnosis Admission Date Jan 29, 2022 at 08:25 Medical Diagnosis: Sepsis, UTI, IDDM, HTN Onset Date: Jan 29, 2022 Therapy Diagnosis Therapy Diagnosis: Gait deficit, strength deficit, Precautions Precautions/Isolations: Fall Prevention, Standard Precautions Referral Physician: Dr. Matos Reason for Referral: Evaluation/Treatment, Strengthening Medical History Pertinent Medical History: CAD, CVA, DM, HTN, Neuropathy, Rheumatoid Arthritis Reviewed History: Yes Social History Home: Apartment Current Living Status: Alone Prior Prior Level of Function SCALE: Activities may be completed with or without assistive devices. 1-Uamkunowxu-ihggant completes the activity by him/herself with no assistance from a helper. 5-Set-up or Clean-up Assistance-helper sets up or cleans up; patient completes activity. [place] assists only prior to or following the activity. 4-Supervision or Touching Assistance-helper provides verbal cues and/or touching/steadying and/or contact guard assistance as patient completes activity. Assistance may be provided throughout the activity or intermittently. 3-Partial/Moderate Assistance-helper does LESS THAN HALF the effort. [place] lifts, holds or supports trunk or limbs, but provides less than half the effort. 2-Substantial/Maximal Assistance-helper does MORE THAN HALF the effort. [place] lifts or holds trunk or limbs and provides more than half the effort. 6-Tyjpfvfwv-wgylom does ALL the effort. Patient does none of the effort to complete the activity. Or, the assistance of 2 or more helpers is required for the patient to complete the activity. If activity was not attempted, code reason: 7-Patient Refused. 9-Not Applicable-not attempted and the patient did not perform the activity before the current illness, exacerbation or injury. 10-Not Attempted due to Environmental Limitations-(lack of equipment, weather restraints, etc.). 88-Not Attempted due to Medical Conditions or Safety Concerns. Bed Mobility: 6 Transfers (B,C,W/C): 6 Gait: 4 Indoor Mobility (Ambulation): Needed Some Help Prior Devices Use: Walker PT Evaluation-Current Subjective Patient sitting in chair upon PT arrival, agreeable to treatment. Reports nurses helped her out of bed and into the chair. Nurse reports she was SBA for bed mobility and CGA for transfer to the chair. Patient reports 3/10 pain in her "Bladder" and "I Have a headache." Patient reports she mainly uses her w/c at home, however was able to use her FWW to walk short distances prior to onset of weakness and sick feeling on Friday. Objective Patient Orientation: Person, Place, Time, Situation Attachments: Oxygen, IV ROM/Strength ROM Lower Extremities WFLs bilaterally Strength Lower Extremities 3+/5 bilaterally all planes Integumentary/Posture Posture Patient demonstrates fair overall posture in standing with only minimal rounding of the shoulders. Sensory Vision: Wears Glasses Hearing: Functional Sensation Right Lower Extremit: Impaired Sensation Left Lower Extremity: Impaired Sensation Lower Extremities Reports she has had DPN for ~ 20 years. Transfers Roll Left to Right (QC): 4 Sit to Lying (QC): 4 Lying to Sitting/Side of Bed(Q: 4 Sit to Stand (QC): 3 Chair/Cmw-rw-Uvhan Xfer(QC): 3 Bed mobility performed by nursing. Gait Does the Patient Walk?: No and Walking Goal IS indicated Mode of Locomotion: Both Anticipated Mode of Locomotion: Both Comments/Gait Description Patient reports she can ambulate short distances of 10 feet or less at home with FWW. Balance Sitting Static: Normal Sitting Dynamic: Normal Standing Static: Fair Standing Dynamic: Fair Assessment/Needs Patient demonstrates fair overall potential to return to PLOF. She requires min A for all observed transfers with PT, and demonstrates fair overall standing balance. Patient performs LE therapeutic exercise of LAQs, Hamstring curls, hip adduction, AP and hip adduction x 20 each. Patient in chaie post treatment with all needs met, nursing notified, call light in reach. Rehab Potential: Fair PT Retirement Goals Cooler Worker Goals PT Cooler Worker Goals Time Frame: February 15, 2022 Roll Left & Right (QC): 6 Sit to Lying (QC): 6 Lying-Sitting on Side/Bed(QC): 6 Sit to Stand (QC): 5 Chair/Sqy-gg-Otcwn Xfer(QC): 5 Toilet Transfer (QC): 5 Does the Patient Walk: No and Walking Goal IS indicated Walk 10 feet (QC): 3 PT Plan Problem List Problem List: Activity Tolerance, Functional Strength, Safety, Balance, Gait, Transfer, Bed Mobility, ROM Treatment/Plan Treatment Plan: Continue Plan of Care Treatment Plan: Bed Mobility, Education, Functional Activity Ryan, Functional Strength, Gait, Safety, Therapeutic Exercise, Transfers Treatment Duration: February 15, 2022 Frequency: 6 times per week Estimated Hrs Per Day: .25 hour per day Patient and/or Family Agrees t: Yes Safety Risks/Education Patient Education: Transfer Techniques Teaching Recipient: Patient Teaching Methods: Demonstration, Discussion Response to Teaching: Verbalize Understanding, Return Demonstration Discharge Recommendations Target Placement Return to assisted living. Time/GCodes Time In: 1426 Time Out: 1441 Total Billed Treatment Time: 15 Total Billed Treatment Visit, GLEN Morrell PT Jan 30, 2022 15:26
--- NOTE | 2022-01-30 18:38 | Progress Note ---
Subjective Subjective/Events-last exam Patient states that she is feeling better this AM. She has concerns about returning home due to multiple readmissions. Denies any shortness of breath or chest pain. Tolerating diet. No BM since admission. Restarted home bowel meds. Review of Systems General: Malaise Neurological: Weakness, Incoordination Focused Exam Lactate Level 01/29/22 03:30: Lactic Acid Level 1.38 Objective Exam Last Set of Vital Signs Vital Signs Date Time Temp Pulse Resp B/P (MAP) Pulse Ox O2 Delivery O2 Flow Rate FiO2 01/30/22 16:00 35.8 65 16 165/72 (103) 96 Nasal Cannula 2.00 01/29/22 11:29 28 Capillary Refill : Less Than 3 Seconds I&O Intake and Output 01/30/22 00:00 Intake Total 1680 ml Output Total 750 ml Balance 930 ml Intake Oral 1680 ml Output Urine Total 750 ml Daily Weight Change No General: Alert, Oriented X3, No Acute Distress Lungs: Clear to Auscultation, Normal Air Movement Heart: Regular Rate, No Murmurs Abdomen: Normal Bowel Sounds, Soft, Other (mild suprapubic ttp, no rebound or gaurding) Neuro: Normal Speech Results/Procedures Lab Laboratory Tests 01/29/22 20:37: Glucometer 197H 01/30/22 05:25: Glucometer 172H 01/30/22 05:45: White Blood Count 9.9, Red Blood Count 3.60L, Hemoglobin 11.2L, Hematocrit 35, Mean Corpuscular Volume 98, Mean Corpuscular Hemoglobin 31, Mean Corpuscular Hemoglobin Concent 32, Red Cell Distribution Width 14.6H, Platelet Count 345, Mean Platelet Volume 11.1, Immature Granulocyte % (Auto) 1, Neutrophils (%) (Auto) 52, Lymphocytes (%) (Auto) 26, Monocytes (%) (Auto) 10, Eosinophils (%) (Auto) 11H, Basophils (%) (Auto) 0, Neutrophils # (Auto) 5.1, Lymphocytes # (Auto) 2.6, Monocytes # (Auto) 1.0, Eosinophils # (Auto) 1.1H, Basophils # (Auto) 0.0, Immature Granulocyte # (Auto) 0.1, Neutrophils % (Manual) 49, Ly mphocytes % (Manual) 36, Monocytes % (Manual) 6, Eosinophils % (Manual) 9, Basophils % (Manual) 0, Band Neutrophils 0, Blood Morphology Comment NORMAL, Sodium Level 141, Potassium Level 4.2, Chloride Level 103, Carbon Dioxide Level 24, Anion Gap 14, Blood Urea Nitrogen 31H, Creatinine 1.44H, Estimat Glomerular Filtration Rate 39, BUN/Creatinine Ratio 22, Glucose Level 194H, Calcium Level 9.5, Corrected Calcium 9.7, Total Bilirubin 0.5, Aspartate Amino Transf (AST/SGOT) 15, Alanine Aminotransferase (ALT/SGPT) 16, Alkaline Phosphatase 49, Total Protein 7.3, Albumin 3.7 01/30/22 08:50: Glucometer 227H 01/30/22 11:09: Glucometer 253H 01/30/22 16:07: Glucometer 233H Microbiology 01/29/22 Urine Culture - Preliminary, Resulted Escherichia coli Assessment/Plan Assessment/Plan (1) Cystitis without hematuria Status: Acute Assessment & Plan: - Patient will poor IV access, started on Doxycycline 01/30: continue Doxycycline, waiting on sensitivities, Ecoli isolated in the urine (2) E-coli UTI Status: Acute (3) HTN (hypertension) Status: Chronic Assessment & Plan: - started home meds, will continue to monitor Qualifiers: Qualified Codes: I10 - Essential (primary) hypertension (4) Diabetes mellitus, insulin dependent (IDDM), uncontrolled Status: Acute Assessment & Plan: - Restarted home meds (5) Insulin dependent diabetes with renal manifestation Status: Chronic (6) Acute kidney injury superimposed on chronic kidney disease Status: Acute Assessment & Plan: 01/30: Improved since admission, gentle IVFs (7) Chronic renal failure, stage 3b Status: Acute (8) KANDACE (obstructive sleep apnea) Status: Chronic (9) DVT prophylaxis Status: Acute Assessment & Plan: - JEAN-CLAUDE Kwok MD Jan 30, 2022 18:38
[2022-01-30] MEDS: traZODone 150 MG (DESYREL) TABLET PO SCH (20:42)
[2022-01-30] MEDS: SERTRALINE 100 MG (ZOLOFT) TAB PO SCH (20:42)
[2022-01-30] MEDS ORDERED: NON-FORMULARY MEDICATION 1 EA EA (Cyclosporine (Restasis) 1 EACH) OU SCH (21:00)
[2022-01-31 03:55] VITALS: BP 135/66
[2022-01-31] MEDS: DOXYCYCLINE 100 MG (VIBRAMYCIN) TABLET PO SCH ×2 (05:52→16:19)
[2022-01-31] MEDS: inSUlin ASPART (NovoLOG) 1 UNIT/0.01 ML (CHARGE PER UNIT) SC SCH ×3 (05:58→16:19)
[2022-01-31 07:35] VITALS: BP 144/70
[2022-01-31 08:11] LABS: ALBUMIN 3.5 GM/DL (3.2-4.5)
[2022-01-31 08:12] LABS: CHLORIDE 104 MMOL/L (98-107); SODIUM 136 MMOL/L (135-145)
[2022-01-31 08:13] LABS: CALCIUM 9.1 MG/DL (8.5-10.1)
[2022-01-31 08:14] LABS: GLUCOSE 248 MG/DL (70-105); TOTAL PROTEIN 6.8 GM/DL (6.4-8.2)
[2022-01-31 08:15] LABS: CARBON DIOXIDE 20 MMOL/L (21-32)
[2022-01-31 08:16] LABS: BILIRUBIN,TOTAL 0.4 MG/DL (0.1-1.0)
[2022-01-31 08:18] LABS: ALKALINE PHOSPHATASE 45 U/L (40-136); CREATININE SERUM 1.21 MG/DL (0.60-1.30); GFR ESTIMATED 48
[2022-01-31 08:19] LABS: BUN/CREATININE RATIO 22
[2022-01-31 08:21] LABS: ALANINE AMINOTRANSFERASE < 6 U/L (0-55)
[2022-01-31] MEDS: ISOSORBIDE MONONITRATE 60 MG (IMDUR) TAB PO SCH (08:46)
[2022-01-31] MEDS: ASPIRIN E.C. 81 MG (ECOTRIN) TAB PO SCH (08:46)
[2022-01-31] MEDS: DIVALPROEX 250 MG DELAYED RELEASE (DEPAKOTE) TAB PO SCH (08:46)
[2022-01-31] MEDS: PANTOPRAZOLE 40 MG (PROTONIX) TAB PO SCH (08:46)
[2022-01-31] MEDS: PREGABALIN 50 MG (LYRICA) CAP PO SCH (08:46)
[2022-01-31] MEDS: LOSARTAN 50 MG (COZAAR) TAB PO SCH (08:47)
[2022-01-31] MEDS ORDERED: polyethylene glycoL POWDER 17 GM (MIRALAX) PACK PO SCH (09:00)
[2022-01-31] MEDS: ARTIFICAL TEARS 0.4 ML UNIT DOSE (REFRESH PLUS) OU PRN (09:42)
[2022-01-31 11:06] VITALS: BP 151/70
--- NOTE | 2022-01-31 11:20 | Physical Therapy Daily Note ---
PT Daily Note-Current Subjective Patient lying supine in bed upon PT arrival, agreeable to treatment. Patient reports 0/10 pain currently. Mental Status Patient Orientation: Person, Place, Time, Situation Transfers SCALE: Activities may be completed with or without assistive devices. 6-Rruuhgmiub-umbulne completes the activity by him/herself with no assistance from a helper. 5-Set-up or Clean-up Assistance-helper sets up or cleans up; patient completes activity. [place] assists only prior to or following the activity. 4-Supervision or Touching Assistance-helper provides verbal cues and/or touching/steadying and/or contact guard assistance as patient completes activity. Assistance may be provided throughout the activity or intermittently. 3-Partial/Moderate Assistance-helper does LESS THAN HALF the effort. [place] lifts, holds or supports trunk or limbs, but provides less than half the effort. 2-Substantial/Maximal Assistance-helper does MORE THAN HALF the effort. [place] lifts or holds trunk or limbs and provides more than half the effort. 6-Htolxjtgb-heyyqo does ALL the effort. Patient does none of the effort to complete the activity. Or, the assistance of 2 or more helpers is required for the patient to complete the activity. If activity was not attempted, code reason: 7-Patient Refused. 9-Not Applicable-not attempted and the patient did not perform the activity before the current illness, exacerbation or injury. 10-Not Attempted due to Environmental Limitations-(lack of equipment, weather restraints, etc.). 88-Not Attempted due to Medical Conditions or Safety Concerns. Roll Left & Right (QC): 5 Sit to Lying (QC): 5 Lying to Sitting/Side of Bed(Q: 5 Sit to Stand (QC): 4 Chair/Wke-tb-Ittqj Xfer(QC): 4 Gait Training Does the Patient Walk?: Yes Distance: 15 Walk 10 feet (QC): 4 Gait Persons Needed: 1 Gait Assistive Device: FWW Exercises Seated Therapy Exercises: Ankle pumps, Long arc quads, Hip flexion, Hamstring Curls, Hip abd/add Seated Reps: 20 Assessment Current Status: Fair Progress Patient performs all observed bed mobility with setup and all observed transfers with SBA. Patient ambulates 15 feet with FWW, with SBA and verbal cues for safety, progression and posture. Patient demonstrates significant overall improvement with gait, mobility and transfers. Patient performs LE therapeutic exercise as listed above while sitting in the chair. Patient in chair post treatment with all needs met, nursing notified, call light in hand. PT Assistant Child Care Teacher Goals [facility] Goals PT Assistant Child Care Teacher Goals Time Frame: February 15, 2022 Roll Left & Right (QC): 6 Sit to Lying (QC): 6 Lying-Sitting on Side/Bed(QC): 6 Sit to Stand (QC): 5 Chair/Cdv-gl-Koowf Xfer(QC): 5 Toilet Transfer (QC): 5 Does the Patient Walk: No and Walking Goal IS indicated Walk 10 feet (QC): 3 PT Plan Treatment/Plan Treatment Plan: Continue Plan of Care Treatment Plan: Bed Mobility, Education, Functional Activity Ryan, Functional Strength, Gait, Safety, Therapeutic Exercise, Transfers Treatment Duration: February 15, 2022 Frequency: 6 times per week Estimated Hrs Per Day: .25 hour per day Patient and/or Family Agrees t: Yes Safety Risks/Education Patient Education: Gait Training, Transfer Techniques Teaching Recipient: Patient Teaching Methods: Demonstration, Discussion Response to Teaching: Verbalize Understanding, Return Demonstration Time/GCodes Time In: 833 Time Out: 845 Total Billed Treatment Time: 12 Total Billed Treatment Visit, Ex GLEN BRUSH PT Jan 31, 2022 11:19
[2022-01-31] MEDS ORDERED: FOSFOMYCIN 3 GM PACK (MONUROL) PO SCH (13:15)
[2022-01-31 15:40] VITALS: BP 133/60
[2022-01-31] MEDS ORDERED: NF-FOSFPKT PO (17:01)
--- NOTE | 2022-01-31 17:01 | Discharge Summary ---
Discharge Summary Reconcile Patient Problems Problems Reviewed?: Yes Instructions for Patient Via [facility], Assessment/Instructions Ecoli UTI Acute on Chronic AKF HTN IDDM Physician to follow Patient: PCP Discharge Diet for Home: ADA Diet Hospital Course Date of Admission: Jan 29, 2022 at 08:25 Admission Diagnosis : Family Physician/Provider: Betty Denney Aprn Date of Discharge: 01/31/22 Discharge Diagnosis: Ecoli UTI, multi drug resistance Acute on Chronic Kidney failure HTN IDDM Debility Hospital Course: 71 yo female that was admitted with altered mental status and h/o recurrent UTIs. Patient was started on treatment for her UTI. She has poor vascular access and discussed getting a port outpatient. Urine culture returned with multi-drug resistant Ecoli. Patient has had multiple admissions in the last few months and she is still unsteady on her feet and would benefit from PT at discharge. Labs and Pending Lab Test: Laboratory Tests 01/30/22 16:07: Glucometer 233H 01/30/22 20:24: Glucometer 213H 01/31/22 05:49: Glucometer 268H 01/31/22 07:55: Sodium Level 136, Potassium Level 5.0, Chloride Level 104, Carbon Dioxide Level 20L, Anion Gap 12, Blood Urea Nitrogen 27H, Creatinine 1.21, Estimat Glomerular Filtration Rate 48, BUN/Creatinine Ratio 22, Glucose Level 248H, Calcium Level 9 .1, Corrected Calcium 9.5, Total Bilirubin 0.4, Aspartate Amino Transf (AST/SGOT) 22, Alanine Aminotransferase (ALT/SGPT) < 6, Alkaline Phosphatase 45, Total Protein 6.8, Albumin 3.5 01/31/22 11:05: Glucometer 285H Microbiology 01/29/22 Urine Culture - Final, Complete Escherichia coli Home Meds Active Reported Ondansetron HCl 4 Mg Tablet 4 Mg PO Q8H PRN Restasis (Cyclosporine) 0.05 % Droperette 1 Each OU BID Nitroglycerin 0.4 Mg Tab.subl 0.4 Mg SL UD PRN Nystatin 100,000 Unit/Gram Cream..g. 1 Applic TOP Q12H PRN APPLY TO PANNUS Miralax (Polyethylene Glycol 3350) 17 Gram Powd.pack 17 Gm PO DAILY Meclizine HCl 25 Mg Tablet 25 Mg PO TID PRN Cranberry (Cranberry Extract) 500 Mg Tablet 1,000 Mg PO DAILY Aspirin EC (Aspirin) 81 Mg Tablet.dr 81 Mg PO DAILY Vitamin C (Ascorbic Acid) 500 Mg Tablet 500 Mg PO DAILY Tylenol Extra Strength (Acetaminophen) 500 Mg Tablet 1,000-1,500 Mg PO QID PRN Pantoprazole Sodium 40 Mg Tablet.dr 40 Mg PO DAILY Losartan Potassium 25 Mg Tablet 25 Mg PO DAILY Torsemide 20 Mg Tablet 40 Mg PO DAILY TAKES 2 (20MG) TABS Novolin R (Insulin Regular, Human) 100 Unit/Ml Vial 18 Unit SQ AC Novolin N (Insulin NPH Human Isophane) 100 Unit/Ml Vial 35 Unit SQ BID Sertraline HCl 100 Mg Tablet 100 Mg PO HS Nortriptyline HCl 50 Mg Capsule 50 Mg PO HS Atorvastatin Calcium 40 Mg Tablet 40 Mg PO HS Carvedilol 12.5 Mg Tablet 12.5 Mg PO BID Metoclopramide HCl 10 Mg/10 Ml Solution 5 Ml PO TID PRN Nitrofurantoin (Nitrofurantoin Macrocrystal) 100 Mg Capsule 100 Mg PO Q48H W/DINNER Isosorbide Mononitrate ER (Isosorbide Mononitrate) 60 Mg Tab 120 Mg PO DAILY TAKES 2 (60MG) TABS Baclofen 10 Mg Tablet 10 Mg PO TID PRN Pregabalin 50 Mg Capsule 50 Mg PO DAILY Divalproex Sodium 250 Mg Tablet.dr 250 Mg PO DAILY Metformin HCl ER (Metformin HCl) 500 Mg Tab.er.24 1,000 Mg PO 1800 W/ DINNER TAKES 2 (500MG) TABS Trazodone HCl 300 Mg Tablet 300 Mg PO HS Patient Allergies: Coded Allergies: Cephalosporins (Verified Allergy, Unknown, 03/06/21) Iodinated Contrast Media (Verified Allergy, Unknown, HIVES, 01/28/22) Sulfa (Sulfonamide Antibiotics) (Verified Allergy, Unknown, 03/06/21) fenofibrate (Verified Allergy, Unknown, 03/06/21) gabapentin (Verified Allergy, Unknown, 03/06/21) levofloxacin (Verified Allergy, Unknown, 03/06/21) naloxone (Verified Allergy, Unknown, 03/06/21) Uncoded Allergies: CONTRAST (Allergy, Unknown, 03/06/21) New Medications: Fosfomycin Tromethamine (Monurol) 3 Gram Pack 3 GM PO Q48H, #1 EA Continued Medications: Acetaminophen (Tylenol Extra Strength) 500 Mg Tablet 1194-4918 MG PO QID PRN for PAIN-MILD (1-4), TAB Ascorbic Acid (Vitamin C) 500 Mg Tablet 500 MG PO DAILY, TAB Aspirin (Aspirin EC) 81 Mg Tablet.dr 81 MG PO DAILY, TAB Atorvastatin Calcium (Atorvastatin Calcium) 40 Mg Tablet 40 MG PO HS, TAB Baclofen (Baclofen) 10 Mg Tablet 10 MG PO TID PRN for MUSCLE SPASMS, TAB Carvedilol (Carvedilol) 12.5 Mg Tablet 12.5 MG PO BID, TAB Cranberry Extract (Cranberry) 500 Mg Tablet 1000 MG PO DAILY, TAB Cyclosporine (Restasis) 0.05 % Droperette 1 EACH OU BID, DROP Divalproex Sodium (Divalproex Sodium) 250 Mg Tablet.dr 250 MG PO DAILY, TAB Insulin NPH Human Isophane (Novolin N) 100 Unit/Ml Vial 35 UNIT SQ BID, EA Insulin Regular, Human (Novolin R) 100 Unit/Ml Vial 18 UNIT SQ AC, EA Isosorbide Mononitrate (Isosorbide Mononitrate ER) 60 Mg Tab 120 MG PO DAILY, TAB TAKES 2 (60MG) TABS Losartan Potassium (Losartan Potassium) 25 Mg Tablet 25 MG PO DAILY, TAB Meclizine HCl (Meclizine HCl) 25 Mg Tablet 25 MG PO TID PRN for DIZZINESS, TAB Metformin HCl (Metformin HCl ER) 500 Mg Tab.er.24 1000 MG PO 1800 W/ DINNER, TAB TAKES 2 (500MG) TABS Metoclopramide HCl (Metoclopramide HCl) 10 Mg/10 Ml Solution 5 ML PO TID PRN for NAUSEA/VOMITING-3RD LINE, EA Nitroglycerin (Nitroglycerin) 0.4 Mg Tab.subl 0.4 MG SL UD PRN for CHEST PAIN, TAB Nortriptyline HCl (Nortriptyline HCl) 50 Mg Capsule 50 MG PO HS, CAP Nystatin (Nystatin) 100,000 Unit/Gram Cream..g. 1 APPLIC TOP Q12H PRN for REDNESS, EA APPLY TO PANNUS Ondansetron HCl (Ondansetron HCl) 4 Mg Tablet 4 MG PO Q8H PRN for NAUSEA/VOMITING-1ST LINE, TAB Pantoprazole Sodium (Pantoprazole Sodium) 40 Mg Tablet.dr 40 MG PO DAILY, TAB Polyethylene Glycol 3350 (Miralax) 17 Gram Powd.pack 17 GM PO DAILY, EACH Pregabalin (Pregabalin) 50 Mg Capsule 50 MG PO DAILY, CAP Sertraline HCl (Sertraline HCl) 100 Mg Tablet 100 MG PO HS, TAB Torsemide (Torsemide) 20 Mg Tablet 40 MG PO DAILY, TAB TAKES 2 (20MG) TABS Trazodone HCl (Trazodone HCl) 300 Mg Tablet 300 MG PO HS, TAB Discontinued Medications: Nitrofurantoin Macrocrystal (Nitrofurantoin) 100 Mg Capsule 100 MG PO Q48H W/DINNER, CAP Home Health Need/Face to Face Date of Face to Face: Jan 31, 2022 Clinical Findings: Generalized weakness and fatigue, Unsteady gait I have seen Pt [id number]: Yes Discharged To: Home Diagnosis/Conditions: See Above Patient is Homebound due to: Galo fall risk due to instabilty, Muscle weakness Homebound Status Due to the above stated illness, injury or surgical procedure (medical condition or diagnosis) and associated clinical findings, the patient is homebound because of his/her inability to leave home except with aid of a supportive device and/or person AND leaving the home requires a considerable and taxing effort or is medically contraindicated. Pt req the following assistanc: [facility] Nursing Orders Home Health Services Order: Nursing Services, Hand Woodworking Sander-Evaluate & Treat, Physical Therapy-Evaluate & Treat Home Health Infusion Therapy Line Start Date: Jan 29, 2022 Therapy Orders Therapy Orders: Physical Therapy, PT to assess for OT Therapy Specific Orders: Gait training, Increase strength/endurance Certify Stmt I certify that this patient is under my care and that I, a nurse practitioner or a physician; a public health training assistant working with me, had a face to face encounter that - meets the physician face to face encounter requirements with this patient as dated. Discharge Physical Exam General: Alert, Oriented X3, No Acute Distress Lungs: Clear to Auscultation, Normal Air Movement Heart: Regular Rate, No Murmurs Abdomen: Normal Bowel Sounds, Soft, No Tenderness, No Masses Extremities: No Edema, No Tenderness/Swelling Neuro: Normal Speech, Sensation Intact, Cranial Nerves 3-12 NL Psych/Mental Status: Mental Status NL, Mood NL JEAN-CLAUDE ALLEN MD Jan 31, 2022 13:10
[2022-01-31 17:35] VITALS: BP 133/60
== END 2022-01-31 18:04 | disposition home health service (06) ==
LOC: EDUNIT# 02:31 → ER FS 02:37 → 4TH 08:25 → INTOOBSV 08:25
PROVIDERS: ADMIT Family Medicine; ATTEND Family Medicine
DX: N30.90 Cystitis, unspecified without hematuria (principal); B96.20 Unspecified Escherichia coli [E. coli] as the cause of diseases classified elsewhere; Z16.24 Resistance to multiple antibiotics; R30.0 Dysuria; I12.9 Hypertensive chronic kidney disease with stage 1 through stage 4 chronic kidney disease, or unspecified chronic kidney disease; E11.22 Type 2 diabetes mellitus with diabetic chronic kidney disease; E11.65 Type 2 diabetes mellitus with hyperglycemia; N18.32 Chronic kidney disease, stage 3b; N17.9 Acute kidney failure, unspecified; Z79.4 Long term (current) use of insulin; Z79.84 Long term (current) use of oral hypoglycemic drugs; G47.33 Obstructive sleep apnea (adult) (pediatric); Z99.81 Dependence on supplemental oxygen; Z79.82 Long term (current) use of aspirin; Z88.2 Allergy status to sulfonamides; Z88.8 Allergy status to other drugs, medicaments and biological substances; Z88.1 Allergy status to other antibiotic agents; Z91.041 Radiographic dye allergy status
CPT/HCPCS: 36410; 36415; 51701; 70450; 71045; 76937; 80053 ×3; 81000; 82947 ×3; 83605; 83735; 83880; 84484; 85007 ×2; 85027 ×2; 85610; 85730; 87077; 87088; 87184; 87186; 93005; 93041; 94640 ×2; 94760 ×2; 97110; 97161; 97530; 99284; C1751; 96360; 96361; 96372

== ENCOUNTER → 2022-02-07 | Outpatient (CLI) | payer MEDICARE ==
[~2022-02-07] MED LIST changes: +ACET-2267 PO; +ASCO500T17 PO; +CRAN500T3 PO; +CYCL1DRO OU; +DIVA-74 PO; +METF-478 PO; +METO5SOL18 PO; +NF-FOSFPKT PO; +NITR0.4T39 SL; +NYST15CR TOP; +ONDA-105 PO; +POLY17PO6 PO; +PREG50CA65 PO; +TRAZ300T3 PO
--- NOTE | 2022-02-07 14:41 | Diagnostic Imaging Report ---
INDICATION: Neck pain. COMPARISON: None. FINDINGS: Frontal, lateral, swimmer's, and open-mouth radiographic views of the cervical spine were obtained. Cervical spine is visualized faintly to the inferior endplate of C7 on the lateral view. Static alignment shows straightening with slight reversal of normal lordotic curvature epicentered at the C5-C6 level. There is no evidence of jumped facets. Vertebral body heights are maintained. There is no acute fracture. Mild degenerative changes are noted and consistent with intervertebral disc height loss with prominent anterior and posterior endplate formations, also greatest at C5-C6. Included portions of the lung apices are clear. IMPRESSION: 1. No acute fracture or dislocation of the cervical spine. 2. Moderate degenerative changes, greatest at C5-C6. Dictated by: Dictated on workstation # [id number]
== END ==
LOC: RAD FS 13:54
PROVIDERS: ATTEND Nurse Practitioner Family
DX: M47.812 Spondylosis without myelopathy or radiculopathy, cervical region (principal)
CPT/HCPCS: 72040

== ENCOUNTER → 2022-02-13 | Outpatient (CLI) | payer MEDICARE ==
[~2022-02-13] VITALS: Ht 172.7 cm; Wt 120.0 kg
== END | disposition home or self-care (01) ==
LOC: PREOP 11:13
PROVIDERS: ATTEND Surgery
DX: Z01.818 Encounter for other preprocedural examination (principal)

== ENCOUNTER 2022-02-14 07:28 | Day surgery (SDC) | payer MEDICARE ==
[~2022-02-14] VITALS: Ht 172.7 cm; Wt 120.0 kg
[2022-02-14] VITALS (7 sets, daily range): BP systolic 115–172; BP diastolic 47–78
[2022-02-14] MEDS ORDERED: ceFAZolin 2 GM IV Premixed 50 ML ONE (07:46)
[2022-02-14] MEDS ORDERED: LIDOCAINE/EPI 1%-1:200,000 (XYLOCAINE) 30 ML VIAL ONE (08:07)
[2022-02-14] MEDS ORDERED: 0.9% SODIUM CHLORIDE PF INJ 20 ML VIAL ONE (08:07)
[2022-02-14] MEDS ORDERED: HEParin (CENTRAL IV FLUSH) 500 UNIT/5 ML SYR ONE (08:07)
--- NOTE | 2022-02-14 08:10 | Progress Note-Pre Operative ---
Pre-Operative Progress Note H&P Reviewed The H&P was reviewed, patient examined and no changes noted. Date Seen by Provider: February 14, 2022 Time Seen by Provider: 08:09 Date H&P Reviewed: February 14, 2022 Time H&P Reviewed: 08:09 Pre-Operative Diagnosis: poor venous access CASEY MUSA DO February 14, 2022 08:09
[2022-02-14] MEDS ORDERED: ceFAZolin 2 GM IV Premixed 50 ML IV ONE (08:45)
[2022-02-14] MEDS ORDERED: MIDAZOLAM 2 MG/2 ML (VERSED) VIAL ONE (08:54)
[2022-02-14] MEDS ORDERED: PROPOFOL INJECTION 50 ML IV ONE (08:54)
[2022-02-14] MEDS ORDERED: KETAMINE 50 MG/5 ML SYRINGE ONE (08:54)
[2022-02-14] MEDS ORDERED: LACTATED RINGERS 1,000 ML IV PRN (09:00)
[2022-02-14] MEDS ORDERED: CLINDAMYCIN 600 MG/4ML (CLEOCIN) VIAL IV ONE (09:30)
[2022-02-14] MEDS ORDERED: CLINDAMYCIN 600 MG/4ML (CLEOCIN) VIAL ONE (09:31)
--- NOTE | 2022-02-14 10:18 | Discharge Inst-Simple/Standard ---
Discharge Inst-Standard Patient Instructions/Follow Up Plan of Care/Instructions/FU: 2 weeks magali Need to have port flushed every 90 days or less. Activity as Tolerated: No Discharge Diet: Regular Diet Other Inst to Patient Follow up Appt: Make appointment for 2 week. Instructions: No lifting greater than 10 pounds. No strenuous activity. May shower in 24 hours, no tub bath or soaking. Use incentive spirometer at home as directed. No Smoking Skin/Wound Care: You have special glue over your incision that will fall off on it's own. Ice pack on right chest for 15 min and off 30 min and repeat for first 48 hours. You need to have port flushed at least every 90 days. Symptoms to Report: Appetite Changes, Extremity Discoloration, Numbness/Tingling, Swelling Increased, Bleeding Excessive, Eyesight Changes, Pain Increased, Urine Color Change, Constipation(Persistent), Fever over 101 degree F, Pain/Pressure in chest, Urinating Difficulty, Cough Up/Vomit Blood, Heart Beat Irreg/Pounding, Pain/Pressure in jaw, Vaginal Bleeding Increase, Cramps in feet or legs, Lightheadedness, Pain/Pressure in shoulder, Diarrhea(Persistent), Memory Changes Suddenly, Questions/Concerns, Weight gain consecutive days, Dizziness/Fainting, Nausea/Vomiting, Shortness of Breath, Weight gain over 2 pounds If questions or concerns contact your physician Or seek help at emergency department. CASEY MUSA DO February 14, 2022 10:18
--- NOTE | 2022-02-14 10:22 | Anesthesia-General Post-Op ---
MAC Patient Condition Mental Status/LOC: Same as Preop Cardiovascular: Satisfactory Nausea/Vomiting: Absent Respiratory: Satisfactory Pain: Controlled Complications: Absent Post Op Complications Complications None Follow Up Care/Instructions Patient Instructions None needed. Anesthesiology Discharge Order Discharge Order Patient is doing well, no complaints, stable vital signs, no apparent adverse anesthesia problems. No complications reported per nursing. SUZIE CARBONE CRNA February 14, 2022 10:22
--- NOTE | 2022-02-14 10:24 | Progress Note-Post Operative ---
Post-Operative Progess Note Surgeon (s)/Operational Meteorologist (s) Surgeon CASEY MUSA DO Operational Meteorologist: na Pre-Operative Diagnosis poor venous access Post-Operative Diagnosis same Procedure & Operative Findings Date of Procedure 02/14/22 Procedure Performed/Findings PROCEDURE: Right internal jugular port placement using ultrasound guidance. COMPLICATIONS: None. INDICATIONS: The patient is a 71 year old female with poor venous access. Patient understands the risks and benefits of port placement and wished to proceed with the procedure. Consent was signed on the chart. PROCEDURE: The patient was taken to the operating suite, was prepped and draped in the sterile fashion. A surgical pause was performed. Ultrasound was used to locate the internal jugular vein. Once located anesthetic was infiltrated above it. Using micro-access kit, the right internal vein was accessed. Dark nonpulsatile blood was withdrawn. The wire was inserted. Fluoroscopy assured proper placement. The needle was removed. The micro-access dilator was advanced over the wire and the wire was removed. The regular wire was inserted and fluoroscopy assured proper placement. The wire was then secured. Local anesthetic was used to anesthetize from the neck for tunneling down to the right chest and for pocket creation. A 15 blade scalpel was used to make an incision over the right chest. Cautery was used to dissect down to the pectoral fascia. A pocket was created with blunt dissection. The dilator sheath was then advanced over the wire under fluoroscopy and the dilator and wire were removed. The Groshong catheter was inserted through the sheath and the sheath was then removed. The Groshong wire was removed. The catheter was then tunneled to the right chest pocket. Fluoroscopy was used to cut to length and this was then attached to the port which was then placed within the pocket. The port was then accessed without difficulty. It was then flushed with saline and then heparin. The subcutaneous tissues were then reapproximated using 3-0 Vicryl. The areas were then washed and dried. Skin Affix was placed over incision. The insertion point of the neck Skin Affix was placed over the incision. The patient tolerated the procedure well without complication and was taken to recovery room in stable condition. Chest x-ray is pending. Anesthesia Type mac c local Estimated Blood Loss Estimated blood loss (mL): minimal Specimens/Packing Specimens Removed CASEY Rosario DO February 14, 2022 10:24
[2022-02-14] MEDS ORDERED: morphine INJ 10 MG/ML 1ML (SYR OR VIAL) IVP ONE (10:30)
[2022-02-14] MEDS ORDERED: ONDANSETRON 4 MG/2 ML (SDV) Z0FRAN IVP PRN (10:30)
--- NOTE | 2022-02-14 10:38 | Diagnostic Imaging Report ---
INDICATION: Status post port placement. COMPARISON: 01/29/2022. FINDINGS: Single frontal view of the chest demonstrates normal heart size and pulmonary vascularity. The lungs are well aerated and clear. No large pleural effusion or pneumothorax is seen. The visualized osseous structures show no acute abnormalities. New right internal jugular Port-A-Cath is seen with tip in the high SVC. IMPRESSION: 1. No acute cardiopulmonary process. 2. New right-sided Port-A-Cath as above. Dictated by: Dictated on workstation # [id number]
--- NOTE | 2022-02-14 10:52 | Diagnostic Imaging Report ---
INDICATION: Port-A-Cath placement. COMPARISON: None Total fluoroscopy time: 20 seconds Total number of fluoroscopic images saved: 3 FINDINGS: Multiple intraoperative image intensifier views of the right chest were obtained during Port-A-Cath placement. Images provided show right internal jugular approach. Central tip of the catheter appears to terminate in the high SVC. Evaluation for pneumothorax is suboptimal given fluoroscopic modality. Please note, interpreting radiologist was not present during the procedure. IMPRESSION: 1. Fluoroscopic guidance provided during Port-A-Cath placement. Dictated by: Dictated on workstation # [id number]
== END 2022-02-14 11:35 ==
LOC: SDC 07:28
PROVIDERS: ATTEND Surgery
DX: I87.2 Venous insufficiency (chronic) (peripheral) (principal); N39.0 Urinary tract infection, site not specified; Z87.891 Personal history of nicotine dependence; Z99.81 Dependence on supplemental oxygen; Z79.899 Other long term (current) drug therapy
CPT/HCPCS: 36561; 71045; 76000; 82947; 87081; C1788

== ENCOUNTER 2022-02-18 13:59 | Inpatient (IN) | payer MEDICARE ==
[~2022-02-18] VITALS: Ht 172.7 cm; Wt 121.2 kg
[2022-02-18] VITALS (7 sets, daily range): BP systolic 117–185; BP diastolic 78–115
[2022-02-18] MEDS ORDERED: NS IV 500 ML 500 ML IV STA (14:11)
[2022-02-18] MEDS ORDERED: inSUlin (REGULAR) HUMAN 1 UNIT/0.01 ML (CHARGE PER UNIT) IV STA (14:11)
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
[2022-02-18] MEDS ORDERED: ONDANSETRON 4 MG/2 ML (SDV) Z0FRAN IVP ONE (14:15)
[2022-02-18 14:50] LABS: BILIRUBIN,URINE NEGATIVE (NEGATIVE); CLARITY,URINE SL CLOUDY; COLOR,URINE YELLOW; GLUCOSE, URINE (UA) 3+ (NEGATIVE); KETONES,URINE 1+ (NEGATIVE); LEUKOCYTE ESTERASE ,URINE NEGATIVE (NEGATIVE); NITRITE,URINE NEGATIVE (NEGATIVE); PH,URINE 7.5 (5-9); PROTEIN,URINE 2+ (NEGATIVE)
[2022-02-18 15:03] LABS: BACTERIA,URINE TRACE /HPF; SQUAMOUS EPITHELIAL CELL,UR 0-2 /HPF
--- NOTE | 2022-02-18 15:06 | Diagnostic Imaging Report ---
CHEST 1 VIEW AP/PA ONLY Indication: Altered mental status Comparison: 02/14/2022 Findings: No focal airspace disease in the visualized lungs. Please note that the posterior lower lobes are poorly evaluated by portable radiography. No pleural effusion or pneumothorax. Normal cardiomediastinal silhouette. Stable right IJ Port-A-Cath. Impression: 1. No acute cardiopulmonary process by portable radiography. Dictated by: Dictated on workstation # [id number]
--- NOTE | 2022-02-18 15:13 | Diagnostic Imaging Report ---
INDICATION: AMS TECHNIQUE: Routine non contrast-enhanced axial images were obtained from the skull base to the vertex. Auto Exposure Controls were utilized during the CT exam to meet ALARA standards for radiation dose reduction COMPARISON: 01/29/2022. FINDINGS: There is moderate image degradation secondary to motion artifact. The ventricles and cortical sulci are diffusely prominent, compatible with age-related volume loss. There are confluent areas of abnormal, low attenuation in the periventricular white matter. This is consistent with chronic small vessel ischemic changes. There is no midline shift or mass-effect. No acute intra-axial hemorrhage is seen. There are no abnormal areas of increased or decreased density to suggest acute hemorrhage or edema. No extra-axial masses or collections are present. The bony calvarium is intact. The visualized paranasal sinuses are unremarkable. The mastoid air cells are clear. IMPRESSION: 1. Moderate image degradation secondary to motion artifact, but no gross acute intracranial abnormality. No CT evidence of mass, acute infarct or intracranial hemorrhage. 2. Chronic small vessel ischemic changes in the deep white matter. Dictated by: Dictated on workstation # [id number]
[2022-02-18 18:47] LABS: BASOPHILS # (AUTO) 0.1 10^3/uL (0.0-0.1); BASOPHILS % (AUTO) 0 % (0-10); EOSINOPHILS % (AUTO) 0 % (0-10); HEMATOCRIT 40 % (35-52); HEMOGLOBIN 13.1 g/dL (11.5-16.0); LYMPHOCYTES # (AUTO) 1.5 10^3/uL (1.0-4.0); LYMPHOCYTES % (AUTO) 8 % (12-44); MEAN CORPUSCULAR HEMOGLOBIN 31 pg (25-34); MEAN CORPUSCULAR HGB CONC 33 g/dL (32-36); MEAN CORPUSCULAR VOLUME 95 fL (80-99); MEAN PLATELET VOLUME 11.1 fL (9.0-12.2); MONOCYTES # (AUTO) 1.6 10^3/uL (0.0-1.0); MONOCYTES % (AUTO) 8 % (0-12); NEUTROPHILS # (AUTO) 15.4 10^3/uL (1.8-7.8); NEUTROPHILS % (AUTO) 82 % (42-75); PLATELET COUNT 404 10^3/uL (130-400); WHITE BLOOD COUNT 18.7 10^3/uL (4.3-11.0)
[2022-02-18 18:50] LABS: ALBUMIN 3.8 GM/DL (3.2-4.5); POTASSIUM 4.3 MMOL/L (3.6-5.0); TOTAL PROTEIN 8.2 GM/DL (6.4-8.2)
[2022-02-18 18:52] LABS: BILIRUBIN,TOTAL 0.5 MG/DL (0.1-1.0)
[2022-02-18 18:54] LABS: CREATININE SERUM 1.23 MG/DL (0.60-1.30)
[2022-02-18 19:01] LABS: BAND NEUTROPHILS 0 %; BASOPHILS % (MANUAL) 0 %; EOSINOPHILS % (MANUAL) 0 %; LYMPHOCYTES % (MANUAL) 6 %; MONOCYTES % (MANUAL) 8 %; NEUTROPHILS % (MANUAL) 86 %; RBC MORPH NORMAL
[2022-02-18] MEDS ORDERED: MEROPENEM 500 MG in NS (IVPB) 100 ML IV ONE (19:15)
[2022-02-18] MEDS ORDERED: LACTATED RINGERS 1,000 ML IV SCH (19:15)
[2022-02-18] MEDS ORDERED: inSUlin (REGULAR) HUMAN 1 UNIT/0.01 ML (CHARGE PER UNIT) IV ONE ×2 (19:15→20:45)
[2022-02-18] MEDS ORDERED: ASPIRIN 81 MG CHEW (CHILDREN'S ASA) PO ONE (19:15)
[2022-02-18] MEDS ORDERED: ENOXAPARIN 60 MG/0.6 ML (LOVENOX) SYR SC ONE (19:15)
[2022-02-18] MEDS ORDERED: LABETALOL HCL 20 MG/4 ML VIAL IV ONE (19:30)
[2022-02-18] MEDS ORDERED: fentaNYL INJ 100 MCG/2 ML AMP IVP ONE (19:30)
[2022-02-18] MEDS ORDERED: ANTACID SUSP 30 ML UDC (MYLANTA) PO PRN (20:45)
[2022-02-18] MEDS ORDERED: LACTULOSE SYRUP 10GM/15ML (ENULOSE) 30ML UDC PO PRN (20:45)
[2022-02-18] MEDS ORDERED: MELATONIN 3 MG TABLET PO PRN (20:45)
[2022-02-18] MEDS ORDERED: NS IV 1000 ML 1,000 ML IV SCH (20:45)
[2022-02-18] MEDS ORDERED: BISACODYL 10 MG SUPP (DULCOLAX) PR PRN (20:45)
[2022-02-18] MEDS ORDERED: LORazepam INJ 2 MG/ML (ATIVAN) VIAL IVP PRN (20:45)
[2022-02-18] MEDS ORDERED: MILK OF MAGNESIA 400 MG/5 ML 30 ML UDC PO PRN (20:45)
[2022-02-18] MEDS ORDERED: CALCIUM CARBONATE 500 MG (TUMS) TAB.CHEW PO PRN (20:45)
[2022-02-18] MEDS ORDERED: diphenhydrAMINE 25 MG TAB (BENADRYL) PO PRN (20:45)
[2022-02-18] MEDS ORDERED: MEROPENEM 1,000 MG in NS (IVPB) 100 ML IV SCH (20:45)
[2022-02-18] MEDS ORDERED: polyethylene glycoL POWDER 17 GM (MIRALAX) PACK PO PRN (20:45)
[2022-02-18] MEDS ORDERED: ONDANSETRON 4 MG (ZOFRAN) ORAL DISSOLVE TAB PO PRN (20:45)
[2022-02-18] MEDS ORDERED: diphenhydrAMINE 50 MG/ML INJ (BENADRYL) IVP PRN (20:45)
[2022-02-18] MEDS: SENNOSIDES 8.6 MG (SENOKOT) TAB PO SCH (21:00)
[2022-02-18] MEDS: DOCUSATE SODIUM 100 MG (COLACE) CAP PO SCH (21:00)
[2022-02-18] MEDS ORDERED: hydrALAZINE (APESOLINE) 20 MG/ML VIAL IV PRN (21:00)
--- NOTE | 2022-02-18 21:09 | Tele-ICU Progress Note ---
Progress Note 71F DM, HTN, HLD, frequent MDRO UTIs presented to [facility] with confusion, typical of her UTIs. Most recnt admit 01/29-01/31. Port placed 4 days ago secondary to difficult IV access. Patient was seen in normal health last night, found to be confused by daughter this AM. - sepsis: cultures sent including 1 set of blood cultures from port. Merrem i nitiated. 01/29 had e coli UTI sensitive to only merrem and gent. - DM/hyperglycemia: glucose 470 with anion gap 16, lactic 1.7, +ketonuria. Will add ketones onto prior labs to complete work up, but insulin gtt already ordered. Will continue per DKA protocol. - troponemia: mild troponin elevation, likely strain. Repeat troponin in 4 hrs. - HTN: 180/80. HR 86. PRN hydralazine for SBP>160. Focused Exam Lactate Level 02/18/22 18:36: Lactic Acid Level 1.70 Height, Weight, BMI Height: '" Weight: lbs. oz. kg; 40.40 BMI Method: Lactic Acid Level Laboratory Tests Test 02/18/22 18:36 Lactic Acid Level 1.70 MMOL/L (0.50-2.00) VELVET ALEXIS MD February 18, 2022 21:09
[2022-02-18] MEDS: VANCOMYCIN INJECTION 1,000 MG in NS (IVPB) 250 ML IV SCH (23:10)
[2022-02-18] MEDS: morphine INJ 4 MG/ML 1 ML (VIAL/SYRINGE) IV PRN (23:15)
[2022-02-19] VITALS (25 sets, daily range): BP systolic 117–182; BP diastolic 52–107
[2022-02-19] MEDS ORDERED: 1/2 NS IV SOLUTION 1,000 ML IV ONE (01:11)
[2022-02-19] MEDS ORDERED: inSUlin (REGULAR) HUMAN 1 UNIT/0.01 ML (CHARGE PER UNIT) ONE (01:41)
[2022-02-19] MEDS ORDERED: POTASSIUM CL 10MEQ/50ML IVPB 50 ML IV SCH ×2 (02:00→06:00)
[2022-02-19] MEDS ORDERED: NS IV 1000 ML 1,000 ML IV SCH (02:00)
[2022-02-19] MEDS ORDERED: D5 1/2 NS 1000 ML IV SOLUTION 1,000 ML IV SCH ×2 (02:00→10:30)
[2022-02-19] MEDS: MEROPENEM 500 MG/NS 100 ML IVPB IV SCH ×8 (02:27→20:16)
[2022-02-19] MEDS: 1/2 NS IV SOLUTION 1,000 ML IV SCH ×3 (02:27→10:17)
[2022-02-19 03:53] LABS: ABG BASE EXCESS 1.5 MMOL/L (-2.5-2.5); ABG OXYGEN SATURATION 80 % (94-100); ABG PCO2 45 MMHG (35-45); ABG PH 7.38 (7.37-7.43); ABG PO2 44 MMHG (79-93); ABG TCO2 27.8 MMOL/L (21.0-31.0)
[2022-02-19 03:54] LABS: ALLENS TEST YES-POS; INSPIRED O2 2; PATIENT TEMP 36.2; VENTILATOR NO
[2022-02-19 04:16] LABS: BASOPHILS # (AUTO) 0.1 10^3/uL (0.0-0.1); BASOPHILS % (AUTO) 1 % (0-10); EOSINOPHILS # (AUTO) 0.2 10^3/uL (0.0-0.3); EOSINOPHILS % (AUTO) 1 % (0-10); HEMATOCRIT 36 % (35-52); HEMOGLOBIN 11.8 g/dL (11.5-16.0); LYMPHOCYTES # (AUTO) 2.2 10^3/uL (1.0-4.0); LYMPHOCYTES % (AUTO) 12 % (12-44); MEAN CORPUSCULAR HEMOGLOBIN 31 pg (25-34); MEAN CORPUSCULAR HGB CONC 33 g/dL (32-36); MEAN CORPUSCULAR VOLUME 96 fL (80-99); MEAN PLATELET VOLUME 10.9 fL (9.0-12.2); MONOCYTES # (AUTO) 1.6 10^3/uL (0.0-1.0); MONOCYTES % (AUTO) 9 % (0-12); NEUTROPHILS # (AUTO) 13.9 10^3/uL (1.8-7.8); NEUTROPHILS % (AUTO) 77 % (42-75); PLATELET COUNT 365 10^3/uL (130-400); WHITE BLOOD COUNT 18.2 10^3/uL (4.3-11.0)
[2022-02-19 04:37] LABS: ALBUMIN 3.3 GM/DL (3.2-4.5); BILIRUBIN,TOTAL 0.5 MG/DL (0.1-1.0); CALCIUM 9.2 MG/DL (8.5-10.1); CREATININE SERUM 1.14 MG/DL (0.60-1.30); MAGNESIUM 1.8 MG/DL (1.6-2.4); PHOSPHORUS 2.4 MG/DL (2.3-4.7); POTASSIUM 3.3 MMOL/L (3.6-5.0); TOTAL PROTEIN 6.9 GM/DL (6.4-8.2)
[2022-02-19] MEDS: POTASSIUM CL 10MEQ/50ML IVPB 50 ML IV SCH ×5 (05:02→08:04)
[2022-02-19] MEDS: morphine INJ 4 MG/ML 1 ML (VIAL/SYRINGE) IV PRN (05:03)
[2022-02-19] MEDS: MAGNESIUM 1 GM/100 ML IVPB 100 ML IV SCH (05:49)
[2022-02-19] MEDS: KCL 20 MEQ TAB (K-DUR) PO SCH (05:49)
--- NOTE | 2022-02-19 05:58 | History & Physical-Hospitalist ---
History of Present Illness HPI/Chief Complaint CC: Confusion HPI: This is a 71 yr old WF. She presented to [place] ER with complaints of altered mental status. She does have a port that was placed by Dr. Chen that needed to be transferred to [facility] ER to obtain lab work just in case she had acute renal failure that I couldn't manage at [facility]. She has a recent history of UTI ESBL, completed Fosfomycin treatment. She was placed on Meropenem and Vanc until cultures come back. She required an insulin drip. She is still confused, only oriented x1. She complains of back pain. Source: patient Exam Limitations: clinical condition Date Seen 02/19/22 Time Seen by a Provider: 09:00 Attending Physician Luana Miguel DO [facility] Referring Physician Date of Admission February 18, 2022 at 19:29 Home Medications & Allergies Home Medications Reviewed patient Home Medication Reconciliation performed by pharmacy medication reconciliations electrophysiology technician and/or nursing. Patients Allergies have been reviewed. Allergies Allergies Coded Allergies Cephalosporins (Verified Allergy, Unknown, 02/14/22) Iodinated Contrast Media (Verified Allergy, Unknown, HIVES, 02/14/22) Sulfa (Sulfonamide Antibiotics) (Verified Allergy, Unknown, 02/14/22) fenofibrate (Verified Allergy, Unknown, 02/14/22) gabapentin (Verified Allergy, Unknown, 02/14/22) levofloxacin (Verified Allergy, Unknown, 02/14/22) naloxone (Verified Allergy, Unknown, 02/14/22) Uncoded Allergies CONTRAST ( Allergy, Unknown, 03/06/21) Past Mfqfhvm-Ylwwbf-Bywigz Hx Patient Social History Marrital Status: single Employed/Student: retired Tobacco Use?: No Tobacco type used: Cigarettes Smoking Status: Former Smoker Use of E-Cig and/or Vaping dev: No Substance use?: No Alcohol Use?: No Pt feels they are or have been: No Immunizations Up To Date Date of Influenza Vaccine: Jul 16, 2021 First/Initial COVID19 Vaccinat: DECEMBER 2020 Second COVID19 Vaccination Chris: January 2021 Tetanus Booster (TDap): Unknown Hepatitis A: No Hepatitis B: No Seasonal Allergies Seasonal Allergies: No Current Status status: No status: No Advance Directives: No Communicates: Verbally Primary Language: Hungarian Preferred Spoken Language: Hungarian Is interpretation needed?: No Sensory deficits: Vision impairment Implanted or Applied Medical D: Port-a-cath, Stents Past Medical History Surgeries: Appendectomy, Coronary Stent, Gallbladder, Orthopedic, Pancreatic, Tonsillectomy Currently Using CPAP: No Currently Using BIPAP: No Angina, Coronary Artery Disease, High Cholesterol, Hypertension Concussion, Neuropathy, Stroke Renal Failure, UTI-Chronic Pancreatitis Arthritis, Rheumatoid Arthritis, Back Injury, Chronic Back Pain Diabetes, Insulin dep Recurrent UTI IDDM HTN KANDACE CPAP Family Medical History No Pertinent Family Hx Review of Systems ROS-Unable to Obtain: Confusion Constitutional: see HPI, malaise, weakness Psychiatric/Neurological: Other (Confusion) Physical Exam Physical Exam Vital Signs Vital Signs - First Documented 02/18/22 02/18/22 02/18/22 13:59 17:28 20:15 Temp 36.4 Pulse 102 Resp 18 B/P (MAP) 202/121 (148) Pulse Ox 93 O2 Delivery Room Air O2 Flow Rate 2.00 Capillary Refill : Height, Weight, BMI Height: '" Weight: lbs. oz. kg; 40.40 BMI Method: General Appearance: No Apparent Distress, Anxious, Chronically ill, Obese Eyes: Right Eye Normal Inspection, Right Eye PERRL HEENT: PERRL/EOMI, Normal ENT Inspection, Pharynx Normal, Moist Mucous Membranes Neck: Full Range of Motion, Normal Inspection, Non Tender Respiratory: Chest Non Tender, Lungs Clear, Normal Breath Sounds, No Accessory Muscle Use, No Respiratory Distress Cardiovascular: Regular Rate, Rhythm, No Edema, No Gallop, No JVD, No Murmur, Normal Peripheral Pulses Gastrointestinal: Normal Bowel Sounds, No Organomegaly, No Pulsatile Mass, Non Tender, Soft Back: Normal Inspection, No CVA Tenderness, No Vertebral Tenderness Extremity: Normal Capillary Refill, Normal Inspection, Normal Range of Motion, Non Tender, No Calf Tenderness, No Pedal Edema Neurologic/Psychiatric: Alert, No Motor/Sensory Deficits, product inspection supervisor II-XII Norm as Tested, Depressed Affect, Disoriented, Motor Weakness (Generalized) Skin: Normal Color, Warm/Dry Lymphatic: No Adenopathy Results Results/Procedures Labs Laboratory Tests 02/18/22 18:36 02/19/22 04:00 02/19/22 06:00 02/19/22 16:53 02/20/22 05:25 Patient resulted labs reviewed. Assessment/Plan Admission Diagnosis Assessment: Sepsis Resistant UTI recent fosfomycin x3 Metabolic encephalopathy NSTEMI CAD previous stents 2020 Diabetes Hypertension Former smoker Chronic kidney disease Plan: Supportive care ICU Cardiology consult Lovenox Aspirin Admission Status: Inpatient Order (span 2 midnights) Reason for Inpatient Admission: Sepsis with non-STEMI LUANA MIGUEL DO February 19, 2022 05:58
[2022-02-19] MEDS ORDERED: KCL 20 MEQ TAB (K-DUR) PO SCH (06:00)
[2022-02-19] MEDS ORDERED: MAGNESIUM 1 GM/100 ML IVPB 100 ML IV SCH (06:00)
[2022-02-19 06:50] LABS: POTASSIUM 3.7 MMOL/L (3.6-5.0)
[2022-02-19 06:51] LABS: CALCIUM 9.1 MG/DL (8.5-10.1)
[2022-02-19 06:55] LABS: CREATININE SERUM 0.92 MG/DL (0.60-1.30)
[2022-02-19] MEDS: SENNOSIDES 8.6 MG (SENOKOT) TAB PO SCH ×2 (08:14→20:36)
[2022-02-19] MEDS: DOCUSATE SODIUM 100 MG (COLACE) CAP PO SCH ×2 (08:14→20:36)
[2022-02-19] MEDS ORDERED: ASPIRIN 300 MG (5 GR) SUPPOSITORY PR SCH (09:00)
[2022-02-19] MEDS ORDERED: ENOXAPARIN 300 MG/3 ML (LOVENOX) MULTI-DOSE VIAL SQ SCH (09:00)
[2022-02-19] MEDS: MICONAZOLE 2% POWDER (DESENEX AF) 90 GM TOP SCH ×2 (10:16→20:37)
[2022-02-19] MEDS: VANCOMYCIN INJECTION 1,000 MG in NS (IVPB) 250 ML IV SCH ×2 (10:16→23:07)
[2022-02-19] MEDS: ENOXAPARIN 120 MG/0.8 ML (LOVENOX) SQ SCH ×2 (10:16→20:36)
--- NOTE | 2022-02-19 10:19 | Tele-ICU Progress Note ---
Subjective Date Seen by a Provider: February 19, 2022 Time Seen by a Provider: 10:18 Subjective/Events-last exam (Tele-ICU Physician , Progress Note ) Available chart/ vitals / labs / Images reviewed Video assessment done using teleICU camera, rest of exam as per RN Discussed with RN , EXAM PER RN Events overnight : Afebrile FiO2 - 2l I/O = neg Drips: 1/2 250/h Pressors: , hemodynamically stable Consultants: Hospital course: 71F DM, HTN, HLD, frequent MDRO UTIs presented to [facility] with confusion, typical of her UTIs. Most recnt admit 01/29-01/31. Port placed 4 days ago secondary to difficult IV access. Patient was seen in normal health last night, found to be confused by daughter this AM. A/P Sepsis: -cultures sent including 1 set of blood cultures from port. Merrem initiated. 01/29 had e coli UTI sensitive to only merrem and gent. - DM/hyperglycemia: glucose 470 omn admission - insulin gtt started now closed AG - nor in DKA - will stop insulin gtt and follow closely Troponemia /CAD - mild troponin elevation - AC lovenox 120 bid - as per cards HTN: 180/80. - PRN hydralazine for SBP>160 as per cards AMS change - CT HEAD 02/18= NO ACUTE FINDING - as per chart = " typical of her UTIs - try to avoid opioids ( chronic back pain Lines : port acsessed - midline (Central Line Necessity Reviewed) Elder: + OG: Nutrition: start when pass swallo Analgesia: try to avoid opioids Anxiety/ delirium VTE Prophylaxis: varun 120 bid Stress Ulcer Prophylaxis: na Plans in collaboration with bedside consultants and IM MDs. Discussed with RN to reach out if any questions or concerns A total of 31 minutes of critical care time was devoted to this patient today, required to treat and/or prevent further deterioration of critical care condition ( as above) . Sepsis Event Evaluation Height, Weight, BMI Height: '" Weight: lbs. oz. kg; 40.40 BMI Method: Focused Exam Lactate Level 02/18/22 18:36: Lactic Acid Level 1.70 Exam Exam Patient acknowledged, consented, and participated in this virtual visit which was conducted using real time audio/video Vital Signs Date Time Temp Pulse Resp B/P (MAP) Pulse Ox O2 Delivery O2 Flow Rate FiO2 02/19/22 09:15 84 15 159/88 (111) 97 Nasal Cannula 2.00 02/19/22 09:00 82 12 168/82 (110) 98 Nasal Cannula 2.00 02/19/22 08:20 98 Nasal Cannula 2.00 02/19/22 08:00 84 22 156/71 (99) 96 Nasal Cannula 2.00 02/19/22 07:00 84 14 156/77 (103) 98 Nasal Cannula 2.00 02/19/22 07:00 88 02/19/22 06:00 86 15 160/70 (100) 97 Nasal Cannula 2.00 02/19/22 05:00 89 23 182/82 (115) 96 Nasal Cannula 2.00 02/19/22 04:08 36.2 02/19/22 04:00 86 15 163/78 (106) 97 Nasal Cannula 2.00 02/19/22 04:00 98 Nasal Cannula 2.00 02/19/22 03:00 91 16 159/73 (101) 98 Nasal Cannula 2.00 02/19/22 02:00 90 20 175/84 (114) 97 Nasal Cannula 2.00 02/19/22 01:00 89 17 174/83 (113) 97 Nasal Cannula 2.00 02/19/22 00:56 89 02/19/22 00:00 98 Nasal Cannula 2.00 02/19/22 00:00 89 16 155/70 (98) 97 Nasal Cannula 2.00 02/18/22 23:55 36.2 02/18/22 23:00 91 22 117/104 (108) 93 Nasal Cannula 2.00 02/18/22 22:00 83 14 185/83 (117) 93 Nasal Cannula 2.00 02/18/22 21:45 85 14 175/100 (125) 93 Nasal Cannula 2.00 02/18/22 21:30 85 13 150/78 (102) 93 Nasal Cannula 2.00 02/18/22 21:00 86 12 179/81 (113) 93 Nasal Cannula 2.00 02/18/22 20:54 36.8 02/18/22 20:45 87 22 180/80 (113) 91 Nasal Cannula 2.00 02/18/22 20:30 89 22 144/115 (125) 92 Nasal Cannula 2.00 02/18/22 20:22 92 02/18/22 20:15 Nasal Cannula 2.00 02/18/22 17:28 94 18 212/93 (132) 93 Room Air 02/18/22 13:59 36.4 102 18 202/121 (148) I & O 02/19/22 07:00 Intake Total 750 ml Output Total 1150 ml Balance -400 ml Height & Weight Height: '" Weight: lbs. oz. kg; 40.40 BMI Method: General Appearance: No Apparent Distress, WD/WN HEENT: PERRL/EOMI, Normal ENT Inspection, Pharynx Normal Neck: Full Range of Motion, Normal Inspection, Non Tender, Supple Respiratory: Chest Non Tender, Lungs Clear, Normal Breath Sounds, No Accessory Muscle Use, No Respiratory Distress Cardiovascular: Regular Rate, Rhythm, No Edema, Normal Peripheral Pulses Extremity: Normal Capillary Refill, Normal Inspection, Normal Range of Motion, Non Tender, No Calf Tenderness, No Pedal Edema Neurologic/Psychiatric: Alert, No Motor/Sensory Deficits, Normal Mood/Affect, setter off II-XII Norm as Tested, Disoriented Skin: Normal Color, Warm/Dry Lymphatic: No Adenopathy Results Lab Laboratory Tests 02/18/22 18:36 02/19/22 04:00 02/19/22 06:00 Assessment/Plan Assessment/Plan ` LUDWIN PATTON MD February 19, 2022 10:18
[2022-02-19] MEDS: inSUlin NPH (NovoLIN N) 1 UNIT/0.01 ML (CHARGE PER UNIT) SQ SCH ×2 (10:59→20:37)
[2022-02-19] MEDS: inSUlin ASPART (NovoLOG) 1 UNIT/0.01 ML (CHARGE PER UNIT) SC SCH ×3 (11:09→20:37)
--- NOTE | 2022-02-19 11:15 | Physical Therapy Evaluation ---
PT Evaluation-General Medical Diagnosis Admission Date February 18, 2022 at 19:29 Medical Diagnosis: weakness, UTI Onset Date: February 18, 2022 Therapy Diagnosis Therapy Diagnosis: impaired mobility, strength, endurance Precautions Precautions/Isolations: Fall Prevention, Standard Precautions Referral Physician: Luana Miguel DO Reason for Referral: Evaluation/Treatment Medical History Pertinent Medical History: CAD, CVA, DM, HTN, Neuropathy, Rheumatoid Arthritis Additional Medical History Past Medical History Surgeries: Appendectomy, Coronary Stent, Gallbladder, Orthopedic, Pancreatic, Tonsillectomy Currently Using CPAP: No Currently Using BIPAP: No Angina, Coronary Artery Disease, High Cholesterol, Hypertension Concussion, Neuropathy, Stroke Renal Failure, UTI-Chronic Pancreatitis Arthritis, Rheumatoid Arthritis, Back Injury, Chronic Back Pain Diabetes, Insulin dep Recurrent UTI IDDM HTN KANDACE CPAP Reviewed History: Yes Social History Home: Single Level Current Living Status: Alone Entry Into Home: Level Entry Prior Prior Level of Function SCALE: Activities may be completed with or without assistive devices. 7-Fnpkbqbtfl-waolabj completes the activity by him/herself with no assistance from a helper. 5-Set-up or Clean-up Assistance-helper sets up or cleans up; patient completes activity. [place] assists only prior to or following the activity. 4-Supervision or Touching Assistance-helper provides verbal cues and/or touchi ng/steadying and/or contact guard assistance as patient completes activity. Assistance may be provided throughout the activity or intermittently. 3-Partial/Moderate Assistance-helper does LESS THAN HALF the effort. [place] lifts, holds or supports trunk or limbs, but provides less than half the effort. 2-Substantial/Maximal Assistance-helper does MORE THAN HALF the effort. [place] lifts or holds trunk or limbs and provides more than half the effort. 6-Zitqgabmx-fxlivp does ALL the effort. Patient does none of the effort to complete the activity. Or, the assistance of 2 or more helpers is required for the patient to complete the activity. If activity was not attempted, code reason: 7-Patient Refused. 9-Not Applicable-not attempted and the patient did not perform the activity before the current illness, exacerbation or injury. 10-Not Attempted due to Environmental Limitations-(lack of equipment, weather restraints, etc.). 88-Not Attempted due to Medical Conditions or Safety Concerns. Bed Mobility: 6 Transfers (B,C,W/C): 6 Wheelchair Mobility: 6 Prior Devices Use: Manual wheelchair, Walker Patient states she doesn't really ambulate at home, mostly transfers from bed to WC to commode. PT Evaluation-Current Subjective Patient in bed pre tx, agrees to PT, has no complaints of pain at rest. Pt/Family Goals to be independent at home Objective Patient Orientation: Person, Place, Situation Attachments: Oxygen, Elder Catheter, IV ROM/Strength Strength Lower Extremities grossly 3/5 BLE except for right ankle 1/5, has dropfoot. Sensory Vision: Functional Hearing: Functional Sensation Right Lower Extremit: Impaired Sensation Left Lower Extremity: Impaired Transfers Roll Left to Right (QC): 6 Lying to Sitting/Side of Bed(Q: 6 Sit to Stand (QC): 3 Chair/Eko-ut-Xmfmg Xfer(QC): 4 Patient needed min assist for sit to stand but just CGA to transfer to recliner. Patient was able to take several steps to the recliner, ambulated a couple of feet to get there. Balance Sitting Static: Normal Sitting Dynamic: Normal Standing Static: Fair Standing Dynamic: Fair Treatment BLE seated exercises x20 (AP, LAQ) Assessment/Needs Patient in recliner post tx with nurse call, phone, tray, all needs met. Patient has impaired mobility, strength, endurance. She has poor LE strength but didn't need much assist to transfer to the recliner. Rehab Potential: Fair PT Care Home Goals Care Home Goals PT Barrel Endshake Adjuster Goals Time Frame: February 26, 2022 Roll Left & Right (QC): 6 Sit to Lying (QC): 6 Lying-Sitting on Side/Bed(QC): 6 Sit to Stand (QC): 6 Chair/Uau-wa-Gsfvz Xfer(QC): 6 PT Plan Problem List Problem List: Activity Tolerance, Functional Strength, Safety, Balance, Gait, Transfer, Bed Mobility, ROM Treatment/Plan Treatment Plan: Continue Plan of Care Treatment Plan: Bed Mobility, Education, Functional Activity Ryan, Functional Strength, Gait, Safety, Therapeutic Exercise, Transfers Treatment Duration: February 26, 2022 Frequency: 6 times per week Estimated Hrs Per Day: .25 hour per day Patient and/or Family Agrees t: Yes Safety Risks/Education Patient Education: Transfer Techniques, Correct Positioning, Safety Issues Teaching Recipient: Patient Teaching Methods: Demonstration, Discussion Response to Teaching: Reinforcement Needed Discharge Recommendations Plan Patient will perform bed mobility and transfer training, balance and endurance training, functional strengthening, gait training, and education, to improve functional mobility and independence at home. Therapy Discharge Recommendati: Scheduled Assistance, Home & Family, Post Acute PT Time/GCodes Time In: 1042 Time Out: 1054 Total Billed Treatment Time: 12 Total Billed Treatment 1 visit KATIE ZARCO PT February 19, 2022 11:14
--- NOTE | 2022-02-19 11:34 | Diagnostic Imaging Report ---
PROCEDURE: US carotid duplex, bilateral. TECHNIQUE: Multiple real-time grayscale images were obtained over the carotid arteries in various projections, bilaterally. Additional spectral analysis and color Doppler duplex images were also obtained. INDICATION: Altered mental status. History of previous bilateral endarterectomy. FINDINGS: Color Doppler imaging shows mild intimal thickening bilaterally within the carotid arteries. There is antegrade flow throughout the carotid and vertebral arteries. Doppler sampling shows normal waveforms and peak velocities with normal carotid ratios. IMPRESSION: Mild intimal thickening with no hemodynamic changes demonstrated by Doppler sampling. Parameters based on the consensus panel Do-Scale and Doppler ultrasound criteria published August 2003, Radiology, Volume 229. DOPPLER (peak systolic velocity M/S Right Left CCA .48 .66 ICA Proximal .81 1.06 ICA Mid 1.03 .95 ICA Distal .98 .80 RATIO 2.02 1.61 ECA 1.04 .77 VERT .49 .54 Dictated by: Dictated on workstation # [id number]
--- NOTE | 2022-02-19 11:46 | Consultation-Cardiology ---
HPI-Cardiology Cardiology Consultation Date of Consultation 02/19/22 Date of Admission Time Seen by Provider: 11:41 Indication: Change in mental status HPI 71-year-old lady with extensive cardiac history, she was brought by EMS for change in mental status, lethargy and confusion. She was noted to have UTI, has been started on antibiotic, noted to have recurrent UTI. On February evaluation she was having back pain, reported some retrosternal chest discomfort and jaw pain. She was noted to have elevation in troponin level. No acute EKG changes. Home Medications & Allergies Allergies: Coded Allergies: Cephalosporins (Verified Allergy, Unknown, 02/14/22) Iodinated Contrast Media (Verified Allergy, Unknown, HIVES, 02/14/22) Sulfa (Sulfonamide Antibiotics) (Verified Allergy, Unknown, 02/14/22) fenofibrate (Verified Allergy, Unknown, 02/14/22) gabapentin (Verified Allergy, Unknown, 02/14/22) levofloxacin (Verified Allergy, Unknown, 02/14/22) naloxone (Verified Allergy, Unknown, 02/14/22) Uncoded Allergies: CONTRAST (Allergy, Unknown, 03/06/21) Home Medication List Reviewed: Yes [id number] Hx Patient Social History Marital Status: Employed/Student: retired Smoking Status: Former Smoker 2nd Hand Smoke Exposure: Yes Recent Hopitalizations: Yes (DECEMBER-JANUARY 2022 UTI/HYPERTENSION - [facility]IA [facility]) Have you traveled recently?: No Alcohol Use?: No Immunizations Up To Date Tetanus Booster (TDap): Unknown Date of Influenza Vaccine: Jul 16, 2021 Past Medical History Discussed with Family Medical History Significant Family History: No Pertinent Family Hx Family Medical Hx Noncontributory Review of Systems-General Review of Systems Constitutional: No chills, No fever; malaise, weakness EENTM: see HPI; No blurred vision Respiratory: see HPI; No cough; dyspnea on exertion Cardiovascular: see HPI, chest pain Gastrointestinal: No abdominal pain Genitourinary: see HPI; No decreased output Musculoskeletal: no symptoms reported, see HPI Skin: no symptoms reported, see HPI Psychiatric/Neurological: See HPI, Other (Confused) All Other Systems Reviewed Negative Unless Noted: Yes Reviewed Test Results Reviewed Test Results Lab Laboratory Tests Test 02/18/22 14:16 02/18/22 14:43 02/18/22 18:36 02/18/22 21:14 Range/Units Urine Color YELLOW Urine Clarity SL CLOUDY Urine pH 7.5 5-9 Urine Specific [place] 1.020 1.016-1.022 Urine Protein 2+ H NEGATIVE Urine Glucose (UA) 3+ H NEGATIVE Urine Ketones 1+ H NEGATIVE Urine Nitrite NEGATIVE NEGATIVE Urine Bilirubin NEGATIVE NEGATIVE Urine Urobilinogen 0.2 < = 1.0 MG/DL Urine Leukocyte Esterase NEGATIVE NEGATIVE Urine RBC (Auto) TRACE-I H NEGATIVE Urine RBC NONE /HPF Urine WBC 10-25 H /HPF Urine Squamous Epithelial Cells 0-2 /HPF Urine Crystals NONE /LPF Urine Bacteria TRACE /HPF Urine Casts NONE /LPF Urine Mucus NEGATIVE /LPF Urine Culture Indicated YES Influenza Type A Antigen NEGATIVE NEGATIVE Influenza Type B Antigen NEGATIVE NEGATIVE SARS-CoV-2 RNA (RT-PCR) Not Detected Not Detecte White Blood Count 18.7 H 4.3-11.0 10^3/uL Red Blood Count 4.19 3.80-5.11 10^6/uL Hemoglobin 13.1 11.5-16.0 g/dL Hematocrit 40 35-52 % Mean Corpuscular Volume 95 80-99 fL Mean Corpuscular Hemoglobin 31 25-34 pg Mean Corpuscular Hemoglobin Concent 33 32-36 g/dL Red Cell Distribution Width 14.6 H 10.0-14.5 % Platelet Count 404 H 130-400 10^3/uL Mean Platelet Volume 11.1 9.0-12.2 fL Immature Granulocyte % (Auto) 1 % Neutrophils (%) (Auto) 82 H 42-75 % Lymphocytes (%) (Auto) 8 L 12-44 % Monocytes (%) (Auto) 8 0-12 % Eosinophils (%) (Auto) 0 0-10 % Basophils (%) (Auto) 0 0-10 % Neutrophils # (Auto) 15.4 H 1.8-7.8 10^3/uL Lymphocytes # (Auto) 1.5 1.0-4.0 10^3/uL Monocytes # (Auto) 1.6 H 0.0-1.0 10^3/uL Eosinophils # (Auto) 0.0 0.0-0.3 10^3/uL Basophils # (Auto) 0.1 0.0-0.1 10^3/uL Immature Granulocyte # (Auto) 0.1 0.0-0.1 10^3/uL Neutrophils % (Manual) 86 % Lymphocytes % (Manual) 6 % Monocytes % (Manual) 8 % Eosinophils % (Manual) 0 % Basophils % (Manual) 0 % Band Neutrophils 0 % Blood Morphology Comment NORMAL Prothrombin Time 14.0 12.2-14.7 SEC INR Comment 1.0 0.8-1.4 Activated Partial Thromboplast Time 44 H 24-35 SEC Sodium Level 140 135-145 MMOL/L Potassium Level 4.3 3.6-5.0 MMOL/L Chloride Level 99 98-107 MMOL/L Carbon Dioxide Level 25 21-32 MMOL/L Anion Gap 16 H 5-14 MMOL/L Blood Urea Nitrogen 22 H 7-18 MG/DL Creatinine 1.23 0.60-1.30 MG/DL Estimat Glomerular Filtration Rate 47 BUN/Creatinine Ratio 18 Glucose Level 470 *H 70-105 MG/DL Lactic Acid Level 1.70 0.50-2.00 MMOL/L Calcium Level 10.0 8.5-10.1 MG/DL Corrected Calcium 10.2 H 8.5-10.1 MG/DL Total Bilirubin 0.5 0.1-1.0 MG/DL Aspartate Amino Transf (AST/SGOT) 25 5-34 U/L Alanine Aminotransferase (ALT/SGPT) 13 0-55 U/L Alkaline Phosphatase 59 40-136 U/L Troponin I 0.394 *H <0.028 NG/ML Total Protein 8.2 6.4-8.2 GM/DL Albumin 3.8 3.2-4.5 GM/DL Beta-Hydroxybutyrate (Chem panel) 2.01 H 0.00-0.27 MMOL/L Glucometer 347 H 70-110 MG/DL Test 02/18/22 22:04 02/18/22 22:59 02/18/22 23:30 02/18/22 23:52 Range/Units Glucometer 339 H 350 H 359 H 70-110 MG/DL Troponin I 1.013 *H <0.028 NG/ML Test 02/19/22 01:01 02/19/22 02:07 02/19/22 03:07 02/19/22 03:45 Range/Units Glucometer 343 H 348 H 287 H 70-110 MG/DL Blood Gas Puncture Site LT RADIAL Blood Gas Patient Temperature 36.2 Arterial Blood pH 7.38 7.37-7.43 Arterial Blood Partial Pressure CO2 45 35-45 MMHG Arterial Blood Partial Pressure O2 44 L 79-93 MMHG Arterial Blood HCO3 26 23-27 MMOL/L Arterial Blood Total CO2 27.8 21.0-31.0 MMOL/L Arterial Blood Oxygen Saturation 80 L 94-100 % Arterial Blood Base Excess 1.5 -2.5-2.5 MMOL/L Miky Test YES-POS Blood Gas Ventilator Setting NO Blood Gas Inspired Oxygen 2 Test 02/19/22 04:00 02/19/22 04:04 02/19/22 05:56 02/19/22 06:00 Range/Units White Blood Count 18.2 H 4.3-11.0 10^3/uL Red Blood Count 3.79 L 3.80-5.11 10^6/uL Hemoglobin 11.8 11.5-16.0 g/dL Hematocrit 36 35-52 % Mean Corpuscular Volume 96 80-99 fL Mean Corpuscular Hemoglobin 31 25-34 pg Mean Corpuscular Hemoglobin Concent 33 32-36 g/dL Red Cell Distribution Width 14.8 H 10.0-14.5 % Platelet Count 365 130-400 10^3/uL Mean Platelet Volume 10.9 9.0-12.2 fL Immature Granulocyte % (Auto) 1 % Neutrophils (%) (Auto) 77 H 42-75 % Lymphocytes (%) (Auto) 12 12-44 % Monocytes (%) (Auto) 9 0-12 % Eosinophils (%) (Auto) 1 0-10 % Basophils (%) (Auto) 1 0-10 % Neutrophils # (Auto) 13.9 H 1.8-7.8 10^3/uL Lymphocytes # (Auto) 2.2 1.0-4.0 10^3/uL Monocytes # (Auto) 1.6 H 0.0-1.0 10^3/uL Eosinophils # (Auto) 0.2 0.0-0.3 10^3/uL Basophils # (Auto) 0.1 0.0-0.1 10^3/uL Immature Granulocyte # (Auto) 0.2 H 0.0-0.1 10^3/uL Sodium Level 142 141 135-145 MMOL/L Potassium Level 3.3 L 3.7 3.6-5.0 MMOL/L Chloride Level 105 105 98-107 MMOL/L Carbon Dioxide Level 25 24 21-32 MMOL/L Anion Gap 12 12 5-14 MMOL/L Blood Urea Nitrogen 22 H 20 H 7-18 MG/DL Creatinine 1.14 0.92 0.60-1.30 MG/DL Estimat Glomerular Filtration Rate 51 66 BUN/Creatinine Ratio 19 22 Glucose Level 264 H 170 H 70-105 MG/DL Calcium Level 9.2 9.1 8.5-10.1 MG/DL Corrected Calcium 9.8 8.5-10.1 MG/DL Phosphorus Level 2.4 2.3-4.7 MG/DL Magnesium Level 1.8 1.6-2.4 MG/DL Total Bilirubin 0.5 0.1-1.0 MG/DL Aspartate Amino Transf (AST/SGOT) 22 5-34 U/L Alanine Aminotransferase (ALT/SGPT) 12 0-55 U/L Alkaline Phosphatase 47 40-136 U/L Troponin I 1.124 *H <0.028 NG/ML Total Protein 6.9 6.4-8.2 GM/DL Albumin 3.3 3.2-4.5 GM/DL Triglycerides Level 95 <150 MG/DL Cholesterol Level 147 < 200 MG/DL LDL Cholesterol Direct 59 1-129 MG/DL VLDL Cholesterol 19 5-40 MG/DL HDL Cholesterol 61 H 40-60 MG/DL Glucometer 249 H 194 H 70-110 MG/DL Test 02/19/22 07:09 02/19/22 07:57 02/19/22 09:06 02/19/22 10:11 Range/Units Glucometer 180 H 189 H 169 H 147 H 70-110 MG/DL Test 02/19/22 11:05 Range/Units Glucometer 146 H 70-110 MG/DL Physical Exam Physical Exam Vital Signs Vital Signs - First Documented 02/18/22 02/18/22 02/18/22 13:59 17:28 20:15 Temp 36.4 Pulse 102 Resp 18 B/P (MAP) 202/121 (148) Pulse Ox 93 O2 Delivery Room Air O2 Flow Rate 2.00 Capillary Refill : Height, Weight, BMI Height: '" Weight: lbs. oz. kg; 40.40 BMI Method: General Appearance: No Apparent Distress, WD/WN Eyes: Bilateral Eye Normal Inspection HEENT: PERRL/EOMI, Normal ENT Inspection, Pharynx Normal Neck: Full Range of Motion, Normal Inspection, Non Tender, Supple Respiratory: Chest Non Tender, Lungs Clear, Normal Breath Sounds, No Accessory Muscle Use, No Respiratory Distress Cardiovascular: Regular Rate, Rhythm, No Edema, Normal Peripheral Pulses, Systolic Murmur Gastrointestinal: Normal Bowel Sounds, Non Tender, Soft; No Distended, No Guarding Back: Normal Inspection, No CVA Tenderness, No Vertebral Tenderness Extremity: Normal Capillary Refill, Normal Inspection, Normal Range of Motion, Non Tender, No Calf Tenderness, No Pedal Edema Neurologic/Psychiatric: Alert, No Motor/Sensory Deficits, Normal Mood/Affect, barmaid II-XII Norm as Tested, Disoriented Skin: Normal Color, Warm/Dry Lymphatic: No Adenopathy A/P-Cardiology Admission Diagnosis Acute change in mental status Urosepsis Non-ST elevation myocardial infarction Coronary artery disease Assessment/Plan Acute change in mental status, probably secondary to UTI, known to have recurrent UTI, started on antibiotics and managed by primary care physician Non-ST elevation myocardial infarction, having waxing and waning chest pain. She was started on aspirin and Lovenox. No acute EKG changes. Patient has extensive cardiac history with multiple interventions in the past. Once clinically stable I will consider repeating cardiac catheterization Coronary artery disease history of multiple heart attacks in the back, myocardial infarction done in 2011, had a total of 2 stents in the past. History of PCI and stent at [facility] in October 2009 to the LAD PCI and stent in April 2014 to the right coronary artery Cardiac catheterization done in May 2019 showing patent stent to the proximal LAD as well as right coronary artery with mild to moderate diffuse disease, normal left ventricular pressure. Underwent stress test on April 04 showing reversible ischemia involving the anterior wall, anterolateral wall and anterior septum with stress score 13, SDS 9, ejection fraction 53%, recommended cardiac catheterization possible PTCA, Patient has canceled her appointment and reported that she is scheduled willing a cardiac cath with her primary automotive services manager in [place], I will try to obtain copy of her last cardiac catheterization from April 2021 History of left groin infection requiring surgical procedures in the past. Echocardiogram done on February 14, 2021 showing normal LV size, EF 55 to 65%, grade 1 diastolic dysfunction, left atrium 4.19 cm, mild MR, PA 20 mmHg. Continue to monitor Peripheral arterial disease, extensive disease, multiple interventions in the past, following with Dr. Bender, Scheduled for another angiogram of her lower extremity later this month. 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 Continue to monitor renal function History of bilateral carotid stenosis and carotid endarterectomy, followed by vascular surgery at . I will repeat carotid ultrasound Diabetes mellitus followed and managed by primary care physician COPD, oxygen dependent. Chronic kidney disease Peripheral neuropathy. History of noncompliance with medication, Patient has stopped taking all her cardiac medications in the past. RONY REYES MD February 19, 2022 11:46
--- NOTE | 2022-02-19 12:09 | Occupational Therapy Eval ---
OT Evaluation-General/PLF Medical Diagnosis Admission Date February 18, 2022 at 19:29 Medical Diagnosis: weakness, UTI Onset Date: February 18, 2022 Therapy Diagnosis Therapy Diagnosis: n/a Precautions Precautions/Isolations: Fall Prevention, Standard Precautions Referral Physician: Luana Miguel DO Referral Reason: Evaluation/Treatment Medical History Pertinent Medical History: CAD, CVA, DM, HTN, Neuropathy, Rheumatoid Arthritis Additional Medical History angina, CAD, HTN, neuropathy, CVA, concussion, renal failure, arthritis, DM, port placed Current History ED with confusion, typical of UTIs, recently admitted 01/29/22-01/31 Social History Home: Single Level Current Living Status: Alone Entry Into Home: Level Entry ADL-Prior Level of Function SCALE: Activities may be completed with or without assistive devices. 9-Skoikzyfsd-suedqvc completes the activity by him/herself with no assistance from a helper. 5-Set-up or Clean-up Assistance-helper sets up or cleans up; patient completes activity. [place] assists only prior to or following the activity. 4-Supervision or Touching Assistance-helper provides verbal cues and/or touchin g/steadying and/or contact guard assistance as patient completes activity. Assistance may be provided throughout the activity or intermittently. 3-Partial/Moderate Assistance-helper does LESS THAN HALF the effort. [place] lifts, holds or supports trunk or limbs, but provides less than half the effort. 2-Substantial/Maximal Assistance-helper does MORE THAN HALF the effort. [place] lifts or holds trunk or limbs and provides more than half the effort. 3-Jayauwnsy-oxeffx does ALL the effort. Patient does none of the effort to complete the activity. Or, the assistance of 2 or more helpers is required for the patient to complete the activity. If activity was not attempted, code reason: 7-Patient Refused. 9-Not Applicable-not attempted and the patient did not perform the activity before the current illness, exacerbation or injury. 10-Not Attempted due to Environmental Limitations-(lack of equipment, weather restraints, etc.). 88-Not Attempted due to Medical Conditions or Safety Concerns. ADL PLOF Comments Pt lives alone, uses a w/c for functional mobility. She is able to complete SPT independently between surfaces. Pt sleeps in a recliner, and stays up in the recliner for most of the day unless she is transferring to w/c to go to the b athroom. Pt has AE for toilet hygiene. She is independent with sponge baths at w/c level, she does have a tub/shower with a shower bench that her daughter has helped her with in the past, but has not used recently. Self Care: Needed Some Help Functional Cognition: Independent OT Current Status Subjective Pt in bed, agreeable to OT Tx. Pt reports being at PLOF with self care tasks and UE function. Mental Status/Objective Patient Orientation: Normal For Age Attachments: Elder Catheter, Oxygen Current Upper Extremity ROM WFL ADL-Treatment Eating (QC): 6 (able to take drink from tray table independently.) On/Off Footwear (QC): 6 (IND donning/doffing R gripper sock.) Other Treatments Pt in bed, transferred supine to sit EOB, SBA, completed footwear. Pt requests to get up to recliner, transferring supine, independently, then to EOB on other side, independently. OT managed lines during transfers. Pt completed sit to stand from EOB with CGA, then SPORTS BOOK SERVER transfer from EOB to recliner. Pt reports being at her PLOF with self care tasks and with UE placement. Post tx, pt in recliner, call light in reach and all needs met. Education OT Patient Education: Correct positioning, Modified ADL techniques, Progress toward Goal/Update tx plan, Purpose of tx/functional activities Teaching Recipient: Patient Teaching Methods: Discussion Response to Teaching: Verbalize Understanding OT Director Global Strategic Publisher Sales Goals Director Global Strategic Publisher Sales Goals 1=Demonstrate adherence to instructed precautions during ADL tasks. 2=Patient will verbalize/demonstrate understanding of assistive devices/modifications for ADL. 3=Patient will improve strength/tolerance for activity to enable patient to perform ADL's. OT Education/Plan Problem List/Assessment Assessment: No Skilled OT Needs ID'd No skilled OT services needed at this time, as pt is at PLOF with self care tasks and UE function. D/C from OT. Discharge Recommendations Plan/Recommendations: Discharge/Goals Met Treatment Plan/Plan of Care Patient would benefit from OT for education, treatment and training to promote independence in ADL's, mobility, safety and/or upper extremity function for ADL's. Plan of Care: ADL Retraining, Functional Mobility Treatment Duration: February 19, 2022 Frequency: 1 time per week (eval only) Rehab Potential: Fair Time/GCodes Start Time: 11:48 Stop Time: 12:01 Total Time Billed (hr/min): 13 Billed Treatment Time 1, DAHLIA DICKERSON OT February 19, 2022 12:09
[2022-02-19] MEDS ORDERED: LOSA50TA63 PO (13:04)
[2022-02-19] MEDS: NITROGLYCERIN 2% OINT 1 GM UNIT DOSE PACKET TOP SCH ×2 (13:05→18:16)
[2022-02-19 17:07] LABS: POTASSIUM 4.1 MMOL/L (3.6-5.0)
[2022-02-19 17:09] LABS: CALCIUM 8.6 MG/DL (8.5-10.1)
[2022-02-19 17:13] LABS: CREATININE SERUM 0.97 MG/DL (0.60-1.30)
[2022-02-19] MEDS ORDERED: inSUlin ASPART (NovoLOG) 1 UNIT/0.01 ML (CHARGE PER UNIT) SC ONE (17:45)
[2022-02-19] MEDS: ONDANSETRON 4 MG/2 ML (SDV) Z0FRAN IV PRN (20:24)
[2022-02-20] VITALS (14 sets, daily range): BP systolic 118–151; BP diastolic 56–83
[2022-02-20] MEDS: NITROGLYCERIN 2% OINT 1 GM UNIT DOSE PACKET TOP SCH ×4 (01:10→18:15)
[2022-02-20] MEDS: MEROPENEM 500 MG/NS 100 ML IVPB IV SCH ×8 (01:11→20:47)
[2022-02-20] MEDS: ONDANSETRON 4 MG/2 ML (SDV) Z0FRAN IV PRN ×2 (02:31→08:37)
[2022-02-20 05:44] LABS: BASOPHILS # (AUTO) 0.1 10^3/uL (0.0-0.1); BASOPHILS % (AUTO) 0 % (0-10); EOSINOPHILS # (AUTO) 1.5 10^3/uL (0.0-0.3); EOSINOPHILS % (AUTO) 10 % (0-10); HEMATOCRIT 32 % (35-52); HEMOGLOBIN 10.2 g/dL (11.5-16.0); LYMPHOCYTES # (AUTO) 2.1 X 10^3 (1.0-4.0); LYMPHOCYTES % (AUTO) 14 % (12-44); MEAN CORPUSCULAR HEMOGLOBIN 31 pg (25-34); MEAN CORPUSCULAR HGB CONC 32 g/dL (32-36); MEAN CORPUSCULAR VOLUME 98 fL (80-99); MEAN PLATELET VOLUME 10.7 fL (9.0-12.2); MONOCYTES # (AUTO) 1.5 X 10^3 (0.0-1.0); MONOCYTES % (AUTO) 11 % (0-12); NEUTROPHILS # (AUTO) 9.4 X 10^3 (1.8-7.8); NEUTROPHILS % (AUTO) 64 % (42-75); PLATELET COUNT 297 10^3/uL (130-400); WHITE BLOOD COUNT 14.6 10^3/uL (4.3-11.0)
[2022-02-20 06:00] LABS: BILIRUBIN,TOTAL 0.5 MG/DL (0.1-1.0)
[2022-02-20 06:02] LABS: CREATININE SERUM 0.83 MG/DL (0.60-1.30); PHOSPHORUS 2.5 MG/DL (2.3-4.7)
[2022-02-20 06:05] LABS: MAGNESIUM 1.8 MG/DL (1.6-2.4)
[2022-02-20 06:26] LABS: CALCIUM 8.4 MG/DL (8.5-10.1); POTASSIUM 4.1 MMOL/L (3.6-5.0); TOTAL PROTEIN 6.1 GM/DL (6.4-8.2)
[2022-02-20 06:27] LABS: ALBUMIN 2.9 GM/DL (3.2-4.5)
--- NOTE | 2022-02-20 06:39 | Progress Note - Hospitalist ---
Subjective HPI/CC On Admission Date Seen by Provider: February 20, 2022 Time Seen by Provider: 10:30 CC: Confusion HPI: This is a 71 yr old WF. She presented to [place] ER with complaints of altered mental status. She does have a port that was placed by Dr. Chen that needed to be transferred to [facility] ER to obtain lab work just in case she had acute renal failure that I couldn't manage at [facility]. She has a recent history of UTI ESBL, completed Fosfomycin treatment. She was placed on Meropenem and Vanc until cultures come back. She required an insulin drip. She is still confused, only oriented x1. She complains of back pain. Subjective/Events-last exam Pt is doing a lot better Transferring to the floor Likely discharge Friday Overall has no other complaints Review of Systems General: Fatigue, Malaise Focused Exam Lactate Level 02/18/22 18:36: Lactic Acid Level 1.70 Objective Exam Vital Signs Vital Signs Date Time Temp Pulse Resp B/P (MAP) Pulse Ox O2 Delivery O2 Flow Rate FiO2 02/21/22 03:10 36.9 80 18 137/62 (87) 96 Room Air 02/21/22 00:11 2.00 Capillary Refill : General Appearance: No Apparent Distress, WD/WN, Chronically ill Respiratory: Lungs Clear, Normal Breath Sounds Cardiovascular: Regular Rate, Rhythm Neurologic/Psychiatric: Alert, Oriented x3 Results/Procedures Lab Laboratory Tests 02/21/22 04:38 02/21/22 05:00 Patient resulted labs reviewed. Assessment/Plan Assessment and Plan Assess & Plan/Chief Complaint Assessment: Sepsis Resistant UTI recent fosfomycin x3 Metabolic encephalopathy NSTEMI CAD previous stents 2020 Diabetes Hypertension Former smoker Chronic kidney disease Plan: Supportive care ICU Cardiology consult Lovenox Aspirin 02/20/2022: Supportive care Moved to fourth floor Manage diabetes MISSAEL RAMIREZ DO February 20, 2022 06:39
[2022-02-20] MEDS: inSUlin ASPART (NovoLOG) 1 UNIT/0.01 ML (CHARGE PER UNIT) SC SCH ×3 (06:41→17:40)
[2022-02-20] MEDS: KCL 20 MEQ TAB (K-DUR) PO SCH (06:41)
[2022-02-20] MEDS: MAGNESIUM 1 GM/100 ML IVPB 100 ML IV SCH (06:42)
[2022-02-20] MEDS: POTASSIUM CL 10MEQ/50ML IVPB 50 ML IV SCH (06:42)
[2022-02-20] MEDS ORDERED: TROUGH ORDER-PHARMACY XX ONE (08:00)
[2022-02-20] MEDS: inSUlin NPH (NovoLIN N) 1 UNIT/0.01 ML (CHARGE PER UNIT) SQ SCH (08:37)
[2022-02-20] MEDS: SENNOSIDES 8.6 MG (SENOKOT) TAB PO SCH ×2 (08:37→20:46)
[2022-02-20] MEDS: DOCUSATE SODIUM 100 MG (COLACE) CAP PO SCH ×2 (08:37→20:46)
[2022-02-20] MEDS: ENOXAPARIN 120 MG/0.8 ML (LOVENOX) SQ SCH ×2 (08:38→20:47)
[2022-02-20] MEDS: MICONAZOLE 2% POWDER (DESENEX AF) 90 GM TOP SCH ×2 (08:42→20:51)
--- NOTE | 2022-02-20 09:38 | Tele-ICU Progress Note ---
Subjective Date Seen by a Provider: February 20, 2022 Time Seen by a Provider: 09:38 Subjective/Events-last exam Today she is sitting out of bed to chair. Denies any shortness of breath or chest pain. She is receiving broad-spectrum antibiotics and subcutaneous Lovenox. No acute respiratory distress present. Vital signs are stable. Video visit made and discussed with the patient and REGIONAL OPERATIONS DIRECTOR Sepsis Event Evaluation Height, Weight, BMI Height: '" Weight: lbs. oz. kg; 40.40 BMI Method: Focused Exam Lactate Level 02/18/22 18:36: Lactic Acid Level 1.70 Exam Exam Patient acknowledged, consented, and participated in this virtual visit which was conducted using real time audio/video Vital Signs Date Time Temp Pulse Resp B/P (MAP) Pulse Ox O2 Delivery O2 Flow Rate FiO2 02/20/22 08:31 98 Nasal Cannula 2.00 02/20/22 07:00 78 02/20/22 06:00 84 25 146/68 (94) 96 Nasal Cannula 2.00 02/20/22 05:00 76 16 137/68 (92) 99 Nasal Cannula 2.00 02/20/22 04:00 78 13 145/73 (95) 98 Nasal Cannula 2.00 02/20/22 04:00 98 Nasal Cannula 2.00 02/20/22 03:00 79 14 149/74 (101) 100 Nasal Cannula 2.00 02/20/22 02:00 79 15 137/72 (96) 98 Nasal Cannula 2.00 02/20/22 01:00 90 12 142/62 (91) 98 Nasal Cannula 2.00 02/20/22 01:00 87 02/20/22 00:00 89 16 148/65 (94) 97 Nasal Cannula 2.00 02/20/22 00:00 98 Nasal Cannula 2.00 02/19/22 23:00 82 16 145/73 (97) 98 Nasal Cannula 2.00 02/19/22 22:34 36.3 02/19/22 22:00 85 17 152/73 (107) 97 Nasal Cannula 2.00 02/19/22 21:00 83 17 160/81 (112) 97 Nasal Cannula 2.00 02/19/22 20:41 36.1 02/19/22 20:15 86 34 160/80 (124) 97 Nasal Cannula 2.00 02/19/22 20:00 98 Nasal Cannula 2.00 02/19/22 20:00 36.5 02/19/22 19:00 84 02/19/22 19:00 84 18 176/70 (107) 98 Nasal Cannula 2.00 02/19/22 18:00 78 17 175/77 (109) 98 Nasal Cannula 2.00 02/19/22 17:00 85 16 175/78 (110) 98 Nasal Cannula 2.00 02/19/22 16:00 98 Nasal Cannula 2.00 02/19/22 16:00 81 15 158/60 (92) 98 Nasal Cannula 2.00 02/19/22 15:30 80 15 146/55 (85) 98 Nasal Cannula 2.00 02/19/22 15:23 36.1 02/19/22 15:00 84 19 98 Nasal Cannula 2.00 02/19/22 14:00 84 11 161/68 (99) 99 Nasal Cannula 2.00 02/19/22 13:00 78 10 128/52 (77) 92 Nasal Cannula 2.00 02/19/22 12:55 84 02/19/22 12:00 36.3 02/19/22 12:00 97 9 117/107 (110) 94 Nasal Cannula 2.00 02/19/22 11:37 98 Nasal Cannula 2.00 02/19/22 11:00 79 20 156/69 (98) 95 Nasal Cannula 2.00 02/19/22 10:45 98 Nasal Cannula 2.00 02/19/22 10:00 76 14 141/64 (89) 98 Nasal Cannula 2.00 I & O 02/20/22 07:00 Intake Total 1865 ml Output Total 750 ml Balance 1115 ml Height & Weight Height: '" Weight: lbs. oz. kg; 40.40 BMI Method: General Appearance: No Apparent Distress, Anxious, Chronically ill, Obese HEENT: PERRL/EOMI, Normal ENT Inspection, Pharynx Normal, Moist Mucous Membranes Neck: Full Range of Motion, Normal Inspection, Non Tender Respiratory: Chest Non Tender, Lungs Clear, Normal Breath Sounds, No Accessory Muscle Use, No Respiratory Distress Cardiovascular: Regular Rate, Rhythm, No Edema, No Gallop, No JVD, No Murmur, Normal Peripheral Pulses Extremity: Normal Capillary Refill, Normal Inspection, Normal Range of Motion, Non Tender, No Calf Tenderness, No Pedal Edema Neurologic/Psychiatric: Alert, No Motor/Sensory Deficits, stoker erector II-XII Norm as Tested, Depressed Affect, Disoriented, Motor Weakness (Generalized) Skin: Normal Color, Warm/Dry Lymphatic: No Adenopathy Results Lab Laboratory Tests 02/18/22 18:36 02/19/22 04:00 02/19/22 06:00 02/19/22 16:53 02/20/22 05:25 Assessment/Plan Assessment/Plan 1. Possible urinary tract infection with additional sepsis clinically improving 2. Metabolic encephalopathy present on admission now improving 3. Non-STEMI cardiology following 4. Hypertension and diabetes 5. Chronic kidney disease. Recommendations 1. Continue antibiotic therapy with meropenem and vancomycin. Follow-up with cultures and de-escalate antibiotic therapy 2. Continue Lovenox subcutaneously per cardiology 3. Antihypertensive and diabetes management per primary care Critical Care: Critically Ill Patient Time spent with patient (mins): 15 PAVEL CURTIS MD February 20, 2022 09:38
--- NOTE | 2022-02-20 09:52 | Physical Therapy Daily Note ---
PT Daily Note-Current Subjective Patient in bed pre tx, agrees to PT, would like to get out of bed. Patient states she isn't feeling well, has a sore throat and a pain in her left flank. Appearance Patient in recliner post tx with nurse call, phone, tray, all needs met. Mental Status Patient Orientation: Person, Place, Situation Attachments: Oxygen, Elder Catheter, IV Transfers SCALE: Activities may be completed with or without assistive devices. 7-Wibmrslrzp-ltojfuk completes the activity by him/herself with no assistance from a helper. 5-Set-up or Clean-up Assistance-helper sets up or cleans up; patient completes activity. [place] assists only prior to or following the activity. 4-Supervision or Touching Assistance-helper provides verbal cues and/or touching/steadying and/or contact guard assistance as patient completes activity. Assistance may be provided throughout the activity or intermittently. 3-Partial/Moderate Assistance-helper does LESS THAN HALF the effort. [place] lift s, holds or supports trunk or limbs, but provides less than half the effort. 2-Substantial/Maximal Assistance-helper does MORE THAN HALF the effort. [place] lifts or holds trunk or limbs and provides more than half the effort. 9-Ipirzoots-nabgsl does ALL the effort. Patient does none of the effort to complete the activity. Or, the assistance of 2 or more helpers is required for the patient to complete the activity. If activity was not attempted, code reason: 7-Patient Refused. 9-Not Applicable-not attempted and the patient did not perform the activity before the current illness, exacerbation or injury. 10-Not Attempted due to Environmental Limitations-(lack of equipment, weather restraints, etc.). 88-Not Attempted due to Medical Conditions or Safety Concerns. Roll Left & Right (QC): 4 Lying to Sitting/Side of Bed(Q: 4 Sit to Stand (QC): 4 Chair/Xnf-qp-Ibotm Xfer(QC): 4 SBA for supine to sit and transfers Gait Training Distance: 5' Gait Persons Needed: 1 Gait Assistive Device: FWW SBA, slow but steady ambulation Exercises Seated Therapy Exercises: Ankle pumps, Long arc quads Seated Reps: 20 Treatments bed mobility and transfers, ambulation, LE exercise Assessment Current Status: Fair Progress good improvement, SBA for short trip of ambulation and transfers PT Sustainable Systems Analyst Goals Sustainable Systems Analyst Goals PT Prison Goals Time Frame: February 26, 2022 Roll Left & Right (QC): 6 Sit to Lying (QC): 6 Lying-Sitting on Side/Bed(QC): 6 Sit to Stand (QC): 6 Chair/Jtw-tg-Vahkp Xfer(QC): 6 PT Plan Problem List Problem List: Activity Tolerance, Functional Strength, Safety, Balance, Gait, Transfer, Bed Mobility, ROM Treatment/Plan Treatment Plan: Continue Plan of Care Treatment Plan: Bed Mobility, Education, Functional Activity Ryan, Functional Strength, Gait, Safety, Therapeutic Exercise, Transfers Treatment Duration: February 26, 2022 Frequency: 6 times per week Estimated Hrs Per Day: .25 hour per day Patient and/or Family Agrees t: Yes Safety Risks/Education Patient Education: Gait Training, Transfer Techniques, Correct Positioning, Safety Issues Teaching Recipient: Patient Teaching Methods: Demonstration, Discussion Response to Teaching: Reinforcement Needed Time/GCodes Time In: 926 Time Out: 936 Total Billed Treatment Time: 10 Total Billed Treatment 1 visit FA KATIE GAMBOA PT February 20, 2022 09:52
[2022-02-20] MEDS: VANCOMYCIN INJECTION 1,000 MG in NS (IVPB) 250 ML IV SCH (09:53)
[2022-02-20] MEDS ORDERED: MECLIZINE 25 MG (ANTIVERT) TAB PO PRN (10:00)
[2022-02-20] MEDS ORDERED: METOCLOPRAMIDE 10MG/10ML ORAL SOL(REGLAN) UDC PO PRN (10:00)
[2022-02-20] MEDS ORDERED: NITROGLYCERIN 0.4 MG SL TABS BTL 25'S SL PRN (10:00)
[2022-02-20] MEDS ORDERED: BACLOFEN 10 MG (LIORESAL) TAB PO PRN (10:00)
[2022-02-20] MEDS ORDERED: ONDANSETRON 4 MG (ZOFRAN) ORAL DISSOLVE TAB PO PRN (10:30)
[2022-02-20] MEDS: morphine INJ 4 MG/ML 1 ML (VIAL/SYRINGE) IV PRN (10:40)
--- NOTE | 2022-02-20 11:11 | Cardiology Progress Note ---
Subjective Date Seen by Provider: February 20, 2022 Time Seen by Provider: 11:08 Subjective/Events-last exam Patient was seen at bedside, laying down comfortably. Still having mild left-sided chest discomfort in addition she has been complaining of constipation, abdominal pain and sore throat Review of Systems General: No Chills, No Night Sweats; Fatigue; No Malaise, No Appetite, No Other HEENT: No Head Aches, No Visual Changes, No Eye Pain, No Ear Pain, No Dysphasia, No Sinus Congestion, No Post Nasal Drip, No Sore Throat, No Other Pulmonary: No Dyspnea, No Cough, No Pleuritic Chest Pain, No Other Cardiovascular: Chest Pain, Edema; No: Palpitations, Orthopnea, Paroxysmal Noc. Dyspnea, Lt Headedness, Other Gastrointestinal: Abdominal Pain, Constipation Focused Exam Lactate Level 02/18/22 18:36: Lactic Acid Level 1.70 Objective-Cardiology Exam Last Set of Vital Signs Vital Signs 02/19/22 02/20/22 02/20/22 02/20/22 22:34 06:00 07:00 08:31 Temp 36.3 Pulse 78 Resp 25 B/P (MAP) 146/68 (94) Pulse Ox 98 O2 Delivery Nasal Cannula O2 Flow Rate 2.00 I&O Intake and Output 02/20/22 00:00 Intake Total 2265 ml Output Total 1150 ml Balance 1115 ml Intake Oral 1165 ml IV Total 1100 ml Output Urine Total 1150 ml General: Alert, Oriented X3, Cooperative HEENT: Atraumatic, PERRLA Neck: Supple, No JVD, No Thyromegaly Lungs: Clear to Auscultation, Normal Air Movement Heart: Regular Rate, Normal S1, Normal S2, Other (Systolic murmur, S3) Abdomen: Normal Bowel Sounds, Soft, No Tenderness, No Hepatosplenomegaly, No Masses Extremities: No Clubbing, No Cyanosis, No Edema, Normal Pulses, No Tenderness/Swelling Skin: No Rashes, No Breakdown, No Significant Lesion Neuro: Normal Gait, Normal Speech, Strength at 5/5 X4 Ext, Normal Tone, Sensation Intact Psych/Mental Status: Mental Status NL, Mood NL Results Lab Laboratory Tests 02/19/22 16:53 02/20/22 05:25 A/P-Cardiology Admission Diagnosis Acute change in mental status Urosepsis Non-ST elevation myocardial infarction Coronary artery disease Assessment/Plan Status post acute change in mental status, probably secondary to UTI and sepsis, better at this time. Managed by primary care physician. Non-ST elevation myocardial infarction, having waxing and waning chest pain. She was started on aspirin and Lovenox. No acute EKG changes. Patient has extensive cardiac history with multiple interventions in the past. Patient reported to me that on her last cardiac catheterization in April 2021 she was told that she has obstructive disease in small vessels that are not amendable to intervention. Has been having recurrent chest pain on and off. I am waiting for the official cath report from . Meanwhile conservative management is recommended no intervention is needed at this point Coronary artery disease history of multiple heart attacks in the back, myocardial infarction done in 2011, had a total of 2 stents in the past. History of PCI and stent at [facility] in October 2009 to the LAD PCI and stent in April 2014 to the right coronary artery Cardiac catheterization done in May 2019 showing patent stent to the proximal LAD as well as right coronary artery with mild to moderate diffuse disease, normal left ventricular pressure. Underwent stress test on April 04 showing reversible ischemia involving the anterior wall, anterolateral wall and anterior septum with stress score 13, SDS 9, ejection fraction 53%, recommended cardiac catheterization possible PTCA, Patient has canceled her appointment and reported that she is scheduled willing a cardiac cath with her primary seed yeast operator in [place], I will try to obtain copy of her last cardiac catheterization from April 2021 (patient reported to me that she was told that she has obstructive disease and small vessels not amendable to intervention) History of left groin infection requiring surgical procedures in the past. Echocardiogram done on February 14, 2021 showing normal LV size, EF 55 to 65%, grade 1 diastolic dysfunction, left atrium 4.19 cm, mild MR, PA 20 mmHg. Continue to monitor Peripheral arterial disease, extensive disease, multiple interventions in the past, following with Dr. Bender, Scheduled for another angiogram of her lower extremity later this month. 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 Continue to monitor renal function History of bilateral carotid stenosis and carotid endarterectomy, followed by vascular surgery at . I will repeat carotid ultrasound Diabetes mellitus followed and managed by primary care physician COPD, oxygen dependent. Chronic kidney disease Peripheral neuropathy. History of noncompliance with medication, Patient has stopped taking all her cardiac medications in the past. RONY REYES MD February 20, 2022 11:11
[2022-02-20] MEDS: inSUlin (REGULAR) HUMAN 1 UNIT/0.01 ML (CHARGE PER UNIT) SC SCH ×2 (13:19→17:40)
[2022-02-20] MEDS: NYSTATIN CREAM (MYCOSTATIN) 30 GM TUBE TP PRN (14:31)
[2022-02-20] MEDS ORDERED: DEXTROSE 50% 50 ML (IMS) SYR IV PRN (17:45)
[2022-02-20] MEDS ORDERED: DEXTROSE 10% IV SOLUTION 1,000 ML IV SCH (17:45)
[2022-02-20] MEDS ORDERED: DEXTROSE 50% 50 ML (IMS) SYR ONE (17:51)
[2022-02-20] MEDS ORDERED: metFORMIN XR 500 MG (GLUCOPHAGE XR) TAB PO SCH (18:00)
[2022-02-20] MEDS: ARTIFICAL TEARS 0.4 ML UNIT DOSE (REFRESH PLUS) OU SCH (20:45)
[2022-02-20] MEDS ORDERED: traZODone 150 MG (DESYREL) TABLET PO SCH (21:00)
[2022-02-20] MEDS ORDERED: NORTRIPTYLINE 25 MG (PAMELOR) CAP PO SCH (21:00)
[2022-02-20] MEDS ORDERED: SERTRALINE 100 MG (ZOLOFT) TAB PO SCH (21:00)
[2022-02-21 00:11] VITALS: BP 130/55
[2022-02-21] MEDS: NITROGLYCERIN 2% OINT 1 GM UNIT DOSE PACKET TOP SCH ×3 (00:23→11:45)
[2022-02-21] MEDS: ACETAMINOPHEN 325 MG TABLET PO PRN ×2 (02:55→09:16)
[2022-02-21] MEDS: MEROPENEM 500 MG/NS 100 ML IVPB IV SCH ×4 (02:55→08:02)
[2022-02-21 03:10] VITALS: BP 137/62
[2022-02-21 04:45] LABS: BASOPHILS # (AUTO) 0.1 10^3/uL (0.0-0.1); BASOPHILS % (AUTO) 0 % (0-10); EOSINOPHILS # (AUTO) 1.3 10^3/uL (0.0-0.3); EOSINOPHILS % (AUTO) 11 % (0-10); HEMATOCRIT 29 % (35-52); LYMPHOCYTES % (AUTO) 17 % (12-44); MEAN CORPUSCULAR HEMOGLOBIN 31 pg (25-34); MEAN CORPUSCULAR HGB CONC 32 g/dL (32-36); MEAN CORPUSCULAR VOLUME 98 fL (80-99); MEAN PLATELET VOLUME 11.1 fL (9.0-12.2); MONOCYTES # (AUTO) 0.9 10^3/uL (0.0-1.0); MONOCYTES % (AUTO) 8 % (0-12); NEUTROPHILS # (AUTO) 7.9 10^3/uL (1.8-7.8); NEUTROPHILS % (AUTO) 64 % (42-75); PLATELET COUNT 273 10^3/uL (130-400); WHITE BLOOD COUNT 12.2 10^3/uL (4.3-11.0)
[2022-02-21 05:10] LABS: ALBUMIN 2.7 GM/DL (3.2-4.5); POTASSIUM 4.3 MMOL/L (3.6-5.0)
[2022-02-21 05:11] LABS: CALCIUM 8.4 MG/DL (8.5-10.1)
[2022-02-21 05:12] LABS: TOTAL PROTEIN 5.6 GM/DL (6.4-8.2)
[2022-02-21 05:14] LABS: BILIRUBIN,TOTAL 0.5 MG/DL (0.1-1.0)
[2022-02-21 05:16] LABS: CREATININE SERUM 0.99 MG/DL (0.60-1.30)
[2022-02-21 05:19] LABS: MAGNESIUM 1.9 MG/DL (1.6-2.4)
[2022-02-21] MEDS: inSUlin ASPART (NovoLOG) 1 UNIT/0.01 ML (CHARGE PER UNIT) SC SCH ×2 (06:06→11:44)
--- NOTE | 2022-02-21 06:43 | Progress Note - Hospitalist ---
Subjective HPI/CC On Admission Date Seen by Provider: February 21, 2022 Time Seen by Provider: 09:30 CC: Confusion HPI: This is a 71 yr old WF. She presented to [facility] with complaints of altered mental status. She does have a port that was placed by Dr. Chen that needed to be transferred to [facility] ER to obtain lab work just in case she had acute renal failure that I couldn't manage at [facility]. She has a recent history of UTI ESBL, completed Fosfomycin treatment. She was placed on Meropenem and Vanc until cultures come back. She required an insulin drip. She is still confused, only oriented x1. She complains of back pain. Focused Exam Lactate Level Objective Exam Vital Signs Vital Signs Date Time Temp Pulse Resp B/P (MAP) Pulse Ox O2 Delivery O2 Flow Rate FiO2 02/21/22 11:27 36.4 65 18 111/53 (72) 97 Nasal Cannula 2.00 Capillary Refill : Results/Procedures Lab Patient resulted labs reviewed. Assessment/Plan Assessment and Plan Assess & Plan/Chief Complaint Assessment: Sepsis Resistant UTI recent fosfomycin x3 Metabolic encephalopathy NSTEMI CAD previous stents 2020 Diabetes Hypertension Former smoker Chronic kidney disease Plan: Supportive care ICU Cardiology consult Lovenox Aspirin 02/20/2022: Supportive care Moved to fourth floor Manage diabetes Critical Care Critically Ill Patient MISSAEL RAMIREZ DO February 21, 2022 06:43
[2022-02-21 07:39] VITALS: BP 131/60
[2022-02-21] MEDS: ARTIFICAL TEARS 0.4 ML UNIT DOSE (REFRESH PLUS) OU SCH (08:02)
[2022-02-21] MEDS: DOCUSATE SODIUM 100 MG (COLACE) CAP PO SCH (08:02)
[2022-02-21] MEDS: SENNOSIDES 8.6 MG (SENOKOT) TAB PO SCH (08:03)
[2022-02-21] MEDS: ENOXAPARIN 120 MG/0.8 ML (LOVENOX) SQ SCH (08:06)
[2022-02-21] MEDS: NYSTATIN CREAM (MYCOSTATIN) 30 GM TUBE TP PRN (08:06)
[2022-02-21] MEDS: MICONAZOLE 2% POWDER (DESENEX AF) 90 GM TOP SCH (08:40)
--- NOTE | 2022-02-21 08:44 | Cardiology Progress Note ---
Subjective Date Seen by Provider: February 21, 2022 Time Seen by Provider: 08:43 Subjective/Events-last exam Patient was seen at bedside, sitting comfortably, feeling better today. No chest pain was reported Review of Systems General: No Chills, No Night Sweats, No Fatigue, No Malaise, No Appetite, No Other HEENT: No Head Aches, No Visual Changes, No Eye Pain, No Ear Pain, No Dysphasia, No Sinus Congestion, No Post Nasal Drip, No Sore Throat, No Other Pulmonary: Dyspnea; No Cough, No Pleuritic Chest Pain, No Other Cardiovascular: No: Chest Pain, Palpitations, Orthopnea, Paroxysmal Noc. Dyspnea, Edema, Lt Headedness, Other Focused Exam Lactate Level 02/18/22 18:36: Lactic Acid Level 1.70 Objective-Cardiology Exam Last Set of Vital Signs Vital Signs 02/21/22 07:39 Temp 36.6 Pulse 80 Resp 20 B/P (MAP) 131/60 (83) Pulse Ox 93 O2 Delivery Nasal Cannula O2 Flow Rate 2.00 I&O Intake and Output 02/21/22 00:00 Intake Total 2095 ml Output Total 650 ml Balance 1445 ml Intake Oral 1745 ml IV Total 350 ml Output Urine Total 450 ml Post Void Residual 200 ml # Voids 2 General: Alert, Oriented X3, Cooperative HEENT: Atraumatic, PERRLA Neck: Supple, No JVD, No Thyromegaly Lungs: Clear to Auscultation, Normal Air Movement Heart: Regular Rate, Normal S1, Normal S2, Other (Systolic murmur, S3) Abdomen: Normal Bowel Sounds, Soft, No Tenderness, No Hepatosplenomegaly, No Masses Extremities: No Clubbing, No Cyanosis, No Edema, Normal Pulses, No Tenderness/Swelling Skin: No Rashes, No Breakdown, No Significant Lesion Neuro: Normal Gait, Normal Speech, Strength at 5/5 X4 Ext, Normal Tone, Sensation Intact Psych/Mental Status: Mental Status NL, Mood NL Results Lab Laboratory Tests 02/21/22 04:38 02/21/22 05:00 A/P-Cardiology Admission Diagnosis Acute change in mental status Urosepsis Non-ST elevation myocardial infarction Coronary artery disease Assessment/Plan Status post acute change in mental status, probably secondary to UTI and sepsis, better at this time. Managed by primary care physician. Non-ST elevation myocardial infarction, having waxing and waning chest pain. She was started on aspirin and Lovenox. No acute EKG changes. Patient has extensive cardiac history with multiple interventions in the past. Patient reported to me that on her last cardiac catheterization in April 2021 she was told that she has obstructive disease in small vessels that are not amendable to intervention. Has been having recurrent chest pain on and off. I am waiting for the official cath report from . Conservative management is recommended no intervention is needed at this point Coronary artery disease history of multiple heart attacks in the back, myocardial infarction done in 2011, had a total of 2 stents in the past. History of PCI and stent at [facility] in October 2009 to the LAD PCI and stent in April 2014 to the right coronary artery Cardiac catheterization done in May 2019 showing patent stent to the proximal LAD as well as right coronary artery with mild to moderate diffuse disease, normal left ventricular pressure. Underwent stress test on April 04 showing reversible ischemia involving the anterior wall, anterolateral wall and anterior septum with stress score 13, SDS 9, ejection fraction 53%, recommended cardiac catheterization possible PTCA, Patient has canceled her appointment and reported that she is scheduled willing a cardiac cath with her primary park worker in [place], I will try to obtain copy of her last cardiac catheterization from April 2021 (patient reported to me that she was told that she has obstructive disease and small vessels not a mendable to intervention) History of left groin infection requiring surgical procedures in the past. Echocardiogram done on February 14, 2021 showing normal LV size, EF 55 to 65%, grade 1 diastolic dysfunction, left atrium 4.19 cm, mild MR, PA 20 mmHg. Continue to monitor Peripheral arterial disease, extensive disease, multiple interventions in the past, following with Dr. Bender, Scheduled for another angiogram of her lower extremity later this month. 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 Continue to monitor renal function History of bilateral carotid stenosis and carotid endarterectomy, followed by vascular surgery at . I will repeat carotid ultrasound Diabetes mellitus followed and managed by primary care physician COPD, oxygen dependent. Chronic kidney disease Peripheral neuropathy. History of noncompliance with medication, Patient has stopped taking all her cardiac medications in the past. RONY REYES MD February 21, 2022 08:44
[2022-02-21] MEDS ORDERED: NON-FORMULARY MEDICATION 1 EA EA (Cranberry Extract (Cranberry) 1,000 MG) PO SCH (09:00)
[2022-02-21] MEDS ORDERED: ASPIRIN E.C. 81 MG (ECOTRIN) TAB PO SCH (09:00)
[2022-02-21] MEDS ORDERED: polyethylene glycoL POWDER 17 GM (MIRALAX) PACK PO SCH (09:00)
[2022-02-21] MEDS ORDERED: PANTOPRAZOLE 40 MG (PROTONIX) TAB PO SCH (09:00)
[2022-02-21] MEDS ORDERED: TORSEMIDE 20 MG (DEMADEX) TAB PO SCH (09:00)
[2022-02-21] MEDS ORDERED: LOSARTAN 50 MG (COZAAR) TAB PO SCH (09:00)
[2022-02-21] MEDS ORDERED: ISOSORBIDE MONONITRATE 60 MG (IMDUR) TAB PO SCH (09:00)
[2022-02-21] MEDS ORDERED: DIVALPROEX 250 MG DELAYED RELEASE (DEPAKOTE) TAB PO SCH (09:00)
[2022-02-21] MEDS ORDERED: PREGABALIN 50 MG (LYRICA) CAP PO SCH (09:00)
[2022-02-21] MEDS ORDERED: ASCORBIC ACID (VIT C) 500 MG TABLET PO SCH (09:00)
--- NOTE | 2022-02-21 10:14 | Physical Therapy Daily Note ---
PT Daily Note-Current Subjective Patient agrees to PT. No c/o on this date Mental Status Patient Orientation: Normal For Age Attachments: Oxygen Transfers SCALE: Activities may be completed with or without assistive devices. 8-Kiubrukuut-cbunwol completes the activity by him/herself with no assistance from a helper. 5-Set-up or Clean-up Assistance-helper sets up or cleans up; patient completes activity. [place] assists only prior to or following the activity. 4-Supervision or Touching Assistance-helper provides verbal cues and/or touching/steadying and/or contact guard assistance as patient completes activity. Assistance may be provided throughout the activity or intermittently. 3-Partial/Moderate Assistance-helper does LESS THAN HALF the effort. [place] lifts, holds or supports trunk or limbs, but provides less than half the effort. 2-Substantial/Maximal Assistance-helper does MORE THAN HALF the effort. [place] lifts or holds trunk or limbs and provides more than half the effort. 2-Kijyqijbs-wjkhsv does ALL the effort. Patient does none of the effort to complete the activity. Or, the assistance of 2 or more helpers is required for the patient to complete the activity. If activity was not attempted, code reason: 7-Patient Refused. 9-Not Applicable-not attempted and the patient did not perform the activity before the current illness, exacerbation or injury. 10-Not Attempted due to Environmental Limitations-(lack of equipment, weather restraints, etc.). 88-Not Attempted due to Medical Conditions or Safety Concerns. Sit to Stand (QC): 4 Toilet Transfer (QC): 4 Gait Training Does the Patient Walk?: Yes Distance: 50' Walk 10 feet (QC): 4 Walk 50 ft with 2 Turns(QC): 4 Gait Assistive Device: FWW slow, trunk flexed posture with functional gait sequence Assessment Patient tolerates minimal activity and remains up in recliner with needs met. Per patient, she utilizes w/c for distance and ambulates short distances only. PT Grassroots Organizer Goals Shelter Goals PT Grassroots Organizer Goals Time Frame: February 26, 2022 Roll Left & Right (QC): 6 Sit to Lying (QC): 6 Lying-Sitting on Side/Bed(QC): 6 Sit to Stand (QC): 6 Chair/Ezw-lw-Bwwmq Xfer(QC): 6 PT Plan Treatment/Plan Treatment Plan: Continue Plan of Care Treatment Plan: Bed Mobility, Education, Functional Activity Ryan, Functional Strength, Gait, Safety, Therapeutic Exercise, Transfers Treatment Duration: February 26, 2022 Frequency: 6 times per week Estimated Hrs Per Day: .25 hour per day Patient and/or Family Agrees t: Yes Time/GCodes Time In: 846 Time Out: 858 Total Billed Treatment Time: 12 Total Billed Treatment 1 visit FA 12 min MAUDE MALDONADO PT February 21, 2022 10:14
[2022-02-21] MEDS ORDERED: INSN1U SQ (10:51)
[2022-02-21] MEDS ORDERED: INSU100V31 SQ (10:51)
--- NOTE | 2022-02-21 10:52 | D/C HH Face to Face Order ---
D/C HH Face to Face Orders Reconcile Patient Problems Problems Reviewed?: Yes Instructions for Patient HH Patient Instructions/FollowUp: PCP 1 week Physician to follow Patient: [facility] Discharge Diet for Home: ADA Diet Patient Problems: Recent UTI Dehydration Patient Data-Allergies,Ht & Wt Patient Allergies: Coded Allergies: Cephalosporins (Verified Allergy, Unknown, 02/14/22) Iodinated Contrast Media (Verified Allergy, Unknown, HIVES, 02/14/22) Sulfa (Sulfonamide Antibiotics) (Verified Allergy, Unknown, 02/14/22) fenofibrate (Verified Allergy, Unknown, 02/14/22) gabapentin (Verified Allergy, Unknown, 02/14/22) levofloxacin (Verified Allergy, Unknown, 02/14/22) naloxone (Verified Allergy, Unknown, 02/14/22) Uncoded Allergies: CONTRAST (Allergy, Unknown, 03/06/21) Home Health Need/Face to Face Date of Face to Face: February 21, 2022 Clinical Findings: Generalized weakness and fatigue, Instability, Muscle weakness, Unsteady gait I have seen Pt [id number]: Yes Discharged To: Home Diagnosis/Conditions: Debility Patient is Homebound due to: CognItive deficits, Galo fall risk due to instabilty, Muscle weakness Homebound Status Due to the above stated illness, injury or surgical procedure (medical condition or diagnosis) and associated clinical findings, the patient is homebound because of his/her inability to leave home except with aid of a supportive device and/or person AND leaving the home requires a considerable and taxing effort or is medically contraindicated. Pt req the following assistanc: [facility] Nursing Orders Home Health Services Order: Nursing Services, Tool Setter-Evaluate & Treat, Physical Therapy-Evaluate & Treat Home Health Infusion Therapy Line Start Date: February 19, 2022 Certify Stmt I certify that this patient is under my care and that I, a nurse practitioner or a physician; a hygiene assistant working with me, had a face to face encounter that - meets the physician face to face encounter requirements with this patient as dated. MISSAEL RAMIREZ DO February 21, 2022 10:52
--- NOTE | 2022-02-21 10:52 | Discharge Summary ---
Discharge Summary Hospital Course Was the Problem List Reviewed?: Yes Problems/Dx: (1) Acute kidney injury superimposed on chronic kidney disease Status: Acute (2) Altered mental status Status: Acute Qualifiers: Qualified Codes: R41.0 - Disorientation, unspecified (3) UTI (urinary tract infection) Status: Acute Qualifiers: (4) General weakness Status: Acute (5) Labile hypertension (6) KANDACE (obstructive sleep apnea) Status: Chronic Hospital Course Date of Admission: February 18, 2022 at 19:29 Admission Diagnosis : Family Physician/Provider: Betty Denney Aprn Date of Discharge: 02/21/22 Discharge Diagnosis: Metabolic encephalopathy, recent UTI, acute on chronic kidney disease, hyperglycemia, hypoglycemia, chronic debility Hospital Course: Pt had an uneventful 3 day hospital course after she was admitted for sepsis, altered mental status due to UTI likely ESBL. Pt was placed on Meropenem. She ultimately regained enough function. She did have severe hypoglycemia at the resolve of D10 drip. D50 is necessary. She had home insulin adjusted. Pt was stable for discharge at home health. Labs and Pending Lab Test: Laboratory Tests 02/20/22 16:28: Glucometer 58*L 02/20/22 17:13: Glucometer 40*L 02/20/22 17:21: Glucometer 46*L 02/20/22 20:02: Glucometer 124H 02/20/22 21:37: Glucometer 181H 02/21/22 00:22: Glucometer 230H 02/21/22 02:53: Glucometer 210H 02/21/22 04:38: White Blood Count 12.2H, Red Blood Count 2.92L, Hemoglobin 9.0L, Hematocrit 29L, Mean Corpuscular Volume 98, Mean Corpuscular Hemoglobin 31, Mean Corpuscular Hemoglobin Concent 32, Red Cell Distribution Width 15.1H, Platelet Count 273, Mean Platelet Volume 11.1, Immature Granulocyte % (Auto) 1, Neutrophils (%) (Auto) 64, Lymphocytes (%) (Auto) 17, Monocytes (%) (Auto) 8, Eosinophils (%) (Auto) 11H, Basophils (%) (Auto) 0, Neutrophils # (Auto) 7.9H, Lymphocytes # (Auto) 2.0, Monocytes # (Auto) 0.9, Eosinophils # (Auto) 1.3H, Basophils # (Auto) 0.1, Immature Granulocyte # (Auto) 0.1 02/21/22 05:00: Sodium Level 135, Potassium Level 4.3, Chloride Level 102, Carbon Dioxide Level 24, Anion Gap 9, Blood Urea Nitrogen 19H, Creatinine 0.99, Estimat Glomerular Filtration Rate 61, BUN/Creatinine Ratio 19, Glucose Level 270H, Calcium Level 8.4L, Corrected Calcium 9.4, Magnesium Level 1.9, Total Bilirubin 0.5, Aspartate Amino Transf (AST/SGOT) 18, Alanine Aminotransferase (ALT/SGPT) 9, Alkaline Phosphatase 36L, Total Protein 5.6L, Albumin 2.7L 02/21/22 08:07: Glucometer 256H Microbiology 02/19/22 MRSA Screen - Final, Complete MRSA not isolated 02/18/22 Blood Culture - Preliminary, Resulted No growth 02/18/22 Urine Culture - Final, Complete NO GROWTH Home Meds Active Novolin R (Insulin Regular, Human) 100 Unit/Ml Vial 10 Unit SQ AC 14 Days Novolin N (Insulin NPH Human Isophane) 100 Unit/Ml Vial 20 Unit SQ BID 14 Days Reported Losartan Potassium 50 Mg Tablet 50 Mg PO DAILY Ondansetron HCl 4 Mg Tablet 4 Mg PO Q8H PRN Restasis (Cyclosporine) 0.05 % Droperette 1 Each OU BID Nitroglycerin 0.4 Mg Tab.subl 0.4 Mg SL UD PRN Nystatin 100,000 Unit/Gram Cream..g. 1 Applic TOP Q12H PRN APPLY TO PANNUS Miralax (Polyethylene Glycol 3350) 17 Gram Powd.pack 17 Gm PO DAILY Meclizine HCl 25 Mg Tablet 25 Mg PO TID PRN Cranberry (Cranberry Extract) 500 Mg Tablet 1,000 Mg PO DAILY Aspirin EC (Aspirin) 81 Mg Tablet.dr 81 Mg PO DAILY Vitamin C (Ascorbic Acid) 500 Mg Tablet 500 Mg PO DAILY Tylenol Extra Strength (Acetaminophen) 500 Mg Tablet 1,000-1,500 Mg PO QID PRN Pantoprazole Sodium 40 Mg Tablet.dr 40 Mg PO DAILY Torsemide 20 Mg Tablet 40 Mg PO DAILY TAKES 2 (20MG) TABS Sertraline HCl 100 Mg Tablet 100 Mg PO HS Nortriptyline HCl 50 Mg Capsule 50 Mg PO HS Atorvastatin Calcium 40 Mg Tablet 40 Mg PO HS Carvedilol 12.5 Mg Tablet 12.5 Mg PO BID Metoclopramide HCl 10 Mg/10 Ml Solution 5 Ml PO TID PRN Isosorbide Mononitrate ER (Isosorbide Mononitrate) 60 Mg Tab 120 Mg PO DAILY TAKES 2 (60MG) TABS Baclofen 10 Mg Tablet 10 Mg PO TID PRN Pregabalin 50 Mg Capsule 50 Mg PO DAILY Divalproex Sodium 250 Mg Tablet.dr 250 Mg PO DAILY Metformin HCl ER (Metformin HCl) 500 Mg Tab.er.24 1,000 Mg PO 1800 W/ DINNER TAKES 2 (500MG) TABS Trazodone HCl 300 Mg Tablet 300 Mg PO HS Assessment/Pt Instructions PCP in 1 week Discharge Planning: <30 minutes discharge planning Discharge Instructions Discharge Diet: ADA Diet Activity as Tolerated: Yes Discharge Physical Examination Vital Signs Vital Signs Date Time Temp Pulse Resp B/P (MAP) Pulse Ox O2 Delivery O2 Flow Rate FiO2 02/21/22 10:00 Nasal Cannula 2.00 02/21/22 07:39 36.6 80 20 131/60 (83) 93 General Appearance: No Apparent Distress, WD/WN, Chronically ill, Obese Respiratory: Lungs Clear, Normal Breath Sounds Cardiovascular: Regular Rate, Rhythm Allergies: Coded Allergies: Cephalosporins (Verified Allergy, Unknown, 02/14/22) Iodinated Contrast Media (Verified Allergy, Unknown, HIVES, 02/14/22) Sulfa (Sulfonamide Antibiotics) (Verified Allergy, Unknown, 02/14/22) fenofibrate (Verified Allergy, Unknown, 02/14/22) gabapentin (Verified Allergy, Unknown, 02/14/22) levofloxacin (Verified Allergy, Unknown, 02/14/22) naloxone (Verified Allergy, Unknown, 02/14/22) Uncoded Allergies: CONTRAST (Allergy, Unknown, 03/06/21) Discharge Summary Date of Admission February 18, 2022 at 19:29 Date of Discharge Discharge Date: February 21, 2022 Admission Diagnosis Assessment: Sepsis Resistant UTI recent fosfomycin x3 Metabolic encephalopathy NSTEMI CAD previous stents 2020 Diabetes Hypertension Former smoker Chronic kidney disease Plan: Supportive care ICU Cardiology consult Lovenox Aspirin Discharge Diagnosis Assessment: Sepsis Resistant UTI recent fosfomycin x3 Metabolic encephalopathy NSTEMI CAD previous stents 2020 Diabetes Hypertension Former smoker Chronic kidney disease Plan: Supportive care ICU Cardiology consult Lovenox Aspirin 02/20/2022: Supportive care Moved to fourth floor Manage diabetes MISSAEL RAMIREZ DO February 21, 2022 10:52
[2022-02-21 11:27] VITALS: BP 111/53
== END 2022-02-21 13:00 | disposition home health service (06) | DRG 871 ==
LOC: EDUNIT# 13:59 → ER FS 14:01 → ICU 19:29 → 4TH 02-20 11:15
PROVIDERS: ADMIT Internal Medicine; ATTEND Internal Medicine
DX: A41.51 Sepsis due to Escherichia coli [E. coli] (principal); G93.41 Metabolic encephalopathy; I21.4 Non-ST elevation (NSTEMI) myocardial infarction; N39.0 Urinary tract infection, site not specified; Z16.12 Extended spectrum beta lactamase (ESBL) resistance; I13.0 Hypertensive heart and chronic kidney disease with heart failure and stage 1 through stage 4 chronic kidney disease, or unspecified chronic kidney disease; I50.30 Unspecified diastolic (congestive) heart failure; N17.9 Acute kidney failure, unspecified; Z20.822 Contact with and (suspected) exposure to COVID-19; E10.42 Type 1 diabetes mellitus with diabetic polyneuropathy; E10.65 Type 1 diabetes mellitus with hyperglycemia; E10.22 Type 1 diabetes mellitus with diabetic chronic kidney disease; N18.9 Chronic kidney disease, unspecified; E78.5 Hyperlipidemia, unspecified; I25.119 Atherosclerotic heart disease of native coronary artery with unspecified angina pectoris; J44.9 Chronic obstructive pulmonary disease, unspecified; E78.00 Pure hypercholesterolemia, unspecified; G47.33 Obstructive sleep apnea (adult) (pediatric); M19.91 Primary osteoarthritis, unspecified site; M06.9 Rheumatoid arthritis, unspecified; I77.1 Stricture of artery; Z79.4 Long term (current) use of insulin; Z79.84 Long term (current) use of oral hypoglycemic drugs; Z99.81 Dependence on supplemental oxygen; Z95.5 Presence of coronary angioplasty implant and graft; Z87.820 Personal history of traumatic brain injury; Z86.73 Personal history of transient ischemic attack (TIA), and cerebral infarction without residual deficits; Z79.82 Long term (current) use of aspirin; Z88.5 Allergy status to narcotic agent; Z88.2 Allergy status to sulfonamides; Z88.8 Allergy status to other drugs, medicaments and biological substances; Z88.1 Allergy status to other antibiotic agents; Z91.041 Radiographic dye allergy status
CPT/HCPCS: 36410; 36415; 51702; 70450; 71045; 76937; 80048; 80053; 80061; 80202; 81000; 82010; 82805; 82947; 83036; 83605; 83735; 83880; 84100; 84484; 85007; 85025; 85027; 85610; 85730; 87040; 87081; 87088; 87636; 87804; 93005; 93306; 93880; 96372; 96374; 96375

== ENCOUNTER → 2022-03-12 | Outpatient (CLI) | payer MEDICARE ==
[2022-03-12 14:01] LABS: BILIRUBIN,URINE NEGATIVE (NEGATIVE); CLARITY,URINE SL CLOUDY; COLOR,URINE YELLOW; GLUCOSE, URINE (UA) NEGATIVE (NEGATIVE); KETONES,URINE NEGATIVE (NEGATIVE); LEUKOCYTE ESTERASE ,URINE 2+ (NEGATIVE); NITRITE,URINE NEGATIVE (NEGATIVE); PROTEIN,URINE NEGATIVE (NEGATIVE)
[2022-03-12 14:06] LABS: BACTERIA,URINE TRACE /HPF; RENAL EPITHELIAL CELLS,URINE RARE /HPF; SQUAMOUS EPITHELIAL CELL,UR RARE /HPF; WBC,URINE 50-100 /HPF
== END ==
LOC: IHC 13:47
PROVIDERS: ATTEND Family Medicine
DX: N39.0 Urinary tract infection, site not specified (principal)
CPT/HCPCS: 81000; 87088

== ENCOUNTER 2022-04-02 05:31 | Outpatient (CLI) | payer MEDICARE ==
[~2022-04-02] VITALS: Ht 172.7 cm; Wt 121.2 kg
[~2022-04-02 05:31] MED LIST changes: -CRAN500T3 PO; +CRAN500T4 PO
[2022-04-02] MEDS ORDERED: NITR25CA4 PO (09:36)
[2022-04-02] MEDS ORDERED: DIVA500T PO (09:36)
== END 2022-04-02 09:48 | disposition home or self-care (01) ==
LOC: PREOP 05:31
PROVIDERS: ATTEND Surgery
DX: Z01.818 Encounter for other preprocedural examination (principal)

== ENCOUNTER 2022-04-03 07:20 | Day surgery (SDC) | payer MEDICARE ==
[~2022-04-03] VITALS: Ht 172 cm; Wt 121.2 kg
[2022-04-03] VITALS (8 sets, daily range): BP systolic 134–154; BP diastolic 61–93
[~2022-04-03 07:20] MED LIST changes: +DIVA500T PO; +NITR25CA4 PO
--- NOTE | 2022-04-03 07:58 | Progress Note-Pre Operative ---
Pre-Operative Progress Note H&P Reviewed The H&P was reviewed, patient examined and no changes noted. Date Seen by Provider: Apr 03, 2022 Time Seen by Provider: 07:57 Date H&P Reviewed: Apr 03, 2022 Time H&P Reviewed: 07:57 Pre-Operative Diagnosis: malfunction port CASEY MUSA DO Apr 03, 2022 07:58
[2022-04-03] MEDS ORDERED: CLINDAMYCIN 600 MG/50 ML IVPB 50 ML IV ONE (08:04)
[2022-04-03] MEDS ORDERED: LACTATED RINGERS 1,000 ML IV PRN (08:15)
[2022-04-03] MEDS ORDERED: DEXTROSE 50% 50 ML (IMS) SYR ONE (08:17)
[2022-04-03] MEDS ORDERED: D5 LR IV SOLUTION 1,000 ML IV SCH (08:30)
[2022-04-03] MEDS ORDERED: DEXTROSE 50% 50 ML (IMS) SYR IV ONE (08:30)
[2022-04-03] MEDS ORDERED: D5 LR IV SOLUTION 1,000 ML IV ONE (08:33)
[2022-04-03] MEDS ORDERED: LIDOCAINE/EPI 2% 1:200,00 (XYLOCAINE) 20 ML VIAL ONE (10:27)
[2022-04-03] MEDS ORDERED: 0.9% SODIUM CHLORIDE PF INJ 20 ML VIAL ONE (10:39)
[2022-04-03] MEDS ORDERED: MIDAZOLAM 2 MG/2 ML (VERSED) VIAL ONE (10:48)
[2022-04-03] MEDS ORDERED: PROPOFOL INJECTION 50 ML IV ONE (10:48)
[2022-04-03] MEDS: HEParin (CENTRAL IV FLUSH) 500 UNIT/5 ML SYR ONE ×2 (11:53→12:09)
[2022-04-03] MEDS ORDERED: HYDROmorphone 2 MG/ML VIAL (DILAUDID) IV ONE (12:15)
[2022-04-03] MEDS ORDERED: ONDANSETRON 4 MG/2 ML (SDV) Z0FRAN IVP PRN (12:15)
--- NOTE | 2022-04-03 13:00 | Discharge Inst-Simple/Standard ---
Discharge Inst-Standard Patient Instructions/Follow Up Plan of Care/Instructions/FU: Friday Dr. Chen office to remove access. Gustavo 2 weeks. Activity as Tolerated: No Discharge Diet: Regular Diet Other Inst to Patient Follow up Appt: Make appointment for this Friday and also 2 weeks Gustavo. Instructions: No lifting greater than 10 pounds. No strenuous activity. May shower in 24 hours, no tub bath or soaking. Use incentive spirometer at home as directed. No Smoking Skin/Wound Care: You have special glue over your incision that will fall off on it's own. Symptoms to Report: Appetite Changes, Extremity Discoloration, Numbness/Tingling, Swelling Increased, Bleeding Excessive, Eyesight Changes, Pain Increased, Urine Color Change, Constipation(Persistent), Fever over 101 degree F, Pain/Pressure in chest, Urinating Difficulty, Cough Up/Vomit Blood, Heart Beat Irreg/Pounding, Pain/Pressure in jaw, Vaginal Bleeding Increase, Cramps in feet or legs, Lightheadedness, Pain/Pressure in shoulder, Diarrhea(Persistent), Memory Changes Suddenly, Questions/Concerns, Weight gain consecutive days, Dizziness/Fainting, Nausea/Vomiting, Shortness of Breath, Weight gain over 2 pounds If questions or concerns contact your physician Or seek help at emergency department. CASEY CHEN DO Apr 03, 2022 13:00
--- NOTE | 2022-04-03 13:38 | Anesthesia-General Post-Op ---
MAC Patient Condition Mental Status/LOC: Same as Preop Cardiovascular: Satisfactory Nausea/Vomiting: Absent Respiratory: Satisfactory Pain: Controlled Complications: Absent Post Op Complications Complications None Follow Up Care/Instructions Patient Instructions None needed. Anesthesiology Discharge Order Discharge Order Patient is doing well, no complaints, stable vital signs, no apparent adverse anesthesia problems. No complications reported per nursing. TON LY DIRECTOR OF PROGRAM MANAGEMENT Apr 03, 2022 13:38
--- NOTE | 2022-04-03 23:21 | OPERATIVE REPORT ---
DATE OF SERVICE: 04/03/2022 PREOPERATIVE DIAGNOSIS: Malfunctioning port. POSTOPERATIVE DIAGNOSIS: Malfunctioning port. PROCEDURE: Revision of port, right chest. SURGEON: Casey Chen DO ANESTHESIA: MAC with local. ESTIMATED BLOOD LOSS: Minimal. COMPLICATIONS: None. INDICATIONS: The patient is a 71-year-old female with recent port placement. Difficult to be accessed due to positioning. The patient was discussed risks and benefits of procedure and wished to proceed. Consent was signed in the chart. DESCRIPTION OF PROCEDURE: The patient was taken to the operating suite. She was prepped and draped in sterile fashion. Timeout was performed. Local anesthetic was infiltrated around the port. A 15 blade scalpel was used to make a small skin incision over the previous incision and cautery was used to dissect down to the port, which the pocket was then opened. The port was rotated. This was able to be dissected around and brought out. The pocket was recreated. The port was placed back in it and sutured with 3-[address] Port was then accessed. It myra blood and flushed without difficulty. The port was left accessed. The subcutaneous tissues were then reapproximated using 3-0 Vicryl. The skin was then closed with Skin Affix. The patient tolerated the procedure well without any complications. The port was left accessed. Sterile bandage was applied. The patient tolerated the procedure well without any complications. She was taken to recovery room in stable condition. RECOMMENDATIONS: The patient will have the port de-accessed on Friday in the office. Any problems before that be seen at that time. Job ID: [id number] DocumentID: [id number] Dictated Date: 04/03/2022 13:07:49 Fitness Trainer Date: 04/03/2022 23:20:16 Dictated By: CASEY CHEN DO [facility]PITALMarycruz
== END 2022-04-03 13:30 | disposition home or self-care (01) ==
LOC: SDC 07:20
PROVIDERS: ATTEND Surgery
DX: T82.514D Breakdown (mechanical) of infusion catheter, subsequent encounter (principal); Z87.891 Personal history of nicotine dependence
CPT/HCPCS: 82947; 87081

== ENCOUNTER → 2022-04-15 | Outpatient (CLI) | payer MEDICARE ==
[2022-04-15 14:03] LABS: BILIRUBIN,URINE NEGATIVE (NEGATIVE); CLARITY,URINE CLEAR; COLOR,URINE YELLOW; GLUCOSE, URINE (UA) TRACE (NEGATIVE); KETONES,URINE NEGATIVE (NEGATIVE); LEUKOCYTE ESTERASE ,URINE 1+ (NEGATIVE); NITRITE,URINE NEGATIVE (NEGATIVE); PROTEIN,URINE NEGATIVE (NEGATIVE)
[2022-04-15 14:17] LABS: BACTERIA,URINE TRACE /HPF; WBC,URINE 25-50 /HPF
== END ==
LOC: IHC 13:49
PROVIDERS: ATTEND Family Medicine
DX: E11.22 Type 2 diabetes mellitus with diabetic chronic kidney disease (principal); N18.9 Chronic kidney disease, unspecified; N39.0 Urinary tract infection, site not specified; E11.42 Type 2 diabetes mellitus with diabetic polyneuropathy
CPT/HCPCS: 81000; 87088

== ENCOUNTER 2022-11-08 10:00 | Day surgery (SDC) | payer MEDICARE, MEDICAID ==
[~2022-11-08] VITALS: Ht 172 cm; Wt 122.5 kg
[2022-11-08 08:54] VITALS: BP 188/81
--- NOTE | 2022-11-08 09:04 | Diagnostic Imaging Report ---
Indication: Chest pain Portable chest 8:53 AM Right IJ Port-A-Cath tip projects over the SVC. Heart size and pulmonary vascularity are normal. Lungs are clear. There are no effusions or pneumothoraces. IMPRESSION: No acute abnormalities in the chest. Dictated by: Dictated on workstation # [id number]
[2022-11-08 09:33] LABS: HEMATOCRIT 31 % (35-52); HEMOGLOBIN 9.9 g/dL (11.5-16.0); MEAN CORPUSCULAR HEMOGLOBIN 31 pg (25-34); MEAN CORPUSCULAR HGB CONC 32 g/dL (32-36); MEAN CORPUSCULAR VOLUME 98 fL (80-99); MEAN PLATELET VOLUME 10.1 fL (9.0-12.2); PLATELET COUNT 384 10^3/uL (130-400); WHITE BLOOD COUNT 13.7 10^3/uL (4.3-11.0)
[2022-11-08 09:47] LABS: INR 1.1 (0.8-1.4); PROTHROMBIN TIME PATIENT 14.2 SEC (12.2-14.7)
[2022-11-08 09:58] LABS: ALBUMIN 3.6 GM/DL (3.2-4.5); BILIRUBIN,TOTAL 0.2 MG/DL (0.1-1.0); CALCIUM 9.4 MG/DL (8.5-10.1); CREATININE SERUM 1.19 MG/DL (0.60-1.30); POTASSIUM 4.3 MMOL/L (3.6-5.0); TOTAL PROTEIN 7.7 GM/DL (6.4-8.2)
[~2022-11-08 10:00] MED LIST changes: +BETH25TA2 PO; +CARV25TA PO; +HEParin (CATH LAB) 2,000 ML IV ONE; +HYDR-3923 PO; +LIDOCAINE 1% INJ 20 ML VIAL ONE; +METO5TAB2 PO; +MICO90PO TOP; +NPH,100V SQ; +NS IV 1000 ML 1,000 ML IV ONE; +NS IV 1000 ML 1,000 ML ONE; -NYST15CR TOP; +NYST15CR35 TOP; +PRIM50TA33 PO; +TMSL.4C PO
[2022-11-08] MEDS ORDERED: fentaNYL INJ 100 MCG/2 ML AMP ONE (10:20)
[2022-11-08] MEDS ORDERED: diphenhydrAMINE 50 MG/ML INJ (BENADRYL) ONE (10:20)
[2022-11-08] MEDS ORDERED: HEParin 1000 UNIT/ML (10ML VIAL) FOR BOLUS ONE (10:20)
[2022-11-08] MEDS ORDERED: MIDAZOLAM 5 MG/5 ML (VERSED) VIAL ONE (10:20)
[2022-11-08] MEDS ORDERED: methylPREDNISolone 125 MG (Solu-MEDROL) VIAL ONE (10:20)
--- NOTE | 2022-11-08 10:27 | Cardiac Procedure Note-CS/ASA ---
Pre-Procedure Note Pre-Op Procedure Note Date of Available H&P: Nov 04, 2022 Date H&P Reviewed: Nov 08, 2022 Time H&P Reviewed: : History & Physical: H&P Reviewed, Patient Examed, No changes noted Pre-Operative Diagnosis: Foot ulcer Conscious Sedation Pre-Proced Time 10: ASA Score 3 For ASA 3 and 4: Consider anesthesia and medical clearance. Also, for patients with a history of failed moderate sedation consider anesthesia. Airway Lungs Heart ASA score ASA 1: a normal healthy patient ASA 2: a patient with a mild systemic disease (mid diabetes, controlled hypertension, obesity ASA 3: a patient with a severe systemic disease that limits activity (angina, COPD, prior Myocardial infarction) ASA 4: a patient with an incapacitating disease that is a constant threat to life (CHF, renal failure) ASA 5: a moribund patient not expected to survive 24 hrs. (ruptured aneurysm) ASA 6: a declared brain- patient whose organs are being harvested. For emergent operations, add the letter E after the classification Mallampati Classification Grade 3 Sedation Plan Analgesia, Amnesia, Plan communicated to team members, Discussed options with patient/fam, Discussed risks with patient/fam The patient is an appropriate candidate to undergo the planned procedure, sedation, and anesthesia. The patient immediately re-assessed prior to indication. RONY REYES MD Nov 08, 2022 10:27
[2022-11-08] MEDS ORDERED: meTOprolol 5 MG/5 ML (LOPRESSOR) VIAL ONE ×2 (11:03→11:26)
[2022-11-08] MEDS ORDERED: METF-865 PO (11:44)
[2022-11-08] MEDS ORDERED: PATIENT MAY USE OWN MEDS, ALL PO SCH (11:45)
[2022-11-08] MEDS ORDERED: NS IV 1000 ML 1,000 ML IV SCH (11:45)
--- NOTE | 2022-11-08 11:45 | Discharge Inst-Post CATH ---
Discharge Inst-CATH/EP Problems Reviewed?: Yes Post Cardiac Cath/EP D/C Inst Follow Up/Plan Hold metformin for [address] Mireles's office in 2 to 4 weeks <b>CARDIAC CATH/EP PROCEDURE DISCHARGE INSTRUCTIONS</b> ACTIVITY * Go Home directly and rest. * Limit activity of the leg (or wrist if it was used) for 7 days including aerobics, swimming, jogging, bicycling, etc. * Restrict stair-climbing for 7 days if possible, if not, climb up with your non-cath leg, then bring together on the same step. * Avoid lifting, pushing, pulling or excessive movement of the affected extremity for 7 days. * Customary sexual activity may be resumed after 2 days-use caution not to use a position that strains or causes pain to the affected extremity. * No driving for 24 hours. * NO SMOKING. * Avoid straining for bowel movements for 7 days. * Gentle walking on level ground is allowed. * Returning to work will depend on the type of procedure and the results. Your doctor will discuss this with you. CALL YOUR DOCTOR FOR ANY OF THE FOLLOWING: *If bleeding from the puncture site occurs- Apply gentle pressure to site with clean cloth and call your doctor or EMS. * If a knot or lump forms under the skin, increases in size, or causes pain. * If bruising appears to be worsening or moving further down your leg instead of disappearing. * Temperature above 101 F. CARE OF YOUR GROIN INCISION; * Bruising or purple discoloration of the skin near the puncture site is common. * You may shower only, no bathtub bathing for 5 days. Be careful to avoid slipping as your leg may feel stiff. * If a closure device was used on your femoral artery, please see the attached guide regarding care of the device and your leg. * Leave dressing on FOR 24 hours. CARE OF YOUR WRIST INCISION; * Bruising or purple discoloration of the skin near the puncture site is common. * You may shower. * DO NOT submerge wrist. * Leave dressing on FOR 24 hours. RONY MIRELES MD Nov 08, 2022 11:45
--- NOTE | 2022-11-08 11:51 | Cardiac Cath Report ---
Cardiac Cath Report Physician (s)/Chef Instructor (s) Physician RONY REYES MD Pre-Procedure Diagnosis Pre-Procedure Diagnosis: Foot ulcer, chest pain Post-Procedure Note Procedure Start Date: Nov 08, 2022 Name of Procedure: Left heart catheterization Bilateral lower extremities runoff Third order Additional imaging Findings/Procedure Note PROCEDURE NOTE: 72-year-old lady with history of coronary artery disease, has been having accelerating angina, had nonhealing wound on her lower extremity and scheduled for peripheral angiogram, I decided to proceed with coronary angiogram in addition to the peripheral angiogram. After explaining the procedure to the patient, all pros and cons were explained, all questions were answered. The patient signed the consent and then she was placed in the cardiac catheterization laboratory. Groin was prepped in SL fashion local anesthesia was used. Sheath placed in the right femoral artery. Espinoza' right and left catheter were used to access the coronary system. Espinoza right was prolapsed to the left ventricular cavity, pressure was measured, pullback LV to aorta was done. Then it was pulled down to the bifurcation and engage the left common iliac artery, runoff to the left leg was done then I remove the cath and used a rim catheter and advanced a wire to the trifurcation and did DSA imaging at the level of the trifurcation then at the level of the foot I did multiple views at the level of the foot. Then I pulled back the catheter to the proximal SFA and did angiogram to the SFA again then I pulled the catheter to the right common iliac artery and did runoff to the right leg and DSA imaging at the trifurcation. At the end of the procedure the sheath was removed. Perclose was used with excellent outcome FINDINGS: Hemodynamics LV 173/24, end-diastolic pressure of 24 Aorta 175/59 mean of 107 ANATOMY: Left Main is free of obstructive disease Left Anterior Descending has mild disease, nonobstructive disease up to 40% stenosis in the mid LAD Left Circumflex is moderate in size, has 50% stenosis at the midportion at the bifurcation point. Nonobstructive disease Right Coronary Artery is dominant artery with 30% stenosis nonobstructive disease LV Gram was not done, pressure was measured Right lower extremity runoff: Right common iliac and common femoral are normal Right SFA has mild disease nonobstructive disease Anterior tibial artery has mild disease nonobstructive disease Posterior tibial artery has mild disease nonobstructive disease Peroneal artery is almost absent, very small artery. Left lower extremity: Left common iliac and femoral artery are normal Left SFA is calcified with mild disease nonobstructive disease Left anterior tibial artery has 60% stenosis distally. Left posterior tibial artery has mild disease nonobstructive disease Left peroneal artery is very small. Almost absent CONCLUSION: 1. Mild to moderate coronary artery disease nonobstructive disease 2. Hypertension with hypertensive heart disease and elevated left ventricular end-diastolic pressure 3. Almost absent peroneal artery on both lower extremities, moderate disease at the distal anterior tibial artery not amendable to intervention 4. Otherwise calcified artery with mild disease nonobstructive disease in the lower extremities DISCUSSION AND RECOMMENDATION: Continue to maximize medical therapy Anesthesia Type: Conscious Sedation Estimated blood loss (mL): 30 ml Contrast Amount: 75 ml Total Radiation Dose: 1041 mGy Post-Procedure Diagnosis Post-operative diagnosis: Nonhealing foot ulcer Chest pain Coronary artery disease Peripheral arterial disease RONY REYES MD Nov 08, 2022 11:51
[2022-11-08 12:00] VITALS: BP 187/79
[2022-11-08 12:15] VITALS: BP 180/80
[2022-11-08 12:30] VITALS: BP 182/80
[2022-11-08 12:47] VITALS: BP 178/72
[2022-11-08 13:18] VITALS: BP 156/72
== END 2022-11-08 13:36 | disposition home or self-care (01) ==
LOC: CATH 10:00 → SDC 11:58 → CATH 13:36
PROVIDERS: ATTEND Internal Medicine Cardiovascular Disease
DX: I25.10 Atherosclerotic heart disease of native coronary artery without angina pectoris (principal); I70.245 Atherosclerosis of native arteries of left leg with ulceration of other part of foot; L97.529 Non-pressure chronic ulcer of other part of left foot with unspecified severity; I70.235 Atherosclerosis of native arteries of right leg with ulceration of other part of foot; L97.519 Non-pressure chronic ulcer of other part of right foot with unspecified severity; J44.9 Chronic obstructive pulmonary disease, unspecified; E78.2 Mixed hyperlipidemia; E11.42 Type 2 diabetes mellitus with diabetic polyneuropathy; I12.9 Hypertensive chronic kidney disease with stage 1 through stage 4 chronic kidney disease, or unspecified chronic kidney disease; N18.9 Chronic kidney disease, unspecified; I25.2 Old myocardial infarction; I65.23 Occlusion and stenosis of bilateral carotid arteries; Z86.73 Personal history of transient ischemic attack (TIA), and cerebral infarction without residual deficits; Z87.891 Personal history of nicotine dependence; Z79.4 Long term (current) use of insulin; Z79.84 Long term (current) use of oral hypoglycemic drugs; Z79.82 Long term (current) use of aspirin; Z79.899 Other long term (current) drug therapy
CPT/HCPCS: 36247; 36248; 71045; 75716; 80053; 80061; 85027; 85610; 85730; 87081; 93005; 93458; C1760; C1769; C1887 ×2; C1894; 36415

== ENCOUNTER → 2022-12-13 | Outpatient (CLI) | payer MEDICARE, MEDICAID ==
[~2022-12-13] MED LIST changes: -HEParin (CATH LAB) 2,000 ML IV ONE; -LIDOCAINE 1% INJ 20 ML VIAL ONE; -NS IV 1000 ML 1,000 ML IV ONE; -NS IV 1000 ML 1,000 ML ONE
[2022-12-13 10:11] LABS: BASOPHILS # (AUTO) 0.1 10^3/uL (0.0-0.1); BASOPHILS % (AUTO) 1 % (0-10); EOSINOPHILS # (AUTO) 0.5 10^3/uL (0.0-0.3); EOSINOPHILS % (AUTO) 4 % (0-10); HEMATOCRIT 33 % (35-52); HEMOGLOBIN 10.2 g/dL (11.5-16.0); LYMPHOCYTES # (AUTO) 1.7 10^3/uL (1.0-4.0); LYMPHOCYTES % (AUTO) 15 % (12-44); MEAN CORPUSCULAR HEMOGLOBIN 30 pg (25-34); MEAN CORPUSCULAR HGB CONC 31 g/dL (32-36); MEAN CORPUSCULAR VOLUME 99 fL (80-99); MEAN PLATELET VOLUME 10.5 fL (9.0-12.2); MONOCYTES # (AUTO) 1.2 10^3/uL (0.0-1.0); MONOCYTES % (AUTO) 10 % (0-12); NEUTROPHILS # (AUTO) 8.1 10^3/uL (1.8-7.8); NEUTROPHILS % (AUTO) 70 % (42-75); PLATELET COUNT 318 10^3/uL (130-400); WHITE BLOOD COUNT 11.5 10^3/uL (4.3-11.0)
[2022-12-13 10:28] LABS: BUN/CREATININE RATIO 29; CARBON DIOXIDE 25 MMOL/L (21-32); CHLORIDE 96 MMOL/L (98-107); CREATININE SERUM 1.23 MG/DL (0.60-1.30); GFR ESTIMATED 46; GLUCOSE 163 MG/DL (70-105); POTASSIUM 4.8 MMOL/L (3.6-5.0); SODIUM 135 MMOL/L (135-145)
[2022-12-13 10:29] LABS: ALANINE AMINOTRANSFERASE 9 U/L (0-55); ALBUMIN 3.2 GM/DL (3.2-4.5); ALKALINE PHOSPHATASE 73 U/L (40-136); BILIRUBIN,TOTAL < 0.2 MG/DL (0.1-1.0); TOTAL PROTEIN 7.3 GM/DL (6.4-8.2)
== END ==
LOC: LAB FS 09:48
PROVIDERS: ATTEND Nurse Practitioner Family
DX: E11.8 Type 2 diabetes mellitus with unspecified complications (principal); D64.9 Anemia, unspecified
CPT/HCPCS: 36415; 80053; 85025

== ENCOUNTER 2023-04-01 21:41 | Emergency (ER) | payer MEDICARE, MEDICAID ==
[~2023-04-01] VITALS: Ht 172.7 cm; Wt 122.5 kg
[~2023-04-01 21:41] MED LIST changes: +SENN-271 PO; -SENN1TAB76 PO
[2023-04-01] MEDS ORDERED: morphine INJ 10 MG/ML 1ML (SYR OR VIAL) IVP ONE (22:00)
[2023-04-01] MEDS ORDERED: NITROGLYCERIN 2% OINT 1 GM UNIT DOSE PACKET TOP ONE (22:00)
[2023-04-01 22:02] LABS: BASOPHILS # (AUTO) 0.1 10^3/uL (0.0-0.1); BASOPHILS % (AUTO) 0 % (0-10); EOSINOPHILS # (AUTO) 1.9 10^3/uL (0.0-0.3); EOSINOPHILS % (AUTO) 13 % (0-10); HEMATOCRIT 32 % (35-52); HEMOGLOBIN 9.9 g/dL (11.5-16.0); LYMPHOCYTES # (AUTO) 1.8 10^3/uL (1.0-4.0); LYMPHOCYTES % (AUTO) 12 % (12-44); MEAN CORPUSCULAR HEMOGLOBIN 31 pg (25-34); MEAN CORPUSCULAR HGB CONC 31 g/dL (32-36); MEAN CORPUSCULAR VOLUME 98 fL (80-99); MEAN PLATELET VOLUME 10.4 fL (9.0-12.2); MONOCYTES # (AUTO) 0.9 10^3/uL (0.0-1.0); MONOCYTES % (AUTO) 6 % (0-12); NEUTROPHILS # (AUTO) 10.2 10^3/uL (1.8-7.8); NEUTROPHILS % (AUTO) 68 % (42-75); PLATELET COUNT 280 10^3/uL (130-400)
--- NOTE | 2023-04-01 22:18 | ED Cardiac General ---
History of Present Illness General Chief Complaint: Chest Pain Stated Complaint: CHEST PAIN Source: patient Exam Limitations: no limitations History of Present Illness Date Seen by Provider: Apr 01, 2023 Time Seen by Provider: 21:44 Initial Comments 72-year-old female with past medical history of CAD, CHF, chronic hypoxic respiratory failure on roughly 4 L oxygen coming in with family due to chest pain. The patient developed chest pain initially this morning around 9 AM. She went to the ER in [place] at that time. She was there essentially the entire day with 3 sets of troponins being ran. Reportedly per the daughter, the troponins kept elevating, but they were unable to get a hold of the patient's sand filler, Dr. Mireles since he is out of town. They did a chest x-ray showing extra fluid on her lungs versus pneumonia. They wanted her to increase her torsemide, continue her potassium supplement, and start doxycycline. Her pain had improved, started back up a couple hours prior to arrival here. Its in the center of her chest, constant, pressure-like. Otherwise denying any fever, chills, weakness, numbness, diarrhea, vomiting, or any other concerns. Allergies and Home Medications Allergies Coded Allergies: Cephalosporins (Verified Allergy, Unknown, 02/14/22) Iodinated Contrast Media (Verified Allergy, Unknown, HIVES, 02/14/22) Sulfa (Sulfonamide Antibiotics) (Verified Allergy, Unknown, 02/14/22) fenofibrate (Verified Allergy, Unknown, 02/14/22) gabapentin (Verified Allergy, Unknown, 02/14/22) levofloxacin (Verified Allergy, Unknown, 02/14/22) naloxone (Verified Allergy, Unknown, 02/14/22) Uncoded Allergies: CONTRAST (Allergy, Unknown, 03/06/21) Patient Home Medication List Home Medication List Reviewed: Yes Acetaminophen (Tylenol Extra Strength) 500 Mg Tablet, 1,000-1,500 MG PO QID PRN for PAIN-MILD (1-4) Prescribed by: MISSAEL RAMIREZ on 09/18/221101 Last Action: Last Taken Edited Aspirin (Aspirin EC) 81 Mg Tablet., 81 MG PO DAILY Prescribed by: MISSAEL RAMIREZ on 09/18/221101 Last Action: Last Taken Edited Atorvastatin Calcium (Atorvastatin Calcium) 40 Mg Tablet, 40 MG PO HS Prescribed by: MISSAEL RAMIREZ on 09/18/221101 Last Action: Last Taken Edited Baclofen (Baclofen) 10 Mg Tablet, 10 MG PO TID PRN for MUSCLE SPASMS Prescribed by: MISSAEL RAMIREZ on 09/18/221101 Last Action: Last Taken Edited Bethanechol Chloride (Bethanechol Chloride) 25 Mg Tablet, 25 MG PO ACHS Prescribed by: MISSAEL RAMIREZ on 09/18/221101 Last Action: Last Taken Edited Carvedilol (Carvedilol) 25 Mg Tablet, 25 MG PO BID WITH MEALS Prescribed by: MISSAEL RAMIREZ on 09/18/221101 Last Action: Last Taken Edited Escitalopram Oxalate (Escitalopram Oxalate) 10 Mg Tablet, 10 MG PO DAILY, (Reported) Entered as Reported by: RAMOS CHANG on 04/01/232241 Last Action: New Order Estradiol (Estradiol) 0.01 % Cream.appl, 42.5 GM VG WEEK, (Reported) Entered as Reported by: RAMOS CHANG on 04/01/232241 Last Action: New Order Hydralazine HCl (Hydralazine HCl) 25 Mg Tablet, 25 MG PO TID Prescribed by: MISSAEL RAMIREZ on 09/18/221101 Insulin NPH Human Isophane (Novolin N) 100 Unit/Ml Vial, 35 UNIT SQ BID, (Reported) Entered as Reported by: BEN PERRIN on 11/08/22954 Insulin Regular, Human (Novolin R) 100 Unit/Ml Vial, 30-35 UNIT SQ TIDWM Prescribed by: MISSAEL RAMIREZ on 09/18/221101 Last Action: Last Taken Edited Isosorbide Mononitrate (Isosorbide Mononitrate ER) 60 Mg Tab, 60 MG PO DAILY Prescribed by: MISSAEL RAMIREZ on 09/18/221101 Last Action: Last Taken Edited Losartan Potassium (Losartan Potassium) 25 Mg Tablet, 25 MG PO DAILY, (Reported) Entered as Reported by: RAMOS CHANG on 04/01/232241 Last Action: New Order Meclizine HCl (Meclizine HCl) 25 Mg Tablet, 25 MG PO TID PRN for DIZZINESS, (Reported) Entered as Reported by: BNE PERRIN on 11/08/22954 Last Action: Edited Metformin HCl (Metformin HCl ER) 500 Mg Tab.er.24h, 1,000 MG PO 1800 W/MEAL Prescribed by: RONY MIRELES on 11/08/22 1144 Last Action: Last Taken Edited Metoclopramide HCl (Metoclopramide HCl) 5 Mg Tablet, 5 MG PO TIDAC, (Reported) Entered as Reported by: BEN PERRIN on 11/08/22954 Last Action: Last Taken Edited Miconazole Nitrate (Lotrimin AF) 2 % Powder, 0 GM TOP BID Prescribed by: MISSAEL RAMIREZ on 09/18/221101 Last Action: Last Taken Edited Nitroglycerin (Nitroglycerin) 0.4 Mg Tab.subl, 0.4 MG SL UD PRN for CHEST PAIN Prescribed by: MISSAEL RAMIREZ on 09/18/221101 Last Action: Last Taken Edited Nortriptyline HCl (Nortriptyline HCl) 50 Mg Capsule, 50 MG PO HS Prescribed by: MISSAEL RAMIREZ on 09/18/221101 Ondansetron HCl (Ondansetron HCl) 4 Mg Tablet, 4 MG PO Q8H PRN for NAUSEA/VOMITING-1ST LINE Prescribed by: MISSAEL RAMIREZ on 09/18/221101 Pantoprazole Sodium (Pantoprazole Sodium) 40 Mg Tablet.dr, 40 MG PO DAILY Prescribed by: MISSAEL RAMIREZ on 09/18/221101 Last Action: Last Taken Edited Polyethylene Glycol 3350 (Miralax) 17 Gram Powd.pack, 17 GM PO DAILY Prescribed by: MISSAEL RAMIREZ on 09/18/221101 Last Action: Last Taken Edited Primidone (Mysoline) 50 Mg Tablet, 150 MG PO HS Prescribed by: MISSAEL RAMIREZ on 09/18/221101 Last Action: Last Taken Edited Sertraline HCl (Sertraline HCl) 100 Mg Tablet, 150 MG PO HS Prescribed by: MISSAEL RAMIREZ on 09/18/221101 Tamsulosin HCl (Flomax) 0.4 Mg Cap, 0.4 MG PO DAILY, (Reported) Entered as Reported by: BEN PERRIN on 11/08/22954 Last Action: Last Taken Edited Torsemide (Torsemide) 20 Mg Tablet, 40 MG PO DAILY Prescribed by: MISSAEL RAMIREZ on 09/18/221101 Last Action: Last Taken Edited Trazodone HCl (Trazodone HCl) 300 Mg Tablet, 300 MG PO HS Prescribed by: MISSAEL RAMIREZ on 09/18/221101 Last Action: Last Taken Edited Discontinued Medications Losartan Potassium (Losartan Potassium) 50 Mg Tablet, 50 MG PO DAILY Discontinued Reason: Referral/FU Appt-Addtl Prescribed by: MISSAEL RAMIREZ on 09/18/221101 Last Action: Discontinued Review of Systems Review of Systems Constitutional: No fever EENTM: No Symptoms Reported Respiratory: No Symptoms Reported Cardiovascular: See HPI Gastrointestinal: No Symptoms Reported Genitourinary: No Symptoms Reported Musculoskeletal: no symptoms reported Skin: no symptoms reported Psychiatric/Neurological: No Symptoms Reported Endocrine: No Symptoms Reported Past Uabtoso-Mdkkuv-Caqmjy Hx Patient Social History Tobacco Use?: No Smoking Status: Unknown if Ever Smoked Use of E-Cig and/or Vaping dev: No Substance use?: No Alcohol Use?: No Immunizations Up To Date Tetanus Booster (TDap): Unknown First/Initial COVID19 Vaccinat: DECEMBER 2020 Second COVID19 Vaccination Chris: January 2021 Third COVID19 Vaccination Date: 2020 Seasonal Allergies Seasonal Allergies: No Past Medical History Surgery/Hospitalization HX: Diabetes mellitus type 1 insulin-dependent, hypertension, coronary artery disease with stents, cholecystectomy, appendectomy, neuropathy, CHF Surgeries: Yes (SPLEEN, BACK SURGERY X2/LAMINECTOMY, LG SURGERY FOR MRSA TUNNELING ON BACK) Appendectomy, Coronary Stent, Gallbladder, Orthopedic, Pancreatic, Renal, Tonsillectomy Respiratory: Yes (Uses 3-4/L oxygen supplementation continuously) Sleep Apnea Currently Using CPAP: No Currently Using BIPAP: No Cardiac: Yes (heart stent, Cogestive and diastolic heart failure) Angina, Coronary Artery Disease, High Cholesterol, Hypertension Neurological: Yes (stoke x3 ) Concussion, Neuropathy, Stroke Genitourinary: Yes Renal Failure, UTI-Chronic Gastrointestinal: Yes Gastroesophageal Reflux Musculoskeletal: Yes Arthritis, Rheumatoid Arthritis, Back Injury, Chronic Back Pain Endocrine: Yes Diabetes, Insulin dep HEENT: Yes Cancer: No Psychosocial: No Integumentary: No Blood Disorders: No Family Medical History No Pertinent Family Hx Physical Exam Vital Signs Vital Signs - First Documented 04/01/23 21:45 Temp 37.1 Pulse 87 Resp 14 B/P (MAP) 223/68 (119) Pulse Ox 94 O2 Delivery Nasal Cannula O2 Flow Rate 4.00 Capillary Refill : Height, Weight, BMI Height: '" Weight: lbs. oz. kg; 41.40 BMI Method: General Appearance: No Apparent Distress, WD/WN HEENT: PERRL/EOMI, Normal ENT Inspection, Pharynx Normal Neck: Full Range of Motion, Normal Inspection, Non Tender, Supple Respiratory: Chest Non Tender, No Accessory Muscle Use, No Respiratory Distress, Crackles Cardiovascular: Regular Rate, Rhythm, Normal Peripheral Pulses Gastrointestinal: Normal Bowel Sounds, Non Tender, Soft; No Distended, No Guarding Extremity: Normal Capillary Refill, Normal Inspection, Normal Range of Motion, Non Tender, No Calf Tenderness Neurologic/Psychiatric: Alert, Oriented x3, No Motor/Sensory Deficits, Normal Mood/Affect Skin: Normal Color, Warm/Dry Progress/Results/Core Measures Results/Orders Lab Results Laboratory Tests Test 04/01/23 21:50 Range/Units White Blood Count 15.0 H 4.3-11.0 10^3/uL Red Blood Count 3.22 L 3.80-5.11 10^6/uL Hemoglobin 9.9 L 11.5-16.0 g/dL Hematocrit 32 L 35-52 % Mean Corpuscular Volume 98 80-99 fL Mean Corpuscular Hemoglobin 31 25-34 pg Mean Corpuscular Hemoglobin Concent 31 L 32-36 g/dL Red Cell Distribution Width 14.3 10.0-14.5 % Platelet Count 280 130-400 10^3/uL Mean Platelet Volume 10.4 9.0-12.2 fL Immature Granulocyte % (Auto) 1 % Neutrophils (%) (Auto) 68 42-75 % Lymphocytes (%) (Auto) 12 12-44 % Monocytes (%) (Auto) 6 0-12 % Eosinophils (%) (Auto) 13 H 0-10 % Basophils (%) (Auto) 0 0-10 % Neutrophils # (Auto) 10.2 H 1.8-7.8 10^3/uL Lymphocytes # (Auto) 1.8 1.0-4.0 10^3/uL Monocytes # (Auto) 0.9 0.0-1.0 10^3/uL Eosinophils # (Auto) 1.9 H 0.0-0.3 10^3/uL Basophils # (Auto) 0.1 0.0-0.1 10^3/uL Immature Granulocyte # (Auto) 0.1 0.0-0.1 10^3/uL Neutrophils % (Manual) 58 % Lymphocytes % (Manual) 14 % Monocytes % (Manual) 3 % Eosinophils % (Manual) 18 % Myelocytes % 1 % Band Neutrophils 6 % Nucleated Red Blood Cells 1 Platelet Estimate NORMAL Polychromasia SLIGHT Poikilocytosis SLIGHT Anisocytosis SLIGHT Schistocytes SLIGHT Blood Morphology Comment ABNORMAL Prothrombin Time 14.2 12.2-14.7 SEC INR Comment 1.1 0.8-1.4 Activated Partial Thromboplast Time 52 H 24-35 SEC Sodium Level 139 135-145 MMOL/L Potassium Level 4.6 3.6-5.0 MMOL/L Chloride Level 101 98-107 MMOL/L Carbon Dioxide Level 30 21-32 MMOL/L Anion Gap 8 5-14 MMOL/L Blood Urea Nitrogen 36 H 7-18 MG/DL Creatinine 1.18 0.60-1.30 MG/DL Estimat Glomerular Filtration Rate 49 BUN/Creatinine Ratio 31 Glucose Level 198 H 70-105 MG/DL Calcium Level 9.4 8.5-10.1 MG/DL Corrected Calcium 9.7 8.5-10.1 MG/DL Magnesium Level 2.0 1.6-2.4 MG/DL Total Bilirubin 0.3 0.1-1.0 MG/DL Aspartate Amino Transf (AST/SGOT) 17 5-34 U/L Alanine Aminotransferase (ALT/SGPT) 10 0-55 U/L Alkaline Phosphatase 96 40-136 U/L Troponin I < 0.30 <0.30 NG/ML Pro-B-Type Natriuretic Peptide 635.5 H <125.0 PG/ML Total Protein 7.5 6.4-8.2 GM/DL Albumin 3.6 3.2-4.5 GM/DL Lipase 51 8-78 U/L My Orders Orders - GOLD SEGURA MD Cbc With Automated Diff (04/01/23 21:50) Magnesium (04/01/23 21:50) Chest 1 View Ap/Pa Only (04/01/23 21:50) Ekg Tracing (04/01/23 21:50) Comprehensive Metabolic Panel (04/01/23 21:50) Protime With Inr (04/01/23 21:50) Partial Thromboplastin Time (04/01/23 21:50) O2 (04/01/23 21:50) Monitor-Rhythm Ecg Trace Only (04/01/23 21:50) Ed Iv/Invasive Line Start (04/01/23 21:50) Lipase (04/01/23 21:50) Troponin I Fs (04/01/23 21:50) Probnp Fs (04/01/23 21:50) Morphine Injection (Morphine Injection (04/01/23 22:00) Nitroglycerin Ointment (Nitrobid Ointme (04/01/23 22:00) Manual Differential (04/01/23 21:50) Hydralazine Injection (Apresoline Inject (04/01/23 22:45) Furosemide Injection (Lasix Injection) (04/01/23 23:00) Medications Given in ED Current Medications Medications Dose Ordered Sig/[place] Route Start Time Stop Time Status Last Admin Dose Admin Furosemide 40 mg ONCE ONCE IVP 04/01/23 23:00 04/01/23 23:01 DC 04/01/23 22:52 40 MG Hydralazine HCl 10 mg ONCE ONCE IV 04/01/23 22:45 04/01/23 22:46 DC 04/01/23 22:53 10 MG Morphine Sulfate 4 mg ONCE ONCE IVP 04/01/23 22:00 04/01/23 22:04 DC 04/01/23 22:03 4 MG Nitroglycerin 1 inch ONCE ONCE TOP 04/01/23 22:00 04/01/23 22:04 DC 04/01/23 22:02 1 INCH Vital Signs/I&O 04/01/23 04/01/23 21:45 21:45 Temp 37.1 Pulse 87 Resp 14 B/P (MAP) 223/68 (119) Pulse Ox 94 94 O2 Delivery Nasal Cannula Nasal Cannula O2 Flow Rate 4.00 4.00 Progress Progress Note : Progress Note 72-year-old female with above history coming in due to chest pain. ABCs were intact and vitals were stable on presentation other than her being very hypertensive. Initial systolic greater than 200. Nitropaste was placed on the patient. She had been in the ER earlier, EMS had given her aspirin earlier. At the other facility, I have reviewed the records, and she had troponin drawn x3 over the course of 6 hours, chest x-ray, and basic labs. She was discharged home to increase her torsemide from 40 mg a day to 60 mg a day as well as starting doxycycline for concern for potential infiltrate on her chest x-ray. EKG here with no acute ischemic changes on my interpretation. Chest x-ray does show some very mild volume overload compared to prior on my interpretation. Basic labs were obtained and were significant for leukocytosis to 15, normal creatinine, negative troponin, elevated proBNP around 600 which is as high as its ever been in our facility and also is consistent with her being volume overloaded per the outside hospital records. The patient did not receive a diuretic at the outside facility, we will give her IV Lasix here as well as hydralazine as I think a lot of the pain is related to her blood pressure. When her blood pressure did trend down, pain is gone. Given that the patient has had 4 troponins drawn today, has been evaluated essentially for 12 straight hours, and now has a negative troponin again, I think is highly unlikely this is ACS related. She is not tachycardic, at her baseline oxygen, no clinical signs of DVT, and I think a PE would be very unlikely. I agree with the other facilities plan, and she should follow-up with cardiology as an outpatient. Especially given on reassessment her pain was better. She was then discharged home in stable condition with strict return precautions. Initial ECG Impression Date: Apr 01, 2023 Initial ECG Impression Time: 21:51 Initial ECG Rate: 81 Initial ECG Rhythm: Normal Sinus Comment Narrow QRS, normal axis, no significant ST changes, T wave inversions in the high lateral leads Diagnostic Imaging Diagonstic Imaging: Xray (chest) Departure Impression Primary Impression: Chest pain Qualified Codes: R07.82 - Intercostal pain Additional Impressions: Hypertension Qualified Codes: I10 - Essential (primary) hypertension CAD (coronary artery disease) Qualified Codes: I25.118 - Atherosclerotic heart disease of [place] coronary artery with other forms of angina pectoris Volume overload Qualified Codes: E87.79 - Other fluid overload Disposition: 01 HOME, SELF-CARE Condition: Stable Departure-Patient Inst. Decision time for Depature: 23:10 Referrals: SABA GORMAN APRN (PCP) Primary Care Physician [facility] (Family) Primary Care Physician Patient Instructions: Chest Pain, Adult ED Add. Discharge Instructions: Your troponin here was negative. I suspect it was a high-sensitivity troponin that they myra the other facility which they typically are positive and then th ey follow-up to make sure that it is not raising more than 20%. We agree with her plan on increasing the torsemide as well as starting the doxycycline. The pain is likely due to the extra fluid you have in your lungs. We gave you an IV medicine to help get that fluid off as well. Follow-up with cardiology when able. If you need to see a sand filler sooner, you can call [place] or [facility] as well. Work/School Note: Family Work Note Patient Received Medical Care In the Emergency Department On: Apr 01, 2023 Patient Will Be Able to Return to Work/School On: Apr 02, 2023 GOLD SEGURA MD Apr 01, 2023 22:18
[2023-04-01 22:23] LABS: ANISOCYTOSIS SLIGHT; BAND NEUTROPHILS 6 %; EOSINOPHILS % (MANUAL) 18 %; LYMPHOCYTES % (MANUAL) 14 %; MONOCYTES % (MANUAL) 3 %; MYELOCYTES % 1 %; NEUTROPHILS % (MANUAL) 58 %; NUCLEATED RED BLOOD CELLS 1; PLATELET ESTIMATE NORMAL; POIKILOCYTOSIS SLIGHT; POLYCHROMASIA SLIGHT; RBC MORPH ABNORMAL
[2023-04-01 22:24] LABS: SCHISTOCYTES SLIGHT
[2023-04-01 22:26] LABS: INR 1.1 (0.8-1.4); PROTHROMBIN TIME PATIENT 14.2 SEC (12.2-14.7)
[2023-04-01 22:32] LABS: POTASSIUM 4.6 MMOL/L (3.6-5.0); SODIUM 139 MMOL/L (135-145)
[2023-04-01 22:34] LABS: CARBON DIOXIDE 30 MMOL/L (21-32); CHLORIDE 101 MMOL/L (98-107)
[2023-04-01 22:35] LABS: BUN/CREATININE RATIO 31; CALCIUM 9.4 MG/DL (8.5-10.1); CREATININE SERUM 1.18 MG/DL (0.60-1.30); GFR ESTIMATED 49; GLUCOSE 198 MG/DL (70-105)
[2023-04-01 22:37] LABS: ALANINE AMINOTRANSFERASE 10 U/L (0-55); ALKALINE PHOSPHATASE 96 U/L (40-136); BILIRUBIN,TOTAL 0.3 MG/DL (0.1-1.0)
[2023-04-01 22:38] LABS: ALBUMIN 3.6 GM/DL (3.2-4.5); LIPASE 51 U/L (8-78); TOTAL PROTEIN 7.5 GM/DL (6.4-8.2)
[2023-04-01] MEDS ORDERED: ESCI-2 PO (22:42)
[2023-04-01] MEDS ORDERED: LOSA25TA41 PO (22:42)
[2023-04-01] MEDS ORDERED: ESTR42.511 VG (22:42)
[2023-04-01] MEDS ORDERED: hydrALAZINE (APESOLINE) 20 MG/ML VIAL IV ONE (22:45)
[2023-04-01] MEDS ORDERED: FUROSEMIDE 40 MG/4 ML INJ (LASIX) IVP ONE (23:00)
[2023-04-01 23:45] VITALS: BP 151/59
--- NOTE | 2023-04-02 07:48 | Diagnostic Imaging Report ---
INDICATION: Chest pain Portable chest 9:50 PM Heart size and pulmonary vascularity are normal. Lungs are clear. There are no effusions or pneumothoraces. IMPRESSION: No acute abnormalities in the chest. Dictated by: Dictated on workstation # [id number]
== END 2023-04-01 23:45 | disposition home or self-care (01) ==
LOC: EDUNIT# 21:41 → ER FS 21:43
DX: I25.10 Atherosclerotic heart disease of native coronary artery without angina pectoris (principal); E87.79 Other fluid overload; I11.0 Hypertensive heart disease with heart failure; I50.9 Heart failure, unspecified; E11.9 Type 2 diabetes mellitus without complications; E11.40 Type 2 diabetes mellitus with diabetic neuropathy, unspecified; D72.829 Elevated white blood cell count, unspecified; Z99.81 Dependence on supplemental oxygen; Z79.4 Long term (current) use of insulin
CPT/HCPCS: 36415; 71045; 80053; 83690; 83735; 83880; 84484; 85007; 85027; 85610; 85730; 93005; 93041